=== PATIENT | female | born 1935 | race African-American/Black ===

== ENCOUNTER 2017-02-11 18:31 | Inpatient (IN) | payer MEDICARE ==
[~2017-02-11] VITALS: Ht 162.6 cm; Wt 49.9 kg
[2017-02-11] MEDS ORDERED: UNOBMED (18:55)
[2017-02-11] MEDS ORDERED: Bacitracin Oint UD TOPIC ONE (19:00)
[2017-02-11 19:05] VITALS: BP 143/78
--- NOTE | 2017-02-11 19:32 | Emergency Room Report ---
History of Present Illness General Chief Complaint: General Complaint Source: Patient Present Illness HPI Patient presents with worsening edema of her legs and also possible infection of her toes of. This has been going on for several days. It's worsened over the last 48 hours with some redness of the left leg. She denies any calf tenderness. The pain radiates to her upper leg and down to her foot. Both legs are swollen, however the L is worse. Pain reported 4/10 (daughter states minimizes symptoms). She is having difficulty walking due to the swelling and pain. She denies ever having this problem before. Denies chest pain cough, hemoptysis, fevers. She reports chills and lack of appetite. H/O HTN and cardiac disease, though denies CHF. Apparently, some concern over her ability to live by self. Allergies: Coded Allergies: No Known Allergies (Unverified , 02/11/17) Patient History Past Medical History: see triage record Social History: Denies: smoking Social History Narrative at home by self Reviewed Nursing Documentation: PMH: Agreed, PSxH: Agreed Nursing Documentation-PMH Past Medical History: No History, Except For Hx Hypertension: Yes Review of Systems All Other Systems: negative except mentioned in HPI Physical Exam Vital Signs Date Time Temp Pulse Resp B/P (MAP) Pulse Ox O2 Delivery O2 Flow Rate FiO2 02/11/17 18:35 98.1 105 18 154/87 98 Room Air Sp02 EP Interpretation: reviewed, normal General Appearance: no apparent distress, GCS 15, thin, other - frail Head: normocephalic Eyes: bilateral eye normal inspection, bilateral eye PERRL ENT: moist mucus membranes Neck: supple Respiratory: lungs clear, normal breath sounds Cardiovascular #1: regular rate, rhythm Cardiovascular #2: 2+ radial (R) Gastrointestinal: normal inspection, normal bowel sounds, non tender, no mass, non-distended Musculoskeletal: back normal, gait/station normal, normal range of motion, pelvis stable, calf tenderness, Sona's Sign negative Neurologic: alert, oriented x3, grossly normal Psychiatric: depressed affect Skin: warm/dry Medical Decision Making Diagnostic Impression: Primary Impression: Cellulitis Qualified Codes: L03.116 - Cellulitis of left lower limb Additional Impressions: Edema Qualified Codes: R60.9 - Edema, unspecified Declining functional status ER Course Patient presents with edema and erythema of leg. DDx: DVT, cellulitis, CHF, renal failure, malnutrition amongst others. Evaluation with EKG, CXR, xrays of tib fib and foot. Labs also obtained. Patient initially declines pain medicines. EKG below. CXR senile changes. Extrem films without osteo or fx. Labs with normal WBC, and cardiac function. Slightly high sodium and creat. IV antibiotics and some hydration initiated. Patient treated for pain. Some functional decline and concern over ability to care for self to take care of this problem. Laboratory Tests Test 02/11/17 19:25 White Blood Count 5.1 K/UL (4.8-10.8) Red Blood Count 3.61 M/UL (4.20-5.40) L Hemoglobin 12.0 G/DL (12.0-16.0) Hematocrit 34.4 % (37.0-47.0) L Mean Corpuscular Volume 95 FL (80-99) Mean Corpuscular Hemoglobin 33.2 PG (27.0-31.0) H Mean Corpuscular Hemoglobin Concent 34.9 G/DL (32.0-36.0) Red Cell Distribution Width 12.6 % (11.6-14.8) Platelet Count 190 K/UL (150-450) Mean Platelet Volume 7.8 FL (6.5-10.1) Neutrophils (%) (Auto) 72.9 % (45.0-75.0) Lymphocytes (%) (Auto) 19.6 % (20.0-45.0) L Monocytes (%) (Auto) 5.5 % (1.0-10.0) Eosinophils (%) (Auto) 1.0 % (0.0-3.0) Basophils (%) (Auto) 1.0 % (0.0-2.0) Erythrocyte Sedimentation Rate 32 MM/HR (0-42) Prothrombin Time 10.0 SEC (9.30-11.50) Prothrombin Time INR 1.0 (0.9-1.1) PTT 23 SEC (23-33) Sodium Level 147 mEQ/L (135-145) H Potassium Level 4.0 mEQ/L (3.4-4.9) Chloride Level 109 mEQ/L (98-107) H Carbon Dioxide Level 26 mEQ/L (20-30) Anion Gap 12 (5-15) Blood Urea Nitrogen 19 mg/dL (7-23) Creatinine 1.1 mg/dL (0.5-0.9) H Estimate Glomerular Filtration Rate mL/min (>60) Glucose Level 108 mg/dL (74-106) H Lactic Acid Level 1.70 mmol/L (0.66-2.22) Calcium Level 10.4 mg/dL (8.6-10.2) H Total Bilirubin 0.5 mg/dL (0.0-1.2) Aspartate Amino Transferase (AST) 19 U/L (5-40) Alanine Aminotransferase (ALT) 8 U/L (3-33) Alkaline Phosphatase 55 U/L (35-104) Total Creatine Kinase 58 U/L (26-140) Troponin I < 0.30 ng/mL (<=0.30) Pro-B-Type Natriuretic Peptide 520 pg/mL (0-450) H Total Protein 7.1 g/dL (6.6-8.7) Albumin 3.9 g/dL (3.5-5.2) Globulin 3.2 g/dL Albumin/Globulin Ratio 1.2 (1.0-2.7) EKG Diagnostic Results Rate: tachycardiac ST Segments: no acute changes Rhythm Strip Diag. Results Rhythm: NSR, no PVC's, no ectopy, other - Sinus tachycardia Chest X-Ray Diagnostic Results Chest X-Ray Diagnostic Results : Chest X-Ray Ordered: Yes # of Views/Limited/Complete: 1 View Indication: Other EP Interpretation: Yes Interpretation: no consolidation, no effusion, no pneumothorax, no acute cardiopulmonary disease Impression: No acute disease Interpreting ER Provider: Electronically signed by Vince Blanchard MD Other X-Ray Diagnostic Results Other X-Ray Diagnostic Results #1: X-Ray ordered: L foot # of Views/Limited Vs Complete: 3 View Indication: Other Interpretation: no dislocation, no soft tissue swelling, no fractures Impression: No acute disease Interpreting ER Provider: Electronically signed by Vince Blanchard MD Other X-Ray Diagnostic Results #2: X-Ray ordered: L tib fib # of Views/Limited Vs Complete: 2 View Indication: Other Interpretation: no dislocation, no soft tissue swelling, no fractures Impression: No acute disease Interpreting ER Provider: signed Vince Blanchard MD CT/MRI/US Diagnostic Results CT/MRI/US Diagnostic Results : Imaging Test Ordered: U/S LE Impression No DVT Status: improved Disposition: ADMITTED INPATIENT Condition: Serious Vince Blanchard M.D. Feb 11, 2017 19:32
[2017-02-11 19:48] LABS: LYMPHOCYTES % (AUTO) 19.6 % (20.0-45.0); MEAN CORPUSCULAR HEMOGLOBIN 33.2 PG (27.0-31.0); MEAN CORPUSCULAR HGB CONC 34.9 G/DL (32.0-36.0); MEAN CORPUSCULAR VOLUME 95 FL (80-99); MEAN PLATELET VOLUME 7.8 FL (6.5-10.1); MONOCYTES % (AUTO) 5.5 % (1.0-10.0); NEUTROPHILS % (AUTO) 72.9 % (45.0-75.0); PLATELET COUNT 190 K/UL (150-450); RED BLOOD COUNT 3.61 M/UL (4.20-5.40); RED CELL DISTRIBUTION WIDTH 12.6 % (11.6-14.8); WHITE BLOOD COUNT 5.1 K/UL (4.8-10.8)
[2017-02-11 19:57] LABS: TROPONIN I < 0.30 ng/mL (<=0.30)
[2017-02-11 20:00] LABS: ALANINE AMINOTRANSFERASE 8 U/L (3-33); ALBUMIN/GLOBULIN RATIO 1.2 (1.0-2.7); ANION GAP 12 (5-15); ASPARTATE AMINO TRANSFERASE 19 U/L (5-40); CALCIUM 10.4 mg/dL (8.6-10.2); CARBON DIOXIDE 26 mEQ/L (20-30); CHLORIDE 109 mEQ/L (98-107); CREATININE 1.1 mg/dL (0.5-0.9); HEMOLYSIS 13; SODIUM 147 mEQ/L (135-145); TOTAL PROTEIN 7.1 g/dL (6.6-8.7)
[2017-02-11 20:54] LABS: ERYTHROCYTE SEDIMENTATION RATE 32 MM/HR (0-42)
[2017-02-11] MEDS ORDERED: cefTRIAXone 1 GM in NS 55 ML IVPB ONE (22:00)
[2017-02-11 23:07] VITALS: BP 146/79
[2017-02-12] VITALS (8 sets, daily range): BP systolic 123–177; BP diastolic 72–118
[2017-02-12] MEDS ORDERED: Morphine Sulfate 2mg/ml Inj IVP PRN (00:30)
[2017-02-12] MEDS ORDERED: Nitroglycerin Subl 0.4mg tab (Bottle Of 25) SL PRN (00:30)
[2017-02-12] MEDS ORDERED: DuoNeb 0.5-3(2.5)mg/3ml neb HHN PRN (00:30)
[2017-02-12] MEDS ORDERED: Miralax 17gm pkt ORAL PRN (00:30)
[2017-02-12] MEDS ORDERED: Cefepime HCl 2 GM in D5W 110 ML IV SCH (09:00)
[2017-02-12] MEDS: Heparin 5000 units/ml inj SUBQ SCH ×2 (09:25→22:44)
--- NOTE | 2017-02-12 11:26 | Diagnostic Imaging Report ---
Indication: Pain Comparison: None Findings: 3 views of the left foot were obtained. No acute fractures, malalignment, erosions or periostitis are identified. Hallux valgus noted. Bone mineralization is within normal limits. Tissue swelling is present. Impression: No acute findings
--- NOTE | 2017-02-12 12:05 | Diagnostic Imaging Report ---
Indication: Dyspnea Comparison: None A single view chest radiograph was obtained. Findings: No definite infiltrate or pulmonary vascular congestion identified. The heart is enlarged. The aorta is mildly enlarged consistent with atherosclerotic vascular disease. The bones are osteopenic. Impression: No acute disease
--- NOTE | 2017-02-12 12:18 | Diagnostic Imaging Report ---
Indication: Pain Comparison: None Findings: Two views of the left tibia and fibula were obtained. No acute fracture definitely identified. The bones are osteopenic. There is soft tissue swelling present. There is a transverse lucency in the proximal tibia. Please correlate clinically and obtain left knee series is warranted. This is questionable for fracture. Impression: Questionable fracture involving the proximal tibia. Suggest left knee series as warranted clinically. Findings were conveyed to the emergency room Department
--- NOTE | 2017-02-12 16:10 | History and Physical ---
History of Present Illness General Date patient seen: Feb 12, 2017 Reason for Hospitalization: General Complaint Present Illness HPI 81 year old female with hx of Dementia, brought in by paramedics, with CC of worsening edema of her legs and also possible infection of her toes for several days. It's worsened over the last 48 hours with some redness of the left leg. She denies any calf tenderness. She was diagnosed to have acute cellulitis and admitted for further evaluation. Allergies: Coded Allergies: No Known Allergies (Unverified , 02/11/17) Medication History Miscellaneous Medications Unable to Obtain Medications (Unable To Obtain Meds), (Reported) Patient History Healthcare decision maker Resuscitation status Full Code Advanced Directive on File Past Medical/Surgical History Past Medical/Surgical History: (1) Isolation (social) (2) Alzheimer's dementia Review of Systems All Other Systems: negative except mentioned in HPI Physical Exam General Appearance: cachetic Lines, tubes and drains: peripheral Neck: non-tender, normal alignment Respiratory/Chest: chest wall non-tender, lungs clear Breasts: no masses Cardiovascular/Chest: normal peripheral pulses, normal rate Abdomen: normal bowel sounds, soft Genitourinary/Rectal: normal genital exam, normal rectal exam Extremities: normal range of motion, non-tender Last 24 Hour Vital Signs Date Time Temp Pulse Resp B/P (MAP) Pulse Ox O2 Delivery O2 Flow Rate FiO2 02/12/17 12:23 163/97 02/12/17 12:00 97.2 98 20 176/114 100 Room Air 02/12/17 10:30 98 151/101 02/12/17 09:00 161/99 91 02/12/17 08:04 58 18 Room Air 02/12/17 08:00 97.7 93 20 177/118 96 Room Air 02/12/17 04:03 97.7 81 20 138/88 96 Room Air 02/12/17 00:28 70 18 Room Air 02/12/17 00:05 98.1 76 18 137/72 98 Room Air 02/12/17 00:04 98.1 76 18 137/72 98 Room Air 02/11/17 23:07 98.1 72 18 146/79 98 Room Air 02/11/17 19:05 98.1 72 18 143/78 98 Room Air 02/11/17 18:35 98.1 105 18 154/87 98 Room Air Laboratory Tests Test 02/11/17 19:25 White Blood Count 5.1 K/UL (4.8-10.8) Red Blood Count 3.61 M/UL (4.20-5.40) L Hemoglobin 12.0 G/DL (12.0-16.0) Hematocrit 34.4 % (37.0-47.0) L Mean Corpuscular Volume 95 FL (80-99) Mean Corpuscular Hemoglobin 33.2 PG (27.0-31.0) H Mean Corpuscular Hemoglobin Concent 34.9 G/DL (32.0-36.0) Red Cell Distribution Width 12.6 % (11.6-14.8) Platelet Count 190 K/UL (150-450) Mean Platelet Volume 7.8 FL (6.5-10.1) Neutrophils (%) (Auto) 72.9 % (45.0-75.0) Lymphocytes (%) (Auto) 19.6 % (20.0-45.0) L Monocytes (%) (Auto) 5.5 % (1.0-10.0) Eosinophils (%) (Auto) 1.0 % (0.0-3.0) Basophils (%) (Auto) 1.0 % (0.0-2.0) Erythrocyte Sedimentation Rate 32 MM/HR (0-42) Prothrombin Time 10.0 SEC (9.30-11.50) Prothromb Time International Ratio 1.0 (0.9-1.1) Activated Partial Thromboplast Time 23 SEC (23-33) Sodium Level 147 mEQ/L (135-145) H Potassium Level 4.0 mEQ/L (3.4-4.9) Chloride Level 109 mEQ/L (98-107) H Carbon Dioxide Level 26 mEQ/L (20-30) Anion Gap 12 (5-15) Blood Urea Nitrogen 19 mg/dL (7-23) Creatinine 1.1 mg/dL (0.5-0.9) H Estimat Glomerular Filtration Rate mL/min (>60) Glucose Level 108 mg/dL (74-106) H Lactic Acid Level 1.70 mmol/L (0.66-2.22) Calcium Level 10.4 mg/dL (8.6-10.2) H Total Bilirubin 0.5 mg/dL (0.0-1.2) Aspartate Amino Transf (AST/SGOT) 19 U/L (5-40) Alanine Aminotransferase (ALT/SGPT) 8 U/L (3-33) Alkaline Phosphatase 55 U/L (35-104) Total Creatine Kinase 58 U/L (26-140) Troponin I < 0.30 ng/mL (<=0.30) Pro-B-Type Natriuretic Peptide 520 pg/mL (0-450) H Total Protein 7.1 g/dL (6.6-8.7) Albumin 3.9 g/dL (3.5-5.2) Globulin 3.2 g/dL Albumin/Globulin Ratio 1.2 (1.0-2.7) Height (Feet): 5 Height (Inches): 4.00 Weight (Pounds): 110 Medications Current Medications Medications (Trade) Dose Ordered Sig/Brayden Route PRN Reason Start Time Stop Time Status Last Admin Dose Admin Acetaminophen (Tylenol) 650 mg Q4H PRN ORAL fever 02/12/17 00:30 03/14/17 00:29 Albuterol/ Ipratropium (DuoNeb 0.5-3(2.5)mg/3ml) 3 ml EVERY 4 HOURS PRN HHN Shortness of Breath 02/12/17 00:30 02/17/17 00:29 Cefepime HCl 2 gm/ Dextrose 110 ml @ 220 mls/hr EVERY 12 HOURS IV 02/12/17 09:00 02/19/17 08:59 02/12/17 09:21 Clonidine HCl (Catapres) 0.1 mg Q4H PRN ORAL SBP > 160mmHg 02/12/17 10:15 03/14/17 10:14 02/12/17 12:23 Dextrose (Dextrose 50%) STAT PRN IV Hypoglycemia 02/12/17 00:30 03/14/17 00:29 Heparin Sodium (Porcine) (Heparin 5000 units/ml) 5,000 units EVERY 12 HOURS SUBQ 02/12/17 09:00 03/14/17 08:59 02/12/17 09:25 Morphine Sulfate (Morphine Sulfate) 2 mg EVERY 4 HOURS PRN IVP Moderate Pain (Pain Scale 4-6) 02/12/17 00:30 02/19/17 00:29 Nitroglycerin (Ntg) 0.4 mg PRN PRN SL Prn Chest Pain 02/12/17 00:30 03/14/17 00:29 Ondansetron HCl (Zofran) 4 mg Q6H PRN IVP Nausea & Vomiting 02/12/17 00:30 03/14/17 00:29 Polyethylene Glycol (Miralax) 17 gm DAILYPRN PRN ORAL Constipation 02/12/17 00:30 03/14/17 00:29 Temazepam (Restoril) 15 mg HSPRN PRN ORAL Insomnia 02/12/17 00:30 02/19/17 00:29 Vancomycin HCl 1 gm/Dextrose 275 ml @ 183.3 mls/ hr Q24H IV 02/13/17 00:30 02/18/17 00:29 Assessment/Plan Problem List: (1) Cellulitis ICD Codes: L03.90 - Cellulitis, unspecified SNOMED: 646829658 (2) Edema ICD Codes: R60.9 - Edema, unspecified SNOMED: 065792899, 513359865 (3) Protein-calorie malnutrition, severe ICD Codes: E43 - Unspecified severe protein-calorie malnutrition SNOMED: 899172444 (4) Isolation (social) ICD Codes: Z60.4 - Social exclusion and rejection SNOMED: 165969660 (5) Alzheimer's dementia ICD Codes: G30.9 - Alzheimer's disease, unspecified SNOMED: 60385418 Assessment/Plan iv abx check cultures social service consult pt/ot calorie count LILI GRANADOS Feb 12, 2017 16:10
[2017-02-12] MEDS ORDERED: Vancomycin 1gm/D5W 275ml IVPB ONE ×2 (17:00)
[2017-02-13] VITALS: BP 128/87
--- NOTE | 2017-02-13 00:15 | Consultation ---
DATE OF CONSULTATION: 02/12/2017 INFECTIOUS DISEASE CONSULTATION CONSULTING PHYSICIAN: Arnaldo Corona M.D. covering for Uriah Roman M.D. REQUESTING PHYSICIAN: Bharathi Ugalde M.D. REASON FOR CONSULTATION: Possible lower extremity cellulitis. HISTORY OF PRESENT ILLNESS: This is an 81-year-old -[place] female presented to the emergency room late last night with worsening bilateral lower extremity edema and concern for infection of her toes. The patient notes that lower extremity edema has been present for several days. It worsens over the last 48 hours with some redness of the left leg. She denied any fevers or chills. No nausea, vomiting, diarrhea, abdominal pain, lethargy, dizziness, anorexia or inability to tolerate p.o. She denied any particular calf tenderness. She denies any water exposure. 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 She denies any prior history of lower extremity infection. She reports a past medical history notable for remote history of total abdominal hysterectomy. In the emergency room, initial temperature was afebrile at 98.1 Fahrenheit and she was noted to be hypertensive without tachycardia and appeared comfortable saturating on room air. Initial evaluation notable for an absence of leukocytosis with a white count of 5.1 and her chemistry notable for a mildly elevated serum creatinine of 1.1 without a prior for comparison. A mildly elevated calcium at 10.4, normal albumin at 3.9, and elevated proBNP at 520 picograms/milliliter were given for age, less than 450 would be considered normal. She was empirically given a dose of ceftriaxone and levofloxacin and then subsequently switched to vancomycin and cefepime, which she has been receiving overnight. She had a chest x-ray that was negative for an infiltrate or effusion. She had bilateral lower extremity Dopplers, which was negative for deep venous thrombosis. She had an x-ray of her left foot that showed some tissue swelling diffusely, but no fractures or misalignments. No erosions or periostitis. She does have a hallux valgus deformity. She subsequently had a left tibia fibula x-ray. There was a concern for a possible transverse lucency in the proximal tibia and Radiology recommended considering a left knee x-ray. PAST MEDICAL HISTORY: History of total abdominal hysterectomy, probable history of mild to moderate Alzheimer's dementia, and a probable history of hypertension. MEDICATIONS: Home medications are not known. The patient reports possibly taking Aleve as needed for osteoarthritis pain. ALLERGIES: No known drug allergies. FAMILY HISTORY: Noncontributory. 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 She lives at home by herself locally. No sick contacts. REVIEW OF SYSTEMS: Eleven-point review of systems otherwise negative other than what was described in the history of present illness. PHYSICAL EXAMINATION: VITAL SIGNS: Again, she has been afebrile since admission late last night. Current temperature 97.3 Fahrenheit, pulse 91, blood pressure 149/92, respiratory rate 20, and saturating 98% on room air. GENERAL: She is awake, alert, and oriented x3, but tangential thought, difficulty answering detail questions, unable to described when or if she has ever been on antibiotics or had a prior history of infection. HEENT: Oral mucosa is somewhat dry. No oropharyngeal injection. No exudate. NECK: She has no cervical lymphadenopathy and her neck is supple. CARDIOVASCULAR: She has a loud 4/6 systolic ejection murmur heard best at the left upper sternal border and does not radiate to the carotid. She does not have any carotid bruits. LUNGS: Clear to auscultation bilaterally. ABDOMEN: Soft, flat, and nontender. No hepatosplenomegaly noted. She has no inguinal lymphadenopathy. EXTREMITIES: She has trace right-sided lower extremity edema up to the level of mid calf. Her left lower extremity, she has trace pitting edema all the way up to the knee and you could see indentation mc from where the sheets and blankets have been laying on her leg. She has macerations between her toes with a somewhat foul smell consistent with Tinea pedis and then she also has a very severe onychomycosis, but otherwise she does not have any skin breaks and there was really no significant erythema which apparently has resolved with elevation of her lower extremities. LABORATORY DATA: White count 5.1, hemoglobin 12, and platelets 190,000. She does not have a left shift and ESR corrects for normal based on her age at 32 millimeters/hour. Chemistry panel, sodium 147, potassium 4, chloride 109, and bicarb 26. There is no anion gap. BUN 19, creatinine 1.1. She has a glucose of 108. Normal serum lactic acid. A calcium of 10.4, which is mildly elevated. Bilirubin is 0.5. AST is 19, ALT 8, and alkaline phosphatase is 55. She has normal creatine kinase of 58. A negative troponin I. She has a proBNP that is 520. Total protein 7.1. Albumin of 3.9. She does not have a urinalysis pending. Blood cultures appeared to be ordered in the emergency room and are so far no growth to date. Imaging as described in the history of present illness. ASSESSMENT: This is an 81-year-old Gpslifn-Bymhnjzl-wvufuz with cjyq-de-nqmtflqi dementia admitted without fevers or leukocytosis for what appears to be lower extremity venous stasis that has responded to elevation in the rest of the extremities. She is also on empiric intravenous vancomycin and cefepime. She does also have bilateral feet tinea pedis and then she has severe onychomycosis of all of her toenails. She is not toxic in appearance. No systemic signs and symptoms of infection. Her ESR is very reassuring as is a normal white blood cell count. I think a skin and soft tissue infection here is unlikely but she is responding I think mostly at rest and elevation, but she has been on antibiotics. We would continue them at this time, but will narrow them them as it does not appear that she is a diabetic. I think it would be worthwhile to rule her out for some degree of proteinuria given her apparently fairly uncontrolled hypertension. She may be at risk of proteinuria as an alternate explanation for lower extremity edema other than what appears to be mild venous stasis exacerbated by the recent heat. 1. Lower extremity edema. 2. Venous stasis. 3. Bilateral tinea pedis. 4. Severe onychomycosis of the toenails. 5. Rule out alternative etiology of lower extremity edema to include proteinuria. 6. Rule out diabetes although she does not give a history. 7. Rule out left proximal tibia fracture although her exam does not suggest it. PLAN: 1. Discontinue cefepime. 2. Continue empiric intravenous vancomycin currently on day #1 of therapy. 3. Followup of blood cultures. 4. Obtain hemoglobin A1c. 5. Rule out for MRSA colonization with MRSA culture of the nares. 6. Obtain urinalysis to rule out proteinuria along with a spot protein/creatinine ratio. 7. Left knee three view x-ray to rule out low likelihood of proximal tibia fracture. 8. Continue rest and elevation of the lower extremities as you are doing. 9. We will start her on topical Cotrimoxazole for tinea pedis. Thank you this consultation. Covering for Dr. Uriah Roman. Arnaldo Corona MD DR: LONNIE JOB#: [id number] CC:
[2017-02-13] MEDS ORDERED: Vancomycin 1 GM in D5W 275 ML IV SCH (00:30)
[2017-02-13 01:43] LABS: APPEARANCE,URINE CLEAR; KETONES,URINE NEGATIVE (NEGATIVE); LEUKOCYTE ESTERASE ,URINE NEGATIVE (NEGATIVE); NITRITE,URINE NEGATIVE (NEGATIVE); PH,URINE 8 (4.5-8.0); PROTEIN,URINE NEGATIVE (NEGATIVE); UROBILINOGEN,URINE NORMAL MG/DL (0.0-1.0)
[2017-02-13 04:00] VITALS: BP 138/90
[2017-02-13 07:40] LABS: BASOPHILS % (AUTO) 0.5 % (0.0-2.0); EOSINOPHILS % (AUTO) 5.4 % (0.0-3.0); LYMPHOCYTES % (AUTO) 25.9 % (20.0-45.0); MEAN CORPUSCULAR HEMOGLOBIN 32.3 PG (27.0-31.0); MEAN CORPUSCULAR HGB CONC 33.5 G/DL (32.0-36.0); MEAN CORPUSCULAR VOLUME 96 FL (80-99); MEAN PLATELET VOLUME 8.8 FL (6.5-10.1); MONOCYTES % (AUTO) 6.8 % (1.0-10.0); NEUTROPHILS % (AUTO) 61.4 % (45.0-75.0); PLATELET COUNT 193 K/UL (150-450); RED BLOOD COUNT 3.52 M/UL (4.20-5.40); RED CELL DISTRIBUTION WIDTH 12.3 % (11.6-14.8); WHITE BLOOD COUNT 4.2 K/UL (4.8-10.8)
[2017-02-13 07:56] LABS: ALANINE AMINOTRANSFERASE 7 U/L (3-33); ANION GAP 8 (5-15); ASPARTATE AMINO TRANSFERASE 15 U/L (5-40); CALCIUM 10.1 mg/dL (8.6-10.2); CARBON DIOXIDE 25 mEQ/L (20-30); CHLORIDE 105 mEQ/L (98-107); HEMOLYSIS 4; POTASSIUM 4.2 mEQ/L (3.4-4.9); SODIUM 138 mEQ/L (135-145); TOTAL PROTEIN 6.3 g/dL (6.6-8.7)
[2017-02-13 08:00] VITALS: BP 178/99
[2017-02-13] MEDS ORDERED: Cefepime HCl 2 GM in D5W 110 ML IV SCH (09:00)
[2017-02-13] MEDS: Heparin 5000 units/ml inj SUBQ SCH ×2 (09:43→20:20)
--- NOTE | 2017-02-13 10:16 | Diagnostic Imaging Report ---
Indication: FALL, pain Technique: 3 views of the left knee Comparison: None Findings:There is mottled sclerosis of the distal femur and proximal tibia, particularly involving the epiphyses. Similar sclerosis also involves the patella. There is questionable more diffuse medullary sclerosis of the tibia and fibula. No evidence of acute fracture. No dislocations. The joint spaces are preserved. There are small medial and lateral osteophytes. There is a inferior pole patellar spur Impression:No acute bony trauma Unusual mottled sclerosis of the distal femur, proximal tibia, and patella. Significance/etiology uncertain, could indicate some sort of metabolic bone disorder. Correlate with clinical and laboratory findings Findings discussed by phone with Dr. Han in the emergency room at the time of interpretation
[2017-02-13 12:00] VITALS: BP 182/100
[2017-02-13 16:00] VITALS: BP 185/110
--- NOTE | 2017-02-13 16:24 | Pulmonology Progress Note ---
Assessment/Plan Problems: (1) Cellulitis (2) Edema (3) Protein-calorie malnutrition, severe (4) Isolation (social) (5) Alzheimer's dementia Assessment/Plan improving d/w daughter about placement f/u by Id pt/ ot Subjective ROS Limited/Unobtainable: No Interval Events: feeling better Allergies: Coded Allergies: No Known Allergies (Unverified , 02/11/17) Objective Last 24 Hour Vital Signs Date Time Temp Pulse Resp B/P (MAP) Pulse Ox O2 Delivery O2 Flow Rate FiO2 02/13/17 16:00 98.2 89 20 185/110 100 Room Air 02/13/17 12:00 97.3 83 20 182/100 99 Room Air 02/13/17 11:01 98.4 02/13/17 08:00 98.4 81 20 178/99 99 Room Air 02/13/17 06:48 68 18 Room Air 02/13/17 04:00 98.8 81 18 138/90 97 Room Air 02/13/17 00:00 99.0 86 18 128/87 99 Room Air 02/12/17 20:00 99.0 86 18 123/76 99 Room Air 02/12/17 19:49 64 18 Room Air General Appearance: no acute distress, cachetic HEENT: normocephalic, PERRL Respiratory/Chest: chest wall non-tender, normal breath sounds Breasts: no masses Cardiovascular: normal peripheral pulses Abdomen: normal bowel sounds, soft, non tender Genitourinary: normal external genitalia Extremities: no clubbing Skin: no rash, no lesions Microbiology Date/Time Source Procedure Growth Status 02/11/17 19:25 Blood Blood Culture - Preliminary NO GROWTH AFTER 24 HOURS Resulted 02/11/17 19:10 Blood Blood Culture - Preliminary NO GROWTH AFTER 24 HOURS Resulted Laboratory Tests 02/12/17 19:25: Hemoglobin A1c 5.1 02/13/17 00:45: Urine Color Pale yellow, Urine Appearance Clear, Urine pH 8, Urine Specific [place] 1.010, Urine Protein Negative, Urine Glucose (UA) Negative, Urine Ketones Negative, Urine Occult Blood Negative, Urine Nitrite Negative, Urine Bilirubin Negative, Urine Urobilinogen Normal, Urine Leukocyte Esterase Negative , Urine Random Total Protein 8, Urine Creatinine 54.0 02/13/17 06:45: White Blood Count 4.2L, Red Blood Count 3.52L, Hemoglobin 11.3L, Hematocrit 33.8L, Mean Corpuscular Volume 96, Mean Corpuscular Hemoglobin 32.3H, Mean Corpuscular Hemoglobin Concent 33.5, Red Cell Distribution Width 12.3, Platelet Count 193, Mean Platelet Volume 8.8, Neutrophils (%) (Auto) 61.4, Lymphocytes (% ) (Auto) 25.9, Monocytes (%) (Auto) 6.8, Eosinophils (%) (Auto) 5.4H, Basophils (%) (Auto) 0.5, Sodium Level 138, Potassium Level 4.2, Chloride Level 105, Carbon Dioxide Level 25, Anion Gap 8, Blood Urea Nitrogen 15, Creatinine 1.0H, Estimat Glomerular Filtration Rate , Glucose Level 92, Calcium Level 10.1, Total Bilirubin 0.5, Aspartate Amino Transf (AST/SGOT) 15, Alanine Aminotransferase (ALT/SGPT) 7, Alkaline Phosphatase 49, Total Protein 6.3L, Albumin 3.2L, Globulin 3.1, Albumin/Globulin Ratio 1.0 Current Medications Medications (Trade) Dose Ordered Sig/Brayden Route PRN Reason Start Time Stop Time Status Last Admin Dose Admin Acetaminophen (Tylenol) 650 mg Q4H PRN ORAL fever 02/12/17 00:30 03/14/17 00:29 02/13/17 09:41 Albuterol/ Ipratropium (DuoNeb 0.5-3(2.5)mg/3ml) 3 ml EVERY 4 HOURS PRN HHN Shortness of Breath 02/12/17 00:30 02/17/17 00:29 Clonidine HCl (Catapres) 0.1 mg Q4H PRN ORAL SBP > 160mmHg 02/12/17 10:15 03/14/17 10:14 02/12/17 12:23 Clotrimazole (Lotrimin) 1 applic THREE TIMES A DAY TOPIC 02/12/17 18:30 02/17/17 18:29 02/13/17 09:00 Dextrose (Dextrose 50%) STAT PRN IV Hypoglycemia 02/12/17 00:30 03/14/17 00:29 Heparin Sodium (Porcine) (Heparin 5000 units/ml) 5,000 units EVERY 12 HOURS SUBQ 02/12/17 09:00 03/14/17 08:59 02/13/17 09:43 Morphine Sulfate (Morphine Sulfate) 2 mg EVERY 4 HOURS PRN IVP Moderate Pain (Pain Scale 4-6) 02/12/17 00:30 02/19/17 00:29 Nitroglycerin (Ntg) 0.4 mg PRN PRN SL Prn Chest Pain 02/12/17 00:30 03/14/17 00:29 Ondansetron HCl (Zofran) 4 mg Q6H PRN IVP Nausea & Vomiting 02/12/17 00:30 03/14/17 00:29 Polyethylene Glycol (Miralax) 17 gm DAILYPRN PRN ORAL Constipation 02/12/17 00:30 03/14/17 00:29 Temazepam (Restoril) 15 mg HSPRN PRN ORAL Insomnia 02/12/17 00:30 02/19/17 00:29 Vancomycin HCl (Vanco rx to dose) 1 ea DAILY PRN MISC PER RX PROTOCOL 02/12/17 16:45 03/14/17 16:44 Vancomycin/Sodium Chloride 250 ml @ 166.667 mls/hr Q24H IVPB 02/13/17 17:00 02/18/17 16:59 LILI GRANADOS Feb 13, 2017 16:24
--- NOTE | 2017-02-13 16:28 | Cardiology Report ---
APPROVED REPORT EKG Measurement Heart [id number] Sinus tachycardia Possible Left atrial enlargement Right bundle branch block Abnormal ECG
[2017-02-13] MEDS ORDERED: CLOTRIMAZOLE15 GM TOPIC (16:41)
[2017-02-13] MEDS ORDERED: KEFLEX500 M1 ORAL (16:42)
--- NOTE | 2017-02-13 16:50 | Infectious Diseases Prog Note ---
Assessment/Plan Assessment/Plan 1. Lower extremity edema. 2. Venous stasis. 3. Bilateral tinea pedis. 4. Severe onychomycosis of the toenails. 5. non nephrotic range proteinuria: 148mg/d equivalent on spot prot/Cr ratio 6. not diabetic. hgba1c <6. 7. Ruled out L tibial plateau fracture. 8. blood cx ngtd at 48 hrs 9. afebrile, no leukocytosis. Alzheimer's PLAN: --d/c IV vanc D#2 (02/12 s/p cefepime D#1) --keflex 500mg po QID D#2 --Continue rest and elevation of the lower extremities as you are doing. --Continue topical Cotrimoxazole for tinea pedis D#07/17 --f/u with PCM for radiographic evidence of possible metabolic bone disease okay for discharge from ID perspective. covering for Dr. Roman. Subjective Constitutional: Reports: no symptoms Respiratory: Reports: no symptoms Cardiovascular: Reports: no symptoms Gastrointestinal/Abdominal: Reports: no symptoms Skin: Reports: no symptoms Hematologic: Reports: no symptoms Musculoskeletal: Reports: no symptoms Allergies: Coded Allergies: No Known Allergies (Unverified , 02/11/17) Objective Vital Signs Last 24 Hour Vital Signs Date Time Temp Pulse Resp B/P (MAP) Pulse Ox O2 Delivery O2 Flow Rate FiO2 02/13/17 16:00 98.2 89 20 185/110 100 Room Air 02/13/17 12:00 97.3 83 20 182/100 99 Room Air 02/13/17 11:01 98.4 02/13/17 08:00 98.4 81 20 178/99 99 Room Air 02/13/17 06:48 68 18 Room Air 02/13/17 04:00 98.8 81 18 138/90 97 Room Air 02/13/17 00:00 99.0 86 18 128/87 99 Room Air 02/12/17 20:00 99.0 86 18 123/76 99 Room Air 02/12/17 19:49 64 18 Room Air Height (Feet): 5 Height (Inches): 4.00 Weight (Pounds): 110 Objective GENERAL: She is awake, alert, and oriented x3, but tangential thought, difficulty answering detail questions, unable to described when or if she has ever been on antibiotics or had a prior history of infection. HEENT: Oral mucosa is somewhat dry. No oropharyngeal injection. No exudate. NECK: She has no cervical lymphadenopathy and her neck is supple. CARDIOVASCULAR: She has a loud 4/6 systolic ejection murmur heard best at the left upper sternal border and does not radiate to the carotid. She does not have any carotid bruits. LUNGS: Clear to auscultation bilaterally. ABDOMEN: Soft, flat, and nontender. No hepatosplenomegaly noted. She has no inguinal lymphadenopathy. EXTREMITIES: She has trace right-sided lower extremity edema up to the level of mid calf. Her left lower extremity, she has trace pitting edema all the way up to the knee and you could see indentation mc from where the sheets and blankets have been laying on her leg. She has macerations between her toes with a somewhat foul smell consistent with Tinea pedis and then she also has a very severe onychomycosis, but otherwise she does not have any skin breaks and there was really no significant erythema which apparently has resolved with elevation of her lower extremities. Microbiology Date/Time Source Procedure Growth Status 02/11/17 19:25 Blood Blood Culture - Preliminary NO GROWTH AFTER 24 HOURS Resulted 02/11/17 19:10 Blood Blood Culture - Preliminary NO GROWTH AFTER 24 HOURS Resulted Laboratory Tests Test 02/12/17 19:25 02/13/17 00:45 02/13/17 06:45 Hemoglobin A1c 5.1 % (< 6.0) Urine Color Pale yellow Urine Appearance Clear Urine pH 8 (4.5-8.0) Urine Specific [place] 1.010 (1.005-1.035) Urine Protein Negative (NEGATIVE) Urine Glucose (UA) Negative (NEGATIVE) Urine Ketones Negative (NEGATIVE) Urine Occult Blood Negative (NEGATIVE) Urine Nitrite Negative (NEGATIVE) Urine Bilirubin Negative (NEGATIVE) Urine Urobilinogen Normal MG/DL (0.0-1.0) Urine Leukocyte Esterase Negative (NEGATIVE) Urine Random Total Protein 8 mg/dL Urine Creatinine 54.0 mg/dL White Blood Count 4.2 K/UL (4.8-10.8) L Red Blood Count 3.52 M/UL (4.20-5.40) L Hemoglobin 11.3 G/DL (12.0-16.0) L Hematocrit 33.8 % (37.0-47.0) L Mean Corpuscular Volume 96 FL (80-99) Mean Corpuscular Hemoglobin 32.3 PG (27.0-31.0) H Mean Corpuscular Hemoglobin Concent 33.5 G/DL (32.0-36.0) Red Cell Distribution Width 12.3 % (11.6-14.8) Platelet Count 193 K/UL (150-450) Mean Platelet Volume 8.8 FL (6.5-10.1) Neutrophils (%) (Auto) 61.4 % (45.0-75.0) Lymphocytes (%) (Auto) 25.9 % (20.0-45.0) Monocytes (%) (Auto) 6.8 % (1.0-10.0) Eosinophils (%) (Auto) 5.4 % (0.0-3.0) H Basophils (%) (Auto) 0.5 % (0.0-2.0) Sodium Level 138 mEQ/L (135-145) Potassium Level 4.2 mEQ/L (3.4-4.9) Chloride Level 105 mEQ/L (98-107) Carbon Dioxide Level 25 mEQ/L (20-30) Anion Gap 8 (5-15) Blood Urea Nitrogen 15 mg/dL (7-23) Creatinine 1.0 mg/dL (0.5-0.9) H Estimat Glomerular Filtration Rate mL/min (>60) Glucose Level 92 mg/dL (74-106) Calcium Level 10.1 mg/dL (8.6-10.2) Total Bilirubin 0.5 mg/dL (0.0-1.2) Aspartate Amino Transf (AST/SGOT) 15 U/L (5-40) Alanine Aminotransferase (ALT/SGPT) 7 U/L (3-33) Alkaline Phosphatase 49 U/L (35-104) Total Protein 6.3 g/dL (6.6-8.7) L Albumin 3.2 g/dL (3.5-5.2) L Globulin 3.1 g/dL Albumin/Globulin Ratio 1.0 (1.0-2.7) Patient : SEN TOMLIN Delmi Referring Physician: Arnaldo Corona M.D. ID Number: [id number] Service Date: 02/13/17 : 1935 Report Date: 02/13/17 Gender: F Accession No.: [id number] Location: 4E Procedure: XRAY Knee 3v L Indication: FALL, pain Technique: 3 views of the left knee Comparison: None Findings:There is mottled sclerosis of the distal femur and proximal tibia, particularly involving the epiphyses. Similar sclerosis also involves the patella. There is questionable more diffuse medullary sclerosis of the tibia and fibula. No evidence of acute fracture. No dislocations. The joint spaces are preserved. There are small medial and lateral osteophytes. There is a inferior pole patellar spur Impression:No acute bony trauma Unusual mottled sclerosis of the distal femur, proximal tibia, and patella. Significance/etiology uncertain, could indicate some sort of metabolic bone disorder. Correlate with clinical and laboratory findings Current Medications Medications (Trade) Dose Ordered Sig/Brayden Route PRN Reason Start Time Stop Time Status Last Admin Dose Admin Acetaminophen (Tylenol) 650 mg Q4H PRN ORAL fever 02/12/17 00:30 03/14/17 00:29 02/13/17 09:41 Albuterol/ Ipratropium (DuoNeb 0.5-3(2.5)mg/3ml) 3 ml EVERY 4 HOURS PRN HHN Shortness of Breath 02/12/17 00:30 02/17/17 00:29 Cephalexin (Keflex) 500 mg FOUR TIMES A DAY ORAL 02/13/17 18:00 02/19/17 08:00 UNV Clonidine HCl (Catapres) 0.1 mg Q4H PRN ORAL SBP > 160mmHg 02/12/17 10:15 03/14/17 10:14 02/12/17 12:23 Clotrimazole (Lotrimin) 1 applic THREE TIMES A DAY TOPIC 02/12/17 18:30 02/17/17 18:29 02/13/17 09:00 Dextrose (Dextrose 50%) STAT PRN IV Hypoglycemia 02/12/17 00:30 03/14/17 00:29 Heparin Sodium (Porcine) (Heparin 5000 units/ml) 5,000 units EVERY 12 HOURS SUBQ 02/12/17 09:00 03/14/17 08:59 02/13/17 09:43 Morphine Sulfate (Morphine Sulfate) 2 mg EVERY 4 HOURS PRN IVP Moderate Pain (Pain Scale 4-6) 02/12/17 00:30 02/19/17 00:29 Nitroglycerin (Ntg) 0.4 mg PRN PRN SL Prn Chest Pain 02/12/17 00:30 03/14/17 00:29 Ondansetron HCl (Zofran) 4 mg Q6H PRN IVP Nausea & Vomiting 02/12/17 00:30 03/14/17 00:29 Polyethylene Glycol (Miralax) 17 gm DAILYPRN PRN ORAL Constipation 02/12/17 00:30 03/14/17 00:29 Temazepam (Restoril) 15 mg HSPRN PRN ORAL Insomnia 02/12/17 00:30 02/19/17 00:29 Arnaldo Corona M.D. Feb 13, 2017 16:50
[2017-02-13] MEDS ORDERED: Vancomycin 750mg/NS 250ml IVPB SCH (17:00)
[2017-02-13] MEDS: Cephalexin 500mg cap ORAL SCH ×2 (17:19→20:19)
[2017-02-13 20:00] VITALS: BP 117/70
[2017-02-14] VITALS: BP 141/77
[2017-02-14 04:00] VITALS: BP 138/72
[2017-02-14 08:13] VITALS: BP 141/85
[2017-02-14] MEDS: Cephalexin 500mg cap ORAL SCH ×5 (08:19→21:10)
[2017-02-14] MEDS: Heparin 5000 units/ml inj SUBQ SCH ×2 (08:21→21:11)
[2017-02-14 11:48] VITALS: BP 189/113
--- NOTE | 2017-02-14 14:50 | Diagnostic Imaging Report ---
APPROVED REPORT CPT Code: 99713 Present Symptoms Comments: Pain BILATERAL: Imaging reveals a patent deep venous system bilaterally. There is no evidence of thrombus within the femoral, popliteal or tibial segments. The greater saphenous veins are also within normal limits. Doppler indicates normal spontaneous flow within these segments.
[2017-02-14 15:45] VITALS: BP 139/88
[2017-02-14] MEDS ORDERED: LEXAPRO10 MG ORAL (16:16)
--- NOTE | 2017-02-14 16:18 | Pulmonology Progress Note ---
Assessment/Plan Problems: (1) Cellulitis (2) Edema (3) Protein-calorie malnutrition, severe (4) Isolation (social) (5) Alzheimer's dementia Assessment/Plan improving d/w daughter about placement f/u by Id pt/ ot dc to [email or web address] as requested by pts daughter Subjective ROS Limited/Unobtainable: No Constitutional: Reports: no symptoms HEENT: Repors: no symptoms Respiratory: Reports: no symptoms Allergies: Coded Allergies: No Known Allergies (Unverified , 02/11/17) Objective Last 24 Hour Vital Signs Date Time Temp Pulse Resp B/P (MAP) Pulse Ox O2 Delivery O2 Flow Rate FiO2 02/14/17 15:45 98.2 78 20 139/88 100 Room Air 02/14/17 11:48 98.0 102 20 189/113 100 Room Air 02/14/17 08:20 96 18 Room Air 02/14/17 08:13 98.4 96 20 141/85 96 Room Air 02/14/17 04:00 97.5 70 20 138/72 100 Room Air 02/14/17 00:00 97.5 73 20 141/77 100 Room Air 02/13/17 20:09 83 18 Room Air 02/13/17 20:00 99.0 84 18 117/70 100 Room Air Intake and Output 02/14/17 02/15/17 18:59 06:59 Intake Total 240 ml Balance 240 ml Intake Oral 240 ml # Bowel Movements 1 General Appearance: WD/WN HEENT: normocephalic, atraumatic Respiratory/Chest: chest wall non-tender, lungs clear Breasts: no masses Cardiovascular: normal peripheral pulses, normal rate Abdomen: normal bowel sounds, soft, non tender Genitourinary: normal external genitalia Extremities: no cyanosis Skin: no rash Neurologic/Psychiatric: no motor/sensory deficits Lymphatic: no neck adenopathy Musculoskeletal: normal muscle bulk Microbiology Date/Time Source Procedure Growth Status 02/11/17 19:25 Blood Blood Culture - Preliminary NO GROWTH AFTER 48 HOURS Resulted 02/11/17 19:10 Blood Blood Culture - Preliminary NO GROWTH AFTER 48 HOURS Resulted 02/12/17 19:22 Nasal Nares MRSA Culture - Final NO METHICILLIN RESISTANT STAPH AUREUS... Complete Current Medications Medications (Trade) Dose Ordered Sig/Brayden Route PRN Reason Start Time Stop Time Status Last Admin Dose Admin Acetaminophen (Tylenol) 650 mg Q4H PRN ORAL fever 02/12/17 00:30 03/14/17 00:29 02/13/17 09:41 Albuterol/ Ipratropium (DuoNeb 0.5-3(2.5)mg/3ml) 3 ml EVERY 4 HOURS PRN HHN Shortness of Breath 02/12/17 00:30 02/17/17 00:29 Cephalexin (Keflex) 500 mg FOUR TIMES A DAY ORAL 02/13/17 18:00 02/19/17 08:00 02/14/17 08:19 Clonidine HCl (Catapres) 0.1 mg Q4H PRN ORAL SBP > 160mmHg 02/12/17 10:15 03/14/17 10:14 02/12/17 12:23 Clotrimazole (Lotrimin) 1 applic THREE TIMES A DAY TOPIC 02/12/17 18:30 02/17/17 18:29 02/14/17 11:47 Dextrose (Dextrose 50%) STAT PRN IV Hypoglycemia 02/12/17 00:30 03/14/17 00:29 Escitalopram Oxalate (Lexapro) 10 mg DAILY ORAL 02/14/17 11:00 03/16/17 10:59 02/14/17 11:16 Heparin Sodium (Porcine) (Heparin 5000 units/ml) 5,000 units EVERY 12 HOURS SUBQ 02/12/17 09:00 03/14/17 08:59 02/14/17 08:21 Morphine Sulfate (Morphine Sulfate) 2 mg EVERY 4 HOURS PRN IVP Moderate Pain (Pain Scale 4-6) 02/12/17 00:30 02/19/17 00:29 Nitroglycerin (Ntg) 0.4 mg PRN PRN SL Prn Chest Pain 02/12/17 00:30 03/14/17 00:29 Ondansetron HCl (Zofran) 4 mg Q6H PRN IVP Nausea & Vomiting 02/12/17 00:30 03/14/17 00:29 Polyethylene Glycol (Miralax) 17 gm DAILYPRN PRN ORAL Constipation 02/12/17 00:30 03/14/17 00:29 Temazepam (Restoril) 15 mg HSPRN PRN ORAL Insomnia 02/12/17 00:30 02/19/17 00:29 LILI GRANADOS Feb 14, 2017 16:18
--- NOTE | 2017-02-14 17:40 | Infectious Diseases Prog Note ---
Assessment/Plan Assessment/Plan Assessment/Plan: 1. Lower extremity edema. 2. Venous stasis. 3. Bilateral tinea pedis. 4. Severe onychomycosis of the toenails. 5. non nephrotic range proteinuria: 148mg/d equivalent on spot prot/Cr ratio 6. not diabetic. hgba1c <6. 7. Ruled out L tibial plateau fracture. 8. blood cx ngtd at 48 hrs 9. afebrile, no leukocytosis. Alzheimer's PLAN: --keflex 500mg po QID and topical Cotrimoxazole for tinea pedis D# 3 /7 -- ( 02/12 SP IV vanc D#2 ) (02/12 s/p cefepime D#1) Subjective Constitutional: Denies: no symptoms, fever, chills, fatigue, anorexia, drenching sweats, other Allergies: Coded Allergies: No Known Allergies (Unverified , 02/11/17) Objective Vital Signs Last 24 Hour Vital Signs Date Time Temp Pulse Resp B/P (MAP) Pulse Ox O2 Delivery O2 Flow Rate FiO2 02/14/17 15:45 98.2 78 20 139/88 100 Room Air 02/14/17 11:48 98.0 102 20 189/113 100 Room Air 02/14/17 08:20 96 18 Room Air 02/14/17 08:13 98.4 96 20 141/85 96 Room Air 02/14/17 04:00 97.5 70 20 138/72 100 Room Air 02/14/17 00:00 97.5 73 20 141/77 100 Room Air 02/13/17 20:09 83 18 Room Air 02/13/17 20:00 99.0 84 18 117/70 100 Room Air Height (Feet): 5 Height (Inches): 4.00 Weight (Pounds): 110 HEENT: mucous membranes moist Respiratory/Chest: no respiratory distress Cardiovascular: regular rhythm Abdomen: no mass Microbiology Date/Time Source Procedure Growth Status 02/11/17 19:25 Blood Blood Culture - Preliminary NO GROWTH AFTER 48 HOURS Resulted 02/11/17 19:10 Blood Blood Culture - Preliminary NO GROWTH AFTER 48 HOURS Resulted 02/12/17 19:22 Nasal Nares MRSA Culture - Final NO METHICILLIN RESISTANT STAPH AUREUS... Complete Current Medications Medications (Trade) Dose Ordered Sig/Brayden Route PRN Reason Start Time Stop Time Status Last Admin Dose Admin Acetaminophen (Tylenol) 650 mg Q4H PRN ORAL fever 02/12/17 00:30 03/14/17 00:29 02/13/17 09:41 Albuterol/ Ipratropium (DuoNeb 0.5-3(2.5)mg/3ml) 3 ml EVERY 4 HOURS PRN HHN Shortness of Breath 02/12/17 00:30 02/17/17 00:29 Cephalexin (Keflex) 500 mg FOUR TIMES A DAY ORAL 02/13/17 18:00 02/19/17 08:00 02/14/17 16:58 Clonidine HCl (Catapres) 0.1 mg Q4H PRN ORAL SBP > 160mmHg 02/12/17 10:15 03/14/17 10:14 02/12/17 12:23 Clotrimazole (Lotrimin) 1 applic THREE TIMES A DAY TOPIC 02/12/17 18:30 02/17/17 18:29 02/14/17 16:59 Dextrose (Dextrose 50%) STAT PRN IV Hypoglycemia 02/12/17 00:30 03/14/17 00:29 Escitalopram Oxalate (Lexapro) 10 mg DAILY ORAL 02/14/17 11:00 03/16/17 10:59 02/14/17 11:16 Heparin Sodium (Porcine) (Heparin 5000 units/ml) 5,000 units EVERY 12 HOURS SUBQ 02/12/17 09:00 03/14/17 08:59 02/14/17 08:21 Morphine Sulfate (Morphine Sulfate) 2 mg EVERY 4 HOURS PRN IVP Moderate Pain (Pain Scale 4-6) 02/12/17 00:30 02/19/17 00:29 Nitroglycerin (Ntg) 0.4 mg PRN PRN SL Prn Chest Pain 02/12/17 00:30 03/14/17 00:29 Ondansetron HCl (Zofran) 4 mg Q6H PRN IVP Nausea & Vomiting 02/12/17 00:30 03/14/17 00:29 Polyethylene Glycol (Miralax) 17 gm DAILYPRN PRN ORAL Constipation 02/12/17 00:30 03/14/17 00:29 Temazepam (Restoril) 15 mg HSPRN PRN ORAL Insomnia 02/12/17 00:30 02/19/17 00:29 POLLY CRUZ M.D. Feb 14, 2017 17:40
[2017-02-14 19:20] VITALS: BP 125/68
--- NOTE | 2017-02-14 23:10 | Consultation ---
History of Present Illness General Chief Complaint: General Complaint Present Illness HPI 81 year old female with hx of Dementia, brought in by paramedics, with CC of worsening edema of her legs and also possible infection of her toes. the pt was in chair anxious. the pt was disorganized and confused. the pt has cognitive impairment. Allergies: Coded Allergies: No Known Allergies (Unverified , 02/11/17) Medication History Miscellaneous Medications Unable to Obtain Medications (Unable To Obtain Meds), (Reported) Patient History History Provided By: Patient, Medical Record, Caregiver, PMD Healthcare decision maker Resuscitation status Full Code Advanced Directive on File Past Medical/Surgical History Past Medical/Surgical History: (1) Isolation (social) (2) Alzheimer's dementia (3) Protein-calorie malnutrition, severe (4) Declining functional status (5) Cellulitis (6) Edema Review of Systems Psychiatric: Reports: prior hx, anxiety, depressed feelings, emotional problems , hallucinations Physical Exam General Appearance: no apparent distress, alert, confused, thin Neurologic: alert, responsive, disoriented, depressed affect Last 24 Hour Vital Signs Date Time Temp Pulse Resp B/P (MAP) Pulse Ox O2 Delivery O2 Flow Rate FiO2 02/14/17 20:00 83 18 Room Air 02/14/17 19:20 98.1 84 19 125/68 99 Room Air 02/14/17 15:45 98.2 78 20 139/88 100 Room Air 02/14/17 11:48 98.0 102 20 189/113 100 Room Air 02/14/17 08:20 96 18 Room Air 02/14/17 08:13 98.4 96 20 141/85 96 Room Air 02/14/17 04:00 97.5 70 20 138/72 100 Room Air 02/14/17 00:00 97.5 73 20 141/77 100 Room Air Intake and Output 02/14/17 02/15/17 19:00 07:00 Intake Total 600 ml 120 ml Balance 600 ml 120 ml Intake Oral 600 ml 120 ml # Voids 6 # Bowel Movements 1 Height (Feet): 5 Height (Inches): 4.00 Weight (Pounds): 110 Medications Current Medications Medications (Trade) Dose Ordered Sig/Brayden Route PRN Reason Start Time Stop Time Status Last Admin Dose Admin Acetaminophen (Tylenol) 650 mg Q4H PRN ORAL fever 02/12/17 00:30 03/14/17 00:29 02/13/17 09:41 Albuterol/ Ipratropium (DuoNeb 0.5-3(2.5)mg/3ml) 3 ml EVERY 4 HOURS PRN HHN Shortness of Breath 02/12/17 00:30 02/17/17 00:29 Cephalexin (Keflex) 500 mg FOUR TIMES A DAY ORAL 02/13/17 18:00 02/19/17 08:00 02/14/17 21:10 Clonidine HCl (Catapres) 0.1 mg Q4H PRN ORAL SBP > 160mmHg 02/12/17 10:15 03/14/17 10:14 02/12/17 12:23 Clotrimazole (Lotrimin) 1 applic THREE TIMES A DAY TOPIC 02/12/17 18:30 02/17/17 18:29 02/14/17 16:59 Dextrose (Dextrose 50%) STAT PRN IV Hypoglycemia 02/12/17 00:30 03/14/17 00:29 Escitalopram Oxalate (Lexapro) 10 mg DAILY ORAL 02/14/17 11:00 03/16/17 10:59 02/14/17 11:16 Heparin Sodium (Porcine) (Heparin 5000 units/ml) 5,000 units EVERY 12 HOURS SUBQ 02/12/17 09:00 03/14/17 08:59 02/14/17 21:11 Morphine Sulfate (Morphine Sulfate) 2 mg EVERY 4 HOURS PRN IVP Moderate Pain (Pain Scale 4-6) 02/12/17 00:30 02/19/17 00:29 Nitroglycerin (Ntg) 0.4 mg PRN PRN SL Prn Chest Pain 02/12/17 00:30 03/14/17 00:29 Ondansetron HCl (Zofran) 4 mg Q6H PRN IVP Nausea & Vomiting 02/12/17 00:30 03/14/17 00:29 Polyethylene Glycol (Miralax) 17 gm DAILYPRN PRN ORAL Constipation 02/12/17 00:30 03/14/17 00:29 Temazepam (Restoril) 15 mg HSPRN PRN ORAL Insomnia 02/12/17 00:30 02/19/17 00:29 Assessment/Plan Status: stable, progressing Alonso Garcia M.D. Feb 14, 2017 23:10
[2017-02-15] VITALS: BP 147/89
[2017-02-15 04:00] VITALS: BP 139/89
--- NOTE | 2017-02-15 08:11 | Pulmonology Progress Note ---
Assessment/Plan Assessment/Plan ASSESSMENT possible cellulitis LE venous stasis LE tinea pedis severe onychomycosis of the toenails. severe protein calorie malnutrition Alzheimer dementia PLAN OF CARE abx ID follows elevate LE topical Clotrimazole PT/OT DVT prophylaxis O2 HHN prn Bowel regimen venous Duplex BLE -negative X ray imaging L knee negative for acute bony trauma SS for placement dietary eval check prealbumin case discussed and evaluated by supervising physician Subjective Allergies: Coded Allergies: No Known Allergies (Unverified , 02/11/17) Subjective denies chest pain, SOB pulse oz stable on RA Objective Last 24 Hour Vital Signs Date Time Temp Pulse Resp B/P (MAP) Pulse Ox O2 Delivery O2 Flow Rate FiO2 02/15/17 04:00 98.2 72 20 139/89 98 Room Air 02/15/17 00:00 98.2 20 20 147/89 97 Room Air 02/14/17 20:00 83 18 Room Air 02/14/17 19:20 98.1 84 19 125/68 99 Room Air 02/14/17 15:45 98.2 78 20 139/88 100 Room Air 02/14/17 11:48 98.0 102 20 189/113 100 Room Air 02/14/17 08:20 96 18 Room Air 02/14/17 08:13 98.4 96 20 141/85 96 Room Air General Appearance: no acute distress, cachetic HEENT: normocephalic, atraumatic, anicteric, mucous membranes moist Respiratory/Chest: chest wall non-tender, lungs clear Cardiovascular: normal peripheral pulses, normal rate, regular rhythm, murmur systolic - 3/6 systolic ejection murmur Abdomen: normal bowel sounds, soft, non tender Extremities: other - trace edema BLE up to mid calf, maceration between toes with foul smell, severe onychomycosis of toes Neurologic/Psychiatric: abnormal gait - with walker , alert, responsive Musculoskeletal: atrophy - BLE, other - muscle wasting Microbiology Date/Time Source Procedure Growth Status 02/12/17 19:22 Nasal Nares MRSA Culture - Final NO METHICILLIN RESISTANT STAPH AUREUS... Complete Current Medications Medications (Trade) Dose Ordered Sig/Brayden Route PRN Reason Start Time Stop Time Status Last Admin Dose Admin Acetaminophen (Tylenol) 650 mg Q4H PRN ORAL fever 02/12/17 00:30 03/14/17 00:29 9/6/17 09:41 Albuterol/ Ipratropium (DuoNeb 0.5-3(2.5)mg/3ml) 3 ml EVERY 4 HOURS PRN HHN Shortness of Breath 02/12/17 00:30 02/17/17 00:29 Cephalexin (Keflex) 500 mg FOUR TIMES A DAY ORAL 02/13/17 18:00 02/19/17 08:00 02/14/17 21:10 Clonidine HCl (Catapres) 0.1 mg Q4H PRN ORAL SBP > 160mmHg 02/12/17 10:15 03/14/17 10:14 02/12/17 12:23 Clotrimazole (Lotrimin) 1 applic THREE TIMES A DAY TOPIC 02/12/17 18:30 02/17/17 18:29 02/14/17 16:59 Dextrose (Dextrose 50%) STAT PRN IV Hypoglycemia 02/12/17 00:30 03/14/17 00:29 Escitalopram Oxalate (Lexapro) 10 mg DAILY ORAL 02/14/17 11:00 03/16/17 10:59 02/14/17 11:16 Heparin Sodium (Porcine) (Heparin 5000 units/ml) 5,000 units EVERY 12 HOURS SUBQ 02/12/17 09:00 03/14/17 08:59 02/14/17 21:11 Morphine Sulfate (Morphine Sulfate) 2 mg EVERY 4 HOURS PRN IVP Moderate Pain (Pain Scale 4-6) 02/12/17 00:30 02/19/17 00:29 Nitroglycerin (Ntg) 0.4 mg PRN PRN SL Prn Chest Pain 02/12/17 00:30 03/14/17 00:29 Ondansetron HCl (Zofran) 4 mg Q6H PRN IVP Nausea & Vomiting 02/12/17 00:30 03/14/17 00:29 Polyethylene Glycol (Miralax) 17 gm DAILYPRN PRN ORAL Constipation 02/12/17 00:30 03/14/17 00:29 Temazepam (Restoril) 15 mg HSPRN PRN ORAL Insomnia 02/12/17 00:30 02/19/17 00:29 Shari Khan NP (Vanchtein) Feb 15, 2017 08:11
[2017-02-15 08:15] VITALS: BP 146/92
[2017-02-15] MEDS: Cephalexin 500mg cap ORAL SCH ×3 (08:44→18:07)
[2017-02-15] MEDS: Heparin 5000 units/ml inj SUBQ SCH (08:51)
[2017-02-15 11:46] LABS: TROPONIN I < 0.30 ng/mL (<=0.30)
[2017-02-15 11:52] VITALS: BP 130/75
--- NOTE | 2017-02-15 15:06 | General Progress Note ---
Assessment/Plan Status: stable, progressing Assessment/Plan the pt is demented and anxious. the pt lacks capacity to make any decision. the pt will be continued on lexapro. Subjective Neurologic/Psychiatric: Reports: anxiety, depressed, emotional problems Allergies: Coded Allergies: No Known Allergies (Unverified , 02/11/17) Subjective the pt is unable to understand process nor communicate any information regarding her condition. Objective Last 24 Hour Vital Signs Date Time Temp Pulse Resp B/P (MAP) Pulse Ox O2 Delivery O2 Flow Rate FiO2 02/15/17 11:52 98.2 88 21 130/75 98 Room Air 02/15/17 10:22 132/70 02/15/17 08:15 97.9 103 18 146/92 98 Room Air 02/15/17 07:49 85 18 Room Air 02/15/17 04:00 98.2 72 20 139/89 98 Room Air 02/15/17 00:00 98.2 20 20 147/89 97 Room Air 02/14/17 20:00 83 18 Room Air 02/14/17 19:20 98.1 84 19 125/68 99 Room Air 02/14/17 15:45 98.2 78 20 139/88 100 Room Air Intake and Output 02/15/17 02/16/17 19:00 07:00 Intake Total 480 ml Balance 480 ml Intake Oral 480 ml # Voids 1 Laboratory Tests 02/15/17 11:05: Troponin I < 0.30 Height (Feet): 5 Height (Inches): 4.00 Weight (Pounds): 110 General Appearance: no apparent distress, alert Neurologic: alert, responsive, disoriented, depressed affect Alonso Garcia M.D. Feb 15, 2017 15:06
[2017-02-15 16:16] VITALS: BP 109/60
[2017-02-15] MEDS ORDERED: Tubing IV Secondary IV ONE (17:39)
[2017-02-15] MEDS ORDERED: NS 275ml ONE (17:39)
--- NOTE | 2017-02-18 11:34 | Discharge Summary ---
Discharge Summary Hospital Course Date of Admission Feb 11, 2017 at 19:54 Date of Discharge Feb 15, 2017 at 18:48 Admitting Diagnosis CELLULITIS HPI Romana Jerez is a 81 year old female who was admitted on Feb 11, 2017 at 19: 54 for Cellulitis Hospital Course dc summary #[id number] Discharge Medications New Medications: Cephalexin (Cephalexin) 500 Mg Tablet 500 MG ORAL FOUR TIMES A DAY for 5 Days, #20 TAB Clotrimazole* (Lotrimin*) 15 Gm Cream..g. 1 APPLIC TOPIC THREE TIMES A DAY for 7 Days, GM Escitalopram Oxalate* (Lexapro*) 10 Mg Tablet 10 MG ORAL DAILY for 30 Days, TAB Discharge Condition Upon Discharge: stable Discharge Disposition Patient was discharged to [facility] facility Discharge Diagnoses: Bill (Yeiim)Shari NP Feb 18, 2017 11:34
--- NOTE | 2017-02-18 18:46 | Cardiology Report ---
APPROVED REPORT EKG Measurement Heart [id number] Normal sinus rhythm Right bundle branch block Abnormal ECG
--- NOTE | 2017-02-19 02:30 | Discharge Summary 2 SIG ---
DATE OF ADMISSION: 02/11/2017 DATE OF DISCHARGE: 02/15/2017 REASON FOR ADMISSION: 81-year-old female presented with worsening leg edema and possible infection. Vital signs were stable. No leukocytosis. Laboratory workup unremarkable. The patient was diagnosed with possible cellulitis and admitted for further management. ADMITTING DIAGNOSES: 1. Cellulitis of lower extremities. 2. Venous stasis of lower extremities . 3. Tenia pedis. 4. Alzheimer dementia. 5. Declining functional status. HOSPITAL COURSE: The patient was admitted. ID consult and psychiatric consult were requested. The patient started on empiric antibiotics. Blood culture were negative. The patient also started per ID on topical clotrimazole for severe onychomycosis of the toenails. Venous Duplex of bilateral lower extremities was negative for evidence of acute DVT. Supplemental oxygen provided as needed to keep saturation above 92%. Pulmonary toilet provided as needed. The patient was working with physical and occupational therapists. Patient was encouraged to elevate lower extremities while in the bed. DVT prophylaxis provided. Bowel regimen instituted. X-ray of the left knee was negative for acute bony trauma. Chest x-ray revealed no acute cardiopulmonary pathology. dialysis social worker was involved in the care of this patient for placement. Dietary evaluation requested due to clinical evidence of protein-calorie malnutrition (muscle wasting). Follow up with the dietary in the detention facility for further recommendation. DISCHARGE DIAGNOSES: 1. Probable cellulitis of bilateral lower extremities. 2. Venous stasis of bilateral lower extremities. 3. Tenia pedis. 4. Severe onychomycosis of the toenails. 5. Severe protein-calorie malnutrition. 6. Alzheimer dementia. DISCHARGE MEDICATIONS: See medication reconciliation list. DISCHARGE INSTRUCTIONS: The patient was discharged to detention facility. FOLLOWUP: Follow up with medical doctor at the facility. Bharathi Ugalde M.D. [facility]: Jes JOB#: [id number] CC: JOSE
== END 2017-02-15 18:48 | DRG 602 ==
LOC: EMR 19:52 → 4E 19:54 → ENRESERV 20:09 → EDBEDREQ 21:51 → 4E 22:21
DX: L03.116 Cellulitis of left lower limb (principal); E43 Unspecified severe protein-calorie malnutrition; G30.9 Alzheimer's disease, unspecified; B35.1 Tinea unguium; F02.80 Dementia in other diseases classified elsewhere, unspecified severity, without behavioral disturbance, psychotic disturbance, mood disturbance, and anxiety; I10 Essential (primary) hypertension; Z68.1 Body mass index [BMI] 19.9 or less, adult; L03.115 Cellulitis of right lower limb; I87.8 Other specified disorders of veins; B35.3 Tinea pedis; Z60.4 Social exclusion and rejection
CPT/HCPCS: 36415; 71010; 80053; 81003; 82044; 82550; 82570; 83036; 83605; 83880; 84484; 85025; 85610; 85651; 85730; 87040; 87081; 93005; 93970; 94664; 99285

== ENCOUNTER 2017-07-08 13:30 | Inpatient (IN) | payer MEDICARE, MEDICAID ==
[~2017-07-08] VITALS: Ht 160 cm; Wt 57.8 kg
[~2017-07-08 13:30] MED LIST: CLOTRIMAZOLE15 GM TOPIC; KEFLEX500 M1 ORAL; LEXAPRO10 MG ORAL; UNOBMED
[2017-07-08] MEDS ORDERED: TEMAZEPAM30 MG ORAL (13:40)
[2017-07-08] MEDS ORDERED: CATAPRES0.1 MG ORAL (13:40)
[2017-07-08] MEDS ORDERED: DOCUSATE SODIU100 MG ORAL (13:40)
[2017-07-08] MEDS ORDERED: DUONEB 0.5-3(2.53 ML HHN (13:40)
[2017-07-08] MEDS ORDERED: SENNA LAXATIVE25 MG PO (13:40)
[2017-07-08] MEDS ORDERED: LEXAPRO10 MG ORAL (13:40)
[2017-07-08] MEDS ORDERED: MILK OF MA400 MG/51 ORAL (13:40)
[2017-07-08] MEDS ORDERED: TYLENOL650 MG/20. ORAL (13:41)
[2017-07-08] MEDS ORDERED: ZOFRAN4 M3 ORAL (13:41)
--- NOTE | 2017-07-08 13:48 | Emergency Room Report ---
History of Present Illness General Chief Complaint: General Complaint Source: Patient Present Illness HPI This is 82-year-old female sent in by nursing facility after increased lower extremity swelling. The patient gradual onset of symptoms over the past few days. The patient noted a prior history of coronary artery disease. She is long-term on anticoagulation. Patient was noted to have prior history dementia as well as coronary artery disease as well as difficulty ambulating. Allergies: Coded Allergies: No Known Allergies (Unverified , 02/11/17) Patient History Past Medical History: see triage record Reviewed Nursing Documentation: PMH: Agreed, PSxH: Agreed Nursing Documentation-PMH Hx Cardiac Problems: Yes - chf,cad Hx Hypertension: No Hx Pacemaker: No Hx Asthma: No Hx Diabetes: No Hx Gastrointestinal Problems: Yes - ckd,localized edema Hx Dialysis: No Hx Neurological Problems: Yes - dementia Hx Cerebrovascular Accident: No Hx Seizures: No Review of Systems All Other Systems: negative except mentioned in HPI Physical Exam Vital Signs Date Time Temp Pulse Resp B/P (MAP) Pulse Ox O2 Delivery O2 Flow Rate FiO2 07/08/17 13:26 98.1 98 18 148/75 98 Room Air Sp02 EP Interpretation: reviewed, normal General Appearance: normal inspection, well appearing, no apparent distress, alert, GCS 15, non-toxic Head: atraumatic ENT: normal ENT inspection, hearing grossly normal, normal voice Neck: normal inspection, full range of motion, supple, no bony tend Respiratory: normal inspection, lungs clear, normal breath sounds, no respiratory distress, no retraction, no wheezing Cardiovascular #1: regular rate, rhythm, no edema Gastrointestinal: normal inspection, normal bowel sounds, non tender, soft, no guarding, no hernia Genitourinary: no CVA tenderness Musculoskeletal: normal inspection, back normal, normal range of motion Neurologic: normal inspection, alert, responsive, motor weakness - bilateral extremities, other - slow speech Psychiatric: normal inspection, judgement/insight normal, mood/affect normal Skin: normal inspection, normal color, no rash Medical Decision Making Diagnostic Impression: Primary Impression: Alzheimer's dementia Additional Impression: Edema ER Course The patient presented for a leg swelling. Differential diagnosis included but was not limited to fracture, contusion, vascular insufficiency, DVT, aortic aneurysm, cellulitis.Because of complexity of patient's case laboratory testing and imaging studies were ordered.Patient was noted to have swelling to both lower extremities as well as had difficulty with ambulation due to swelling. The patient was given IV Lasix. Laboratory testing showed mild elevation of BNP. Bilateral lower extremity ultrasound showed a chronic left DVT without evidence of acute DVT. Dr. Ugalde was contacted for inpatient management due to complexity of medical condition. Labs Test 07/08/17 14:15 White Blood Count 4.0 K/UL (4.8-10.8) Red Blood Count 4.33 M/UL (4.20-5.40) Hemoglobin 13.2 G/DL (12.0-16.0) Hematocrit 40.4 % (37.0-47.0) Mean Corpuscular Volume 93 FL (80-99) Mean Corpuscular Hemoglobin 30.5 PG (27.0-31.0) Mean Corpuscular Hemoglobin Concent 32.7 G/DL (32.0-36.0) Red Cell Distribution Width 12.3 % (11.6-14.8) Platelet Count 256 K/UL (150-450) Mean Platelet Volume 7.8 FL (6.5-10.1) Neutrophils (%) (Auto) 51.5 % (45.0-75.0) Lymphocytes (%) (Auto) 34.0 % (20.0-45.0) Monocytes (%) (Auto) 7.4 % (1.0-10.0) Eosinophils (%) (Auto) 5.3 % (0.0-3.0) Basophils (%) (Auto) 1.8 % (0.0-2.0) Prothrombin Time 9.9 SEC (9.30-11.50) Prothromb Time International Ratio 0.9 (0.9-1.1) Activated Partial Thromboplast Time 23 SEC (23-33) Sodium Level 144 MMOL/L (136-145) Potassium Level 4.3 MMOL/L (3.5-5.1) Chloride Level 107 MMOL/L (98-107) Carbon Dioxide Level 27 MMOL/L (21-32) Anion Gap 11 mmol/L (5-15) Blood Urea Nitrogen 21 mg/dL (7-18) Creatinine 0.9 MG/DL (0.55-1.30) Estimat Glomerular Filtration Rate mL/min (>60) Glucose Level 81 MG/DL (74-106) Calcium Level 11.1 MG/DL (8.5-10.1) Total Bilirubin 0.5 MG/DL (0.2-1.0) Aspartate Amino Transf (AST/SGOT) 21 U/L (15-37) Alanine Aminotransferase (ALT/SGPT) 15 U/L (12-78) Alkaline Phosphatase 79 U/L (46-116) Troponin I 0.000 ng/mL (0.000-0.056) Pro-B-Type Natriuretic Peptide 421 pg/mL (0-125) Total Protein 8.4 G/DL (6.4-8.2) Albumin 3.6 G/DL (3.4-5.0) Globulin 4.8 g/dL Albumin/Globulin Ratio 0.8 (1.0-2.7) Thyroid Stimulating Hormone (TSH) 1.482 uiU/mL (0.358-3.740) EKG Diagnostic Results Rate: normal - 7 Rhythm: NSR Last Vital Signs Date Time Temp Pulse Resp B/P (MAP) Pulse Ox O2 Delivery O2 Flow Rate FiO2 07/08/17 13:26 98.1 98 18 148/75 98 Room Air Status: unchanged Disposition: ADMITTED INPATIENT Condition: Serious Richard Han Jul 08, 2017 13:48
[2017-07-08 14:50] VITALS: BP 170/77
[2017-07-08 15:01] LABS: BASOPHILS % (AUTO) 1.8 % (0.0-2.0); EOSINOPHILS % (AUTO) 5.3 % (0.0-3.0); HEMATOCRIT 40.4 % (37.0-47.0); HEMOGLOBIN 13.2 G/DL (12.0-16.0); MEAN CORPUSCULAR VOLUME 93 FL (80-99); MONOCYTES % (AUTO) 7.4 % (1.0-10.0); NEUTROPHILS % (AUTO) 51.5 % (45.0-75.0); PLATELET COUNT 256 K/UL (150-450); RED BLOOD COUNT 4.33 M/UL (4.20-5.40); RED CELL DISTRIBUTION WIDTH 12.3 % (11.6-14.8)
[2017-07-08 15:09] LABS: INR 0.9 (0.9-1.1)
[2017-07-08 15:32] LABS: ANION GAP 11 mmol/L (5-15); BLOOD UREA NITROGEN 21 mg/dL (7-18); CALCIUM 11.1 MG/DL (8.5-10.1); CARBON DIOXIDE 27 MMOL/L (21-32); CHLORIDE 107 MMOL/L (98-107); CREATININE 0.9 MG/DL (0.55-1.30); POTASSIUM 4.3 MMOL/L (3.5-5.1); SODIUM 144 MMOL/L (136-145)
[2017-07-08 15:44] LABS: ALANINE AMINOTRANSFERASE 15 U/L (12-78); ALBUMIN 3.6 G/DL (3.4-5.0); ALBUMIN/GLOBULIN RATIO 0.8 (1.0-2.7); ALKALINE PHOSPHATASE 79 U/L (46-116); ASPARTATE AMINO TRANSFERASE 21 U/L (15-37); BILIRUBIN,TOTAL 0.5 MG/DL (0.2-1.0)
[2017-07-08] MEDS ORDERED: Albuterol/Ipratropium 3ml neb HHN PRN (16:45)
[2017-07-08] MEDS ORDERED: Miralax 17gm pkt ORAL PRN (16:45)
[2017-07-08 17:56] VITALS: BP 185/76
[2017-07-08 18:29] VITALS: BP 181/87
--- NOTE | 2017-07-08 18:50 | History and Physical ---
History of Present Illness General Date patient seen: Jul 08, 2017 Reason for Hospitalization: General Complaint Present Illness HPI 82-year-old female with hx of dementia, CAD, sent in by nursing facility after increased lower extremity swelling with gradual onset of symptoms over the past few days. she was suppose to be on Coumadin but her INR was WNL in ER. Allergies: Coded Allergies: No Known Allergies (Unverified , 02/11/17) Medication History Scheduled Clonidine Hcl* (Catapres*), 0.1 MG ORAL EVERY 6 HOURS, (Reported) Clotrimazole* (Lotrimin*), 1 APPLIC TOPIC THREE TIMES A DAY Docusate Sodium* (Docusate Sodium*), 100 MG ORAL DAILY, (Reported) Escitalopram Oxalate* (Lexapro*), 10 MG ORAL DAILY Escitalopram Oxalate* (Lexapro*), 5 MG ORAL DAILY, (Reported) Ipratropium/Albuterol Sulfate (DuoNeb 0.5-3(2.5)mg/3ml), 3 ML HHN EVERY 4 HOURS, (Reported) Magnesium Hydroxide* (Milk Of Magnesia*), 30 ML ORAL DAILY, (Reported) Scheduled PRN Acetaminophen (Acetaminophen), 650 MG ORAL Q6H PRN for Prn Headache/Temp > 101, (Reported) Ondansetron* (Zofran*), 4 MG ORAL Q6H PRN for Nausea & Vomiting, (Reported) Temazepam* (Temazepam*), 15 MG ORAL BEDTIME PRN for Insomnia, (Reported) Miscellaneous Medications Sennosides (Senna Laxative), 25 MG PO, (Reported) Unable to Obtain Medications (Unable To Obtain Meds), (Reported) Patient History Healthcare decision maker Resuscitation status Advanced Directive on File Past Medical/Surgical History Past Medical/Surgical History: (1) Alzheimer's dementia (2) Protein-calorie malnutrition, severe (3) Isolation (social) Review of Systems All Other Systems: negative except mentioned in HPI Physical Exam General Appearance: WD/WN, cachetic Lines, tubes and drains: peripheral HEENT: normocephalic, atraumatic Neck: non-tender, normal alignment Respiratory/Chest: chest wall non-tender, lungs clear Cardiovascular/Chest: normal peripheral pulses, normal rate Abdomen: normal bowel sounds Genitourinary/Rectal: normal genital exam Extremities: normal range of motion Last 24 Hour Vital Signs Date Time Temp Pulse Resp B/P (MAP) Pulse Ox O2 Delivery O2 Flow Rate FiO2 07/08/17 18:29 98.2 78 17 181/87 97 Room Air 07/08/17 18:01 199/97 07/08/17 17:56 97.7 91 18 185/76 100 Room Air 07/08/17 14:50 98.4 79 18 170/77 100 Room Air 07/08/17 13:26 98.1 98 18 148/75 98 Room Air Laboratory Tests Test 07/08/17 14:15 White Blood Count 4.0 K/UL (4.8-10.8) L Red Blood Count 4.33 M/UL (4.20-5.40) Hemoglobin 13.2 G/DL (12.0-16.0) Hematocrit 40.4 % (37.0-47.0) Mean Corpuscular Volume 93 FL (80-99) Mean Corpuscular Hemoglobin 30.5 PG (27.0-31.0) Mean Corpuscular Hemoglobin Concent 32.7 G/DL (32.0-36.0) Red Cell Distribution Width 12.3 % (11.6-14.8) Platelet Count 256 K/UL (150-450) Mean Platelet Volume 7.8 FL (6.5-10.1) Neutrophils (%) (Auto) 51.5 % (45.0-75.0) Lymphocytes (%) (Auto) 34.0 % (20.0-45.0) Monocytes (%) (Auto) 7.4 % (1.0-10.0) Eosinophils (%) (Auto) 5.3 % (0.0-3.0) H Basophils (%) (Auto) 1.8 % (0.0-2.0) Prothrombin Time 9.9 SEC (9.30-11.50) Prothromb Time International Ratio 0.9 (0.9-1.1) Activated Partial Thromboplast Time 23 SEC (23-33) Sodium Level 144 MMOL/L (136-145) Potassium Level 4.3 MMOL/L (3.5-5.1) Chloride Level 107 MMOL/L (98-107) Carbon Dioxide Level 27 MMOL/L (21-32) Anion Gap 11 mmol/L (5-15) Blood Urea Nitrogen 21 mg/dL (7-18) H Creatinine 0.9 MG/DL (0.55-1.30) Estimat Glomerular Filtration Rate mL/min (>60) Glucose Level 81 MG/DL (74-106) Calcium Level 11.1 MG/DL (8.5-10.1) H Total Bilirubin 0.5 MG/DL (0.2-1.0) Aspartate Amino Transf (AST/SGOT) 21 U/L (15-37) Alanine Aminotransferase (ALT/SGPT) 15 U/L (12-78) Alkaline Phosphatase 79 U/L (46-116) Troponin I 0.000 ng/mL (0.000-0.056) Pro-B-Type Natriuretic Peptide 421 pg/mL (0-125) H Total Protein 8.4 G/DL (6.4-8.2) H Albumin 3.6 G/DL (3.4-5.0) Globulin 4.8 g/dL Albumin/Globulin Ratio 0.8 (1.0-2.7) L Thyroid Stimulating Hormone (TSH) 1.482 uiU/mL (0.358-3.740) Height (Feet): 5 Height (Inches): 3.00 Weight (Pounds): 107 Medications Current Medications Medications (Trade) Dose Ordered Sig/Brayden Route PRN Reason Start Time Stop Time Status Last Admin Dose Admin Acetaminophen (Tylenol) 650 mg Q4H PRN ORAL Fever 07/08/17 16:45 08/07/17 16:44 Albuterol/ Ipratropium (Albuterol/ Ipratropium) 3 ml Q4H PRN HHN Shortness of Breath 07/08/17 16:45 07/13/17 16:44 Clonidine HCl (Catapres Tab) 0.1 mg EVERY 6 HOURS ORAL 07/08/17 18:00 08/07/17 17:59 07/08/17 18:01 Dextrose (Dextrose 50%) STAT PRN IV Hypoglycemia 07/08/17 16:45 08/07/17 16:44 Escitalopram Oxalate (Lexapro) 5 mg DAILY ORAL 07/09/17 09:00 08/08/17 08:59 UNV Furosemide (Lasix) 40 mg EVERY 8 HOURS IV 07/08/17 22:00 2/28/18 21:59 Heparin Sodium (Porcine) (Heparin 5000 units/ml) 5,000 units EVERY 12 HOURS SUBQ 07/08/17 21:00 08/07/17 20:59 Ondansetron HCl (Zofran) 4 mg Q6H PRN IVP Nausea & Vomiting 07/08/17 16:45 08/07/17 16:44 Polyethylene Glycol (Miralax) 17 gm DAILYPRN PRN ORAL Constipation 07/08/17 16:45 08/07/17 16:44 Temazepam (Restoril) 15 mg HSPRN PRN ORAL Insomnia 07/08/17 16:45 07/15/17 16:44 Assessment/Plan Problem List: (1) DVT (deep venous thrombosis) ICD Codes: I82.409 - Acute embolism and thrombosis of unspecified deep veins of unspecified lower extremity SNOMED: 774488734 (2) Peripheral edema ICD Codes: R60.9 - Edema, unspecified SNOMED: 185602833 (3) Protein-calorie malnutrition, severe ICD Codes: E43 - Unspecified severe protein-calorie malnutrition SNOMED: 424315336 (4) Alzheimer's dementia ICD Codes: G30.9 - Alzheimer's disease, unspecified SNOMED: 51363900 Assessment/Plan doppler of legs echo cardio to see pt/ot LILI GRANADOS Jul 08, 2017 18:50
[2017-07-08 20:00] VITALS: BP 126/78
[2017-07-08] MEDS: Heparin 5000 units/ml inj SUBQ SCH (23:28)
[2017-07-09] VITALS: BP 132/89
[2017-07-09 04:00] VITALS: BP 105/69
[2017-07-09 08:19] LABS: BASOPHILS % (AUTO) 0.6 % (0.0-2.0); EOSINOPHILS % (AUTO) 4.4 % (0.0-3.0); HEMATOCRIT 37.3 % (37.0-47.0); HEMOGLOBIN 12.4 G/DL (12.0-16.0); LYMPHOCYTES % (AUTO) 29.4 % (20.0-45.0); MEAN CORPUSCULAR VOLUME 91 FL (80-99); NEUTROPHILS % (AUTO) 56.7 % (45.0-75.0); PLATELET COUNT 230 K/UL (150-450); RED CELL DISTRIBUTION WIDTH 11.6 % (11.6-14.8); WHITE BLOOD COUNT 3.8 K/UL (4.8-10.8)
[2017-07-09 08:37] LABS: ALBUMIN 3.2 G/DL (3.4-5.0); ANION GAP 10 mmol/L (5-15); BLOOD UREA NITROGEN 20 mg/dL (7-18); CALCIUM 10.7 MG/DL (8.5-10.1); CARBON DIOXIDE 28 MMOL/L (21-32); CHLORIDE 104 MMOL/L (98-107); PHOSPHORUS 3.8 MG/DL (2.5-4.9); POTASSIUM 3.5 MMOL/L (3.5-5.1); SODIUM 142 MMOL/L (136-145)
[2017-07-09] MEDS: Escitalopram Oxalate 5mg tab ORAL SCH (08:54)
[2017-07-09] MEDS: Heparin 5000 units/ml inj SUBQ SCH (08:59)
--- NOTE | 2017-07-09 11:01 | Diagnostic Imaging Report ---
Indication: Dyspnea Technique: One view of the chest Comparison: 02/11/2017 Findings: Lungs and pleural spaces are clear. The heart size is normal. The aorta is tortuous and calcified. There is thoracolumbar scoliotic deformity. No significant interim change Impression: No acute process
--- NOTE | 2017-07-09 12:00 | Pulmonology Progress Note ---
Assessment/Plan Problems: (1) DVT (deep venous thrombosis) (2) Peripheral edema (3) Protein-calorie malnutrition, severe (4) Alzheimer's dementia Assessment/Plan anticoagulation hematology to see optimize med check electrolytes pt/ot evaluation. Subjective ROS Limited/Unobtainable: No Constitutional: Reports: no symptoms HEENT: Repors: no symptoms Respiratory: Reports: no symptoms Allergies: Coded Allergies: No Known Allergies (Unverified , 02/11/17) Objective Last 24 Hour Vital Signs Date Time Temp Pulse Resp B/P (MAP) Pulse Ox O2 Delivery O2 Flow Rate FiO2 07/09/17 06:00 105/69 07/09/17 04:00 97.4 72 20 105/69 97 Room Air 07/09/17 04:00 72 07/09/17 00:00 66 07/09/17 00:00 97.7 70 20 132/89 100 Room Air 07/08/17 20:00 72 07/08/17 20:00 97.7 72 20 126/78 99 Room Air 07/08/17 19:18 72 18 151/81 07/08/17 18:29 98.2 78 17 181/87 97 Room Air 07/08/17 18:01 199/97 07/08/17 17:56 97.7 91 18 185/76 100 Room Air 07/08/17 14:50 98.4 79 18 170/77 100 Room Air 07/08/17 13:26 98.1 98 18 148/75 98 Room Air Intake and Output 07/08/17 07/09/17 19:00 07:00 Intake Total 50 ml Output Total 100 ml Balance -50 ml Intake Oral 50 ml Output Urine Total 100 ml # Voids 3 # Bowel Movements 1 Objective General Appearance: WD/WN, cachetic Lines, tubes and drains: peripheral HEENT: normocephalic, atraumatic Neck: non-tender, normal alignment Respiratory/Chest: chest wall non-tender, lungs clear Cardiovascular/Chest: normal peripheral pulses, normal rate Abdomen: normal bowel sounds Genitourinary/Rectal: normal genital exam Extremities: normal range of motion, slight edema General Appearance: cachetic Laboratory Tests 07/08/17 14:15: White Blood Count 4.0L, Red Blood Count 4.33, Hemoglobin 13.2, Hematocrit 40.4, Mean Corpuscular Volume 93, Mean Corpuscular Hemoglobin 30.5, Mean Corpuscular Hemoglobin Concent 32.7, Red Cell Distribution Width 12.3, Platelet Count 256, Mean Platelet Volume 7.8, Neutrophils (%) (Auto) 51.5, Lymphocytes (%) (Auto) 34.0, Monocytes (%) (Auto) 7.4, Eosinophils (%) (Auto) 5.3H, Basophils (%) (Auto ) 1.8, Prothrombin Time 9.9, Prothromb Time International Ratio 0.9, Activated Partial Thromboplast Time 23, Sodium Level 144, Potassium Level 4.3, Chloride Level 107, Carbon Dioxide Level 27, Anion Gap 11, Blood Urea Nitrogen 21H, Creatinine 0.9, Estimat Glomerular Filtration Rate , Glucose Level 81, Calcium Level 11.1H, Total Bilirubin 0.5, Aspartate Amino Transf (AST/SGOT) 21, Alanine Aminotransferase (ALT/SGPT) 15, Alkaline Phosphatase 79, Troponin I 0.000, Pro-B -Type Natriuretic Peptide 421H, Total Protein 8.4H, Albumin 3.6, Globulin 4.8, Albumin/Globulin Ratio 0.8L, Thyroid Stimulating Hormone (TSH) 1.482 07/09/17 06:30: White Blood Count 3.8L, Red Blood Count 4.10L, Hemoglobin 12.4, Hematocrit 37.3 , Mean Corpuscular Volume 91, Mean Corpuscular Hemoglobin 30.3, Mean Corpuscular Hemoglobin Concent 33.2, Red Cell Distribution Width 11.6, Platelet Count 230, Mean Platelet Volume 7.2, Neutrophils (%) (Auto) 56.7, Lymphocytes (% ) (Auto) 29.4, Monocytes (%) (Auto) 9.0, Eosinophils (%) (Auto) 4.4H, Basophils (%) (Auto) 0.6, Sodium Level 142, Potassium Level 3.5, Chloride Level 104, Carbon Dioxide Level 28, Anion Gap 10, Blood Urea Nitrogen 20H, Creatinine 1.0, Estimat Glomerular Filtration Rate , Glucose Level 80, Calcium Level 10.7H, Troponin I 0.004, Albumin 3.2L, Phosphorus Level 3.8 Current Medications Medications (Trade) Dose Ordered Sig/Brayden Route PRN Reason Start Time Stop Time Status Last Admin Dose Admin Acetaminophen (Tylenol) 650 mg Q4H PRN ORAL Fever 07/08/17 16:45 08/07/17 16:44 Albuterol/ Ipratropium (Albuterol/ Ipratropium) 3 ml Q4H PRN HHN Shortness of Breath 07/08/17 16:45 07/13/17 16:44 Clonidine HCl (Catapres Tab) 0.1 mg EVERY 6 HOURS ORAL 07/08/17 18:00 08/07/17 17:59 07/08/17 18:01 Dextrose (Dextrose 50%) STAT PRN IV Hypoglycemia 07/08/17 16:45 08/07/17 16:44 Escitalopram Oxalate (Lexapro) 5 mg DAILY ORAL 07/09/17 09:00 08/08/17 08:59 07/09/17 08:54 Furosemide (Lasix) 40 mg EVERY 8 HOURS IV 07/08/17 22:00 08/07/17 21:59 07/09/17 06:29 Heparin Sodium (Porcine) (Heparin 5000 units/ml) 5,000 units EVERY 12 HOURS SUBQ 07/08/17 21:00 08/07/17 20:59 07/09/17 08:59 Ondansetron HCl (Zofran) 4 mg Q6H PRN IVP Nausea & Vomiting 07/08/17 16:45 08/07/17 16:44 Polyethylene Glycol (Miralax) 17 gm DAILYPRN PRN ORAL Constipation 07/08/17 16:45 08/07/17 16:44 Temazepam (Restoril) 15 mg HSPRN PRN ORAL Insomnia 07/08/17 16:45 07/15/17 16:44 LILI GRANADOS Jul 09, 2017 12:00
--- NOTE | 2017-07-09 12:59 | Cardiology Progress Note ---
Assessment/Plan Assessment/Plan edema hsa improved no acute dvt only chronic await echo to eval vlvular heart dz [id number] Objective Last 24 Hour Vital Signs Date Time Temp Pulse Resp B/P (MAP) Pulse Ox O2 Delivery O2 Flow Rate FiO2 07/09/17 06:00 105/69 07/09/17 04:00 97.4 72 20 105/69 97 Room Air 07/09/17 04:00 72 07/09/17 00:00 66 07/09/17 00:00 97.7 70 20 132/89 100 Room Air 07/08/17 20:00 72 07/08/17 20:00 97.7 72 20 126/78 99 Room Air 07/08/17 19:18 72 18 151/81 07/08/17 18:29 98.2 78 17 181/87 97 Room Air 07/08/17 18:01 199/97 07/08/17 17:56 97.7 91 18 185/76 100 Room Air 07/08/17 14:50 98.4 79 18 170/77 100 Room Air 07/08/17 13:26 98.1 98 18 148/75 98 Room Air Intake and Output 07/08/17 07/09/17 19:00 07:00 Intake Total 50 ml Output Total 100 ml Balance -50 ml Intake Oral 50 ml Output Urine Total 100 ml # Voids 3 # Bowel Movements 1 Laboratory Tests Test 07/08/17 14:15 07/09/17 06:30 White Blood Count 4.0 K/UL (4.8-10.8) L 3.8 K/UL (4.8-10.8) L Red Blood Count 4.33 M/UL (4.20-5.40) 4.10 M/UL (4.20-5.40) L Hemoglobin 13.2 G/DL (12.0-16.0) 12.4 G/DL (12.0-16.0) Hematocrit 40.4 % (37.0-47.0) 37.3 % (37.0-47.0) Mean Corpuscular Volume 93 FL (80-99) 91 FL (80-99) Mean Corpuscular Hemoglobin 30.5 PG (27.0-31.0) 30.3 PG (27.0-31.0) Mean Corpuscular Hemoglobin Concent 32.7 G/DL (32.0-36.0) 33.2 G/DL (32.0-36.0) Red Cell Distribution Width 12.3 % (11.6-14.8) 11.6 % (11.6-14.8) Platelet Count 256 K/UL (150-450) 230 K/UL (150-450) Mean Platelet Volume 7.8 FL (6.5-10.1) 7.2 FL (6.5-10.1) Neutrophils (%) (Auto) 51.5 % (45.0-75.0) 56.7 % (45.0-75.0) Lymphocytes (%) (Auto) 34.0 % (20.0-45.0) 29.4 % (20.0-45.0) Monocytes (%) (Auto) 7.4 % (1.0-10.0) 9.0 % (1.0-10.0) Eosinophils (%) (Auto) 5.3 % (0.0-3.0) H 4.4 % (0.0-3.0) H Basophils (%) (Auto) 1.8 % (0.0-2.0) 0.6 % (0.0-2.0) Prothrombin Time 9.9 SEC (9.30-11.50) Prothromb Time International Ratio 0.9 (0.9-1.1) Activated Partial Thromboplast Time 23 SEC (23-33) Sodium Level 144 MMOL/L (136-145) 142 MMOL/L (136-145) Potassium Level 4.3 MMOL/L (3.5-5.1) 3.5 MMOL/L (3.5-5.1) Chloride Level 107 MMOL/L (98-107) 104 MMOL/L (98-107) Carbon Dioxide Level 27 MMOL/L (21-32) 28 MMOL/L (21-32) Anion Gap 11 mmol/L (5-15) 10 mmol/L (5-15) Blood Urea Nitrogen 21 mg/dL (7-18) H 20 mg/dL (7-18) H Creatinine 0.9 MG/DL (0.55-1.30) 1.0 MG/DL (0.55-1.30) Estimat Glomerular Filtration Rate mL/min (>60) mL/min (>60) Glucose Level 81 MG/DL (74-106) 80 MG/DL (74-106) Calcium Level 11.1 MG/DL (8.5-10.1) H 10.7 MG/DL (8.5-10.1) H Total Bilirubin 0.5 MG/DL (0.2-1.0) Aspartate Amino Transf (AST/SGOT) 21 U/L (15-37) Alanine Aminotransferase (ALT/SGPT) 15 U/L (12-78) Alkaline Phosphatase 79 U/L (46-116) Troponin I 0.000 ng/mL (0.000-0.056) 0.004 ng/mL (0.000-0.056) Pro-B-Type Natriuretic Peptide 421 pg/mL (0-125) H Total Protein 8.4 G/DL (6.4-8.2) H Albumin 3.6 G/DL (3.4-5.0) 3.2 G/DL (3.4-5.0) L Globulin 4.8 g/dL Albumin/Globulin Ratio 0.8 (1.0-2.7) L Thyroid Stimulating Hormone (TSH) 1.482 uiU/mL (0.358-3.740) Phosphorus Level 3.8 MG/DL (2.5-4.9) SIMRAN WHITT Jul 09, 2017 12:59
[2017-07-09] MEDS ORDERED: Enoxaparin 80mg Inj SUBQ SCH (16:00)
[2017-07-09] MEDS ORDERED: Warfarin Sodium 5mg ORAL ONE (17:00)
[2017-07-09] MEDS: Enoxaparin 60mg Inj SUBQ SCH ×2 (17:12→20:51)
--- NOTE | 2017-07-09 17:53 | Cardiology Report ---
APPROVED REPORT EXAM: Two-dimensional and M-mode echocardiogram with Doppler and color Doppler. INDICATION LV function M-Mode DIMENSIONS IVSd1.1 (0.7-1.1cm)Left Atrium (MM)4.1 (1.6-4.0cm) LVDd3.6 (3.5-5.6cm)Aortic Root3.5 (2.0-3.7cm) PWd1.2 (0.7-1.1cm)Aortic Cusp Exc.1.2 (1.5-2.0cm) LVDs2.1 (2.5-4.0cm) PWs1.6 cm Normal left ventricular chamber size,HYPERDYNAMIC systolic function and wall motion. Left ventricular ejection fraction estimated to be 70-75 %. Mild to moderate left ventricular hypertrophy by 2-D. Small posterior pericardial effusion. Moderate left atrial enlargement. Right atrial size at upper limits of normal. Right ventricular chamber size is within normal limits. Aortic valve calcification with decreased cusp excursion c/w aortic stenosis. Thickened mitral valve leaflets with reduced excursion. Heavy mitral annulus and aortic root calcification. valve not well visualized. Normal tricuspid valve structure. IVC at normal size with physiologic collapse. A color flow and spectral Doppler study was performed and revealed: Mild aortic regurgitation.PG OF 10 MMHG AND MG 4 MMHG ACROSS THE MITRAL VALVE SUGGESTIVE OF MILD MS Peak aortic valve gradient of 59 mm Hg and a mean of 33 mmHg. Aortic valve area 1.1 cm2 calculated by continuity equation suggestive of borderline severe aortic stenosis. Mild mitral regurgitation. Mitral diastolic velocities suggest reduced left ventricular relaxation c/w mild LV diastolic dysfunction (Grade I ). Mild tricuspid regurgitation. Tricuspid systolic velocities suggests peak right ventricular systolic pressure of 37 mmHg, consistent with mild pulmonary hypertension.
[2017-07-09] MEDS ORDERED: Enoxaparin 60mg Inj SUBQ SCH (18:00)
[2017-07-09 20:00] VITALS: BP 117/68
[2017-07-10 00:03] VITALS: BP 105/59
[2017-07-10 04:00] VITALS: BP 106/66
[2017-07-10 08:00] VITALS: BP 143/77
[2017-07-10] MEDS: Escitalopram Oxalate 5mg tab ORAL SCH (09:54)
[2017-07-10] MEDS: Enoxaparin 60mg Inj SUBQ SCH (09:56)
[2017-07-10 12:00] VITALS: BP 154/81
--- NOTE | 2017-07-10 14:31 | Pulmonology Progress Note ---
Assessment/Plan Problems: (1) DVT (deep venous thrombosis) (2) Peripheral edema (3) Protein-calorie malnutrition, severe (4) Alzheimer's dementia Assessment/Plan dvt chronic cardio evaluation appreciated. optimize med check electrolytes pt/ot evaluation. Subjective ROS Limited/Unobtainable: No Interval Events: feeling better Allergies: Coded Allergies: No Known Allergies (Unverified , 02/11/17) Objective Last 24 Hour Vital Signs Date Time Temp Pulse Resp B/P (MAP) Pulse Ox O2 Delivery O2 Flow Rate FiO2 07/10/17 12:10 154/70 07/10/17 12:00 97.7 78 20 154/81 100 Room Air 07/10/17 08:00 74 07/10/17 08:00 97.9 80 18 143/77 98 Room Air 07/10/17 05:38 105/64 07/10/17 04:12 71 07/10/17 04:00 97.3 76 20 106/66 99 Room Air 07/10/17 00:03 98.0 72 20 105/59 97 Room Air 07/10/17 00:00 98/63 07/09/17 23:48 80 07/09/17 20:00 97.0 91 12 117/68 100 Room Air 07/09/17 19:37 87 07/09/17 19:07 105/69 07/09/17 16:00 87 Intake and Output 07/09/17 07/10/17 19:00 07:00 Intake Total 360 ml 50 ml Balance 360 ml 50 ml Intake Oral 360 ml 50 ml # Voids 4 Objective General Appearance: WD/WN, cachetic Lines, tubes and drains: peripheral HEENT: normocephalic, atraumatic Neck: non-tender, normal alignment Respiratory/Chest: chest wall non-tender, lungs clear Cardiovascular/Chest: normal peripheral pulses, normal rate Abdomen: normal bowel sounds Genitourinary/Rectal: normal genital exam Extremities: normal range of motion, slight edema Laboratory Tests 07/10/17 08:05: Prothrombin Time 10.4, Prothromb Time International Ratio 1.0, Ionized Calcium ( Measured) 1.31, Magnesium Level 2.0, Troponin I 0.004, Hepatitis A IgM Antibody [Pending], Hepatitis B Surface Antigen [Pending], Hepatitis B Core IgM Antibody [Pending], Hepatitis C Antibody [Pending], HIV (1&2) Antibody Rapid Negative Current Medications Medications (Trade) Dose Ordered Sig/Brayden Route PRN Reason Start Time Stop Time Status Last Admin Dose Admin Acetaminophen (Tylenol) 650 mg Q4H PRN ORAL Fever 07/08/17 16:45 08/07/17 16:44 Albuterol/ Ipratropium (Albuterol/ Ipratropium) 3 ml Q4H PRN HHN Shortness of Breath 07/08/17 16:45 07/13/17 16:44 Clonidine HCl (Catapres Tab) 0.1 mg EVERY 6 HOURS ORAL 07/08/17 18:00 08/07/17 17:59 07/10/17 12:10 Dextrose (Dextrose 50%) STAT PRN IV Hypoglycemia 07/08/17 16:45 08/07/17 16:44 Enoxaparin Sodium (Lovenox) 60 mg EVERY 12 HOURS SUBQ 07/09/17 16:00 08/08/17 15:59 07/10/17 09:56 Escitalopram Oxalate (Lexapro) 5 mg DAILY ORAL 07/09/17 09:00 08/08/17 08:59 07/10/17 09:54 Furosemide (Lasix) 40 mg BID IV 07/10/17 09:00 08/07/17 21:59 07/10/17 09:54 Ondansetron HCl (Zofran) 4 mg Q6H PRN IVP Nausea & Vomiting 07/08/17 16:45 08/07/17 16:44 Polyethylene Glycol (Miralax) 17 gm DAILYPRN PRN ORAL Constipation 07/08/17 16:45 08/07/17 16:44 Temazepam (Restoril) 15 mg HSPRN PRN ORAL Insomnia 07/08/17 16:45 07/15/17 16:44 Warfarin Sodium (Coumadin per pharmacy) 1 ea DAILY PRN MISC Per rx protocol 07/09/17 15:30 08/08/17 15:29 Warfarin Sodium (Coumadin) 5 mg COUMADIN ONCE ORAL 07/10/17 17:00 07/10/17 17:01 LILI GRANADOS Jul 10, 2017 14:31
--- NOTE | 2017-07-10 14:31 | Diagnostic Imaging Report ---
Indication: Abdominal pain, abnormal renal function tests Technique: Schwartz-scale and duplex images of the upper abdomen were obtained Comparison: none Findings: Gallbladder is unremarkable, without stones, wall thickening, nor pericholecystic fluid. Sonographic Fontanez's sign is negative. Common bile duct measures 4 mm in diameter. No intrahepatic biliary ductal dilatation. Liver demonstrates normal echogenicity, no focal abnormality. Portal vein and hepatic veins are patent. Pancreas is unremarkable. Spleen is unremarkable. Left kidney measures 9.2 cm in length. Right kidney measures 9.9 cm length. Both kidneys demonstrate normal echogenicity. There is no hydronephrosis. Questionable echogenic shadowing focus is seen in the left renal sinus. There are small renal cysts bilaterally . Non-aneurysmal abdominal aorta . Prevoid bladder volume 128 mL. Patient and continent, postvoid bladder volume not measured Impression: Negative for gallstones, dilated ducts, or other acute pathology Questionable echogenic shadowing focus in the left renal sinus, nonobstructive stone versus artifact
[2017-07-10 16:00] VITALS: BP 155/98
--- NOTE | 2017-07-10 16:59 | Cardiology Progress Note ---
Assessment/Plan Assessment/Plan chronic dvt ms mild as mod to severe no need for any cardiac intervention ekg sinus rbb tele sinus not see in chf echo showed hyperdynamic ssytlic fucntion ok to dc form cardaic view point Subjective Cardiovascular: Denies: chest pain, lightheadedness, palpitations Respiratory: Denies: shortness of breath Gastrointestinal/Abdominal: Denies: abdomen distended Genitourinary: Denies: burning Objective Last 24 Hour Vital Signs Date Time Temp Pulse Resp B/P (MAP) Pulse Ox O2 Delivery O2 Flow Rate FiO2 07/10/17 12:10 154/70 07/10/17 12:00 97.7 78 20 154/81 100 Room Air 07/10/17 12:00 74 07/10/17 08:00 74 07/10/17 08:00 97.9 80 18 143/77 98 Room Air 07/10/17 05:38 105/64 07/10/17 04:12 71 07/10/17 04:00 97.3 76 20 106/66 99 Room Air 07/10/17 00:03 98.0 72 20 105/59 97 Room Air 07/10/17 00:00 98/63 07/09/17 23:48 80 07/09/17 20:00 97.0 91 12 117/68 100 Room Air 07/09/17 19:37 87 07/09/17 19:07 105/69 General Appearance: no apparent distress, alert Neck: normal alignment Cardiovascular: normal rate, regular rhythm, systolic murmur Respiratory/Chest: lungs clear, normal breath sounds Abdomen: normal bowel sounds, non tender, soft Extremities: no swelling Intake and Output 07/09/17 07/10/17 19:00 07:00 Intake Total 360 ml 50 ml Balance 360 ml 50 ml Intake Oral 360 ml 50 ml # Voids 4 Laboratory Tests Test 07/10/17 08:05 Prothrombin Time 10.4 SEC (9.30-11.50) Prothromb Time International Ratio 1.0 (0.9-1.1) Ionized Calcium (Measured) 1.31 mmol/L (1.10-1.35) Magnesium Level 2.0 MG/DL (1.8-2.4) Troponin I 0.004 ng/mL (0.000-0.056) Hepatitis A IgM Antibody Pending Hepatitis B Surface Antigen Pending Hepatitis B Core IgM Antibody Pending Hepatitis C Antibody Pending HIV (1&2) Antibody Rapid Negative (NEGATIVE) SIMRAN WHITT Jul 10, 2017 16:59
[2017-07-10] MEDS ORDERED: Warfarin Sodium 5mg ORAL ONE (17:00)
[2017-07-10 17:20] VITALS: BP 142/75
--- NOTE | 2017-07-10 18:59 | Cardiology Report ---
APPROVED REPORT EKG Measurement Heart [id number] VT 144P69 [id number] Sinus rhythm with premature supraventricular complexes Right bundle branch block Abnormal ECG
--- NOTE | 2017-07-10 19:15 | Cardiology Report ---
APPROVED REPORT EKG Measurement Heart [id number] MT 154P74 [id number] Normal sinus rhythm with sinus arrhythmia Right bundle branch block Possible Inferior infarct, age undetermined Abnormal ECG
--- NOTE | 2017-07-11 04:00 | Consultation ---
DATE OF CONSULTATION: 07/09/2017 CARDIOLOGY CONSULTATION CONSULTING PHYSICIAN: Albaro Gaspar M.D. REFERRING PHYSICIAN: Bharathi Ugalde M.D. REASON FOR REFERRAL: Edema. HISTORY OF PRESENT ILLNESS: This is an elderly female who is a very poor historian. The patient is not sure why she came to the hospital. Ambulance report has been reviewed. It appears that the patient was picked up and brought to the emergency room here at [facility] for lower extremity edema and therefore this consultation is requested. The patient absolutely denies any chest pain or pressure. No PND. No orthopnea. No palpitations. She feels better when her head is up when she reads, otherwise with sleep she likes to be flat. No heart pounding or palpitation. She apparently does get up and walk to the bathroom with the help of a walker , but she does not have any dizziness or lightheadedness. She may have had a history of deep venous thrombosis. She has had difficult time recalling that. PAST MEDICAL HISTORY: Positive for history of Alzheimer's and social isolation. She has had hospitalization here because of cellulitis of lower extremities, venous stasis of lower extremities, tinea pedis and poor functional status, and onychomycosis of the toenails and tinea. ALLERGIES: She states she is not allergic to any medications. SOCIAL HISTORY: She never smoked or drank alcoholic beverages. No drug use. She states she is a resident of convalescent facility at the present time. REVIEW OF SYSTEMS: GASTROINTESTINAL: She denies. GENITOURINARY: She denies. PULMONARY: She denies. CONSTITUTIONAL: She denies. NEUROLOGIC: She denies. MUSCULOSKELETAL: She denies. CARDIAC: As mentioned in history of present illness. PHYSICAL EXAMINATION: GENERAL: Shows to be confused elderly female, in no respiratory distress. VITAL SIGNS: Blood pressure is anywhere between 105/69 to 151/81 and temperature of 97.4 degrees. NECK: Supple. No jugular venous distention. No abdominojugular reflux noted. LUNGS: Clear to auscultation and percussion. CARDIAC: Regular rate and rhythm. Systolic ejection murmur and a holosystolic regurgitant murmur is noted at the apex. ABDOMEN: Soft and nontender. Positive bowel sounds. EXTREMITIES: There is no clubbing or cyanosis. There is trace edema of lower extremities. NEUROLOGIC: She is awake, alert, responsive, and in no respiratory distress. LABORATORY AND DIAGNOSTIC DATA: Her white count is 3.8, hemoglobin 12.4, and a platelet count of 230. Sodium is 143, potassium 3.5, chloride 104, bicarbonate 28, BUN 20, creatinine 1.0, and glucose of 86. Two sets of cardiac enzymes so far are negative. Her proBNP was only 421 yesterday with a total protein 8.4 and albumin of 3.6. TSH of 1.48. INR 0.9 and PTT of 23. Urinalysis was not performed. A chest x-ray performed in the emergency room shows no acute processes and venous duplex study of lower extremity was performed that shows there is a chronic thrombus in the superficial femoral and popliteal veins on the left side. No evidence of acute deep venous thromboses were noted. ASSESSMENT AND PLAN: 1. Peripheral edema secondary to venous stasis likely. 2. Valvular heart disease. 3. Dementia. 4. Hypercalcemia. Dr. Ugalde, this patient was seen in cardiac consultation. She appears not to be in any kind of respiratory distress. She is actually doing very well at this time. An echocardiogram is in order to evaluate aortic valvular dysfunction and mitral regurgitation as well. She has very little edema at the present time and she has received some diuretics. She apparently has a history of chronic deep venous thrombosis. She had been on anticoagulation previously, but not been receiving it recently as I understand it and that has been resumed. She has received some diuretics, to which she has already responded and I suspect that in light of the fact that she has no significant edema, might be the dose of diuretic should be decreased. An echocardiogram is pending at this time. Albaro Gaspar M.D. DR: PRISCILLA JOB#: [id number] CC:
--- NOTE | 2017-07-11 14:04 | Discharge Summary ---
Discharge Summary Hospital Course Date of Admission Jul 08, 2017 at 16:46 Date of Discharge Jul 10, 2017 at 19:30 Admitting Diagnosis chf, generalized weakness HPI Romana Jerez is a 82 year old female who was admitted on Jul 08, 2017 at 16 :46 for Congestive Heart Failure, Generalized Weakness Hospital Course [id number] Discharge Discharge Disposition Patient was discharged to snf Discharge Diagnoses: Enma Brand NP Jul 11, 2017 14:04
--- NOTE | 2017-07-11 23:53 | General Progress Note ---
Assessment/Plan Assessment/Plan #. Leukopenia. --> HIV and Hep panel negative. --> Abdomen ultrasound unremarkable --> Trend cbc. #. Deep venous thrombosis. --> Recommend begin Coumadin and lovenox #. Peripheral edema secondary to venous stasis. #. Valvular heart disease. #. Dementia. #. Hypercalcemia. Subjective Date patient seen: Jul 10, 2017 Constitutional: Denies: no symptoms, chills, diaphoresis, fever, malaise, weakness, other HEENT: Denies: no symptoms, eye pain, blurred vision, tearing, double vision, ear pain, ear discharge, nose pain, nose congestion, throat pain, throat swelling, mouth pain, mouth swelling, other Cardiovascular: Denies: no symptoms, chest pain, edema, irregular heart rate, lightheadedness, palpitations, syncope, other Respiratory: Denies: no symptoms, cough, orthopnea, shortness of breath, SOB with excertion, SOB at rest, sputum, stridor, wheezing, other Gastrointestinal/Abdominal: Denies: no symptoms, abdomen distended, abdominal pain, black stools, tarry stools, blood in stool, constipated, diarrhea, difficulty swallowing, nausea, poor appetite, poor fluid intake, rectal bleeding , vomiting, other Genitourinary: Denies: no symptoms, burning, discharge, frequency, flank pain, hematuria, incontinence, pain, urgency, other Allergies: Coded Allergies: No Known Allergies (Unverified , 02/11/17) Subjective Resting in bed. On anticoag measures. Objective Intake and Output 07/10/17 07/11/17 19:00 07:00 Intake Total 240 ml Balance 240 ml Intake Oral 240 ml # Voids 3 Height (Feet): 5 Height (Inches): 3.00 Weight (Pounds): 127 Raul Hutton Jul 11, 2017 23:53
--- NOTE | 2017-07-12 12:54 | Consultation ---
DATE OF CONSULTATION: 07/10/2017 HEMATOLOGY/ONCOLOGY CONSULTATION CONSULTING PHYSICIAN: Raul Hutton M.D. REQUESTING PHYSICIAN: Bharathi Ugalde M.D. REASON FOR CONSULTATION: Evaluation of leukopenia. IDENTIFICATION DATA: Dear Dr. Ugalde: Thank you for this consultation. The patient is a pleasant 83-year-old female with past medical history significant for CAD, dementia, at this time presents from nursing facility with increased lower extremity pain, gradual onset of symptoms. has been on Coumadin, however, her INR is within normal limits. Therefore, likely has been noncompliant. Hematology Service was consulted for evaluation of DVT. Duplex reviewed yesterday shows left leg chronic thrombus in the superficial femoral and popliteal vein. PAST MEDICAL HISTORY: As noted above. MEDICATIONS: Clonidine, clotrimazole, , Lexapro, Atrovent, magnesium. ALLERGIES: No known drug allergies. SOCIAL HISTORY: No alcohol, tobacco, or illicit drug use. FAMILY HISTORY: Noncontributory. REVIEW OF SYSTEMS: A 12-point review of systems is completed, otherwise is negative. PHYSICAL EXAMINATION: GENERAL: No acute distress. VITAL SIGNS: Reviewed. PULMONARY: Decreased breath sounds. CARDIOVASCULAR: Regular rate. No S3 or S4. ABDOMEN: Soft, nontender, and nondistended. EXTREMITIES: No cyanosis. ASSESSMENT AND RECOMMENDATIONS: 1. Deep venous thrombosis. The patient has not been therapeutic. I reviewed with Cardiology and Pulmonary team. This is a chronic DVT; however, the patient needs to be on Coumadin as well as heparin as well as Lovenox at this time, which has been started. Again, maintain INR between 2 and 3 and discharge back to facility after INR is between 2 and 3. 2. Leukopenia. ultrasound of the abdomen. 3. Edema of lower extremities. A 2D echo to evaluate for valvular heart disease. process. 4. Azotemia. The patient potentially requires fluids. 5. Hypoalbuminemia with decreased albumin. Continue to closely monitor. Raul Hutton M.D. : COTY/KAL JOB#: [id number] CC:
--- NOTE | 2017-07-12 19:00 | Discharge Summary 2 SIG ---
DATE OF ADMISSION: 07/08/2017 DATE OF DISCHARGE: 07/10/2017 CASING MAN: Albaro Gaspar M.D. BRIEF HOSPITAL COURSE: The patient is an 83-year-old female with history of dementia and coronary artery disease, who was sent in by nursing facility after increased lower extremity swelling with gradual onset of symptoms over the past few days. She has past medical history significant for Alzheimer's dementia. The patient is a poor historian. She was supposed to be on Coumadin at the alf. However, INR was normal. Because of leg swelling, the patient was admitted for possible DVT. She had venous duplex of lower extremity that showed chronic thrombus on the left leg. There was no evidence of an acute DVT. Chest x-ray did not show any acute process. Echocardiogram done showed ejection fraction of 70% to 75%. She had an abdominal ultrasound that was negative for gallstones, dilated ducts or other pathology. She was given PT and OT and was eventually discharged back to alf. FINAL DIAGNOSES: 1. Chronic deep venous thrombosis, left leg. 2. Mild mitral stenosis. 3. [id number]-[id number] aortic stenosis. DISPOSITION: The patient was discharged to [facility]. DISCHARGE MEDICATIONS: Refer to medication list. DISCHARGE INSTRUCTIONS: Follow up with PMD in a week. Bharathi Ugalde M.D. I have been assigned to dictate discharge summary on this account and I was not involved in the patient's management. Enma Brand N.P. DR: ARCHANA JOB#: [id number] CC: JOSE
--- NOTE | 2017-07-16 11:42 | Diagnostic Imaging Report ---
APPROVED REPORT CPT Code: 12503 Present Symptoms Lower Extremity Edema: Bilateral Comments: R/O DVT RIGHT LEG: Venous imaging reveals a patent deep venous system. There is no evidence of thrombus within the femoral, popliteal or tibial segments. The greater saphenous vein is also within normal limits. Doppler indicates normal spontaneous flow within these segments. LEFT LEG: Venous imaging reveals chronic thrombus in the superficial femoral and popliteal veins. Imaging also reveals patency of the common femoral and calf veins. Greater saphenous vein is within normal limits. Doppler indicates normal spontaneous flow within these segments. There is no evidence of acute deep vein thrombosis.
== END 2017-07-10 19:30 | DRG 299 ==
LOC: EDBD 13:30 → EMR 14:23 → 2E 16:46 → EDBEDREQ 18:06
DX: I82.512 Chronic embolism and thrombosis of left femoral vein (principal); E43 Unspecified severe protein-calorie malnutrition; G30.9 Alzheimer's disease, unspecified; F02.80 Dementia in other diseases classified elsewhere, unspecified severity, without behavioral disturbance, psychotic disturbance, mood disturbance, and anxiety; I82.532 Chronic embolism and thrombosis of left popliteal vein; I25.10 Atherosclerotic heart disease of native coronary artery without angina pectoris; I08.0 Rheumatic disorders of both mitral and aortic valves; I87.8 Other specified disorders of veins; E83.52 Hypercalcemia; D72.819 Decreased white blood cell count, unspecified
CPT/HCPCS: 36415; 71045; 76700; 80048; 80053; 80069; 82330; 83735; 83880; 84443; 84484; 85025; 85610; 85730; 86703; 86705; 86709; 86803; 87081; 87340; 93005; 93306; 93970; 99285; J8499

== ENCOUNTER 2017-09-20 21:58 | Inpatient (IN) | payer MEDICARE, BC, MEDICAID ==
[~2017-09-20] VITALS: Ht 162.6 cm; Wt 50.9 kg
[~2017-09-20 21:58] MED LIST changes: +CATAPRES0.1 MG ORAL; +DOCUSATE SODIU100 MG ORAL; +DUONEB 0.5-3(2.53 ML HHN; +MILK OF MA400 MG/51 ORAL; +SENNA LAXATIVE25 MG PO; +TEMAZEPAM30 MG ORAL; +TYLENOL650 MG/20. ORAL; +ZOFRAN4 M3 ORAL
--- NOTE | 2017-09-20 22:05 | Emergency Room Report ---
History of Present Illness General Chief Complaint: Generalized Weakness Source: Medical Record, EMS Present Illness HPI This is an 83-year-old female who has a history of dementia and is bedbound. She presents with a group home with chief complaint of generalized weakness. Onset today. Decreased appetite. Decreased oral intake. No nausea no vomiting. No fever chills. History is from group home note and from EMS. Patient unable to give a history because of her condition. Allergies: Coded Allergies: No Known Allergies (Unverified , 02/11/17) Patient History Past Medical History: see triage record, old chart reviewed Past Surgical History: other Pertinent Family History: none Social History: Denies: smoking Now: No Immunizations: other Reviewed Nursing Documentation: PMH: Agreed; PSxH: Agreed Nursing Documentation-PMH Hx Cardiac Problems: Yes - chf,cad Hx Hypertension: No Hx Pacemaker: No Hx Asthma: No Hx Diabetes: No Hx Gastrointestinal Problems: Yes - ckd,localized edema Hx Dialysis: No Hx Neurological Problems: Yes - dementia Hx Cerebrovascular Accident: No Hx Seizures: No Review of Systems Constitutional: Reports: weakness All Other Systems: limited - secondary to dementia Physical Exam Vital Signs Date Time Temp Pulse Resp B/P (MAP) Pulse Ox O2 Delivery O2 Flow Rate FiO2 09/20/17 22:00 98.1 90 14 162/81 96 Room Air 98.1 vitals normal except for high blood pressure Sp02 EP Interpretation: reviewed, normal General Appearance: Chronically Ill Head: normocephalic, atraumatic Eyes: bilateral eye PERRL, bilateral eye EOMI ENT: dry mucus membranes Neck: full range of motion, supple, no meningismus Respiratory: chest non-tender, lungs clear, normal breath sounds Cardiovascular #1: regular rate, rhythm, no murmur Gastrointestinal: normal bowel sounds, non tender, no mass, no organomegaly, no bruit, non-distended Musculoskeletal: back normal, other - contracted Psychiatric: mood/affect normal Skin: warm/dry Medical Decision Making Diagnostic Impression: Primary Impression: Acute encephalopathy Additional Impressions: Episode of generalized weakness Alzheimer's dementia Qualified Codes: G30.9 - Alzheimer's disease, unspecified; F02.80 - Dementia in other diseases classified elsewhere without behavioral disturbance ER Course Patient presents with altered mental status. No evidence of infection. No new focal deficit to indicate TIA or CVA. May be declining dementia versus other viral illnesses. Will admit for IV hydration and further workup. I discussed the case with Dr. Ugalde. Lab Results Impression labs unremarkable EKG Diagnostic Results Rate: normal Rhythm: NSR ST Segments: other - RBBB Rhythm Strip Diag. Results Rhythm Strip Time: 22:22 EP Interpretation: yes Rate: 90 Rhythm: NSR, no PVC's, no ectopy Chest X-Ray Diagnostic Results Chest X-Ray Diagnostic Results : Chest X-Ray Ordered: Yes # of Views/Limited/Complete: 1 View Indication: Shortness of Breath EP Interpretation: Yes Interpretation: no consolidation, no effusion, no pneumothorax, no acute cardiopulmonary disease Impression: No acute disease Electronically Signed by: Austin Tovar MD Last Vital Signs Date Time Temp Pulse Resp B/P (MAP) Pulse Ox O2 Delivery O2 Flow Rate FiO2 09/20/17 22:00 98.1 90 14 162/81 96 Room Air 98.1 Status: improved Disposition: ADMITTED INPATIENT Condition: Serious AUSTIN TOVAR M.D. Sep 20, 2017 22:05
[2017-09-20 22:15] VITALS: BP 152/78
[2017-09-20 22:54] LABS: APPEARANCE,URINE CLEAR; BILIRUBIN, URINE NEGATIVE (NEGATIVE); COLOR,URINE PALE YELLOW; GLUCOSE, URINE (UA) NEGATIVE (NEGATIVE); KETONES,URINE 1+ (NEGATIVE); LEUKOCYTE ESTERASE ,URINE NEGATIVE (NEGATIVE); NITRITE,URINE NEGATIVE (NEGATIVE); PH,URINE 6.5 (4.5-8.0); PROTEIN,URINE NEGATIVE (NEGATIVE); UROBILINOGEN,URINE NORMAL MG/DL (0.0-1.0)
[2017-09-20 22:58] LABS: BASOPHILS % (AUTO) 0.8 % (0.0-2.0); EOSINOPHILS % (AUTO) 0.4 % (0.0-3.0); HEMATOCRIT 40.4 % (37.0-47.0); HEMOGLOBIN 13.8 G/DL (12.0-16.0); LYMPHOCYTES % (AUTO) 26.2 % (20.0-45.0); MEAN CORPUSCULAR VOLUME 89 FL (80-99); MONOCYTES % (AUTO) 7.3 % (1.0-10.0); NEUTROPHILS % (AUTO) 65.2 % (45.0-75.0); PLATELET COUNT 298 K/UL (150-450); RED BLOOD COUNT 4.53 M/UL (4.20-5.40); RED CELL DISTRIBUTION WIDTH 12.4 % (11.6-14.8); WHITE BLOOD COUNT 5.8 K/UL (4.8-10.8)
[2017-09-20] MEDS ORDERED: NITROGLYCERIN0.4 MG SL (23:01)
[2017-09-20] MEDS ORDERED: FLEET ENEMA133 ML RECTAL (23:01)
[2017-09-20] MEDS ORDERED: DUONEB 0.5-3(2.53 ML HHN (23:01)
[2017-09-20] MEDS ORDERED: BISACODYL5 MG RECTAL (23:01)
[2017-09-20] MEDS ORDERED: ASPIR 8181 MG ORAL (23:01)
[2017-09-20 23:14] LABS: ANION GAP 9 mmol/L (5-15); BLOOD UREA NITROGEN 11 mg/dL (7-18); CALCIUM 10.5 MG/DL (8.5-10.1); CARBON DIOXIDE 26 MMOL/L (21-32); CHLORIDE 101 MMOL/L (98-107); POTASSIUM 3.7 MMOL/L (3.5-5.1); SODIUM 136 MMOL/L (136-145)
[2017-09-20 23:15] VITALS: BP 179/88
[2017-09-20 23:19] LABS: ALANINE AMINOTRANSFERASE 20 U/L (12-78); ALBUMIN 3.4 G/DL (3.4-5.0); ALBUMIN/GLOBULIN RATIO 0.7 (1.0-2.7); ALKALINE PHOSPHATASE 100 U/L (46-116); ASPARTATE AMINO TRANSFERASE 24 U/L (15-37); BILIRUBIN,TOTAL 0.7 MG/DL (0.2-1.0)
[2017-09-21] VITALS (7 sets, daily range): BP systolic 134–168; BP diastolic 62–98
[2017-09-21] MEDS ORDERED: Morphine Sulfate 4mg/ml Inj IVP PRN (04:45)
[2017-09-21] MEDS: D5 1/2NS 1,000 ML IV SCH (04:53)
[2017-09-21] MEDS: LORazepam Inj 2mg/ml 1ml IV PRN ×2 (04:59→20:32)
[2017-09-21] MEDS: Heparin 5000 units/ml inj SUBQ SCH ×2 (09:25→20:37)
--- NOTE | 2017-09-21 10:59 | Diagnostic Imaging Report ---
Indication: Altered mental status Technique: XRAY Chest 1v Comparison: 07/09/2017 Findings: Rotated and leaning to the left. Heart size and mediastinal contours are stable. There is no focal airspace consolidation, pleural effusion or pneumothorax. There is osteopenia, scoliosis and degenerative change of the spine. No acute osseous abnormality is appreciated. Impression: No radiographic evidence of acute cardiopulmonary disease or significant interval change compared to the prior exam.
--- NOTE | 2017-09-21 14:54 | History and Physical ---
History of Present Illness General Date patient seen: Sep 21, 2017 Reason for Hospitalization: Generalized Weakness Present Illness HPI 83-year-old female with a history of dementia, bedbound., group home resident presented to ER with chief complaint of generalized weakness for one .decreased appetite. Decreased oral intake. No nausea no vomiting. No fever chills. History is from group home note and from EMS. Patient unable to give a history because of her condition. Pt is admitted to work up her acute encephalopathy. Allergies: Coded Allergies: No Known Allergies (Unverified , 02/11/17) Medication History Scheduled Aspirin* (Aspir 81*), 81 MG ORAL DAILY, (Reported) Bisacodyl* (Dulcolax*), 10 MG RECTAL DAILY, (Reported) Clonidine Hcl* (Catapres*), 0.1 MG ORAL EVERY 6 HOURS, (Reported) Clotrimazole* (Lotrimin*), 1 APPLIC TOPIC THREE TIMES A DAY Docusate Sodium* (Docusate Sodium*), 100 MG ORAL DAILY, (Reported) Escitalopram Oxalate* (Lexapro*), 10 MG ORAL DAILY Escitalopram Oxalate* (Lexapro*), 5 MG ORAL DAILY, (Reported) Ipratropium/Albuterol Sulfate (DuoNeb 0.5-3(2.5)mg/3ml), 3 ML HHN EVERY 4 HOURS, (Reported) Ipratropium/Albuterol Sulfate (DuoNeb 0.5-3(2.5)mg/3ml), 3 ML HHN Q4HR, ( Reported) Magnesium Hydroxide* (Milk Of Magnesia*), 30 ML ORAL DAILY, (Reported) Na Phos,M-B/Na Phos,Di-Ba* (Fleet Enema*), 133 ML RECTAL DAILY, (Reported) Scheduled PRN Acetaminophen (Acetaminophen), 650 MG ORAL Q6H PRN for Prn Headache/Temp > 101, (Reported) Ondansetron* (Zofran*), 4 MG ORAL Q6H PRN for Nausea & Vomiting, (Reported) Temazepam* (Temazepam*), 15 MG ORAL BEDTIME PRN for Insomnia, (Reported) Miscellaneous Medications Nitroglycerin (Nitroglycerin), 0.4 MG SL, (Reported) Sennosides (Senna Laxative), 25 MG PO, (Reported) Unable to Obtain Medications (Unable To Obtain Meds), (Reported) Patient History Healthcare decision maker Resuscitation status Full Code Advanced Directive on File No Past Medical/Surgical History Past Medical/Surgical History: (1) Alzheimer's dementia (2) Peripheral edema (3) DVT (deep venous thrombosis) (4) Protein-calorie malnutrition, severe Review of Systems All Other Systems: negative except mentioned in HPI Physical Exam General Appearance: WD/WN Lines, tubes and drains: peripheral HEENT: normocephalic, atraumatic Neck: non-tender, normal alignment Respiratory/Chest: chest wall non-tender, lungs clear Breasts: no masses Cardiovascular/Chest: normal peripheral pulses Abdomen: normal bowel sounds, non tender Genitourinary/Rectal: normal genital exam Extremities: normal range of motion Skin Exam: normal pigmentation Neurologic: floor space allocator II-XII grossly normal Last 24 Hour Vital Signs Date Time Temp Pulse Resp B/P (MAP) Pulse Ox O2 Delivery O2 Flow Rate FiO2 09/21/17 12:00 97.5 84 19 134/62 100 97.5 09/21/17 05:30 98 09/21/17 05:07 111 09/21/17 04:00 96.6 125 19 155/98 98 Room Air 96.6 09/21/17 02:36 117 157/91 100 Room Air 09/21/17 01:50 98.7 82 16 158/83 98 Room Air 98.7 09/21/17 01:00 98.7 82 16 158/83 98 Room Air 98.7 09/21/17 00:15 173/83 09/21/17 00:15 98.9 72 14 168/81 98 Room Air 98.9 09/20/17 23:15 98.9 88 16 179/88 97 Room Air 98.9 09/20/17 22:15 98.1 72 15 152/78 97 Room Air 98.1 09/20/17 22:00 98.1 90 14 162/81 96 Room Air 98.1 Intake and Output 09/20/17 09/21/17 19:00 07:00 Intake Total 1100 ml Output Total 600 ml Balance 500 ml Intake IV Total 1100 ml Output Urine Total 600 ml Laboratory Tests Test 09/20/17 22:30 White Blood Count 5.8 K/UL (4.8-10.8) Red Blood Count 4.53 M/UL (4.20-5.40) Hemoglobin 13.8 G/DL (12.0-16.0) Hematocrit 40.4 % (37.0-47.0) Mean Corpuscular Volume 89 FL (80-99) Mean Corpuscular Hemoglobin 30.4 PG (27.0-31.0) Mean Corpuscular Hemoglobin Concent 34.1 G/DL (32.0-36.0) Red Cell Distribution Width 12.4 % (11.6-14.8) Platelet Count 298 K/UL (150-450) Mean Platelet Volume 7.4 FL (6.5-10.1) Neutrophils (%) (Auto) 65.2 % (45.0-75.0) Lymphocytes (%) (Auto) 26.2 % (20.0-45.0) Monocytes (%) (Auto) 7.3 % (1.0-10.0) Eosinophils (%) (Auto) 0.4 % (0.0-3.0) Basophils (%) (Auto) 0.8 % (0.0-2.0) Urine Color Pale yellow Urine Appearance Clear Urine pH 6.5 (4.5-8.0) Urine Specific [place] 1.010 (1.005-1.035) Urine Protein Negative (NEGATIVE) Urine Glucose (UA) Negative (NEGATIVE) Urine Ketones 1+ (NEGATIVE) H Urine Occult Blood Negative (NEGATIVE) Urine Nitrite Negative (NEGATIVE) Urine Bilirubin Negative (NEGATIVE) Urine Urobilinogen Normal MG/DL (0.0-1.0) Urine Leukocyte Esterase Negative (NEGATIVE) Urine RBC 0-2 /HPF (0 - 2) Urine WBC 0-2 /HPF (0 - 2) Urine Squamous Epithelial Cells Many /LPF (NONE/OCC) H Urine Bacteria None /HPF (NONE) Sodium Level 136 MMOL/L (136-145) Potassium Level 3.7 MMOL/L (3.5-5.1) Chloride Level 101 MMOL/L (98-107) Carbon Dioxide Level 26 MMOL/L (21-32) Anion Gap 9 mmol/L (5-15) Blood Urea Nitrogen 11 mg/dL (7-18) Creatinine 1.0 MG/DL (0.55-1.30) Estimat Glomerular Filtration Rate mL/min (>60) Glucose Level 93 MG/DL (74-106) Calcium Level 10.5 MG/DL (8.5-10.1) H Total Bilirubin 0.7 MG/DL (0.2-1.0) Aspartate Amino Transf (AST/SGOT) 24 U/L (15-37) Alanine Aminotransferase (ALT/SGPT) 20 U/L (12-78) Alkaline Phosphatase 100 U/L (46-116) Troponin I 0.017 ng/mL (0.000-0.056) Total Protein 8.0 G/DL (6.4-8.2) Albumin 3.4 G/DL (3.4-5.0) Globulin 4.6 g/dL Albumin/Globulin Ratio 0.7 (1.0-2.7) L Height (Feet): 5 Height (Inches): 4.00 Weight (Pounds): 118 Medications Current Medications Medications (Trade) Dose Ordered Sig/Brayden Route PRN Reason Start Time Stop Time Status Last Admin Dose Admin Acetaminophen (Tylenol) 650 mg Q4H PRN ORAL Mild Pain/Temp > 100.5 09/21/17 04:45 10/21/17 04:44 Clonidine HCl (Catapres Tab) 0.1 mg EVERY 6 HOURS PRN ORAL SBP >160 09/21/17 06:00 10/21/17 05:59 Dextrose/Sodium Chloride 1,000 ml @ 50 mls/hr Q20H IV 09/21/17 04:45 10/21/17 04:44 09/21/17 04:53 Heparin Sodium (Porcine) (Heparin 5000 units/ml) 5,000 units EVERY 12 HOURS SUBQ 09/21/17 09:00 10/21/17 08:59 09/21/17 09:25 Lorazepam (Ativan 2mg/ml 1ml) 1 mg Q4H PRN IV For Anxiety 09/21/17 04:45 09/28/17 04:44 09/21/17 04:59 Morphine Sulfate (Morphine Sulfate) 1 mg Q4HR PRN IVP Moderate Pain (Pain Scale 4-6) 09/21/17 04:45 09/28/17 04:44 Assessment/Plan Problem List: (1) Acute encephalopathy ICD Codes: G93.40 - Encephalopathy, unspecified SNOMED: 75175863, 516859512 (2) Episode of generalized weakness ICD Codes: R53.1 - Weakness SNOMED: 05852777 (3) Alzheimer's dementia ICD Codes: G30.9 - Alzheimer's disease, unspecified SNOMED: 34226736 Qualifiers: Qualified Codes: G30.9 - Alzheimer's disease, unspecified; F02.80 - Dementia in other diseases classified elsewhere without behavioral disturbance (4) Protein-calorie malnutrition, severe ICD Codes: E43 - Unspecified severe protein-calorie malnutrition SNOMED: 109694480 Assessment/Plan neuro evaluation mri of brain check electrolytes rule out occult sepsis dvt prophylaxis. swallow evaluation Bharathi Ugalde MD Sep 21, 2017 14:54
[2017-09-22] VITALS: BP 144/91
[2017-09-22] MEDS: D5 1/2NS 1,000 ML IV SCH ×2 (00:50→20:27)
[2017-09-22 04:00] VITALS: BP 138/88
[2017-09-22 07:43] LABS: BASOPHILS % (AUTO) 0.5 % (0.0-2.0); EOSINOPHILS % (AUTO) 0.6 % (0.0-3.0); HEMATOCRIT 41.1 % (37.0-47.0); HEMOGLOBIN 14.4 G/DL (12.0-16.0); LYMPHOCYTES % (AUTO) 17.8 % (20.0-45.0); MEAN CORPUSCULAR VOLUME 90 FL (80-99); MONOCYTES % (AUTO) 5.9 % (1.0-10.0); NEUTROPHILS % (AUTO) 75.3 % (45.0-75.0); PLATELET COUNT 329 K/UL (150-450); RED BLOOD COUNT 4.59 M/UL (4.20-5.40); RED CELL DISTRIBUTION WIDTH 12.2 % (11.6-14.8); WHITE BLOOD COUNT 7.2 K/UL (4.8-10.8)
[2017-09-22 07:57] VITALS: BP 143/83
[2017-09-22 08:08] LABS: ALANINE AMINOTRANSFERASE 16 U/L (12-78); ALBUMIN 3.1 G/DL (3.4-5.0); ALBUMIN/GLOBULIN RATIO 0.7 (1.0-2.7); ALKALINE PHOSPHATASE 96 U/L (46-116); ANION GAP 9 mmol/L (5-15); ASPARTATE AMINO TRANSFERASE 32 U/L (15-37); BILIRUBIN,TOTAL 0.8 MG/DL (0.2-1.0); BLOOD UREA NITROGEN 8 mg/dL (7-18); CALCIUM 10.8 MG/DL (8.5-10.1); CARBON DIOXIDE 26 MMOL/L (21-32); CHLORIDE 104 MMOL/L (98-107); CREATININE 0.9 MG/DL (0.55-1.30); POTASSIUM 3.8 MMOL/L (3.5-5.1); SODIUM 139 MMOL/L (136-145)
[2017-09-22] MEDS: Heparin 5000 units/ml inj SUBQ SCH ×2 (09:24→20:34)
[2017-09-22 11:47] VITALS: BP 146/81
--- NOTE | 2017-09-22 14:13 | Pulmonology Progress Note ---
Assessment/Plan Problems: (1) Acute encephalopathy (2) Episode of generalized weakness (3) Alzheimer's dementia (4) Protein-calorie malnutrition, severe Assessment/Plan swallow study calorie count psych evaluation dvt prophylaxis symptomatic treatment Subjective ROS Limited/Unobtainable: No Constitutional: Reports: no symptoms HEENT: Repors: no symptoms Respiratory: Reports: no symptoms Allergies: Coded Allergies: No Known Allergies (Unverified , 02/11/17) Objective Last 24 Hour Vital Signs Date Time Temp Pulse Resp B/P (MAP) Pulse Ox O2 Delivery O2 Flow Rate FiO2 09/22/17 11:47 96.9 110 18 146/81 100 96.9 09/22/17 07:57 97.3 110 18 143/83 100 97.3 09/22/17 04:00 98.0 97 20 138/88 97 98.0 09/22/17 00:00 97.7 93 20 144/91 98 97.7 09/21/17 20:22 97.1 92 20 148/84 97 Room Air 97.1 09/21/17 16:00 Room Air 09/21/17 16:00 97.5 83 19 149/90 100 97.5 Intake and Output 09/21/17 09/22/17 19:00 07:00 Intake Total 840 ml 600 ml Balance 840 ml 600 ml Intake Oral 240 ml IV Total 600 ml 600 ml # Voids 5 3 Objective General Appearance: cachectic HEENT: normocephalic, atraumatic Respiratory/Chest: chest wall non-tender, lungs clear Cardiovascular: normal peripheral pulses, normal rate, regular rhythm Abdomen: normal bowel sounds, soft, non tender Genitourinary: normal external genitalia Extremities: no cyanosis Skin: no rash Laboratory Tests 09/22/17 04:55: White Blood Count 7.2, Red Blood Count 4.59, Hemoglobin 14.4, Hematocrit 41.1, Mean Corpuscular Volume 90, Mean Corpuscular Hemoglobin 31.4H, Mean Corpuscular Hemoglobin Concent 35.1, Red Cell Distribution Width 12.2, Platelet Count 329, Mean Platelet Volume 6.6, Neutrophils (%) (Auto) 75.3H, Lymphocytes (%) (Auto) 17.8L, Monocytes (%) (Auto) 5.9, Eosinophils (%) (Auto) 0.6, Basophils (%) (Auto ) 0.5, Sodium Level 139, Potassium Level 3.8, Chloride Level 104, Carbon Dioxide Level 26, Anion Gap 9, Blood Urea Nitrogen 8, Creatinine 0.9, Estimat Glomerular Filtration Rate , Glucose Level 89, Calcium Level 10.8H, Phosphorus Level 3.0, Magnesium Level 1.9, Total Bilirubin 0.8, Aspartate Amino Transf (AST /SGOT) 32, Alanine Aminotransferase (ALT/SGPT) 16, Alkaline Phosphatase 96, Total Protein 7.5, Albumin 3.1L, Globulin 4.4, Albumin/Globulin Ratio 0.7L Current Medications Medications (Trade) Dose Ordered Sig/Brayden Route PRN Reason Start Time Stop Time Status Last Admin Dose Admin Acetaminophen (Tylenol) 650 mg Q4H PRN ORAL Mild Pain/Temp > 100.5 09/21/17 04:45 10/21/17 04:44 Clonidine HCl (Catapres Tab) 0.1 mg EVERY 6 HOURS PRN ORAL SBP >160 09/21/17 06:00 10/21/17 05:59 Dextrose/Sodium Chloride 1,000 ml @ 50 mls/hr Q20H IV 09/21/17 04:45 10/21/17 04:44 09/22/17 00:50 Heparin Sodium (Porcine) (Heparin 5000 units/ml) 5,000 units EVERY 12 HOURS SUBQ 09/21/17 09:00 10/21/17 08:59 09/22/17 09:24 Lorazepam (Ativan 2mg/ml 1ml) 1 mg Q4H PRN IV For Anxiety 09/21/17 04:45 09/28/17 04:44 09/21/17 20:32 Morphine Sulfate (Morphine Sulfate) 1 mg Q4HR PRN IVP Moderate Pain (Pain Scale 4-6) 09/21/17 04:45 09/28/17 04:44 Bharathi Ugalde MD Sep 22, 2017 14:13
[2017-09-22 15:42] VITALS: BP 141/74
[2017-09-22 17:23] LABS: APPEARANCE,URINE CLOUDY; BILIRUBIN, URINE NEGATIVE (NEGATIVE); COLOR,URINE PALE YELLOW; GLUCOSE, URINE (UA) NEGATIVE (NEGATIVE); KETONES,URINE NEGATIVE (NEGATIVE); LEUKOCYTE ESTERASE ,URINE 3+ (NEGATIVE); NITRITE,URINE NEGATIVE (NEGATIVE); PH,URINE 7 (4.5-8.0); PROTEIN,URINE 2+ (NEGATIVE); UROBILINOGEN,URINE NORMAL MG/DL (0.0-1.0)
[2017-09-22 20:00] VITALS: BP 123/85
[2017-09-22] MEDS ORDERED: D5 1/2NS 1000ml IV ONE (22:48)
[2017-09-23] VITALS: BP 139/88
[2017-09-23 04:00] VITALS: BP 127/61
[2017-09-23 07:38] LABS: ALANINE AMINOTRANSFERASE 13 U/L (12-78); ALBUMIN/GLOBULIN RATIO 0.8 (1.0-2.7); ALKALINE PHOSPHATASE 85 U/L (46-116); ANION GAP 9 mmol/L (5-15); ASPARTATE AMINO TRANSFERASE 21 U/L (15-37); BILIRUBIN,TOTAL 0.7 MG/DL (0.2-1.0); BLOOD UREA NITROGEN 7 mg/dL (7-18); CALCIUM 10.2 MG/DL (8.5-10.1); CARBON DIOXIDE 25 MMOL/L (21-32); CHLORIDE 106 MMOL/L (98-107); CREATININE 0.8 MG/DL (0.55-1.30); PHOSPHORUS 3.2 MG/DL (2.5-4.9); POTASSIUM 3.7 MMOL/L (3.5-5.1); SODIUM 140 MMOL/L (136-145)
[2017-09-23 07:39] LABS: BASOPHILS % (AUTO) 0.7 % (0.0-2.0); EOSINOPHILS % (AUTO) 0.6 % (0.0-3.0); HEMATOCRIT 38.2 % (37.0-47.0); HEMOGLOBIN 13.6 G/DL (12.0-16.0); LYMPHOCYTES % (AUTO) 24.4 % (20.0-45.0); MEAN CORPUSCULAR VOLUME 89 FL (80-99); MONOCYTES % (AUTO) 6.6 % (1.0-10.0); NEUTROPHILS % (AUTO) 67.7 % (45.0-75.0); PLATELET COUNT 315 K/UL (150-450); RED BLOOD COUNT 4.31 M/UL (4.20-5.40); RED CELL DISTRIBUTION WIDTH 12.1 % (11.6-14.8); WHITE BLOOD COUNT 6.6 K/UL (4.8-10.8)
[2017-09-23 08:15] VITALS: BP 142/79
[2017-09-23] MEDS: Heparin 5000 units/ml inj SUBQ SCH ×2 (09:00→21:12)
[2017-09-23 11:39] VITALS: BP 133/78
--- NOTE | 2017-09-23 12:15 | Consultation ---
History of Present Illness General Date patient seen: Sep 22, 2017 Chief Complaint: Generalized Weakness Present Illness HPI 83-year-old female who has a history of dementia and is bedbound. the pt pw waxing and waning of consciousness. agitation depressed mod Allergies: Coded Allergies: No Known Allergies (Unverified , 02/11/17) Medication History Scheduled Aspirin* (Aspir 81*), 81 MG ORAL DAILY, (Reported) Bisacodyl* (Dulcolax*), 10 MG RECTAL DAILY, (Reported) Clonidine Hcl* (Catapres*), 0.1 MG ORAL EVERY 6 HOURS, (Reported) Clotrimazole* (Lotrimin*), 1 APPLIC TOPIC THREE TIMES A DAY Docusate Sodium* (Docusate Sodium*), 100 MG ORAL DAILY, (Reported) Escitalopram Oxalate* (Lexapro*), 10 MG ORAL DAILY Escitalopram Oxalate* (Lexapro*), 5 MG ORAL DAILY, (Reported) Ipratropium/Albuterol Sulfate (DuoNeb 0.5-3(2.5)mg/3ml), 3 ML HHN EVERY 4 HOURS, (Reported) Ipratropium/Albuterol Sulfate (DuoNeb 0.5-3(2.5)mg/3ml), 3 ML HHN Q4HR, ( Reported) Magnesium Hydroxide* (Milk Of Magnesia*), 30 ML ORAL DAILY, (Reported) Na Phos,M-B/Na Phos,Di-Ba* (Fleet Enema*), 133 ML RECTAL DAILY, (Reported) Scheduled PRN Acetaminophen (Acetaminophen), 650 MG ORAL Q6H PRN for Prn Headache/Temp > 101, (Reported) Ondansetron* (Zofran*), 4 MG ORAL Q6H PRN for Nausea & Vomiting, (Reported) Temazepam* (Temazepam*), 15 MG ORAL BEDTIME PRN for Insomnia, (Reported) Miscellaneous Medications Nitroglycerin (Nitroglycerin), 0.4 MG SL, (Reported) Sennosides (Senna Laxative), 25 MG PO, (Reported) Unable to Obtain Medications (Unable To Obtain Meds), (Reported) Patient History Limited by: medical condition History Provided By: Patient, Medical Record, PMD Healthcare decision maker Resuscitation status Full Code Advanced Directive on File No Past Medical/Surgical History Past Medical/Surgical History: (1) Isolation (social) (2) Alzheimer's dementia (3) DVT (deep venous thrombosis) (4) Peripheral edema (5) Protein-calorie malnutrition, severe Review of Systems Psychiatric: Reports: prior hx, anxiety, depressed feelings Physical Exam General Appearance: no apparent distress, alert, confused Neurologic: depressed affect Last 24 Hour Vital Signs Date Time Temp Pulse Resp B/P (MAP) Pulse Ox O2 Delivery O2 Flow Rate FiO2 09/23/17 11:39 98.1 88 17 133/78 Room Air 98.1 09/23/17 08:15 98.8 73 18 142/79 Room Air 98.8 09/23/17 04:00 97.3 98 15 127/61 97.3 09/23/17 00:00 97.6 105 15 139/88 98 97.6 09/22/17 20:00 97.7 71 16 123/85 97 97.7 09/22/17 16:00 Room Air 09/22/17 15:42 98.6 102 18 141/74 100 98.6 Intake and Output 09/22/17 09/23/17 19:00 07:00 Intake Total 990 ml 600 ml Balance 990 ml 600 ml Intake Oral 390 ml IV Total 600 ml 600 ml # Voids 4 Laboratory Tests Test 09/22/17 17:00 09/23/17 05:55 Urine Color Pale yellow Urine Appearance Cloudy Urine pH 7 (4.5-8.0) Urine Specific [place] 1.005 (1.005-1.035) Urine Protein 2+ (NEGATIVE) H Urine Glucose (UA) Negative (NEGATIVE) Urine Ketones Negative (NEGATIVE) Urine Occult Blood 5+ (NEGATIVE) H Urine Nitrite Negative (NEGATIVE) Urine Bilirubin Negative (NEGATIVE) Urine Urobilinogen Normal MG/DL (0.0-1.0) Urine Leukocyte Esterase 3+ (NEGATIVE) H Urine RBC 15-20 /HPF (0 - 2) H Urine WBC Tntc /HPF (0 - 2) H Urine Squamous Epithelial Cells Moderate /LPF (NONE/OCC) H Urine Bacteria Many /HPF (NONE) H White Blood Count 6.6 K/UL (4.8-10.8) Red Blood Count 4.31 M/UL (4.20-5.40) Hemoglobin 13.6 G/DL (12.0-16.0) Hematocrit 38.2 % (37.0-47.0) Mean Corpuscular Volume 89 FL (80-99) Mean Corpuscular Hemoglobin 31.6 PG (27.0-31.0) H Mean Corpuscular Hemoglobin Concent 35.6 G/DL (32.0-36.0) Red Cell Distribution Width 12.1 % (11.6-14.8) Platelet Count 315 K/UL (150-450) Mean Platelet Volume 6.4 FL (6.5-10.1) L Neutrophils (%) (Auto) 67.7 % (45.0-75.0) Lymphocytes (%) (Auto) 24.4 % (20.0-45.0) Monocytes (%) (Auto) 6.6 % (1.0-10.0) Eosinophils (%) (Auto) 0.6 % (0.0-3.0) Basophils (%) (Auto) 0.7 % (0.0-2.0) Sodium Level 140 MMOL/L (136-145) Potassium Level 3.7 MMOL/L (3.5-5.1) Chloride Level 106 MMOL/L (98-107) Carbon Dioxide Level 25 MMOL/L (21-32) Anion Gap 9 mmol/L (5-15) Blood Urea Nitrogen 7 mg/dL (7-18) Creatinine 0.8 MG/DL (0.55-1.30) Estimat Glomerular Filtration Rate mL/min (>60) Glucose Level 100 MG/DL (74-106) Calcium Level 10.2 MG/DL (8.5-10.1) H Phosphorus Level 3.2 MG/DL (2.5-4.9) Magnesium Level 1.9 MG/DL (1.8-2.4) Total Bilirubin 0.7 MG/DL (0.2-1.0) Aspartate Amino Transf (AST/SGOT) 21 U/L (15-37) Alanine Aminotransferase (ALT/SGPT) 13 U/L (12-78) Alkaline Phosphatase 85 U/L (46-116) Total Protein 7.0 G/DL (6.4-8.2) Albumin 3.0 G/DL (3.4-5.0) L Globulin 4.0 g/dL Albumin/Globulin Ratio 0.8 (1.0-2.7) L Microbiology Date/Time Source Procedure Growth Status 09/22/17 17:00 Urine,Clean Catch Urine Culture - Preliminary Gram Negative Bacillus 1 Resulted Height (Feet): 5 Height (Inches): 4.00 Weight (Pounds): 112 Medications Current Medications Medications (Trade) Dose Ordered Sig/Brayden Route PRN Reason Start Time Stop Time Status Last Admin Dose Admin Acetaminophen (Tylenol) 650 mg Q4H PRN ORAL Mild Pain/Temp > 100.5 09/21/17 04:45 10/21/17 04:44 Clonidine HCl (Catapres Tab) 0.1 mg EVERY 6 HOURS PRN ORAL SBP >160 09/21/17 06:00 10/21/17 05:59 Dextrose/Sodium Chloride 1,000 ml @ 50 mls/hr Q20H IV 09/21/17 04:45 10/21/17 04:44 09/22/17 20:27 Heparin Sodium (Porcine) (Heparin 5000 units/ml) 5,000 units EVERY 12 HOURS SUBQ 09/21/17 09:00 10/21/17 08:59 09/23/17 09:00 Lorazepam (Ativan 2mg/ml 1ml) 1 mg Q4H PRN IV For Anxiety 09/21/17 04:45 09/28/17 04:44 09/21/17 20:32 Morphine Sulfate (Morphine Sulfate) 1 mg Q4HR PRN IVP Moderate Pain (Pain Scale 4-6) 09/21/17 04:45 09/28/17 04:44 09/22/17 20:29 Assessment/Plan Assessment/Plan encephalopathy mdd Alonso Rodriguez M.D. Sep 23, 2017 12:15
--- NOTE | 2017-09-23 15:05 | Pulmonology Progress Note ---
Assessment/Plan Problems: (1) Acute encephalopathy (2) Episode of generalized weakness (3) Alzheimer's dementia (4) Protein-calorie malnutrition, severe Assessment/Plan swallow study calorie count psych evaluation dvt prophylaxis symptomatic treatment labs checked all notes reviewed Subjective ROS Limited/Unobtainable: No Constitutional: Reports: no symptoms HEENT: Repors: no symptoms Respiratory: Reports: no symptoms Allergies: Coded Allergies: No Known Allergies (Unverified , 02/11/17) Objective Last 24 Hour Vital Signs Date Time Temp Pulse Resp B/P (MAP) Pulse Ox O2 Delivery O2 Flow Rate FiO2 09/23/17 11:39 98.1 88 17 133/78 Room Air 98.1 09/23/17 08:15 98.8 73 18 142/79 Room Air 98.8 09/23/17 04:00 97.3 98 15 127/61 97.3 09/23/17 00:00 97.6 105 15 139/88 98 97.6 09/22/17 20:00 97.7 71 16 123/85 97 97.7 09/22/17 16:00 Room Air 09/22/17 15:42 98.6 102 18 141/74 100 98.6 Intake and Output 09/22/17 09/23/17 19:00 07:00 Intake Total 990 ml 600 ml Balance 990 ml 600 ml Intake Oral 390 ml IV Total 600 ml 600 ml # Voids 4 Objective General Appearance: cachectic HEENT: normocephalic, atraumatic Respiratory/Chest: chest wall non-tender, lungs clear Cardiovascular: normal peripheral pulses, normal rate, regular rhythm Abdomen: normal bowel sounds, soft, non tender Genitourinary: normal external genitalia Extremities: no cyanosis Skin: no rash Microbiology Date/Time Source Procedure Growth Status 09/21/17 00:05 Nasal Nares MRSA Culture - Final NO METHICILLIN RESISTANT STAPH AUREUS... Complete 09/22/17 17:00 Urine,Clean Catch Urine Culture - Preliminary Gram Negative Bacillus 1 Resulted 09/21/17 00:05 Rectum VRE Culture - Final NO VANCOMYCIN RESISTANT ENTEROCOCCUS ... Complete Laboratory Tests 09/22/17 17:00: Urine Color Pale yellow, Urine Appearance Cloudy, Urine pH 7, Urine Specific [place] 1.005, Urine Protein 2+H, Urine Glucose (UA) Negative, Urine Ketones Negative, Urine Occult Blood 5+H, Urine Nitrite Negative, Urine Bilirubin Negative, Urine Urobilinogen Normal, Urine Leukocyte Esterase 3+H, Urine RBC 15- 20H, Urine WBC TntcH, Urine Squamous Epithelial Cells ModerateH, Urine Bacteria ManyH 09/23/17 05:55: White Blood Count 6.6, Red Blood Count 4.31, Hemoglobin 13.6, Hematocrit 38.2, Mean Corpuscular Volume 89, Mean Corpuscular Hemoglobin 31.6H, Mean Corpuscular Hemoglobin Concent 35.6, Red Cell Distribution Width 12.1, Platelet Count 315, Mean Platelet Volume 6.4L, Neutrophils (%) (Auto) 67.7, Lymphocytes (%) (Auto) 24.4, Monocytes (%) (Auto) 6.6, Eosinophils (%) (Auto) 0.6, Basophils (%) (Auto ) 0.7, Sodium Level 140, Potassium Level 3.7, Chloride Level 106, Carbon Dioxide Level 25, Anion Gap 9, Blood Urea Nitrogen 7, Creatinine 0.8, Estimat Glomerular Filtration Rate , Glucose Level 100, Calcium Level 10.2H, Phosphorus Level 3.2, Magnesium Level 1.9, Total Bilirubin 0.7, Aspartate Amino Transf (AST /SGOT) 21, Alanine Aminotransferase (ALT/SGPT) 13, Alkaline Phosphatase 85, Total Protein 7.0, Albumin 3.0L, Globulin 4.0, Albumin/Globulin Ratio 0.8L Current Medications Medications (Trade) Dose Ordered Sig/Brayden Route PRN Reason Start Time Stop Time Status Last Admin Dose Admin Acetaminophen (Tylenol) 650 mg Q4H PRN ORAL Mild Pain/Temp > 100.5 09/21/17 04:45 10/21/17 04:44 Clonidine HCl (Catapres Tab) 0.1 mg EVERY 6 HOURS PRN ORAL SBP >160 09/21/17 06:00 10/21/17 05:59 Dextrose/Sodium Chloride 1,000 ml @ 50 mls/hr Q20H IV 09/21/17 04:45 10/21/17 04:44 09/22/17 20:27 Heparin Sodium (Porcine) (Heparin 5000 units/ml) 5,000 units EVERY 12 HOURS SUBQ 09/21/17 09:00 10/21/17 08:59 09/23/17 09:00 Lorazepam (Ativan 2mg/ml 1ml) 1 mg Q4H PRN IV For Anxiety 09/21/17 04:45 09/28/17 04:44 09/21/17 20:32 Morphine Sulfate (Morphine Sulfate) 1 mg Q4HR PRN IVP Moderate Pain (Pain Scale 4-6) 09/21/17 04:45 09/28/17 04:44 09/22/17 20:29 Bharathi Ugalde MD Sep 23, 2017 15:05
[2017-09-23] MEDS: D5 1/2NS 1,000 ML IV SCH (15:53)
[2017-09-23 15:59] VITALS: BP 127/80
[2017-09-23 20:00] VITALS: BP 142/86
--- NOTE | 2017-09-23 21:27 | Cardiology Report ---
APPROVED REPORT EKG Measurement Heart [id number] Normal sinus rhythm Right bundle branch block Inferior infarct, age undetermined Abnormal ECG
--- NOTE | 2017-09-23 23:52 | General Progress Note ---
Assessment/Plan Assessment/Plan encephalopathy mdd lexapro Subjective Date patient seen: Sep 23, 2017 Neurologic/Psychiatric: Reports: anxiety, depressed, emotional problems Allergies: Coded Allergies: No Known Allergies (Unverified , 02/11/17) Objective Last 24 Hour Vital Signs Date Time Temp Pulse Resp B/P (MAP) Pulse Ox O2 Delivery O2 Flow Rate FiO2 09/23/17 20:00 98.4 95 18 142/86 100 Room Air 98.4 09/23/17 15:59 98.0 79 18 127/80 97 Room Air 98.0 09/23/17 11:39 98.1 88 17 133/78 Room Air 98.1 09/23/17 08:15 98.8 73 18 142/79 Room Air 98.8 09/23/17 04:00 97.3 98 15 127/61 97.3 09/23/17 00:00 97.6 105 15 139/88 98 97.6 Intake and Output 09/22/17 09/23/17 19:00 07:00 Intake Total 990 ml 600 ml Balance 990 ml 600 ml Intake Oral 390 ml IV Total 600 ml 600 ml # Voids 4 Laboratory Tests 09/23/17 05:55: White Blood Count 6.6, Red Blood Count 4.31, Hemoglobin 13.6, Hematocrit 38.2, Mean Corpuscular Volume 89, Mean Corpuscular Hemoglobin 31.6H, Mean Corpuscular Hemoglobin Concent 35.6, Red Cell Distribution Width 12.1, Platelet Count 315, Mean Platelet Volume 6.4L, Neutrophils (%) (Auto) 67.7, Lymphocytes (%) (Auto) 24.4, Monocytes (%) (Auto) 6.6, Eosinophils (%) (Auto) 0.6, Basophils (%) (Auto ) 0.7, Sodium Level 140, Potassium Level 3.7, Chloride Level 106, Carbon Dioxide Level 25, Anion Gap 9, Blood Urea Nitrogen 7, Creatinine 0.8, Estimat Glomerular Filtration Rate , Glucose Level 100, Calcium Level 10.2H, Phosphorus Level 3.2, Magnesium Level 1.9, Total Bilirubin 0.7, Aspartate Amino Transf (AST /SGOT) 21, Alanine Aminotransferase (ALT/SGPT) 13, Alkaline Phosphatase 85, Total Protein 7.0, Albumin 3.0L, Globulin 4.0, Albumin/Globulin Ratio 0.8L Height (Feet): 5 Height (Inches): 4.00 Weight (Pounds): 112 General Appearance: no apparent distress, alert, confused, agitated Alonso Garcia M.D. Sep 23, 2017 23:52
[2017-09-24] VITALS (7 sets, daily range): BP systolic 128–160; BP diastolic 77–94
[2017-09-24] MEDS ORDERED: D5 1/2NS 1000ml IV ONE (08:53)
[2017-09-24] MEDS: Heparin 5000 units/ml inj SUBQ SCH ×2 (09:21→20:06)
[2017-09-24] MEDS: D5 1/2NS 1,000 ML IV SCH (11:29)
--- NOTE | 2017-09-24 16:02 | Pulmonology Progress Note ---
Assessment/Plan Problems: (1) Acute encephalopathy (2) Episode of generalized weakness (3) Alzheimer's dementia (4) Protein-calorie malnutrition, severe Assessment/Plan swallow study reviewed psych evaluation dvt prophylaxis symptomatic treatment labs checked all notes reviewed dc to senior living Subjective ROS Limited/Unobtainable: No Constitutional: Reports: no symptoms HEENT: Repors: no symptoms Respiratory: Reports: no symptoms Allergies: Coded Allergies: No Known Allergies (Unverified , 02/11/17) Objective Last 24 Hour Vital Signs Date Time Temp Pulse Resp B/P (MAP) Pulse Ox O2 Delivery O2 Flow Rate FiO2 09/24/17 15:32 98.2 90 20 134/94 98 Room Air 98.2 09/24/17 12:00 98.2 99 18 160/92 99 Room Air 98.2 09/24/17 11:29 160/92 09/24/17 08:00 98.1 96 18 128/91 98 Room Air 98.1 09/24/17 04:08 97.8 82 18 138/82 98 Room Air 97.8 09/23/17 20:00 98.4 95 18 142/86 100 Room Air 98.4 Intake and Output 09/23/17 09/24/17 19:00 07:00 Intake Total 600 ml 680 ml Balance 600 ml 680 ml Intake Oral 80 ml IV Total 600 ml 600 ml # Voids 4 Objective General Appearance: cachectic HEENT: normocephalic, atraumatic Respiratory/Chest: chest wall non-tender, lungs clear Cardiovascular: normal peripheral pulses, normal rate, regular rhythm Abdomen: normal bowel sounds, soft, non tender Genitourinary: normal external genitalia Extremities: no cyanosis Skin: no rash HEENT: normocephalic, atraumatic Respiratory/Chest: lungs clear, normal breath sounds Cardiovascular: normal peripheral pulses, normal rate Genitourinary: normal external genitalia Skin: no rash, no ulcers Neurologic/Psychiatric: no motor/sensory deficits, alert Microbiology Date/Time Source Procedure Growth Status 09/23/17 14:45 Straight Cath Urine Culture - Preliminary Gram Negative Bacillus 1 Resulted 09/22/17 17:00 Urine,Clean Catch Urine Culture - Final Escherichia Coli Complete Current Medications Medications (Trade) Dose Ordered Sig/Brayden Route PRN Reason Start Time Stop Time Status Last Admin Dose Admin Acetaminophen (Tylenol) 650 mg Q4H PRN ORAL Mild Pain/Temp > 100.5 09/21/17 04:45 10/21/17 04:44 Clonidine HCl (Catapres Tab) 0.1 mg EVERY 6 HOURS PRN ORAL SBP >160 09/21/17 06:00 10/21/17 05:59 09/24/17 11:29 Dextrose/Sodium Chloride 1,000 ml @ 50 mls/hr Q20H IV 09/21/17 04:45 10/21/17 04:44 09/24/17 11:29 Heparin Sodium (Porcine) (Heparin 5000 units/ml) 5,000 units EVERY 12 HOURS SUBQ 09/21/17 09:00 10/21/17 08:59 09/24/17 09:21 Lorazepam (Ativan 2mg/ml 1ml) 1 mg Q4H PRN IV For Anxiety 09/21/17 04:45 09/28/17 04:44 09/21/17 20:32 Morphine Sulfate (Morphine Sulfate) 1 mg Q4HR PRN IVP Moderate Pain (Pain Scale 4-6) 09/21/17 04:45 09/28/17 04:44 09/22/17 20:29 Bharathi Ugalde MD Sep 24, 2017 16:01
[2017-09-25 03:52] VITALS: BP 148/90
[2017-09-25] MEDS: LORazepam Inj 2mg/ml 1ml IV PRN (04:07)
[2017-09-25] MEDS: D5 1/2NS 1,000 ML IV SCH (06:17)
[2017-09-25 08:00] VITALS: BP 118/68
[2017-09-25] MEDS: Heparin 5000 units/ml inj SUBQ SCH (10:16)
[2017-09-25 11:41] VITALS: BP 136/66
[2017-09-25] MEDS ORDERED: D5NS 1000ml IV ONE (12:00)
[2017-09-25] MEDS ORDERED: D5 1/2NS 1000ml IV ONE (12:00)
--- NOTE | 2017-09-25 19:54 | Pulmonology Progress Note ---
Assessment/Plan Problems: (1) Acute encephalopathy (2) Episode of generalized weakness (3) Alzheimer's dementia (4) Protein-calorie malnutrition, severe Assessment/Plan doing better psych evaluation dvt prophylaxis symptomatic treatment labs checked all notes reviewed dc to intermediate seen earlier today Subjective ROS Limited/Unobtainable: No Constitutional: Reports: no symptoms HEENT: Repors: no symptoms Respiratory: Reports: no symptoms Allergies: Coded Allergies: No Known Allergies (Unverified , 02/11/17) Objective Last 24 Hour Vital Signs Date Time Temp Pulse Resp B/P (MAP) Pulse Ox O2 Delivery O2 Flow Rate FiO2 09/25/17 11:41 97.0 18 136/66 99 97.0 09/25/17 08:00 97.7 81 20 118/68 100 97.7 09/25/17 03:52 97.7 20 148/90 95 Room Air 97.7 09/24/17 23:55 97.3 88 20 148/77 99 Room Air 97.3 Intake and Output 09/24/17 09/25/17 19:00 07:00 Intake Total 600 ml 550 ml Balance 600 ml 550 ml Intake Oral 100 ml IV Total 500 ml 550 ml # Voids 4 Objective General Appearance: cachectic HEENT: normocephalic, atraumatic Respiratory/Chest: chest wall non-tender, lungs clear Cardiovascular: normal peripheral pulses, normal rate, regular rhythm Abdomen: normal bowel sounds, soft, non tender Genitourinary: normal external genitalia Extremities: no cyanosis Skin: no rash Microbiology Date/Time Source Procedure Growth Status 09/23/17 14:45 Straight Cath Urine Culture - Final Escherichia Coli Complete Bharathi Ugalde MD Sep 25, 2017 19:54
--- NOTE | 2017-09-25 20:00 | General Progress Note ---
Assessment/Plan Assessment/Plan encephalopathy mdd lexapro Subjective Date patient seen: Sep 25, 2017 Neurologic/Psychiatric: Reports: anxiety, depressed, emotional problems Allergies: Coded Allergies: No Known Allergies (Unverified , 02/11/17) Objective Last 24 Hour Vital Signs Date Time Temp Pulse Resp B/P (MAP) Pulse Ox O2 Delivery O2 Flow Rate FiO2 09/25/17 11:41 97.0 18 136/66 99 97.0 09/25/17 08:00 97.7 81 20 118/68 100 97.7 09/25/17 03:52 97.7 20 148/90 95 Room Air 97.7 09/24/17 23:55 97.3 88 20 148/77 99 Room Air 97.3 Intake and Output 09/24/17 09/25/17 19:00 07:00 Intake Total 600 ml 550 ml Balance 600 ml 550 ml Intake Oral 100 ml IV Total 500 ml 550 ml # Voids 4 Height (Feet): 5 Height (Inches): 4.00 Weight (Pounds): 112 General Appearance: no apparent distress, alert, confused, agitated Alonso Garcia M.D. Sep 25, 2017 20:00
--- NOTE | 2017-09-25 20:00 | Psych Consult Progress Note ---
Psych Consult Progress Note Vital Signs Last 24 Hour Vital Signs Date Time Temp Pulse Resp B/P (MAP) Pulse Ox O2 Delivery O2 Flow Rate FiO2 09/25/17 11:41 97.0 18 136/66 99 97.0 09/25/17 08:00 97.7 81 20 118/68 100 97.7 09/25/17 03:52 97.7 20 148/90 95 Room Air 97.7 09/24/17 23:55 97.3 88 20 148/77 99 Room Air 97.3 Problems: (1) Alzheimer's dementia (2) Protein-calorie malnutrition, severe Assessment & Plan: encephalopathy mdd Alonso Rodriguez M.D. Sep 25, 2017 20:00
--- NOTE | 2017-09-26 13:28 | Discharge Summary ---
Discharge Summary Hospital Course Date of Admission Sep 20, 2017 at 23:54 Date of Discharge Sep 25, 2017 at 12:01 Admitting Diagnosis encephalopathy HPI Romana Jerez is a 83 year old female who was admitted on Sep 20, 2017 at 23 :54 for Encephalopathy Hospital Course [id number] Discharge Discharge Disposition Patient was discharged to SNF/Subacute Facility(03) Enma Brand NP Sep 26, 2017 13:28
--- NOTE | 2017-09-27 03:00 | Discharge Summary 2 SIG ---
DATE OF ADMISSION: 09/20/2017 DATE OF DISCHARGE: 09/25/2017 CONTINUOUS IMPROVEMENT FACILITATOR: Alonso Garcia M.D. BRIEF HOSPITAL COURSE: The patient is an 83-year-old female with history of dementia, bed bound, [facility] resident, presented to ED complaining of generalized weakness and decreased appetite and oral intake. There was no nausea, no vomiting. No fever or chills. History was obtained from medical records as the patient was unable to give her own history. On evaluation at ED, laboratories were unremarkable. She had a chest x-ray done that showed no acute disease. EKG was in normal sinus rhythm with right bundle-branch block. She was admitted for encephalopathy. Urine culture showed growth of e. coli. She underwent psychiatric evaluation as there was waxing and waning of consciousness. She was given Lexapro. Urine culture showed growth of E. coli. She underwent swallow evaluation and was recommended pureed with nectar thick liquids with one-to-one feed and strict aspiration precautions. She was eventually discharged back to [facility]. FINAL DIAGNOSES: 1. Acute encephalopathy. 2. Generalized weakness. 3. Alzheimer's dementia. 4. Severe protein-calorie malnutrition. 5. Major depressive disorder. DISPOSITION: The patient was discharged to [facility]. DISCHARGE MEDICATIONS: Refer to medication list. Bharathi Ugalde M.D. I have been assigned to dictate discharge summary on this account and I was not involved in the patient's management. Enma Brand N.P. DR: MAHAMED JOB#: [id number] CC: JOSE
== END 2017-09-25 12:01 | DRG 70 ==
LOC: EDBD 21:58 → EDUNIT# 21:58 → EMR 22:11 → 4W 23:54 → EDBEDREQ 09-21 00:36 → 4W 09-21 02:27
DX: G93.40 Encephalopathy, unspecified (principal); E43 Unspecified severe protein-calorie malnutrition; Z68.1 Body mass index [BMI] 19.9 or less, adult; R53.1 Weakness; G30.9 Alzheimer's disease, unspecified; F02.80 Dementia in other diseases classified elsewhere, unspecified severity, without behavioral disturbance, psychotic disturbance, mood disturbance, and anxiety; F32.9 Major depressive disorder, single episode, unspecified; Z86.718 Personal history of other venous thrombosis and embolism; I45.10 Unspecified right bundle-branch block
CPT/HCPCS: 36415; 71045; 80053; 81001; 83735; 84100; 84484; 85025; 87081; 87086; 87181; 93005; 99285

== ENCOUNTER 2020-01-03 10:22 | Inpatient (IN) | payer MEDICARE, MEDICAID ==
[2020-01-03] VITALS (7 sets, daily range): BP systolic 146–180; BP diastolic 90–100
[~2020-01-03] VITALS: Ht 162.6 cm; Wt 49.0 kg
[~2020-01-03 10:22] MED LIST changes: +ASPIR 8181 MG ORAL; +BISACODYL5 MG RECTAL; +FLEET ENEMA133 ML RECTAL; +NITROGLYCERIN0.4 MG SL
[2020-01-03] MEDS ORDERED: MULTIVITAMINS1 EAC8 ORAL (10:32)
[2020-01-03] MEDS ORDERED: ACETAMINOPHEN325 M1 ORAL (10:32)
[2020-01-03] MEDS ORDERED: CLARITIN10 MG ORAL (10:32)
[2020-01-03] MEDS ORDERED: CRANBERRY450 M5 PO (10:32)
--- NOTE | 2020-01-03 10:52 | Emergency Room Report ---
History of Present Illness General Chief Complaint: Fever Source: Patient, Medical Record Present Illness HPI Patient is an 85-year-old female who presented after acute onset of fever greater than 101 degrees. Patient is shelter resident. Patient is a resident of [facility]. Had previous history of dementia and encephalopathy. Noted to be full code. Had been given Tylenol at the facility without much improvement. Had recent negative coronavirus testing. History is obtained from old chart and is limited by patient's mental status. Allergies: Coded Allergies: No Known Allergies (Unverified , 02/11/17) COVID-19 Screening Contact w/high risk pt: Yes Experienced COVID-19 symptoms?: Yes COVID-19 Testing performed CLINICAL ENGINEERING DIRECTOR: Yes COVID-19 Screening: Negative COVID-19 COVID-19 Testing Source: 12/14/19 Patient History Past Medical History: see triage record Reviewed Nursing Documentation: PMH: Agreed; PSxH: Agreed Nursing Documentation-PMH Hx Cardiac Problems: Yes - chf,cad, atherosclerosis Hx Hypertension: No Hx Pacemaker: No Hx Asthma: No Hx Diabetes: No Hx Gastrointestinal Problems: Yes - ckd,localized edema Hx Dialysis: No Hx Neurological Problems: Yes - dementia Hx Cerebrovascular Accident: No Hx Seizures: No Review of Systems All Other Systems: negative except mentioned in HPI Physical Exam Vital Signs Date Time Temp Pulse Resp B/P (MAP) Pulse Ox O2 Delivery O2 Flow Rate FiO2 01/03/20 10:23 98.4 90 24 142/78 (99) 96 Room Air Sp02 EP Interpretation: reviewed, normal General Appearance: moderate distress Head: atraumatic ENT: normal ENT inspection, normal voice Neck: normal inspection, full range of motion, supple, no bony tend Respiratory: normal inspection, lungs clear, normal breath sounds, no respiratory distress, no retraction, no wheezing Cardiovascular #1: regular rate, rhythm, no edema Gastrointestinal: normal inspection, normal bowel sounds, non tender, soft, no guarding, no hernia Genitourinary: no CVA tenderness Musculoskeletal: normal inspection, back normal, normal range of motion Neurologic: motor weakness - generalized, other - voluntarily closes eyes, when attempts at pupil check. Psychiatric: mood/affect normal Skin: no rash Medical Decision Making Diagnostic Impression: Primary Impression: Severe sepsis Additional Impressions: Alzheimer's dementia Fever Pneumonitis Urinary tract infection ER Course Patient presented for fever. Differential diagnosis include was not limited to sepsis, coronavirus infection, urinary tract infection, pneumonia among others. Because of complexity of patient's case laboratory tests and imaging studies were ordered.Patient was noted to be verbal at baseline but confused. She is not able to ambulate and is normally in a wheelchair. Fever had onset this morning. Arterial blood gas showed normal pH with low CO2 consistent with a respiratory alkalosis. Laboratory testing showed markedly elevated BNP and chest x-ray showed with mild streaky opacity of the right lung and left lower lung may be mild cardiomegaly, pneumonitis mild interstitial thickening. Patient was given IV antibiotics. Patient appears to be somewhat overloaded with fluid and was therefore not given IV fluids. Dr. Porter Davila was contacted for inpatient management due to presumed sepsis, possibly from UTI. Labs Test 01/03/20 11:00 Arterial Blood pH 7.476 (7.350-7.450) Arterial Blood Partial Pressure CO2 26.1 mmHg (35.0-45.0) Arterial Blood Partial Pressure O2 82.4 mmHg (75.0-100.0) Arterial Blood HCO3 18.8 mmol/L (22.0-26.0) Arterial Blood Oxygen Saturation 96.1 % (95-100) Arterial Blood Base Excess -3.3 (-2-2) Nick Test Positive EKG Diagnostic Results Rate: tachycardiac Rhythm: NSR ST Segments: other - right bundle branch block Last Vital Signs Date Time Temp Pulse Resp B/P (MAP) Pulse Ox O2 Delivery O2 Flow Rate FiO2 01/03/20 10:23 98.4 90 24 142/78 (99) 96 Room Air Status: improved Disposition: ADMITTED INPATIENT Condition: Stable Richard Han MD Jan 03, 2020 10:51
[2020-01-03] MEDS ORDERED: Cefepime HCl 2 GM in NS 110 ML IV ONE (11:00)
[2020-01-03 11:47] LABS: BASOPHILS % (AUTO) 0.4 % (0.0-2.0); EOSINOPHILS % (AUTO) 0.7 % (0.0-3.0); HEMATOCRIT 39.7 % (37.0-47.0); HEMOGLOBIN 12.9 G/DL (12.0-16.0); LYMPHOCYTES % (AUTO) 15.5 % (20.0-45.0); MEAN CORPUSCULAR VOLUME 95 FL (80-99); MONOCYTES % (AUTO) 4.8 % (1.0-10.0); NEUTROPHILS % (AUTO) 78.6 % (45.0-75.0); PLATELET COUNT 208 K/UL (150-450); RED BLOOD COUNT 4.17 M/UL (4.20-5.40); RED CELL DISTRIBUTION WIDTH 13.2 % (11.6-14.8); WHITE BLOOD COUNT 7.3 K/UL (4.8-10.8)
[2020-01-03 11:55] LABS: APPEARANCE,URINE SLIGHTLY CLOUDY; BILIRUBIN, URINE NEGATIVE (NEGATIVE); GLUCOSE, URINE (UA) NEGATIVE (NEGATIVE); KETONES,URINE NEGATIVE (NEGATIVE); LEUKOCYTE ESTERASE ,URINE 2+ (NEGATIVE); NITRITE,URINE NEGATIVE (NEGATIVE); PH,URINE 5 (4.5-8.0); PROTEIN,URINE 2+ (NEGATIVE); UROBILINOGEN,URINE 4 MG/DL (0.0-1.0)
[2020-01-03 11:59] LABS: COLOR,URINE YELLOW
[2020-01-03 12:02] LABS: ANION GAP 11 mmol/L (5-15); BLOOD UREA NITROGEN 16 mg/dL (7-18); CALCIUM 10.4 MG/DL (8.5-10.1); CARBON DIOXIDE 22 MMOL/L (21-32); CHLORIDE 110 MMOL/L (98-107); CREATININE 0.9 MG/DL (0.55-1.30); POTASSIUM 3.7 MMOL/L (3.5-5.1); SODIUM 143 MMOL/L (136-145)
--- NOTE | 2020-01-03 12:03 | Diagnostic Imaging Report ---
EXAM: XR Chest, 1 View CLINICAL HISTORY: SOB TECHNIQUE: Frontal view of the chest. COMPARISON: X-ray report 09/20/17, images not available FINDINGS: Lungs: Mild interstitial thickening. Mild streaky opacities right lung and left lower lung. Tracheobronchial calcinosis. Pleural space: Unremarkable. No pneumothorax. Heart: Mild cardiomegaly. Mediastinum: Unremarkable. Bones/joints: Unremarkable. Vasculature: Aortic knob calcification. IMPRESSION: Mild interstitial thickening. Mild streaky opacities right lung and left lower lung. Maybe pneumonitis.
[2020-01-03 12:14] LABS: ALANINE AMINOTRANSFERASE 18 U/L (12-78); ALBUMIN/GLOBULIN RATIO 0.6 (1.0-2.7); ALKALINE PHOSPHATASE 72 U/L (46-116); ASPARTATE AMINO TRANSFERASE 20 U/L (15-37); BILIRUBIN,TOTAL 0.6 MG/DL (0.2-1.0); CKMB 1.8 NG/ML (0.0-3.6); CREATINE KINASE 65 U/L (26-308)
[2020-01-03] MEDS ORDERED: Albuterol/Ipratropium 3ml neb HHN PRN (12:45)
[2020-01-03] MEDS ORDERED: Miralax 17gm pkt ORAL PRN (12:45)
[2020-01-03] MEDS ORDERED: Promethazine/Codeine 5ml UD ORAL PRN (12:45)
--- NOTE | 2020-01-03 13:09 | Consultation ---
History of Present Illness General Date patient seen: Jan 03, 2020 Chief Complaint: Fever Present Illness HPI 85-year-old female with hx of cachexia, Alzheimer's Dementia, [facility] resident, presented to ER with CC of fever greater than 101 degrees. The patient had been given Tylenol at the facility without much improvement. History is obtained from old chart and is limited by patient's mental status. She is awake, looks chronically ill. Allergies: Coded Allergies: No Known Allergies (Unverified , 02/11/17) Medication History Scheduled Aspirin* (Aspir 81*), 81 MG ORAL DAILY, (Reported) Bisacodyl* (Dulcolax*), 10 MG RECTAL DAILY, (Reported) Clonidine Hcl* (Catapres*), 0.1 MG ORAL EVERY 6 HOURS, (Reported) Clotrimazole* (Lotrimin*), 1 APPLIC TOPIC THREE TIMES A DAY Cranberry Fruit (Cranberry), 450 MG PO TWICE A DAY, (Reported) Docusate Sodium* (Docusate Sodium*), 100 MG ORAL DAILY, (Reported) Escitalopram Oxalate* (Lexapro*), 10 MG ORAL DAILY Escitalopram Oxalate* (Lexapro*), 5 MG ORAL DAILY, (Reported) Ipratropium/Albuterol Sulfate (DuoNeb 0.5-3(2.5)mg/3ml), 3 ML HHN EVERY 4 HOURS, (Reported) Ipratropium/Albuterol Sulfate (DuoNeb 0.5-3(2.5)mg/3ml), 3 ML HHN Q4HR, ( Reported) Loratadine (Claritin), 10 MG ORAL DAILY, (Reported) Magnesium Hydroxide* (Milk Of Magnesia*), 30 ML ORAL DAILY, (Reported) Multivitamin With Minerals (Multivitamins With Minerals*), 1 TAB ORAL DAILY, ( Reported) Na Phos,M-B/Na Phos,Di-Ba* (Fleet Enema*), 133 ML RECTAL DAILY, (Reported) Scheduled PRN Acetaminophen (Acetaminophen), 650 MG ORAL Q6H PRN for Prn Headache/Temp > 101, (Reported) Acetaminophen* (Acetaminophen 325MG Tablet*), 650 MG ORAL Q4H PRN for pain/fever , (Reported) Ondansetron* (Zofran*), 4 MG ORAL Q6H PRN for Nausea & Vomiting, (Reported) Temazepam* (Temazepam*), 15 MG ORAL BEDTIME PRN for Insomnia, (Reported) Miscellaneous Medications Nitroglycerin (Nitroglycerin), 0.4 MG SL, (Reported) Sennosides (Senna Laxative), 25 MG PO, (Reported) Unable to Obtain Medications (Unable To Obtain Meds), (Reported) Patient History Healthcare decision maker Resuscitation status Advanced Directive on File Past Medical/Surgical History Past Medical/Surgical History: (1) Alzheimer's dementia (2) At high risk for aspiration (3) Protein-calorie malnutrition, severe Review of Systems All Other Systems: negative except mentioned in HPI Physical Exam General Appearance: cachetic, thin Lines, tubes and drains: peripheral HEENT: normocephalic, atraumatic, anicteric, mucous membranes moist, PERRL Neck: non-tender, normal alignment, supple, normal inspection Respiratory/Chest: chest wall non-tender, lungs clear, normal breath sounds, no respiratory distress, no accessory muscle use Cardiovascular/Chest: normal peripheral pulses, regular rhythm, regularly irregular, no gallop/murmur Abdomen: normal bowel sounds, non tender, no organomegaly, no mass Extremities: normal range of motion Skin Exam: normal pigmentation Neurologic: motor weakness, depressed affect Last 24 Hour Vital Signs Date Time Temp Pulse Resp B/P (MAP) Pulse Ox O2 Delivery O2 Flow Rate FiO2 01/03/20 13:06 106 32 169/94 100 Room Air 01/03/20 12:00 107 32 180/94 100 Room Air 01/03/20 11:00 105 32 163/100 100 Room Air 01/03/20 10:40 103 30 Room Air 01/03/20 10:40 99.8 103 30 152/91 100 Room Air 01/03/20 10:23 98.4 90 24 142/78 (99) 96 Room Air Laboratory Tests Test 01/03/20 10:40 01/03/20 11:00 01/03/20 12:46 White Blood Count 7.3 K/UL (4.8-10.8) Red Blood Count 4.17 M/UL (4.20-5.40) L Hemoglobin 12.9 G/DL (12.0-16.0) Hematocrit 39.7 % (37.0-47.0) Mean Corpuscular Volume 95 FL (80-99) Mean Corpuscular Hemoglobin 31.0 PG (27.0-31.0) Mean Corpuscular Hemoglobin Concent 32.5 G/DL (32.0-36.0) Red Cell Distribution Width 13.2 % (11.6-14.8) Platelet Count 208 K/UL (150-450) Mean Platelet Volume 7.5 FL (6.5-10.1) Neutrophils (%) (Auto) 78.6 % (45.0-75.0) H Lymphocytes (%) (Auto) 15.5 % (20.0-45.0) L Monocytes (%) (Auto) 4.8 % (1.0-10.0) Eosinophils (%) (Auto) 0.7 % (0.0-3.0) Basophils (%) (Auto) 0.4 % (0.0-2.0) Prothrombin Time 11.5 SEC (9.30-11.50) Prothromb Time International Ratio 1.0 (0.9-1.1) Activated Partial Thromboplast Time 27 SEC (23-33) Urine Color Yellow Urine Appearance Slightly cloudy Urine pH 5 (4.5-8.0) Urine Specific [place] 1.020 (1.005-1.035) Urine Protein 2+ (NEGATIVE) H Urine Glucose (UA) Negative (NEGATIVE) Urine Ketones Negative (NEGATIVE) Urine Blood 3+ (NEGATIVE) H Urine Nitrite Negative (NEGATIVE) Urine Bilirubin Negative (NEGATIVE) Urine Urobilinogen 4 MG/DL (0.0-1.0) H Urine Leukocyte Esterase 2+ (NEGATIVE) H Urine RBC 2-4 /HPF (0 - 2) H Urine WBC 15-20 /HPF (0 - 2) H Urine Squamous Epithelial Cells Moderate /LPF (NONE/OCC) H Urine Bacteria Moderate /HPF (NONE) H Sodium Level 143 MMOL/L (136-145) Potassium Level 3.7 MMOL/L (3.5-5.1) Chloride Level 110 MMOL/L (98-107) H Carbon Dioxide Level 22 MMOL/L (21-32) Anion Gap 11 mmol/L (5-15) Blood Urea Nitrogen 16 mg/dL (7-18) Creatinine 0.9 MG/DL (0.55-1.30) Estimat Glomerular Filtration Rate > 60 mL/min (>60) Glucose Level 123 MG/DL (74-106) H Lactic Acid Level 2.50 mmol/L (0.4-2.0) H Pending Calcium Level 10.4 MG/DL (8.5-10.1) H Total Bilirubin 0.6 MG/DL (0.2-1.0) Aspartate Amino Transf (AST/SGOT) 20 U/L (15-37) Alanine Aminotransferase (ALT/SGPT) 18 U/L (12-78) Alkaline Phosphatase 72 U/L (46-116) Total Creatine Kinase 65 U/L (26-308) Creatine Kinase MB 1.8 NG/ML (0.0-3.6) Creatine Kinase MB Relative Index 2.7 Troponin I 0.384 ng/mL (0.000-0.056) Pro-B-Type Natriuretic Peptide 01555 pg/mL (0-125) H Total Protein 7.9 G/DL (6.4-8.2) Albumin 3.0 G/DL (3.4-5.0) L Globulin 4.9 g/dL Albumin/Globulin Ratio 0.6 (1.0-2.7) L Arterial Blood pH 7.476 (7.350-7.450) Arterial Blood Partial Pressure CO2 26.1 mmHg (35.0-45.0) L Arterial Blood Partial Pressure O2 82.4 mmHg (75.0-100.0) Arterial Blood HCO3 18.8 mmol/L (22.0-26.0) L Arterial Blood Oxygen Saturation 96.1 % (95-100) Arterial Blood Base Excess -3.3 (-2-2) L Nick Test Positive Microbiology Date/Time Source Procedure Growth Status 01/03/20 11:00 Nasopharynx SARS-CoV-2 RdRp Gene Assay - Final Complete 01/03/20 11:00 Rectal Mucosa Received Height (Feet): 5 Height (Inches): 5.00 Weight (Pounds): 125 Medications Current Medications Medications (Trade) Dose Ordered Sig/Brayden Route PRN Reason Start Time Stop Time Status Last Admin Dose Admin Acetaminophen (Tylenol) 650 mg Q4H PRN ORAL FEVER 01/03/20 12:45 02/02/20 12:44 UNV Albuterol/ Ipratropium (Albuterol/ Ipratropium) 3 ml EVERY 4 HOURS PRN HHN Shortness of Breath 01/03/20 12:45 01/08/20 12:44 UNV Aspirin (Ecotrin) 81 mg DAILY ORAL 01/04/20 09:00 02/18/20 08:59 UNV Azithromycin 250 mg/Dextrose 275 ml @ 275 mls/hr Q24HRS IVPB 01/03/20 12:45 01/08/20 12:44 UNV Ceftriaxone Sodium 1 gm/ Dextrose 55 ml @ 110 mls/hr Q24H IVPB 01/03/20 12:45 01/10/20 12:44 UNV Dexamethasone (Decadron) 4 mg DAILY ORAL 01/04/20 09:00 02/03/20 08:59 UNV Dextrose (Dextrose 50%) 25 ml Q30M PRN IV Hypoglycemia 01/03/20 12:45 04/02/20 12:44 UNV Dextrose (Dextrose 50%) 50 ml Q30M PRN IV Hypoglycemia 01/03/20 12:45 04/02/20 12:44 UNV Heparin Sodium (Porcine) (Heparin 5000 units/ml) 5,000 units EVERY 12 HOURS SUBQ 01/03/20 21:00 02/17/20 20:59 UNV Ondansetron HCl (Zofran) 4 mg Q6H PRN IVP Nausea & Vomiting 01/03/20 12:45 02/02/20 12:44 UNV Polyethylene Glycol (Miralax) 17 gm DAILYPRN PRN ORAL Constipation 01/03/20 12:45 02/02/20 12:44 UNV Promethazine HCl/ Codeine (Phenergan with Codeine) 5 ml EVERY 6 HOURS PRN ORAL cough 01/03/20 12:45 02/02/20 12:44 UNV Assessment/Plan Problem List: (1) Fever ICD Codes: R50.9 - Fever, unspecified SNOMED: 094043817 (2) Urinary tract infection ICD Codes: N39.0 - Urinary tract infection, site not specified SNOMED: 25468232 (3) At high risk for aspiration ICD Codes: Z91.89 - Other specified personal risk factors, not elsewhere classified SNOMED: 602413330 (4) Alzheimer's dementia ICD Codes: G30.9 - Alzheimer's disease, unspecified SNOMED: 01873236 Assessment/Plan: alcazar culture iv fluids iv abx ID evaluation aspiration precaution swallow study calorie count dvt prophylaxis. Bharathi Ugalde MD Jan 03, 2020 13:09
[2020-01-03] MEDS: Azithromycin 250 MG in D5W 275 ML IV SCH (15:23)
[2020-01-03] MEDS: cefTRIAXone 1 GM in D5W 55 ML IVPB SCH (15:42)
[2020-01-03] MEDS: Heparin 5000 units/ml inj SUBQ SCH (21:34)
[2020-01-04] VITALS: BP 128/79
[2020-01-04 04:00] VITALS: BP 154/90
[2020-01-04 07:33] LABS: BASOPHILS % (AUTO) 0.4 % (0.0-2.0); EOSINOPHILS % (AUTO) 1.6 % (0.0-3.0); HEMATOCRIT 36.9 % (37.0-47.0); LYMPHOCYTES % (AUTO) 25.9 % (20.0-45.0); MEAN CORPUSCULAR VOLUME 96 FL (80-99); MONOCYTES % (AUTO) 7.4 % (1.0-10.0); NEUTROPHILS % (AUTO) 64.7 % (45.0-75.0); PLATELET COUNT 204 K/UL (150-450); RED BLOOD COUNT 3.84 M/UL (4.20-5.40); RED CELL DISTRIBUTION WIDTH 13.5 % (11.6-14.8); WHITE BLOOD COUNT 4.9 K/UL (4.8-10.8)
[2020-01-04 08:00] VITALS: BP 122/70
[2020-01-04 08:01] LABS: ALBUMIN 2.6 G/DL (3.4-5.0); ANION GAP 11 mmol/L (5-15); BLOOD UREA NITROGEN 13 mg/dL (7-18); CALCIUM 9.9 MG/DL (8.5-10.1); CARBON DIOXIDE 21 MMOL/L (21-32); CHLORIDE 111 MMOL/L (98-107); CREATININE 0.8 MG/DL (0.55-1.30); PHOSPHORUS 2.9 MG/DL (2.5-4.9); POTASSIUM 3.6 MMOL/L (3.5-5.1); SODIUM 143 MMOL/L (136-145)
[2020-01-04] MEDS: Aspirin EC 81mg tab ORAL SCH (08:54)
[2020-01-04] MEDS: Heparin 5000 units/ml inj SUBQ SCH ×2 (08:55→21:40)
--- NOTE | 2020-01-04 11:24 | Consultation ---
History of Present Illness General Chief Complaint: Fever Present Illness Allergies: Coded Allergies: No Known Allergies (Unverified , 02/11/17) Medication History Scheduled Aspirin* (Aspir 81*), 81 MG ORAL DAILY, (Reported) Bisacodyl* (Dulcolax*), 10 MG RECTAL DAILY, (Reported) Clonidine Hcl* (Catapres*), 0.1 MG ORAL EVERY 6 HOURS, (Reported) Clotrimazole* (Lotrimin*), 1 APPLIC TOPIC THREE TIMES A DAY Cranberry Fruit (Cranberry), 450 MG PO TWICE A DAY, (Reported) Docusate Sodium* (Docusate Sodium*), 100 MG ORAL DAILY, (Reported) Escitalopram Oxalate* (Lexapro*), 10 MG ORAL DAILY Escitalopram Oxalate* (Lexapro*), 5 MG ORAL DAILY, (Reported) Ipratropium/Albuterol Sulfate (DuoNeb 0.5-3(2.5)mg/3ml), 3 ML HHN EVERY 4 HOURS, (Reported) Ipratropium/Albuterol Sulfate (DuoNeb 0.5-3(2.5)mg/3ml), 3 ML HHN Q4HR, ( Reported) Loratadine (Claritin), 10 MG ORAL DAILY, (Reported) Magnesium Hydroxide* (Milk Of Magnesia*), 30 ML ORAL DAILY, (Reported) Multivitamin With Minerals (Multivitamins With Minerals*), 1 TAB ORAL DAILY, ( Reported) Na Phos,M-B/Na Phos,Di-Ba* (Fleet Enema*), 133 ML RECTAL DAILY, (Reported) Scheduled PRN Acetaminophen (Acetaminophen), 650 MG ORAL Q6H PRN for Prn Headache/Temp > 101, (Reported) Acetaminophen* (Acetaminophen 325MG Tablet*), 650 MG ORAL Q4H PRN for pain/fever , (Reported) Ondansetron* (Zofran*), 4 MG ORAL Q6H PRN for Nausea & Vomiting, (Reported) Temazepam* (Temazepam*), 15 MG ORAL BEDTIME PRN for Insomnia, (Reported) Miscellaneous Medications Nitroglycerin (Nitroglycerin), 0.4 MG SL, (Reported) Sennosides (Senna Laxative), 25 MG PO, (Reported) Unable to Obtain Medications (Unable To Obtain Meds), (Reported) Patient History Healthcare decision maker Resuscitation status Advanced Directive on File Physical Exam Last 24 Hour Vital Signs Date Time Temp Pulse Resp B/P (MAP) Pulse Ox O2 Delivery O2 Flow Rate FiO2 01/04/20 09:00 Room Air 01/04/20 08:00 98.7 87 18 122/70 (87) 98 01/04/20 07:45 87 01/04/20 04:00 98.8 98 20 154/90 (111) 98 01/04/20 04:00 97 01/04/20 00:00 94 01/04/20 00:00 99.0 95 20 128/79 (95) 98 01/03/20 22:20 Room Air 01/03/20 20:00 97.9 100 20 146/90 (108) 99 01/03/20 20:00 104 01/03/20 16:00 99 01/03/20 15:08 Room Air 01/03/20 15:05 98.4 98 32 158/95 (116) 98 01/03/20 14:12 101 32 153/91 100 Room Air 01/03/20 14:06 101 32 153/91 100 Room Air 01/03/20 13:06 106 32 169/94 100 Room Air 01/03/20 12:00 107 32 180/94 100 Room Air Intake and Output 01/03/20 01/04/20 19:00 07:00 Intake Total 1210 ml Output Total 120 ml 250 ml Balance 1090 ml -250 ml Intake Oral 0 ml IV Total 1210 ml Output Urine Total 120 ml 250 ml # Bowel Movements 2 1 Laboratory Tests Test 01/03/20 12:46 01/04/20 06:04 Lactic Acid Level 2.40 mmol/L (0.66-2.22) H White Blood Count 4.9 K/UL (4.8-10.8) Red Blood Count 3.84 M/UL (4.20-5.40) L Hemoglobin 12.0 G/DL (12.0-16.0) Hematocrit 36.9 % (37.0-47.0) L Mean Corpuscular Volume 96 FL (80-99) Mean Corpuscular Hemoglobin 31.1 PG (27.0-31.0) H Mean Corpuscular Hemoglobin Concent 32.4 G/DL (32.0-36.0) Red Cell Distribution Width 13.5 % (11.6-14.8) Platelet Count 204 K/UL (150-450) Mean Platelet Volume 7.7 FL (6.5-10.1) Neutrophils (%) (Auto) 64.7 % (45.0-75.0) Lymphocytes (%) (Auto) 25.9 % (20.0-45.0) Monocytes (%) (Auto) 7.4 % (1.0-10.0) Eosinophils (%) (Auto) 1.6 % (0.0-3.0) Basophils (%) (Auto) 0.4 % (0.0-2.0) Sodium Level 143 MMOL/L (136-145) Potassium Level 3.6 MMOL/L (3.5-5.1) Chloride Level 111 MMOL/L (98-107) H Carbon Dioxide Level 21 MMOL/L (21-32) Anion Gap 11 mmol/L (5-15) Blood Urea Nitrogen 13 mg/dL (7-18) Creatinine 0.8 MG/DL (0.55-1.30) Estimat Glomerular Filtration Rate > 60 mL/min (>60) Glucose Level 80 MG/DL (74-106) Calcium Level 9.9 MG/DL (8.5-10.1) Phosphorus Level 2.9 MG/DL (2.5-4.9) Albumin 2.6 G/DL (3.4-5.0) L Height (Feet): 5 Height (Inches): 5.00 Weight (Pounds): 120 Medications Current Medications Medications (Trade) Dose Ordered Sig/Brayden Route PRN Reason Start Time Stop Time Status Last Admin Dose Admin Acetaminophen (Tylenol) 650 mg Q4H PRN ORAL FEVER 01/03/20 12:45 02/02/20 12:44 Albuterol/ Ipratropium (Albuterol/ Ipratropium) 3 ml EVERY 4 HOURS PRN HHN Shortness of Breath 01/03/20 12:45 01/08/20 12:44 Aspirin (Ecotrin) 81 mg DAILY ORAL 01/04/20 09:00 02/18/20 08:59 01/04/20 08:54 Azithromycin 250 mg/Dextrose 275 ml @ 275 mls/hr Q24HRS IV 01/03/20 14:30 01/08/20 14:29 01/03/20 15:23 Ceftriaxone Sodium 1 gm/ Dextrose 55 ml @ 110 mls/hr Q24H IVPB 01/03/20 15:00 01/10/20 14:59 01/03/20 15:42 Dexamethasone (Decadron) 4 mg DAILY ORAL 01/04/20 09:00 02/03/20 08:59 01/04/20 08:54 Dextrose (Dextrose 50%) 25 ml Q30M PRN IV Hypoglycemia 01/03/20 12:45 04/02/20 12:44 Dextrose (Dextrose 50%) 50 ml Q30M PRN IV Hypoglycemia 01/03/20 12:45 04/02/20 12:44 Heparin Sodium (Porcine) (Heparin 5000 units/ml) 5,000 units EVERY 12 HOURS SUBQ 01/03/20 21:00 02/17/20 20:59 01/04/20 08:55 Ondansetron HCl (Zofran) 4 mg Q6H PRN IVP Nausea & Vomiting 01/03/20 12:45 02/02/20 12:44 Polyethylene Glycol (Miralax) 17 gm DAILYPRN PRN ORAL Constipation 01/03/20 12:45 02/02/20 12:44 Promethazine HCl/ Codeine (Phenergan with Codeine) 5 ml EVERY 6 HOURS PRN ORAL cough 01/03/20 12:45 02/02/20 12:44 Assessment/Plan Assessment/Plan: Hematology Consultation REQ MD: Porter Davila [facility] Dvt hx and ftt DOS 01/04/2020 Chief Complaint: Fever ID Patient is an 85-year-old female who presented after acute onset of fever greater than 101 degrees. [facility]. Patient is a resident of [facility]. Had previous history of dementia and encephalopathy. Noted to be full code. Had been given Tylenol at the facility without much improvement. Had recent negative coronavirus testing. History is obtained from old chart and is limited by patient's mental status. Labs are noted at this time, she is aphasic, covid neg x 1 I have seen her before and she has a hx of chronic dvt. 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 COVID-19 Screening: Negative COVID-19 COVID-19 Testing Source: 12/14/19 Past Medical History: see triage record Reviewed Nursing Documentation: PMH: Agreed; PSxH: Agreed Hx Cardiac Problems: Yes - chf,cad, atherosclerosis Hx Gastrointestinal Problems: Yes - ckd,localized edema Hx Neurological Problems: Yes - dementia Review of Systems All Other Systems: negative except mentioned in HPI, aphasic Physical Exam: Vitals: reviewed General: NAD HEENT: nc, at Neck: supple Chest: clear breath sounds bilaterally Cardiovascular: RRR, no s3, s4 Abdomen: soft, nontender, nd Extremities: no cce, normal range of motion Neuro: aphasic++ Labs noted Imaging reviewed Assessment and Recs # Dvt that is chronic, in the past was on coumadin with a inr btw 2-3 --> currently aphasic, therefore order duplex to see if any acute process --> hep sq in meanwhile # Severe sepsis --> on imaging, cxr mild streaking opacivty left lower and right lung --> r/o chf --> on abx ceftriaxone # Alzheimer's dementia --> appears chronic # Fever --> abx started # Pneumonitis # Urinary tract infection # Tachycardia due to sepsis # Dvt ppx heparin sq The timing of this note does not necessarily reflect the time of the patient was seen. Greatly appreciate consultation. Raul Hutton MD Jan 04, 2020 11:24
[2020-01-04 12:00] VITALS: BP 153/89
--- NOTE | 2020-01-04 12:02 | Pulmonology Progress Note ---
Subjective ROS Limited/Unobtainable: No Constitutional: Reports: no symptoms Respiratory: Reports: no symptoms Cardiovascular: Reports: no symptoms Allergies: Coded Allergies: No Known Allergies (Unverified , 02/11/17) Objective Last 24 Hour Vital Signs Date Time Temp Pulse Resp B/P (MAP) Pulse Ox O2 Delivery O2 Flow Rate FiO2 01/04/20 09:00 Room Air 01/04/20 08:00 98.7 87 18 122/70 (87) 98 01/04/20 07:45 87 01/04/20 04:00 98.8 98 20 154/90 (111) 98 01/04/20 04:00 97 01/04/20 00:00 94 01/04/20 00:00 99.0 95 20 128/79 (95) 98 01/03/20 22:20 Room Air 01/03/20 20:00 97.9 100 20 146/90 (108) 99 01/03/20 20:00 104 01/03/20 16:00 99 01/03/20 15:08 Room Air 01/03/20 15:05 98.4 98 32 158/95 (116) 98 01/03/20 14:12 101 32 153/91 100 Room Air 01/03/20 14:06 101 32 153/91 100 Room Air 01/03/20 13:06 106 32 169/94 100 Room Air Intake and Output 01/03/20 01/04/20 19:00 07:00 Intake Total 1210 ml Output Total 120 ml 250 ml Balance 1090 ml -250 ml Intake Oral 0 ml IV Total 1210 ml Output Urine Total 120 ml 250 ml # Bowel Movements 2 1 General Appearance: cachetic HEENT: normocephalic, atraumatic, anicteric Respiratory: chest wall non-tender, lungs clear, normal breath sounds, no accessory muscle use Cardiovascular: regular rhythm, regularly irregular, no gallop/murmur, no JVD Abdomen: normal bowel sounds, soft, non tender, no organomegaly, non distended Extremities: no clubbing Skin: no lesions, no ulcers Microbiology Date/Time Source Procedure Growth Status 01/03/20 11:00 Nasopharynx SARS-CoV-2 RdRp Gene Assay - Final Complete 01/03/20 10:40 Urine,Clean Catch Urine Culture - Preliminary Resulted 01/03/20 11:00 Rectal Mucosa Received Laboratory Tests 01/03/20 12:46: Lactic Acid Level 2.40H 01/04/20 06:04: White Blood Count 4.9, Red Blood Count 3.84L, Hemoglobin 12.0, Hematocrit 36.9L , Mean Corpuscular Volume 96, Mean Corpuscular Hemoglobin 31.1H, Mean Corpuscular Hemoglobin Concent 32.4, Red Cell Distribution Width 13.5, Platelet Count 204, Mean Platelet Volume 7.7, Neutrophils (%) (Auto) 64.7, Lymphocytes (% ) (Auto) 25.9, Monocytes (%) (Auto) 7.4, Eosinophils (%) (Auto) 1.6, Basophils ( %) (Auto) 0.4, Sodium Level 143, Potassium Level 3.6, Chloride Level 111H, Carbon Dioxide Level 21, Anion Gap 11, Blood Urea Nitrogen 13, Creatinine 0.8, Estimat Glomerular Filtration Rate > 60, Glucose Level 80, Calcium Level 9.9, Phosphorus Level 2.9, Albumin 2.6L Current Medications Medications (Trade) Dose Ordered Sig/Brayden Route PRN Reason Start Time Stop Time Status Last Admin Dose Admin Acetaminophen (Tylenol) 650 mg Q4H PRN ORAL FEVER 01/03/20 12:45 02/02/20 12:44 Albuterol/ Ipratropium (Albuterol/ Ipratropium) 3 ml EVERY 4 HOURS PRN HHN Shortness of Breath 01/03/20 12:45 01/08/20 12:44 Aspirin (Ecotrin) 81 mg DAILY ORAL 01/04/20 09:00 02/18/20 08:59 01/04/20 08:54 Azithromycin 250 mg/Dextrose 275 ml @ 275 mls/hr Q24HRS IV 01/03/20 14:30 01/08/20 14:29 01/03/20 15:23 Ceftriaxone Sodium 1 gm/ Dextrose 55 ml @ 110 mls/hr Q24H IVPB 01/03/20 15:00 01/10/20 14:59 01/03/20 15:42 Dexamethasone (Decadron) 4 mg DAILY ORAL 01/04/20 09:00 02/03/20 08:59 01/04/20 08:54 Dextrose (Dextrose 50%) 25 ml Q30M PRN IV Hypoglycemia 01/03/20 12:45 04/02/20 12:44 Dextrose (Dextrose 50%) 50 ml Q30M PRN IV Hypoglycemia 01/03/20 12:45 04/02/20 12:44 Heparin Sodium (Porcine) (Heparin 5000 units/ml) 5,000 units EVERY 12 HOURS SUBQ 01/03/20 21:00 02/17/20 20:59 01/04/20 08:55 Ondansetron HCl (Zofran) 4 mg Q6H PRN IVP Nausea & Vomiting 01/03/20 12:45 02/02/20 12:44 Polyethylene Glycol (Miralax) 17 gm DAILYPRN PRN ORAL Constipation 01/03/20 12:45 02/02/20 12:44 Promethazine HCl/ Codeine (Phenergan with Codeine) 5 ml EVERY 6 HOURS PRN ORAL cough 01/03/20 12:45 02/02/20 12:44 Assessment/Plan Problems: (1) Fever (2) Urinary tract infection (3) At high risk for aspiration (4) Alzheimer's dementia Assessment/Plan looks comfortable check cultures iv fluids, check electrolytes iv abx ID evaluation aspiration precaution swallow study calorie count dvt prophylaxis. Bharathi Ugalde MD Jan 04, 2020 12:02
--- NOTE | 2020-01-04 12:45 | History and Physical Report ---
DATE OF ADMISSION: 01/03/2020 DATE AND TIME SEEN: 01/04/2020, approximate time is 10 a.m. CONSULTANTS: 1. Bharathi Ugalde MD. 2. Dr. Hutton. 3. Uriah Roman MD. CHIEF COMPLAINT: Fever, possible sepsis. BRIEF HISTORY: This is an 85-year-old female from [facility], presented with above-mentioned diagnosis, currently sleeping in bed, not talking much. REVIEW OF SYSTEMS: Unavailable. PAST MEDICAL HISTORY: Includes DVT, peripheral edema, malnutrition, and Alzheimer's. PAST SURGICAL HISTORY: Unknown. ALLERGIES: Denies. MEDICATIONS: Include aspirin, ceftriaxone, azithromycin, promethazine, albuterol, Zofran, and cefepime. SOCIAL HISTORY: No smoking. No alcohol. No intravenous drug abuse. FAMILY HISTORY: Noncontributory. PHYSICAL EXAMINATION: GENERAL: Lethargic, sleepy in bed, not talking much. VITAL SIGNS: Temperature is 98 degrees, pulse 87, respirations 18, and blood pressure 122/70. CARDIOVASCULAR: No murmur. LUNGS: Distant and clear ABDOMEN: Bowel sounds positive. Nontender. Nondistended. EXTREMITIES: No cyanosis, clubbing, or edema. NEUROLOGIC: The patient is flaccid in bed, not following directions. LABORATORY AND DIAGNOSTIC DATA: Labs at this time show CBC is normal. BMP showed chloride 111. Lactic acid 2.5 and 2.4. Albumin 2.6. INR is 1.0, PTT 27. Urinalysis shows 2+ leukocyte esterase. ASSESSMENT: 1. UTI. 2. Fever. 3. Sepsis. 4. History of DVT. 5. Peripheral edema. 6. Malnutrition. 7. Alzheimer's. PLAN: 1. PT and dietary evaluation. 2. CBC and BMP in the morning. 3. Resume home medications. 4. Antibiotics per Infectious Disease. 5. We will continue to follow this patient. Porter Davila D.O. DR: IRAIDA JOB#: [id number] CC:
--- NOTE | 2020-01-04 13:35 | Consultation ---
History of Present Illness General Date patient seen: Jan 04, 2020 Chief Complaint: Fever Present Illness HPI 85 y/o F with hx of cachexia/malnutrition, CHF, DVT, LE edema, CAD, CKD, Alzheimer's Dementia, group home resident ([facility]) presented to ED on 01/02 with fever up to 101. Had recent coronavirus testing negative at facility on 12/14/19. Allergies: Coded Allergies: No Known Allergies (Unverified , 02/11/17) Medication History Scheduled Aspirin* (Aspir 81*), 81 MG ORAL DAILY, (Reported) Cranberry Fruit (Cranberry), 450 MG PO TWICE A DAY, (Reported) Docusate Sodium* (Docusate Sodium*), 100 MG ORAL DAILY, (Reported) Multivitamin With Minerals (Multivitamins With Minerals*), 1 TAB ORAL DAILY, ( Reported) Scheduled PRN Acetaminophen* (Acetaminophen 325MG Tablet*), 650 MG ORAL Q4H PRN for pain/fever , (Reported) Bisacodyl (Bisacodyl), 10 MG RC DAILY PRN for Constipation, (Reported) Clonidine Hcl* (Catapres*), 0.1 MG ORAL Q8HR PRN for For High Blood Pressure, ( Reported) Loratadine (Claritin), 10 MG ORAL QHS PRN for ALLERGY, (Reported) Magnesium Hydroxide* (Milk Of Magnesia*), 30 ML ORAL DAILY PRN for Constipation, (Reported) Nitroglycerin (Nitroglycerin), 0.4 MG SL Q5MIN X 3SL PRN for CHEST PAIN, ( Reported) Discontinued Medications Acetaminophen (Acetaminophen), 650 MG ORAL Q6H PRN for Prn Headache/Temp > 101, (Reported) Discontinued Reason: Therapy completed Bisacodyl* (Dulcolax*), 10 MG RECTAL DAILY, (Reported) Discontinued Reason: Prescription changed Clotrimazole* (Lotrimin*), 1 APPLIC TOPIC THREE TIMES A DAY Discontinued Reason: Therapy completed Escitalopram Oxalate* (Lexapro*), 10 MG ORAL DAILY Discontinued Reason: Therapy completed Escitalopram Oxalate* (Lexapro*), 5 MG ORAL DAILY, (Reported) Discontinued Reason: Therapy completed Ipratropium/Albuterol Sulfate (DuoNeb 0.5-3(2.5)mg/3ml), 3 ML HHN EVERY 4 HOURS, (Reported) Discontinued Reason: Therapy completed Ipratropium/Albuterol Sulfate (DuoNeb 0.5-3(2.5)mg/3ml), 3 ML HHN Q4HR, ( Reported) Discontinued Reason: Therapy completed Na Phos,M-B/Na Phos,Di-Ba* (Fleet Enema*), 133 ML RECTAL DAILY, (Reported) Discontinued Reason: Therapy completed Ondansetron* (Zofran*), 4 MG ORAL Q6H PRN for Nausea & Vomiting, (Reported) Discontinued Reason: Therapy completed Sennosides (Senna Laxative), 25 MG PO, (Reported) Discontinued Reason: Therapy completed Temazepam* (Temazepam*), 15 MG ORAL BEDTIME PRN for Insomnia, (Reported) Discontinued Reason: Therapy completed Unable to Obtain Medications (Unable To Obtain Meds), (Reported) Discontinued Reason: Therapy completed Patient History Healthcare decision maker Resuscitation status Advanced Directive on File Patient History Narrative Pmhx: as above Shx: No smoking. No alcohol. No intravenous drug abuse. Fhx: non contributory Review of Systems All Other Systems: negative except mentioned in HPI Physical Exam Physical Exam Narrative GENERAL: Lethargic, sleepy in bed, not talking much. CARDIOVASCULAR: No murmur. LUNGS: Distant and clear ABDOMEN: Bowel sounds positive. Nontender. Nondistended. EXTREMITIES: No cyanosis, clubbing, or edema. NEUROLOGIC: The patient is flaccid in bed, not following directions. Last 24 Hour Vital Signs Date Time Temp Pulse Resp B/P (MAP) Pulse Ox O2 Delivery O2 Flow Rate FiO2 01/04/20 12:00 98.2 97 18 153/89 (110) 97 01/04/20 11:43 89 01/04/20 09:00 Room Air 01/04/20 08:00 98.7 87 18 122/70 (87) 98 01/04/20 07:45 87 01/04/20 04:00 98.8 98 20 154/90 (111) 98 01/04/20 04:00 97 01/04/20 00:00 94 01/04/20 00:00 99.0 95 20 128/79 (95) 98 01/03/20 22:20 Room Air 01/03/20 20:00 97.9 100 20 146/90 (108) 99 01/03/20 20:00 104 01/03/20 16:00 99 01/03/20 15:08 Room Air 01/03/20 15:05 98.4 98 32 158/95 (116) 98 01/03/20 14:12 101 32 153/91 100 Room Air 01/03/20 14:06 101 32 153/91 100 Room Air Intake and Output 01/03/20 01/04/20 19:00 07:00 Intake Total 1210 ml Output Total 120 ml 250 ml Balance 1090 ml -250 ml Intake Oral 0 ml IV Total 1210 ml Output Urine Total 120 ml 250 ml # Bowel Movements 2 1 Laboratory Tests Test 01/04/20 06:04 White Blood Count 4.9 K/UL (4.8-10.8) Red Blood Count 3.84 M/UL (4.20-5.40) L Hemoglobin 12.0 G/DL (12.0-16.0) Hematocrit 36.9 % (37.0-47.0) L Mean Corpuscular Volume 96 FL (80-99) Mean Corpuscular Hemoglobin 31.1 PG (27.0-31.0) H Mean Corpuscular Hemoglobin Concent 32.4 G/DL (32.0-36.0) Red Cell Distribution Width 13.5 % (11.6-14.8) Platelet Count 204 K/UL (150-450) Mean Platelet Volume 7.7 FL (6.5-10.1) Neutrophils (%) (Auto) 64.7 % (45.0-75.0) Lymphocytes (%) (Auto) 25.9 % (20.0-45.0) Monocytes (%) (Auto) 7.4 % (1.0-10.0) Eosinophils (%) (Auto) 1.6 % (0.0-3.0) Basophils (%) (Auto) 0.4 % (0.0-2.0) Sodium Level 143 MMOL/L (136-145) Potassium Level 3.6 MMOL/L (3.5-5.1) Chloride Level 111 MMOL/L (98-107) H Carbon Dioxide Level 21 MMOL/L (21-32) Anion Gap 11 mmol/L (5-15) Blood Urea Nitrogen 13 mg/dL (7-18) Creatinine 0.8 MG/DL (0.55-1.30) Estimat Glomerular Filtration Rate > 60 mL/min (>60) Glucose Level 80 MG/DL (74-106) Calcium Level 9.9 MG/DL (8.5-10.1) Phosphorus Level 2.9 MG/DL (2.5-4.9) Albumin 2.6 G/DL (3.4-5.0) L Height (Feet): 5 Height (Inches): 5.00 Weight (Pounds): 120 Medications Current Medications Medications (Trade) Dose Ordered Sig/Brayden Route PRN Reason Start Time Stop Time Status Last Admin Dose Admin Acetaminophen (Tylenol) 650 mg Q4H PRN ORAL FEVER 01/03/20 12:45 02/02/20 12:44 Albuterol/ Ipratropium (Albuterol/ Ipratropium) 3 ml EVERY 4 HOURS PRN HHN Shortness of Breath 01/03/20 12:45 01/08/20 12:44 Aspirin (Ecotrin) 81 mg DAILY ORAL 01/04/20 09:00 02/18/20 08:59 01/04/20 08:54 Azithromycin 250 mg/Dextrose 275 ml @ 275 mls/hr Q24HRS IV 01/03/20 14:30 01/08/20 14:29 01/03/20 15:23 Ceftriaxone Sodium 1 gm/ Dextrose 55 ml @ 110 mls/hr Q24H IVPB 01/03/20 15:00 01/10/20 14:59 01/03/20 15:42 Dexamethasone (Decadron) 4 mg DAILY ORAL 01/04/20 09:00 02/03/20 08:59 01/04/20 08:54 Dextrose (Dextrose 50%) 25 ml Q30M PRN IV Hypoglycemia 01/03/20 12:45 04/02/20 12:44 Dextrose (Dextrose 50%) 50 ml Q30M PRN IV Hypoglycemia 01/03/20 12:45 04/02/20 12:44 Heparin Sodium (Porcine) (Heparin 5000 units/ml) 5,000 units EVERY 12 HOURS SUBQ 01/03/20 21:00 02/17/20 20:59 01/04/20 08:55 Ondansetron HCl (Zofran) 4 mg Q6H PRN IVP Nausea & Vomiting 01/03/20 12:45 02/02/20 12:44 Polyethylene Glycol (Miralax) 17 gm DAILYPRN PRN ORAL Constipation 01/03/20 12:45 02/02/20 12:44 Promethazine HCl/ Codeine (Phenergan with Codeine) 5 ml EVERY 6 HOURS PRN ORAL cough 01/03/20 12:45 02/02/20 12:44 Assessment/Plan Assessment/Plan: Abx: Ceftriaxone 01/02- Azithromycin 01/02- Cefepime x1 01/02 Flagyl x1 01/02 Assessment: Probable PNA- r/o COVID19 -01/02 CXR: Mild interstitial thickening. Mild streaky opacities right lung and left lower lung. Maybe pneumonitis. rapid COVID PCR neg -12/13 COVID testing at ID neg Probable UTI -u./a wbc 15-20, nit neg, leuk +2; ucx p Fever ([facility]ENDER, here Tm 99.8) No leuokocytosis cachexia/malnutrition CHF DVT LE edema CAD CKD Alzheimer's Dementia [facility] Plan: -Continue empiric Ceftriaxone and Azithromycin #2 -f/u cx -Monitor CBC/CMP, temperatures -COVID19 isolation and testing; send 2nd rapid PCR -aspiration precautions Thank you for this consultation. Will continue to follow along with you. Discussed with Rubia Carrera M.D. Jan 04, 2020 13:35
[2020-01-04] MEDS: Azithromycin 250 MG in D5W 275 ML IV SCH (13:51)
[2020-01-04] MEDS: cefTRIAXone 1 GM in D5W 55 ML IVPB SCH (15:00)
[2020-01-04 16:00] VITALS: BP 147/86
--- NOTE | 2020-01-04 16:09 | Cardiac Electrophysiology PN ---
Subjective Subjective [id number] Objective Last 24 Hour Vital Signs Date Time Temp Pulse Resp B/P (MAP) Pulse Ox O2 Delivery O2 Flow Rate FiO2 01/04/20 12:00 98.2 97 18 153/89 (110) 97 01/04/20 11:43 89 01/04/20 09:00 Room Air 01/04/20 08:00 98.7 87 18 122/70 (87) 98 01/04/20 07:45 87 01/04/20 04:00 98.8 98 20 154/90 (111) 98 01/04/20 04:00 97 01/04/20 00:00 94 01/04/20 00:00 99.0 95 20 128/79 (95) 98 01/03/20 22:20 Room Air 01/03/20 20:00 97.9 100 20 146/90 (108) 99 01/03/20 20:00 104 Intake and Output 01/03/20 01/04/20 19:00 07:00 Intake Total 1210 ml Output Total 120 ml 250 ml Balance 1090 ml -250 ml Intake Oral 0 ml IV Total 1210 ml Output Urine Total 120 ml 250 ml # Bowel Movements 2 1 Laboratory Tests Test 01/04/20 06:04 White Blood Count 4.9 K/UL (4.8-10.8) Red Blood Count 3.84 M/UL (4.20-5.40) L Hemoglobin 12.0 G/DL (12.0-16.0) Hematocrit 36.9 % (37.0-47.0) L Mean Corpuscular Volume 96 FL (80-99) Mean Corpuscular Hemoglobin 31.1 PG (27.0-31.0) H Mean Corpuscular Hemoglobin Concent 32.4 G/DL (32.0-36.0) Red Cell Distribution Width 13.5 % (11.6-14.8) Platelet Count 204 K/UL (150-450) Mean Platelet Volume 7.7 FL (6.5-10.1) Neutrophils (%) (Auto) 64.7 % (45.0-75.0) Lymphocytes (%) (Auto) 25.9 % (20.0-45.0) Monocytes (%) (Auto) 7.4 % (1.0-10.0) Eosinophils (%) (Auto) 1.6 % (0.0-3.0) Basophils (%) (Auto) 0.4 % (0.0-2.0) Sodium Level 143 MMOL/L (136-145) Potassium Level 3.6 MMOL/L (3.5-5.1) Chloride Level 111 MMOL/L (98-107) H Carbon Dioxide Level 21 MMOL/L (21-32) Anion Gap 11 mmol/L (5-15) Blood Urea Nitrogen 13 mg/dL (7-18) Creatinine 0.8 MG/DL (0.55-1.30) Estimat Glomerular Filtration Rate > 60 mL/min (>60) Glucose Level 80 MG/DL (74-106) Calcium Level 9.9 MG/DL (8.5-10.1) Phosphorus Level 2.9 MG/DL (2.5-4.9) Albumin 2.6 G/DL (3.4-5.0) L Microbiology Date/Time Source Procedure Growth Status 01/04/20 14:53 Nasopharynx SARS-CoV-2 RdRp Gene Assay - Final Complete 01/03/20 11:00 Nasopharynx SARS-CoV-2 RdRp Gene Assay - Final Complete 01/03/20 10:40 Urine,Clean Catch Urine Culture - Preliminary Resulted 01/03/20 11:00 Rectal Mucosa Received Jaquan Weller MD Jan 04, 2020 16:09
--- NOTE | 2020-01-04 18:30 | Consultation ---
DATE OF CONSULTATION: 01/04/2020 CARDIOLOGY CONSULTATION REFERRING PHYSICIAN: Porter Davila D.O. REASON FOR CONSULTATION: Elevated troponin. HISTORY OF PRESENT ILLNESS: The patient is an 85-year-old lady with history of hypertension and dementia and history of pneumonia, presented after acute onset of fever of greater 101 degrees from the [facility], [facility]. The patient also has history of encephalopathy. The patient's recent negative. The patient is noted to have elevated troponin and a cardiology consultation was obtained for further evaluation and management. REVIEW OF SYSTEMS: Cannot be obtained as the patient is confused. PAST MEDICAL HISTORY: As mentioned above. FAMILY HISTORY: Noncontributory. SOCIAL HISTORY: She lives in a [facility]. Does not smoke or drink alcohol. PHYSICAL EXAMINATION: VITAL SIGNS: Blood pressure 153/89, pulse 97, respirations 18, and temperature 98.2. NECK: No JVD. LUNGS: Clear. CARDIOVASCULAR: regular S1 and S2 with no gallop. ABDOMEN: Soft. EXTREMITIES: No pitting edema. LABORATORY AND DIAGNOSTIC DATA: White count of 4.9, hematocrit 12, hematocrit 37, and platelet count is 204. Sodium 143, potassium 3.6, BUN of 30, creatinine 0.8, and troponin 0.04. Lactic acid is 2.5 x 2.4. BNP is 12,500. ASSESSMENT AND PLAN: 1. Troponin elevation. The patient does not have renal failure, and BUN and creatinine are within normal range. acute coronary syndrome. We will completely rule out VT protocol. Get an EKG and echocardiogram and keep the patient on aspirin and beta-gary and statin. 2. Fever. The patient is started on antibiotic for possible pneumonia. The patient also was on Decadron. However, her preliminary COVID test is negative. 3. Dementia. 4. History of lower extremity edema. 5. History of coronary artery disease. Thank you very much for allowing me to participate in the care of this patient. Please do not hesitate to contact me for any questions regarding my evaluation. Jaquan Weller M.D. DR: IRMA JOB#: [id number] CC:
[2020-01-04] MEDS ORDERED: BISACODYL10 M1 RC (19:55)
[2020-01-04 20:00] VITALS: BP 132/80
[2020-01-05] VITALS: BP 137/86
[2020-01-05 04:00] VITALS: BP 137/91
--- NOTE | 2020-01-05 07:41 | Pulmonology Progress Note ---
Subjective ROS Limited/Unobtainable: No Constitutional: Reports: no symptoms Respiratory: Reports: no symptoms Cardiovascular: Reports: no symptoms Allergies: Coded Allergies: No Known Allergies (Unverified , 02/11/17) Subjective pulse ox stable on RA Venous Duplex + acute DVT R leg no fever, no leukocytosis Objective Last 24 Hour Vital Signs Date Time Temp Pulse Resp B/P (MAP) Pulse Ox O2 Delivery O2 Flow Rate FiO2 01/05/20 04:00 75 01/05/20 04:00 96.8 75 19 137/91 (106) 100 01/05/20 00:00 97.5 73 19 137/86 (103) 96 01/05/20 00:00 73 01/04/20 21:38 109 132/80 01/04/20 21:00 Room Air 01/04/20 20:00 98.1 109 18 132/80 (97) 96 01/04/20 20:00 109 01/04/20 16:00 97.9 91 18 147/86 (106) 100 01/04/20 15:18 94 01/04/20 12:00 98.2 97 18 153/89 (110) 97 01/04/20 11:43 89 01/04/20 09:00 Room Air 01/04/20 08:00 98.7 87 18 122/70 (87) 98 01/04/20 07:45 87 Intake and Output 01/04/20 01/05/20 19:00 07:00 Intake Total 810 ml Output Total 50 ml 450 ml Balance 760 ml -450 ml Intake Oral 480 ml IV Total 330 ml Output Urine Total 50 ml 450 ml # Bowel Movements 1 General Appearance: cachetic - bedridden female in NAD HEENT: normocephalic, atraumatic, anicteric Respiratory: chest wall non-tender, lungs clear, normal breath sounds, no accessory muscle use Cardiovascular: regular rhythm Abdomen: normal bowel sounds, soft, non tender Extremities: no edema Neurologic: abnormal gait - bedridden , alert - nonverbal Musculoskeletal: atrophy - BLE Microbiology Date/Time Source Procedure Growth Status 01/03/20 10:40 Blood Blood Culture - Preliminary NO GROWTH AFTER 24 HOURS Resulted 01/03/20 10:40 Blood Blood Culture - Preliminary NO GROWTH AFTER 24 HOURS Resulted 01/04/20 14:53 Nasopharynx SARS-CoV-2 RdRp Gene Assay - Final Complete 01/03/20 11:00 Nasal Nares MRSA Culture - Final NO METHICILLIN RESISTANT STAPH AUREUS... Complete 01/03/20 11:00 Nasopharynx SARS-CoV-2 RdRp Gene Assay - Final Complete 01/03/20 10:40 Urine,Clean Catch Urine Culture - Preliminary Gram Positive Cocci Resulted 01/03/20 11:00 Rectal Mucosa Received Current Medications Medications (Trade) Dose Ordered Sig/Brayden Route PRN Reason Start Time Stop Time Status Last Admin Dose Admin Acetaminophen (Tylenol) 650 mg Q4H PRN ORAL FEVER 01/03/20 12:45 02/02/20 12:44 Albuterol/ Ipratropium (Albuterol/ Ipratropium) 3 ml EVERY 4 HOURS PRN HHN Shortness of Breath 01/03/20 12:45 01/08/20 12:44 Aspirin (Ecotrin) 81 mg DAILY ORAL 01/04/20 09:00 02/18/20 08:59 01/04/20 08:54 Azithromycin 250 mg/Dextrose 275 ml @ 275 mls/hr Q24HRS IV 01/03/20 14:30 01/08/20 14:29 01/04/20 13:51 Ceftriaxone Sodium 1 gm/ Dextrose 55 ml @ 110 mls/hr Q24H IVPB 01/03/20 15:00 01/10/20 14:59 01/04/20 15:00 Dexamethasone (Decadron) 4 mg DAILY ORAL 01/04/20 09:00 02/03/20 08:59 01/04/20 08:54 Dextrose (Dextrose 50%) 25 ml Q30M PRN IV Hypoglycemia 01/03/20 12:45 04/02/20 12:44 Dextrose (Dextrose 50%) 50 ml Q30M PRN IV Hypoglycemia 01/03/20 12:45 04/02/20 12:44 Heparin Sodium (Porcine) (Heparin 5000 units/ml) 5,000 units EVERY 12 HOURS SUBQ 01/03/20 21:00 02/17/20 20:59 01/04/20 21:40 Metoprolol Tartrate (Lopressor) 25 mg Q12HR ORAL 01/04/20 21:00 04/03/20 20:59 01/04/20 21:38 Ondansetron HCl (Zofran) 4 mg Q6H PRN IVP Nausea & Vomiting 01/03/20 12:45 02/02/20 12:44 Polyethylene Glycol (Miralax) 17 gm DAILYPRN PRN ORAL Constipation 01/03/20 12:45 02/02/20 12:44 Promethazine HCl/ Codeine (Phenergan with Codeine) 5 ml EVERY 6 HOURS PRN ORAL cough 01/03/20 12:45 02/02/20 12:44 Assessment/Plan Assessment/Plan ASSESSMENT sepsis probable pneumonia suspected COVID-19 ruled out acute R leg DVT and chronic Left leg DVT probable UTI elevated troponin hx of CAD aspiration risk hx of DVT protein calorie malnutrition CKD Alzheimer's dementia PLAN OF CARE tele supplemental O2 titrate to keep sat above 92% pulmonary toilet fup with CXR rapid COVID-19 x2 NGT; dc Decadron abx BCX NGT a/tussive prn Venous duplex BLE + Acute R leg DVT and chronic Left leg DVT, started on Lovenox per heme cardio follows ASA and BB , statin added serial troponin-trending down, minimally elevated Echo swallow eval aspiration precaution dietary eval case discussed and evaluated by supervising physician Shari Khan NP Jan 05, 2020 07:41
[2020-01-05 08:00] VITALS: BP 125/69
[2020-01-05] MEDS: Aspirin EC 81mg tab ORAL SCH (08:33)
[2020-01-05] MEDS: Heparin 5000 units/ml inj SUBQ SCH (08:34)
[2020-01-05 08:47] LABS: BASOPHILS % (AUTO) 0.7 % (0.0-2.0); EOSINOPHILS % (AUTO) 1.1 % (0.0-3.0); HEMATOCRIT 34.8 % (37.0-47.0); HEMOGLOBIN 11.2 G/DL (12.0-16.0); LYMPHOCYTES % (AUTO) 31.5 % (20.0-45.0); MEAN CORPUSCULAR VOLUME 94 FL (80-99); MONOCYTES % (AUTO) 5.9 % (1.0-10.0); NEUTROPHILS % (AUTO) 60.9 % (45.0-75.0); PLATELET COUNT 230 K/UL (150-450); WHITE BLOOD COUNT 5.1 K/UL (4.8-10.8)
[2020-01-05 09:24] LABS: ANION GAP 9 mmol/L (5-15); BLOOD UREA NITROGEN 13 mg/dL (7-18); CARBON DIOXIDE 22 MMOL/L (21-32); CHLORIDE 110 MMOL/L (98-107); CHOLESTEROL 147 MG/DL (< 200); CREATININE 0.7 MG/DL (0.55-1.30); HDL CHOLESTEROL 38 MG/DL (40-60); POTASSIUM 4.1 MMOL/L (3.5-5.1); SODIUM 141 MMOL/L (136-145); TRIGLYCERIDES 55 MG/DL (30-150)
--- NOTE | 2020-01-05 10:14 | Cardiac Electrophysiology PN ---
Assessment/Plan Assessment/Plan 1. Troponin elevation. 0.3 to 0.07. The patient does not have renal failure, and BUN and creatinine are within normal range. No CP. Echocardiogram Nl EF. Continue aspirin, Lopressor 25 bid and add Lipitor 10 2. Moderate MS and . Final echo pending 3. Fever and possible pneumonia. On Abx and Decadron. COVID test is negative. 4. History of lower extremity edema. 5. History of coronary artery disease. 6. Acute R leg DVT and chronic Left leg DVT. Started on Lovenox per Dr Buckner 7. Dementia. REJI RN Subjective Subjective Echo today showed EF 55% and moderate and MS. Has acute DVT of Right leg Objective Last 24 Hour Vital Signs Date Time Temp Pulse Resp B/P (MAP) Pulse Ox O2 Delivery O2 Flow Rate FiO2 01/05/20 09:00 Room Air 01/05/20 08:34 75 125/69 01/05/20 08:00 75 01/05/20 08:00 97.7 75 20 125/69 (87) 100 01/05/20 04:00 75 01/05/20 04:00 96.8 75 19 137/91 (106) 100 01/05/20 00:00 97.5 73 19 137/86 (103) 96 01/05/20 00:00 73 01/04/20 21:38 109 132/80 01/04/20 21:00 Room Air 01/04/20 20:00 98.1 109 18 132/80 (97) 96 01/04/20 20:00 109 01/04/20 16:00 97.9 91 18 147/86 (106) 100 01/04/20 15:18 94 01/04/20 12:00 98.2 97 18 153/89 (110) 97 01/04/20 11:43 89 Intake and Output 01/04/20 01/05/20 19:00 07:00 Intake Total 810 ml Output Total 50 ml 450 ml Balance 760 ml -450 ml Intake Oral 480 ml IV Total 330 ml Output Urine Total 50 ml 450 ml # Bowel Movements 1 Laboratory Tests Test 01/05/20 08:05 White Blood Count 5.1 K/UL (4.8-10.8) Red Blood Count 3.70 M/UL (4.20-5.40) L Hemoglobin 11.2 G/DL (12.0-16.0) L Hematocrit 34.8 % (37.0-47.0) L Mean Corpuscular Volume 94 FL (80-99) Mean Corpuscular Hemoglobin 30.2 PG (27.0-31.0) Mean Corpuscular Hemoglobin Concent 32.1 G/DL (32.0-36.0) Red Cell Distribution Width 13.0 % (11.6-14.8) Platelet Count 230 K/UL (150-450) Mean Platelet Volume 7.6 FL (6.5-10.1) Neutrophils (%) (Auto) 60.9 % (45.0-75.0) Lymphocytes (%) (Auto) 31.5 % (20.0-45.0) Monocytes (%) (Auto) 5.9 % (1.0-10.0) Eosinophils (%) (Auto) 1.1 % (0.0-3.0) Basophils (%) (Auto) 0.7 % (0.0-2.0) Sodium Level 141 MMOL/L (136-145) Potassium Level 4.1 MMOL/L (3.5-5.1) Chloride Level 110 MMOL/L (98-107) H Carbon Dioxide Level 22 MMOL/L (21-32) Anion Gap 9 mmol/L (5-15) Blood Urea Nitrogen 13 mg/dL (7-18) Creatinine 0.7 MG/DL (0.55-1.30) Estimat Glomerular Filtration Rate > 60 mL/min (>60) Glucose Level 86 MG/DL (74-106) Calcium Level 10.0 MG/DL (8.5-10.1) Troponin I 0.074 ng/mL (0.000-0.056) Pro-B-Type Natriuretic Peptide 8776 pg/mL (0-125) H Triglycerides Level 55 MG/DL (30-150) Cholesterol Level 147 MG/DL (< 200) LDL Cholesterol 96 mg/dL (<100) HDL Cholesterol 38 MG/DL (40-60) L Cholesterol/HDL Ratio 3.9 (3.3-4.4) Thyroid Stimulating Hormone (TSH) 0.498 uiU/mL (0.358-3.740) Free Thyroxine 1.46 NG/DL (0.76-1.46) Microbiology Date/Time Source Procedure Growth Status 01/03/20 10:40 Blood Blood Culture - Preliminary NO GROWTH AFTER 24 HOURS Resulted 01/03/20 10:40 Blood Blood Culture - Preliminary NO GROWTH AFTER 24 HOURS Resulted 01/04/20 14:53 Nasopharynx SARS-CoV-2 RdRp Gene Assay - Final Complete 01/03/20 11:00 Nasal Nares MRSA Culture - Final NO METHICILLIN RESISTANT STAPH AUREUS... Complete 01/03/20 11:00 Nasopharynx SARS-CoV-2 RdRp Gene Assay - Final Complete 01/03/20 10:40 Urine,Clean Catch Urine Culture - Preliminary Gram Positive Cocci Resulted 01/03/20 11:00 Rectum VRE Culture - Final Enterococcus Faecalis - Vre Complete 01/03/20 11:00 Rectal Mucosa - Final NO CARBAPENEM-RESISTANT ENTEROBACTERI... Complete Objective NECK: No JVD. LUNGS: Clear. CARDIOVASCULAR: regular S1 and S2 with no gallop. ABDOMEN: Soft. EXTREMITIES: No pitting edema. Jaquan Weller MD Jan 05, 2020 10:14
--- NOTE | 2020-01-05 11:14 | Infectious Diseases Prog Note ---
Assessment/Plan Assessment: Probable PNA- COVID19 neg x2 -01/03 rapid COVID pCR neg -01/02 CXR: Mild interstitial thickening. Mild streaky opacities right lung and left lower lung. Maybe pneumonitis. rapid COVID PCR neg -12/13 COVID testing at [place] neg UTI -u./a wbc 15-20, nit neg, leuk +2; ucx >100k GPC Fever ([employer], here Tm 99.8) No leuokocytosis cachexia/malnutrition CHF DVT LE edema CAD CKD Alzheimer's Dementia retirement resident (Francine carrion) VRE colonized Plan: -Continue empiric Ceftriaxone and Azithromycin #3 -add ZYvox pending ucx to cover for VRE -montior plts -01/02 SP Cefepime x1, FLagyl x1 -f/u cx -Monitor CBC/CMP, temperatures -COVID19 neg x2; ok to dc iso -aspiration precautions -CXR am Thank you for this consultation. Will continue to follow along with you. Discussed with RN. Subjective Allergies: Coded Allergies: No Known Allergies (Unverified , 02/11/17) afebrile at RA no leukocytosis Bcx NTD Objective Last 24 Hour Vital Signs Date Time Temp Pulse Resp B/P (MAP) Pulse Ox O2 Delivery O2 Flow Rate FiO2 01/05/20 09:00 Room Air 01/05/20 08:34 75 125/69 01/05/20 08:00 75 01/05/20 08:00 97.7 75 20 125/69 (87) 100 01/05/20 04:00 75 01/05/20 04:00 96.8 75 19 137/91 (106) 100 01/05/20 00:00 97.5 73 19 137/86 (103) 96 01/05/20 00:00 73 01/04/20 21:38 109 132/80 01/04/20 21:00 Room Air 01/04/20 20:00 98.1 109 18 132/80 (97) 96 01/04/20 20:00 109 01/04/20 16:00 97.9 91 18 147/86 (106) 100 01/04/20 15:18 94 01/04/20 12:00 98.2 97 18 153/89 (110) 97 01/04/20 11:43 89 Height (Feet): 5 Height (Inches): 5.00 Weight (Pounds): 120 CARDIOVASCULAR: No murmur. LUNGS: Distant and clear ABDOMEN: Bowel sounds positive. Nontender. Nondistended. EXTREMITIES: No cyanosis, clubbing, or edema. NEUROLOGIC: The patient is flaccid in bed, not following directions. Microbiology Date/Time Source Procedure Growth Status 01/03/20 10:40 Blood Blood Culture - Preliminary NO GROWTH AFTER 24 HOURS Resulted 01/03/20 10:40 Blood Blood Culture - Preliminary NO GROWTH AFTER 24 HOURS Resulted 01/04/20 14:53 Nasopharynx SARS-CoV-2 RdRp Gene Assay - Final Complete 01/03/20 11:00 Nasal Nares MRSA Culture - Final NO METHICILLIN RESISTANT STAPH AUREUS... Complete 01/03/20 11:00 Nasopharynx SARS-CoV-2 RdRp Gene Assay - Final Complete 01/03/20 10:40 Urine,Clean Catch Urine Culture - Preliminary Gram Positive Cocci Resulted 01/03/20 11:00 Rectum VRE Culture - Final Enterococcus Faecalis - Vre Complete 01/03/20 11:00 Rectal Mucosa - Final NO CARBAPENEM-RESISTANT ENTEROBACTERI... Complete Laboratory Tests Test 01/05/20 08:05 White Blood Count 5.1 K/UL (4.8-10.8) Red Blood Count 3.70 M/UL (4.20-5.40) L Hemoglobin 11.2 G/DL (12.0-16.0) L Hematocrit 34.8 % (37.0-47.0) L Mean Corpuscular Volume 94 FL (80-99) Mean Corpuscular Hemoglobin 30.2 PG (27.0-31.0) Mean Corpuscular Hemoglobin Concent 32.1 G/DL (32.0-36.0) Red Cell Distribution Width 13.0 % (11.6-14.8) Platelet Count 230 K/UL (150-450) Mean Platelet Volume 7.6 FL (6.5-10.1) Neutrophils (%) (Auto) 60.9 % (45.0-75.0) Lymphocytes (%) (Auto) 31.5 % (20.0-45.0) Monocytes (%) (Auto) 5.9 % (1.0-10.0) Eosinophils (%) (Auto) 1.1 % (0.0-3.0) Basophils (%) (Auto) 0.7 % (0.0-2.0) Sodium Level 141 MMOL/L (136-145) Potassium Level 4.1 MMOL/L (3.5-5.1) Chloride Level 110 MMOL/L (98-107) H Carbon Dioxide Level 22 MMOL/L (21-32) Anion Gap 9 mmol/L (5-15) Blood Urea Nitrogen 13 mg/dL (7-18) Creatinine 0.7 MG/DL (0.55-1.30) Estimat Glomerular Filtration Rate > 60 mL/min (>60) Glucose Level 86 MG/DL (74-106) Calcium Level 10.0 MG/DL (8.5-10.1) Troponin I 0.074 ng/mL (0.000-0.056) Pro-B-Type Natriuretic Peptide 8776 pg/mL (0-125) H Triglycerides Level 55 MG/DL (30-150) Cholesterol Level 147 MG/DL (< 200) LDL Cholesterol 96 mg/dL (<100) HDL Cholesterol 38 MG/DL (40-60) L Cholesterol/HDL Ratio 3.9 (3.3-4.4) Thyroid Stimulating Hormone (TSH) 0.498 uiU/mL (0.358-3.740) Free Thyroxine 1.46 NG/DL (0.76-1.46) Current Medications Medications (Trade) Dose Ordered Sig/Brayden Route PRN Reason Start Time Stop Time Status Last Admin Dose Admin Acetaminophen (Tylenol) 650 mg Q4H PRN ORAL FEVER 01/03/20 12:45 02/02/20 12:44 Albuterol/ Ipratropium (Albuterol/ Ipratropium) 3 ml EVERY 4 HOURS PRN HHN Shortness of Breath 01/03/20 12:45 01/08/20 12:44 Aspirin (Ecotrin) 81 mg DAILY ORAL 01/04/20 09:00 02/18/20 08:59 01/05/20 08:33 Atorvastatin Calcium (Lipitor) 10 mg BEDTIME ORAL 01/05/20 21:00 04/04/20 20:59 Azithromycin 250 mg/Dextrose 275 ml @ 275 mls/hr Q24HRS IV 01/03/20 14:30 01/08/20 14:29 01/04/20 13:51 Ceftriaxone Sodium 1 gm/ Dextrose 55 ml @ 110 mls/hr Q24H IVPB 01/03/20 15:00 01/10/20 14:59 01/04/20 15:00 Dextrose (Dextrose 50%) 25 ml Q30M PRN IV Hypoglycemia 01/03/20 12:45 04/02/20 12:44 Dextrose (Dextrose 50%) 50 ml Q30M PRN IV Hypoglycemia 01/03/20 12:45 04/02/20 12:44 Enoxaparin Sodium (Lovenox) 50 mg EVERY 12 HOURS SUBQ 01/05/20 21:00 04/04/20 20:59 Metoprolol Tartrate (Lopressor) 25 mg Q12HR ORAL 01/04/20 21:00 04/03/20 20:59 01/05/20 08:34 Ondansetron HCl (Zofran) 4 mg Q6H PRN IVP Nausea & Vomiting 01/03/20 12:45 02/02/20 12:44 Polyethylene Glycol (Miralax) 17 gm DAILYPRN PRN ORAL Constipation 01/03/20 12:45 02/02/20 12:44 Promethazine HCl/ Codeine (Phenergan with Codeine) 5 ml EVERY 6 HOURS PRN ORAL cough 01/03/20 12:45 02/02/20 12:44 Rubia March M.D. Jan 05, 2020 11:14
[2020-01-05 12:00] VITALS: BP 118/74
--- NOTE | 2020-01-05 12:18 | Hematology/Onc Progress Note ---
Assessment/Plan Assessment/Plan Assessment and Recs # Dvt that is chronic, in the past was on coumadin with a inr btw 2-3 --> currently aphasic, therefore order duplex to see if any acute process --> recomnfirmed and does have acute divt right leg --> lovenox started --> coumadin started, inr goal 2-3 # Severe sepsis --> on imaging, cxr mild streaking opacivty left lower and right lung --> r/o chf --> on abx ceftriaxone # Alzheimer's dementia --> appears chronic # Fever --> abx started # Pneumonitis # Urinary tract infection # Tachycardia due to sepsis # Dvt ppx heparin sq The timing of this note does not necessarily reflect the time of the patient was seen. Greatly appreciate consultation. Subjective Constitutional: Denies: no symptoms, chills, fever, malaise, weakness, other Cardiovascular: Denies: no symptoms, chest pain, edema, irregular heart rate, lightheadedness, palpitations, syncope, other Genitourinary: Denies: no symptoms, burning, discharge, frequency, flank pain, hematuria, incontinence, pain, urgency, other Neurologic/Psychiatric: Denies: no symptoms, anxiety, depressed, emotional problems, headache, numbness, paresthesia, pre-existing deficit, seizure, tingling, tremors, weakness, other Endocrine: Denies: no symptoms, excessive sweating, flushing, intolerance to cold, intolerance to heat, increased hunger, increased thirst, increased urine, unexplained weight gain, unexplained weight loss, other Hematologic/Lymphatic: Denies: no symptoms, anemia, easy bleeding, easy bruising, adenopathy, other Allergies: Coded Allergies: No Known Allergies (Unverified , 02/11/17) Subjective 01/04 right leg dvt that is noted today, have started on lovenox bid therapy Objective Objective Current Medications Medications (Trade) Dose Ordered Sig/Brayden Route PRN Reason Start Time Stop Time Status Last Admin Dose Admin Acetaminophen (Tylenol) 650 mg Q4H PRN ORAL FEVER 01/03/20 12:45 02/02/20 12:44 Albuterol/ Ipratropium (Albuterol/ Ipratropium) 3 ml EVERY 4 HOURS PRN HHN Shortness of Breath 01/03/20 12:45 01/08/20 12:44 Aspirin (Ecotrin) 81 mg DAILY ORAL 01/04/20 09:00 02/18/20 08:59 01/05/20 08:33 Atorvastatin Calcium (Lipitor) 10 mg BEDTIME ORAL 01/05/20 21:00 04/04/20 20:59 Azithromycin 250 mg/Dextrose 275 ml @ 275 mls/hr Q24HRS IV 01/03/20 14:30 01/08/20 14:29 01/04/20 13:51 Ceftriaxone Sodium 1 gm/ Dextrose 55 ml @ 110 mls/hr Q24H IVPB 01/03/20 15:00 01/10/20 14:59 01/04/20 15:00 Dextrose (Dextrose 50%) 25 ml Q30M PRN IV Hypoglycemia 01/03/20 12:45 04/02/20 12:44 Dextrose (Dextrose 50%) 50 ml Q30M PRN IV Hypoglycemia 01/03/20 12:45 04/02/20 12:44 Enoxaparin Sodium (Lovenox) 50 mg EVERY 12 HOURS SUBQ 01/05/20 21:00 04/04/20 20:59 Linezolid (Zyvox) 600 mg EVERY 12 HOURS ORAL 01/05/20 11:15 01/10/20 11:14 01/05/20 11:24 Metoprolol Tartrate (Lopressor) 25 mg Q12HR ORAL 01/04/20 21:00 04/03/20 20:59 01/05/20 08:34 Polyethylene Glycol (Miralax) 17 gm DAILYPRN PRN ORAL Constipation 01/03/20 12:45 02/02/20 12:44 Promethazine HCl/ Codeine (Phenergan with Codeine) 5 ml EVERY 6 HOURS PRN ORAL cough 01/03/20 12:45 02/02/20 12:44 Last 24 Hour Vital Signs Date Time Temp Pulse Resp B/P (MAP) Pulse Ox O2 Delivery O2 Flow Rate FiO2 01/05/20 09:00 Room Air 01/05/20 08:34 75 125/69 01/05/20 08:00 75 01/05/20 08:00 97.7 75 20 125/69 (87) 100 01/05/20 04:00 75 01/05/20 04:00 96.8 75 19 137/91 (106) 100 01/05/20 00:00 97.5 73 19 137/86 (103) 96 01/05/20 00:00 73 01/04/20 21:38 109 132/80 01/04/20 21:00 Room Air 01/04/20 20:00 98.1 109 18 132/80 (97) 96 01/04/20 20:00 109 01/04/20 16:00 97.9 91 18 147/86 (106) 100 01/04/20 15:18 94 01/04/20 12:00 98.2 97 18 153/89 (110) 97 01/04/20 11:43 89 01/04/20 09:00 Room Air 01/04/20 08:00 98.7 87 18 122/70 (87) 98 01/04/20 07:45 87 01/04/20 04:00 98.8 98 20 154/90 (111) 98 01/04/20 04:00 97 01/04/20 00:00 94 01/04/20 00:00 99.0 95 20 128/79 (95) 98 01/03/20 22:20 Room Air 01/03/20 20:00 97.9 100 20 146/90 (108) 99 01/03/20 20:00 104 01/03/20 16:00 99 01/03/20 15:08 Room Air 01/03/20 15:05 98.4 98 32 158/95 (116) 98 01/03/20 14:12 101 32 153/91 100 Room Air 01/03/20 14:06 101 32 153/91 100 Room Air 01/03/20 13:06 106 32 169/94 100 Room Air Intake and Output 01/04/20 01/05/20 18:59 06:59 Intake Total 810 ml Output Total 50 ml 450 ml Balance 760 ml -450 ml Intake Oral 480 ml IV Total 330 ml Output Urine Total 50 ml 450 ml # Bowel Movements 1 Labs Test 01/03/20 10:40 01/03/20 11:00 01/03/20 12:46 01/04/20 06:04 White Blood Count 7.3 K/UL (4.8-10.8) 4.9 K/UL (4.8-10.8) Red Blood Count 4.17 M/UL (4.20-5.40) 3.84 M/UL (4.20-5.40) Hemoglobin 12.9 G/DL (12.0-16.0) 12.0 G/DL (12.0-16.0) Hematocrit 39.7 % (37.0-47.0) 36.9 % (37.0-47.0) Mean Corpuscular Volume 95 FL (80-99) 96 FL (80-99) Mean Corpuscular Hemoglobin 31.0 PG (27.0-31.0) 31.1 PG (27.0-31.0) Mean Corpuscular Hemoglobin Concent 32.5 G/DL (32.0-36.0) 32.4 G/DL (32.0-36.0) Red Cell Distribution Width 13.2 % (11.6-14.8) 13.5 % (11.6-14.8) Platelet Count 208 K/UL (150-450) 204 K/UL (150-450) Mean Platelet Volume 7.5 FL (6.5-10.1) 7.7 FL (6.5-10.1) Neutrophils (%) (Auto) 78.6 % (45.0-75.0) 64.7 % (45.0-75.0) Lymphocytes (%) (Auto) 15.5 % (20.0-45.0) 25.9 % (20.0-45.0) Monocytes (%) (Auto) 4.8 % (1.0-10.0) 7.4 % (1.0-10.0) Eosinophils (%) (Auto) 0.7 % (0.0-3.0) 1.6 % (0.0-3.0) Basophils (%) (Auto) 0.4 % (0.0-2.0) 0.4 % (0.0-2.0) Prothrombin Time 11.5 SEC (9.30-11.50) Prothromb Time International Ratio 1.0 (0.9-1.1) Activated Partial Thromboplast Time 27 SEC (23-33) Urine Color Yellow Urine Appearance Slightly cloudy Urine pH 5 (4.5-8.0) Urine Specific [place] 1.020 (1.005-1.035) Urine Protein 2+ (NEGATIVE) Urine Glucose (UA) Negative (NEGATIVE) Urine Ketones Negative (NEGATIVE) Urine Blood 3+ (NEGATIVE) Urine Nitrite Negative (NEGATIVE) Urine Bilirubin Negative (NEGATIVE) Urine Urobilinogen 4 MG/DL (0.0-1.0) Urine Leukocyte Esterase 2+ (NEGATIVE) Urine RBC 2-4 /HPF (0 - 2) Urine WBC 15-20 /HPF (0 - 2) Urine Squamous Epithelial Cells Moderate /LPF (NONE/OCC) Urine Bacteria Moderate /HPF (NONE) Sodium Level 143 MMOL/L (136-145) 143 MMOL/L (136-145) Potassium Level 3.7 MMOL/L (3.5-5.1) 3.6 MMOL/L (3.5-5.1) Chloride Level 110 MMOL/L (98-107) 111 MMOL/L (98-107) Carbon Dioxide Level 22 MMOL/L (21-32) 21 MMOL/L (21-32) Anion Gap 11 mmol/L (5-15) 11 mmol/L (5-15) Blood Urea Nitrogen 16 mg/dL (7-18) 13 mg/dL (7-18) Creatinine 0.9 MG/DL (0.55-1.30) 0.8 MG/DL (0.55-1.30) Estimat Glomerular Filtration Rate > 60 mL/min (>60) > 60 mL/min (>60) Glucose Level 123 MG/DL (74-106) 80 MG/DL (74-106) Lactic Acid Level 2.50 mmol/L (0.4-2.0) 2.40 mmol/L (0.66-2.22) Calcium Level 10.4 MG/DL (8.5-10.1) 9.9 MG/DL (8.5-10.1) Total Bilirubin 0.6 MG/DL (0.2-1.0) Aspartate Amino Transf (AST/SGOT) 20 U/L (15-37) Alanine Aminotransferase (ALT/SGPT) 18 U/L (12-78) Alkaline Phosphatase 72 U/L (46-116) Total Creatine Kinase 65 U/L (26-308) Creatine Kinase MB 1.8 NG/ML (0.0-3.6) Creatine Kinase MB Relative Index 2.7 Troponin I 0.384 ng/mL (0.000-0.056) Pro-B-Type Natriuretic Peptide 81250 pg/mL (0-125) Total Protein 7.9 G/DL (6.4-8.2) Albumin 3.0 G/DL (3.4-5.0) 2.6 G/DL (3.4-5.0) Globulin 4.9 g/dL Albumin/Globulin Ratio 0.6 (1.0-2.7) Arterial Blood pH 7.476 (7.350-7.450) Arterial Blood Partial Pressure CO2 26.1 mmHg (35.0-45.0) Arterial Blood Partial Pressure O2 82.4 mmHg (75.0-100.0) Arterial Blood HCO3 18.8 mmol/L (22.0-26.0) Arterial Blood Oxygen Saturation 96.1 % (95-100) Arterial Blood Base Excess -3.3 (-2-2) Nick Test Positive Phosphorus Level 2.9 MG/DL (2.5-4.9) Test 01/05/20 08:05 White Blood Count 5.1 K/UL (4.8-10.8) Red Blood Count 3.70 M/UL (4.20-5.40) Hemoglobin 11.2 G/DL (12.0-16.0) Hematocrit 34.8 % (37.0-47.0) Mean Corpuscular Volume 94 FL (80-99) Mean Corpuscular Hemoglobin 30.2 PG (27.0-31.0) Mean Corpuscular Hemoglobin Concent 32.1 G/DL (32.0-36.0) Red Cell Distribution Width 13.0 % (11.6-14.8) Platelet Count 230 K/UL (150-450) Mean Platelet Volume 7.6 FL (6.5-10.1) Neutrophils (%) (Auto) 60.9 % (45.0-75.0) Lymphocytes (%) (Auto) 31.5 % (20.0-45.0) Monocytes (%) (Auto) 5.9 % (1.0-10.0) Eosinophils (%) (Auto) 1.1 % (0.0-3.0) Basophils (%) (Auto) 0.7 % (0.0-2.0) Sodium Level 141 MMOL/L (136-145) Potassium Level 4.1 MMOL/L (3.5-5.1) Chloride Level 110 MMOL/L (98-107) Carbon Dioxide Level 22 MMOL/L (21-32) Anion Gap 9 mmol/L (5-15) Blood Urea Nitrogen 13 mg/dL (7-18) Creatinine 0.7 MG/DL (0.55-1.30) Estimat Glomerular Filtration Rate > 60 mL/min (>60) Glucose Level 86 MG/DL (74-106) Calcium Level 10.0 MG/DL (8.5-10.1) Troponin I 0.074 ng/mL (0.000-0.056) Pro-B-Type Natriuretic Peptide 8776 pg/mL (0-125) Triglycerides Level 55 MG/DL (30-150) Cholesterol Level 147 MG/DL (< 200) LDL Cholesterol 96 mg/dL (<100) HDL Cholesterol 38 MG/DL (40-60) Cholesterol/HDL Ratio 3.9 (3.3-4.4) Thyroid Stimulating Hormone (TSH) 0.498 uiU/mL (0.358-3.740) Free Thyroxine 1.46 NG/DL (0.76-1.46) Micro Microbiology Date/Time Source Procedure Growth Status 01/04/20 14:53 Nasopharynx SARS-CoV-2 RdRp Gene Assay - Final Complete Height (Feet): 5 Height (Inches): 5.00 Weight (Pounds): 120 Objective Physical Exam: Vitals: reviewed General: NAD HEENT: nc, at Neck: supple Chest: clear breath sounds bilaterally Cardiovascular: RRR, no s3, s4 Abdomen: soft, nontender, nd Extremities: no cce, normal range of motion Neuro: aphasic++ Raul Hutton MD Jan 05, 2020 12:18
--- NOTE | 2020-01-05 13:52 | General Progress Note ---
Assessment/Plan Problem List: (1) Peripheral edema ICD Codes: R60.9 - Edema, unspecified SNOMED: 776727603 (2) Severe protein-calorie malnutrition ICD Codes: E43 - Unspecified severe protein-calorie malnutrition SNOMED: 382900924, 543777789, 153637616 (3) Urinary tract infection ICD Codes: N39.0 - Urinary tract infection, site not specified SNOMED: 68771131 (4) Fever ICD Codes: R50.9 - Fever, unspecified SNOMED: 064516427 (5) Severe sepsis ICD Codes: A41.9 - Sepsis, unspecified organism; R65.20 - Severe sepsis without septic shock SNOMED: 48003534 (6) Alzheimer's dementia ICD Codes: G30.9 - Alzheimer's disease, unspecified SNOMED: 96366063 Status: unchanged Assessment/Plan: pt diet abx psyc tx cbc bmp am aru eval Subjective Constitutional: Reports: weakness Allergies: Coded Allergies: No Known Allergies (Unverified , 02/11/17) All Systems: reviewed and negative except above Subjective sleepy calm Objective Last 24 Hour Vital Signs Date Time Temp Pulse Resp B/P (MAP) Pulse Ox O2 Delivery O2 Flow Rate FiO2 01/05/20 12:00 70 01/05/20 12:00 97.5 71 20 118/74 (89) 100 01/05/20 09:00 Room Air 01/05/20 08:34 75 125/69 01/05/20 08:00 75 01/05/20 08:00 97.7 75 20 125/69 (87) 100 01/05/20 04:00 75 01/05/20 04:00 96.8 75 19 137/91 (106) 100 01/05/20 00:00 97.5 73 19 137/86 (103) 96 01/05/20 00:00 73 01/04/20 21:38 109 132/80 01/04/20 21:00 Room Air 01/04/20 20:00 98.1 109 18 132/80 (97) 96 01/04/20 20:00 109 01/04/20 16:00 97.9 91 18 147/86 (106) 100 01/04/20 15:18 94 Intake and Output 01/04/20 01/05/20 19:00 07:00 Intake Total 810 ml Output Total 50 ml 450 ml Balance 760 ml -450 ml Intake Oral 480 ml IV Total 330 ml Output Urine Total 50 ml 450 ml # Bowel Movements 1 Laboratory Tests 01/05/20 08:05: White Blood Count 5.1, Red Blood Count 3.70L, Hemoglobin 11.2L, Hematocrit 34.8L , Mean Corpuscular Volume 94, Mean Corpuscular Hemoglobin 30.2, Mean Corpuscular Hemoglobin Concent 32.1, Red Cell Distribution Width 13.0, Platelet Count 230, Mean Platelet Volume 7.6, Neutrophils (%) (Auto) 60.9, Lymphocytes (% ) (Auto) 31.5, Monocytes (%) (Auto) 5.9, Eosinophils (%) (Auto) 1.1, Basophils ( %) (Auto) 0.7, Sodium Level 141, Potassium Level 4.1, Chloride Level 110H, Carbon Dioxide Level 22, Anion Gap 9, Blood Urea Nitrogen 13, Creatinine 0.7, Estimat Glomerular Filtration Rate > 60, Glucose Level 86, Calcium Level 10.0, Troponin I 0.074H, Pro-B-Type Natriuretic Peptide 8776H, Triglycerides Level 55 , Cholesterol Level 147, LDL Cholesterol 96, HDL Cholesterol 38L, Cholesterol/ HDL Ratio 3.9, Thyroid Stimulating Hormone (TSH) 0.498, Free Thyroxine 1.46 Height (Feet): 5 Height (Inches): 5.00 Weight (Pounds): 120 General Appearance: lethargic EENT: PERRL/EOMI Neck: normal alignment Cardiovascular: normal peripheral pulses, normal rate, regular rhythm Respiratory/Chest: chest wall non-tender, lungs clear, normal breath sounds Abdomen: normal bowel sounds, non tender, soft Extremities: normal inspection Edema: no edema noted Arm (L), no edema noted Arm (R), no edema noted Leg (L), no edema noted Leg (R), no edema noted Pedal (L), no edema noted Pedal (R), no edema noted Generalized Neurologic: motor weakness Skin: normal pigmentation, warm/dry Porter Davila DO Jan 05, 2020 13:52
--- NOTE | 2020-01-05 14:01 | Diagnostic Imaging Report ---
EXAM: ULTRASOUND Venous Duplex Scan Isaiah Leg CLINICAL HISTORY: Leg pain and edema. COMPARISON: None TECHNIQUE: Doppler examination include grayscale images obtained with and without compression, and color and spectral doppler analysis. FINDINGS: In the right lower extremity, there is evidence of acute DVT with hypoechoic thrombus identified in the proximal superficial femoral vein and also extending into the profunda femoris vein. The common femoral vein is normally compressible. Mid to distal segment of the right SFV is also normally compressible. Popliteal vein is unremarkable. On the left side, there is echogenic peripheral filling defects in the common femoral and superficial femoral vein. These segments are only partially compressible. The appearance is suggestive of old fibrin clot. Color flow is noted around these apparent old clot. IMPRESSION: ACUTE DVT IN THE RIGHT PROXIMAL SUPERFICIAL FEMORAL VEIN AND PROFUNDA FEMORIS. APPARENT OLD DVT IN THE LEFT COMMON AND SUPERFICIAL FEMORAL VEINS WITH PARTIAL COMPRESSIBILITY. FINDINGS CALLED TO THE NURSE IN 2 E. 01/05/2020 AT 1:55 PM
--- NOTE | 2020-01-05 14:07 | Diagnostic Imaging Report ---
Procedure: XRAY Chest 1v Reason for study: Reason For Exam: COUGH Comparison films: 01/03/2020. FINDINGS: A single one view chest is obtained. Vascularity is normal. Mild groundglass infiltrates noted in the lateral aspect of the right upper lobe, new compared to previous exam. Cardiomegaly and tortuous aorta unchanged. CP angles are sharp. The bony thorax appear unremarkable. IMPRESSION: New mild patchy infiltrate lateral aspect right upper lobe.
[2020-01-05] MEDS: Azithromycin 250 MG in D5W 275 ML IV SCH (14:13)
[2020-01-05] MEDS ORDERED: LORazepam 0.5mg tab ORAL PRN (14:15)
[2020-01-05 14:27] LABS: INR 1.1 (0.9-1.1)
[2020-01-05 16:00] VITALS: BP 105/63
[2020-01-05] MEDS: cefTRIAXone 1 GM in D5W 55 ML IVPB SCH (16:00)
[2020-01-05] MEDS ORDERED: Warfarin Sodium 5mg ORAL SCH (17:00)
[2020-01-05] MEDS: Memantine 5 MG TAB ORAL SCH (17:15)
--- NOTE | 2020-01-05 17:30 | Consultation ---
DATE OF CONSULTATION: 01/05/2020 INITIAL PSYCHIATRIC CONSULTATION CONSULTING PHYSICIAN: Shaun Corona MD. HISTORY OF PRESENT ILLNESS: This is an 85-year-old female patient. She was admitted secondary to fever and possible sepsis, came in from [facility]. Basically, she is confused, disorganized. She has altered mental status. It appears as though her cognition and her thought process have declined below her baseline worsened by the stressors of her medical illness. That is why, her attending has requested daily psychiatric consultation at this time. She is very confused, disorganized. That is why, her history had to be obtained through chart review primarily. PAST MEDICAL HISTORY: She has a history of DVT, malnutrition. She also has a history of peripheral edema, aspiration pneumonia, urinary tract infection, sepsis, and fever. ALLERGIES: She has got no known drug allergies. PSYCHOTROPIC MEDICATIONS ON ADMISSION: Actually it is unclear what psychotropic medications she was taking prior to coming in. She is a poor historian. PAIN ASSESSMENT: 0/10 pain. DEVELOPMENTAL PROBLEMS: Denies. FAMILY PSYCHIATRIC HISTORY: Unknown. SOCIAL HISTORY: Lives in [facility]. Financially supported by [employer] and Medicare. No known legal problems. PSYCHIATRIC HISTORY: Major depressive disorder, severe, recurrent with psychotic features. STRENGTHS: She is motivated to get better and she has a place to live. WEAKNESSES AND LIABILITIES: She is impulsive. Minimal support system. MENTAL STATUS EXAMINATION: This is an 85-year-old female. Her appearance is disheveled. Her attitude is irritable and agitated. Her affect is flat. Intellect poor because she does not know current events, does not know last four presidents. Mood, depressed and anxious. Motor activity, psychomotor agitation. Attention span is poor because she cannot do serial sevens. Oriented to person and place, but not to time and situation. Speech is low volume, slurred. Thought process, disorganized and illogical. Thought content, auditory hallucinations, paranoid delusions. Perception is poor because of perceptual disturbance such as auditory hallucinations and paranoid delusions. Abstract reasoning is poor because she does not understand proverbs and only has concrete thinking. Insight is poor because she does not recognize having a psych disorder. Judgment is poor because she does not accept consequences for her actions. Short-term memory, 0 out of 3 after 3-word recall, so poor short-term memory. Long-term memory is poor because she does not recall long-term events in her life such as high school that she went to. DIAGNOSES: 1. Major depressive disorder, severe, recurrent with psychotic features, rule out dementia with psychosis. 2. There is no secondary diagnosis. 3. Medical includes hypertension, hyperlipidemia, seizure disorder, DVT, sepsis, fever, protein-calorie malnutrition, peripheral edema. 4. Psychosocial stressors, financial. 5. Functional impairment is moderate. PLAN: My plan is I am going to start this patient on a medication regimen consisting of Ativan at a dose of 0.5 mg every 6 hours p.r.n. anxiety and agitation and also I am going to treat her with Namenda 5 mg twice a day to try to prevent any further decline in her cognition and she will continue to be followed by Psychiatry throughout hospital course. Twenty minutes of insight-oriented psychotherapy provided to this patient to help her recognize her physical and psychiatric conditions so she has better impulse control and behavior, less depression and anxiety on the unit. Chart reviewed. Discussed with staff. Seen and assessed at bedside. I like to thank Dr. Porter Davila for this interesting consultation. I will be happy to follow this patient with you throughout her hospital course. Chart reviewed. Discussed with staff. Seen and assessed in her room. Shaun Corona M.D. DR: VELVET JOB#: [id number] CC:
[2020-01-05 20:00] VITALS: BP 125/77
[2020-01-05] MEDS: Enoxaparin 60mg Inj SUBQ SCH (22:01)
[2020-01-06] VITALS: BP 145/89
[2020-01-06 04:00] VITALS: BP 142/87
[2020-01-06 07:02] LABS: INR 1.1 (0.9-1.1)
--- NOTE | 2020-01-06 07:10 | Hematology/Onc Progress Note ---
Assessment/Plan Assessment/Plan Assessment and Recs # Dvt that is chronic, in the past was on coumadin with a inr btw 2-3 --> currently aphasic, therefore order duplex to see if any acute process --> recomnfirmed and does have acute divt right leg --> lovenox started --> coumadin started, inr goal 2-3 # Severe sepsis --> on imaging, cxr mild streaking opacivty left lower and right lung --> r/o chf --> on abx ceftriaxone # Alzheimer's dementia --> appears chronic # Fever --> abx started # Pneumonitis # Urinary tract infection # Tachycardia due to sepsis # Dvt ppx lovenox/coumadin The timing of this note does not necessarily reflect the time of the patient was seen. Greatly appreciate consultation. Subjective HEENT: Denies: no symptoms, eye pain, blurred vision, tearing, double vision, ear pain, ear discharge, nose pain, nose congestion, throat pain, throat swelling, mouth pain, mouth swelling, other Cardiovascular: Denies: no symptoms, chest pain, edema, irregular heart rate, lightheadedness, palpitations, syncope, other Respiratory: Denies: no symptoms, cough, shortness of breath, SOB with excertion, SOB at rest, sputum, wheezing, other Gastrointestinal/Abdominal: Denies: no symptoms, abdomen distended, abdominal pain, black stools, tarry stools, blood in stool, constipated, diarrhea, difficulty swallowing, nausea, poor appetite, poor fluid intake, rectal bleeding , vomiting, other Genitourinary: Denies: no symptoms, burning, discharge, frequency, flank pain, hematuria, incontinence, pain, urgency, other Neurologic/Psychiatric: Denies: no symptoms, anxiety, depressed, emotional problems, headache, numbness, paresthesia, pre-existing deficit, seizure, tingling, tremors, weakness, other Endocrine: Denies: no symptoms, excessive sweating, flushing, intolerance to cold, intolerance to heat, increased hunger, increased thirst, increased urine, unexplained weight gain, unexplained weight loss, other Allergies: Coded Allergies: No Known Allergies (Unverified , 02/11/17) Subjective 01/04 right leg dvt that is noted today, have started on lovenox bid therapy 01/05 no major events, no bleeding on anticoag, no night sweats Objective Objective Current Medications Medications (Trade) Dose Ordered Sig/Brayden Route PRN Reason Start Time Stop Time Status Last Admin Dose Admin Acetaminophen (Tylenol) 650 mg Q4H PRN ORAL FEVER 01/03/20 12:45 02/02/20 12:44 Albuterol/ Ipratropium (Albuterol/ Ipratropium) 3 ml EVERY 4 HOURS PRN HHN Shortness of Breath 01/03/20 12:45 01/08/20 12:44 Aspirin (Ecotrin) 81 mg DAILY ORAL 01/04/20 09:00 02/18/20 08:59 01/05/20 08:33 Atorvastatin Calcium (Lipitor) 10 mg BEDTIME ORAL 01/05/20 21:00 04/04/20 20:59 01/05/20 22:01 Azithromycin 250 mg/Dextrose 275 ml @ 275 mls/hr Q24HRS IV 01/03/20 14:30 01/08/20 14:29 01/05/20 14:13 Ceftriaxone Sodium 1 gm/ Dextrose 55 ml @ 110 mls/hr Q24H IVPB 01/03/20 15:00 01/10/20 14:59 01/05/20 16:00 Dextrose (Dextrose 50%) 25 ml Q30M PRN IV Hypoglycemia 01/03/20 12:45 04/02/20 12:44 Dextrose (Dextrose 50%) 50 ml Q30M PRN IV Hypoglycemia 01/03/20 12:45 04/02/20 12:44 Enoxaparin Sodium (Lovenox) 50 mg EVERY 12 HOURS SUBQ 01/05/20 21:00 04/04/20 20:59 01/05/20 22:01 Linezolid (Zyvox) 600 mg EVERY 12 HOURS ORAL 01/05/20 11:15 01/10/20 11:14 01/05/20 22:01 Lorazepam (Ativan) 0.5 mg Q6H PRN ORAL For Anxiety 01/05/20 14:15 01/12/20 14:14 Memantine (Namenda) 5 mg BID ORAL 01/05/20 18:00 02/04/20 17:59 01/05/20 17:15 Metoprolol Tartrate (Lopressor) 25 mg Q12HR ORAL 01/04/20 21:00 04/03/20 20:59 01/05/20 22:00 Polyethylene Glycol (Miralax) 17 gm DAILYPRN PRN ORAL Constipation 01/03/20 12:45 02/02/20 12:44 Promethazine HCl/ Codeine (Phenergan with Codeine) 5 ml EVERY 6 HOURS PRN ORAL cough 01/03/20 12:45 02/02/20 12:44 Warfarin Sodium (Coumadin per pharmacy) 1 ea DAILY PRN MISC Per rx protocol 01/05/20 12:30 02/04/20 12:29 Last 24 Hour Vital Signs Date Time Temp Pulse Resp B/P (MAP) Pulse Ox O2 Delivery O2 Flow Rate FiO2 01/06/20 04:00 73 01/06/20 04:00 97.2 71 19 142/87 (105) 94 01/06/20 00:00 79 01/06/20 00:00 96.6 75 18 145/89 (107) 99 01/05/20 22:00 83 125/77 01/05/20 21:00 Room Air 01/05/20 20:00 98.1 83 18 125/77 (93) 97 01/05/20 20:00 87 01/05/20 16:00 86 01/05/20 16:00 97.9 91 20 105/63 (77) 98 01/05/20 12:00 70 01/05/20 12:00 97.5 71 20 118/74 (89) 100 01/05/20 09:00 Room Air 01/05/20 08:34 75 125/69 01/05/20 08:00 75 01/05/20 08:00 97.7 75 20 125/69 (87) 100 01/05/20 04:00 75 01/05/20 04:00 96.8 75 19 137/91 (106) 100 01/05/20 00:00 97.5 73 19 137/86 (103) 96 01/05/20 00:00 73 01/04/20 21:38 109 132/80 01/04/20 21:00 Room Air 01/04/20 20:00 98.1 109 18 132/80 (97) 96 01/04/20 20:00 109 01/04/20 16:00 97.9 91 18 147/86 (106) 100 01/04/20 15:18 94 01/04/20 12:00 98.2 97 18 153/89 (110) 97 01/04/20 11:43 89 01/04/20 09:00 Room Air 01/04/20 08:00 98.7 87 18 122/70 (87) 98 01/04/20 07:45 87 Intake and Output 01/05/20 01/06/20 19:00 07:00 Intake Total 430 ml Output Total 300 ml Balance 430 ml -300 ml Intake Oral 100 ml IV Total 330 ml Output Urine Total 300 ml # Voids 2 # Bowel Movements 1 Labs Test 01/03/20 10:40 01/03/20 11:00 01/03/20 12:46 01/04/20 06:04 White Blood Count 7.3 K/UL (4.8-10.8) 4.9 K/UL (4.8-10.8) Red Blood Count 4.17 M/UL (4.20-5.40) 3.84 M/UL (4.20-5.40) Hemoglobin 12.9 G/DL (12.0-16.0) 12.0 G/DL (12.0-16.0) Hematocrit 39.7 % (37.0-47.0) 36.9 % (37.0-47.0) Mean Corpuscular Volume 95 FL (80-99) 96 FL (80-99) Mean Corpuscular Hemoglobin 31.0 PG (27.0-31.0) 31.1 PG (27.0-31.0) Mean Corpuscular Hemoglobin Concent 32.5 G/DL (32.0-36.0) 32.4 G/DL (32.0-36.0) Red Cell Distribution Width 13.2 % (11.6-14.8) 13.5 % (11.6-14.8) Platelet Count 208 K/UL (150-450) 204 K/UL (150-450) Mean Platelet Volume 7.5 FL (6.5-10.1) 7.7 FL (6.5-10.1) Neutrophils (%) (Auto) 78.6 % (45.0-75.0) 64.7 % (45.0-75.0) Lymphocytes (%) (Auto) 15.5 % (20.0-45.0) 25.9 % (20.0-45.0) Monocytes (%) (Auto) 4.8 % (1.0-10.0) 7.4 % (1.0-10.0) Eosinophils (%) (Auto) 0.7 % (0.0-3.0) 1.6 % (0.0-3.0) Basophils (%) (Auto) 0.4 % (0.0-2.0) 0.4 % (0.0-2.0) Prothrombin Time 11.5 SEC (9.30-11.50) Prothromb Time International Ratio 1.0 (0.9-1.1) Activated Partial Thromboplast Time 27 SEC (23-33) Urine Color Yellow Urine Appearance Slightly cloudy Urine pH 5 (4.5-8.0) Urine Specific [place] 1.020 (1.005-1.035) Urine Protein 2+ (NEGATIVE) Urine Glucose (UA) Negative (NEGATIVE) Urine Ketones Negative (NEGATIVE) Urine Blood 3+ (NEGATIVE) Urine Nitrite Negative (NEGATIVE) Urine Bilirubin Negative (NEGATIVE) Urine Urobilinogen 4 MG/DL (0.0-1.0) Urine Leukocyte Esterase 2+ (NEGATIVE) Urine RBC 2-4 /HPF (0 - 2) Urine WBC 15-20 /HPF (0 - 2) Urine Squamous Epithelial Cells Moderate /LPF (NONE/OCC) Urine Bacteria Moderate /HPF (NONE) Sodium Level 143 MMOL/L (136-145) 143 MMOL/L (136-145) Potassium Level 3.7 MMOL/L (3.5-5.1) 3.6 MMOL/L (3.5-5.1) Chloride Level 110 MMOL/L (98-107) 111 MMOL/L (98-107) Carbon Dioxide Level 22 MMOL/L (21-32) 21 MMOL/L (21-32) Anion Gap 11 mmol/L (5-15) 11 mmol/L (5-15) Blood Urea Nitrogen 16 mg/dL (7-18) 13 mg/dL (7-18) Creatinine 0.9 MG/DL (0.55-1.30) 0.8 MG/DL (0.55-1.30) Estimat Glomerular Filtration Rate > 60 mL/min (>60) > 60 mL/min (>60) Glucose Level 123 MG/DL (74-106) 80 MG/DL (74-106) Lactic Acid Level 2.50 mmol/L (0.4-2.0) 2.40 mmol/L (0.66-2.22) Calcium Level 10.4 MG/DL (8.5-10.1) 9.9 MG/DL (8.5-10.1) Total Bilirubin 0.6 MG/DL (0.2-1.0) Aspartate Amino Transf (AST/SGOT) 20 U/L (15-37) Alanine Aminotransferase (ALT/SGPT) 18 U/L (12-78) Alkaline Phosphatase 72 U/L (46-116) Total Creatine Kinase 65 U/L (26-308) Creatine Kinase MB 1.8 NG/ML (0.0-3.6) Creatine Kinase MB Relative Index 2.7 Troponin I 0.384 ng/mL (0.000-0.056) Pro-B-Type Natriuretic Peptide 62167 pg/mL (0-125) Total Protein 7.9 G/DL (6.4-8.2) Albumin 3.0 G/DL (3.4-5.0) 2.6 G/DL (3.4-5.0) Globulin 4.9 g/dL Albumin/Globulin Ratio 0.6 (1.0-2.7) Arterial Blood pH 7.476 (7.350-7.450) Arterial Blood Partial Pressure CO2 26.1 mmHg (35.0-45.0) Arterial Blood Partial Pressure O2 82.4 mmHg (75.0-100.0) Arterial Blood HCO3 18.8 mmol/L (22.0-26.0) Arterial Blood Oxygen Saturation 96.1 % (95-100) Arterial Blood Base Excess -3.3 (-2-2) Nick Test Positive Phosphorus Level 2.9 MG/DL (2.5-4.9) Test 01/05/20 08:05 01/05/20 13:55 01/06/20 05:50 White Blood Count 5.1 K/UL (4.8-10.8) Red Blood Count 3.70 M/UL (4.20-5.40) Hemoglobin 11.2 G/DL (12.0-16.0) Hematocrit 34.8 % (37.0-47.0) Mean Corpuscular Volume 94 FL (80-99) Mean Corpuscular Hemoglobin 30.2 PG (27.0-31.0) Mean Corpuscular Hemoglobin Concent 32.1 G/DL (32.0-36.0) Red Cell Distribution Width 13.0 % (11.6-14.8) Platelet Count 230 K/UL (150-450) Mean Platelet Volume 7.6 FL (6.5-10.1) Neutrophils (%) (Auto) 60.9 % (45.0-75.0) Lymphocytes (%) (Auto) 31.5 % (20.0-45.0) Monocytes (%) (Auto) 5.9 % (1.0-10.0) Eosinophils (%) (Auto) 1.1 % (0.0-3.0) Basophils (%) (Auto) 0.7 % (0.0-2.0) Sodium Level 141 MMOL/L (136-145) Potassium Level 4.1 MMOL/L (3.5-5.1) Chloride Level 110 MMOL/L (98-107) Carbon Dioxide Level 22 MMOL/L (21-32) Anion Gap 9 mmol/L (5-15) Blood Urea Nitrogen 13 mg/dL (7-18) Creatinine 0.7 MG/DL (0.55-1.30) Estimat Glomerular Filtration Rate > 60 mL/min (>60) Glucose Level 86 MG/DL (74-106) Calcium Level 10.0 MG/DL (8.5-10.1) Troponin I 0.074 ng/mL (0.000-0.056) Pro-B-Type Natriuretic Peptide 8776 pg/mL (0-125) Triglycerides Level 55 MG/DL (30-150) Cholesterol Level 147 MG/DL (< 200) LDL Cholesterol 96 mg/dL (<100) HDL Cholesterol 38 MG/DL (40-60) Cholesterol/HDL Ratio 3.9 (3.3-4.4) Thyroid Stimulating Hormone (TSH) 0.498 uiU/mL (0.358-3.740) Free Thyroxine 1.46 NG/DL (0.76-1.46) Prothrombin Time 11.6 SEC (9.30-11.50) 12.0 SEC (9.30-11.50) Prothromb Time International Ratio 1.1 (0.9-1.1) 1.1 (0.9-1.1) Height (Feet): 5 Height (Inches): 5.00 Weight (Pounds): 120 Objective Physical Exam: Vitals: reviewed General: NAD HEENT: nc, at Neck: supple Chest: clear breath sounds bilaterally Cardiovascular: RRR, no s3, s4 Abdomen: soft, nontender, nd Extremities: no cce, normal range of motion Neuro: aphasic++ Raul Hutton MD Jan 06, 2020 07:10
[2020-01-06 07:16] LABS: ANION GAP 8 mmol/L (5-15); BLOOD UREA NITROGEN 17 mg/dL (7-18); CALCIUM 10.2 MG/DL (8.5-10.1); CARBON DIOXIDE 23 MMOL/L (21-32); CHLORIDE 109 MMOL/L (98-107); CREATININE 0.9 MG/DL (0.55-1.30); POTASSIUM 4.2 MMOL/L (3.5-5.1); SODIUM 140 MMOL/L (136-145)
[2020-01-06 07:23] LABS: BASOPHILS % (AUTO) 0.7 % (0.0-2.0); EOSINOPHILS % (AUTO) 0.4 % (0.0-3.0); HEMATOCRIT 34.9 % (37.0-47.0); HEMOGLOBIN 11.2 G/DL (12.0-16.0); LYMPHOCYTES % (AUTO) 34.2 % (20.0-45.0); MEAN CORPUSCULAR VOLUME 96 FL (80-99); MONOCYTES % (AUTO) 5.1 % (1.0-10.0); NEUTROPHILS % (AUTO) 59.6 % (45.0-75.0); PLATELET COUNT 277 K/UL (150-450); RED BLOOD COUNT 3.65 M/UL (4.20-5.40); RED CELL DISTRIBUTION WIDTH 13.3 % (11.6-14.8); WHITE BLOOD COUNT 5.7 K/UL (4.8-10.8)
[2020-01-06 08:00] VITALS: BP 136/73
[2020-01-06] MEDS: Memantine 5 MG TAB ORAL SCH ×2 (08:33→17:53)
[2020-01-06] MEDS: Aspirin EC 81mg tab ORAL SCH (08:33)
[2020-01-06] MEDS: Enoxaparin 60mg Inj SUBQ SCH (08:37)
--- NOTE | 2020-01-06 08:55 | General Progress Note ---
Assessment/Plan Problem List: (1) Peripheral edema ICD Codes: R60.9 - Edema, unspecified SNOMED: 379942612 (2) Severe protein-calorie malnutrition ICD Codes: E43 - Unspecified severe protein-calorie malnutrition SNOMED: 391609609, 563334676, 930564327 (3) Urinary tract infection ICD Codes: N39.0 - Urinary tract infection, site not specified SNOMED: 92421594 (4) Fever ICD Codes: R50.9 - Fever, unspecified SNOMED: 533097145 (5) Severe sepsis ICD Codes: A41.9 - Sepsis, unspecified organism; R65.20 - Severe sepsis without septic shock SNOMED: 07487762 (6) Alzheimer's dementia ICD Codes: G30.9 - Alzheimer's disease, unspecified SNOMED: 26421727 Status: stable, progressing Assessment/Plan: pt diet abx psyc tx cbc bmp am psyc transfer Subjective Constitutional: Reports: weakness Allergies: Coded Allergies: No Known Allergies (Unverified , 02/11/17) All Systems: reviewed and negative except above Subjective sleepy calm Objective Last 24 Hour Vital Signs Date Time Temp Pulse Resp B/P (MAP) Pulse Ox O2 Delivery O2 Flow Rate FiO2 01/06/20 08:33 75 136/73 01/06/20 08:00 97.9 75 18 136/73 (94) 100 01/06/20 04:00 73 01/06/20 04:00 97.2 71 19 142/87 (105) 94 01/06/20 00:00 79 01/06/20 00:00 96.6 75 18 145/89 (107) 99 01/05/20 22:00 83 125/77 01/05/20 21:00 Room Air 01/05/20 20:00 98.1 83 18 125/77 (93) 97 01/05/20 20:00 87 01/05/20 16:00 86 01/05/20 16:00 97.9 91 20 105/63 (77) 98 01/05/20 12:00 70 01/05/20 12:00 97.5 71 20 118/74 (89) 100 01/05/20 09:00 Room Air Intake and Output 01/05/20 01/06/20 19:00 07:00 Intake Total 430 ml Output Total 300 ml Balance 430 ml -300 ml Intake Oral 100 ml IV Total 330 ml Output Urine Total 300 ml # Voids 2 # Bowel Movements 1 Laboratory Tests 01/05/20 13:55: Prothrombin Time 11.6H, Prothromb Time International Ratio 1.1 01/06/20 05:50: Prothrombin Time 12.0H, Prothromb Time International Ratio 1.1, White Blood Count 5.7, Red Blood Count 3.65L, Hemoglobin 11.2L, Hematocrit 34.9L, Mean Corpuscular Volume 96, Mean Corpuscular Hemoglobin 30.6, Mean Corpuscular Hemoglobin Concent 32.0, Red Cell Distribution Width 13.3, Platelet Count 277, Mean Platelet Volume 7.0, Neutrophils (%) (Auto) 59.6, Lymphocytes (%) (Auto) 34.2, Monocytes (%) (Auto) 5.1, Eosinophils (%) (Auto) 0.4, Basophils (%) (Auto ) 0.7, Sodium Level 140, Potassium Level 4.2, Chloride Level 109H, Carbon Dioxide Level 23, Anion Gap 8, Blood Urea Nitrogen 17, Creatinine 0.9, Estimat Glomerular Filtration Rate > 60, Glucose Level 81, Calcium Level 10.2H Height (Feet): 5 Height (Inches): 5.00 Weight (Pounds): 108 General Appearance: lethargic EENT: normal ENT inspection Neck: normal inspection Cardiovascular: normal peripheral pulses, normal rate, regular rhythm Respiratory/Chest: chest wall non-tender, lungs clear, normal breath sounds Abdomen: normal bowel sounds, non tender, soft Extremities: normal inspection Edema: no edema noted Arm (L), no edema noted Arm (R), no edema noted Leg (L), no edema noted Leg (R), no edema noted Pedal (L), no edema noted Pedal (R), no edema noted Generalized Neurologic: motor weakness Skin: normal pigmentation, warm/dry Porter Davila DO Jan 06, 2020 08:55
--- NOTE | 2020-01-06 10:24 | Pulmonology Progress Note ---
Subjective ROS Limited/Unobtainable: No Constitutional: Reports: no symptoms Respiratory: Reports: no symptoms Cardiovascular: Reports: no symptoms Allergies: Coded Allergies: No Known Allergies (Unverified , 02/11/17) All Systems: reviewed and negative except above Subjective pulse ox stable on RA Venous Duplex + acute DVT R leg no fevrs, no leukocytosis, CXR 01/04 New mild patchy infiltrate lateral aspect right upper lobe. Objective Last 24 Hour Vital Signs Date Time Temp Pulse Resp B/P (MAP) Pulse Ox O2 Delivery O2 Flow Rate FiO2 01/06/20 09:00 Room Air 01/06/20 08:33 75 136/73 01/06/20 08:00 70 01/06/20 08:00 97.9 75 18 136/73 (94) 100 01/06/20 04:00 73 01/06/20 04:00 97.2 71 19 142/87 (105) 94 01/06/20 00:00 79 01/06/20 00:00 96.6 75 18 145/89 (107) 99 01/05/20 22:00 83 125/77 01/05/20 21:00 Room Air 01/05/20 20:00 98.1 83 18 125/77 (93) 97 01/05/20 20:00 87 01/05/20 16:00 86 01/05/20 16:00 97.9 91 20 105/63 (77) 98 01/05/20 12:00 70 01/05/20 12:00 97.5 71 20 118/74 (89) 100 Intake and Output 01/05/20 01/06/20 19:00 07:00 Intake Total 430 ml Output Total 300 ml Balance 430 ml -300 ml Intake Oral 100 ml IV Total 330 ml Output Urine Total 300 ml # Voids 2 # Bowel Movements 1 General Appearance: cachetic - bedridden female in NAD HEENT: normocephalic, atraumatic, anicteric Respiratory: chest wall non-tender, lungs clear, normal breath sounds, no accessory muscle use Cardiovascular: regular rhythm Abdomen: normal bowel sounds, soft, non tender Extremities: no edema Neurologic: abnormal gait - bedridden , alert - nonverbal Musculoskeletal: atrophy - BLE Microbiology Date/Time Source Procedure Growth Status 01/03/20 10:40 Blood Blood Culture - Preliminary NO GROWTH AFTER 48 HOURS Resulted 01/03/20 10:40 Blood Blood Culture - Preliminary NO GROWTH AFTER 48 HOURS Resulted 01/04/20 14:53 Nasopharynx SARS-CoV-2 RdRp Gene Assay - Final Complete 01/03/20 11:00 Nasal Nares MRSA Culture - Final NO METHICILLIN RESISTANT STAPH AUREUS... Complete 01/03/20 11:00 Nasopharynx SARS-CoV-2 RdRp Gene Assay - Final Complete 01/03/20 10:40 Urine,Clean Catch Urine Culture - Final Aerococcus Urinae Complete 01/03/20 11:00 Rectum VRE Culture - Final Enterococcus Faecalis - Vre Complete 01/03/20 11:00 Rectal Mucosa - Final NO CARBAPENEM-RESISTANT ENTEROBACTERI... Complete Laboratory Tests 01/05/20 13:55: Prothrombin Time 11.6H, Prothromb Time International Ratio 1.1 01/06/20 05:50: Prothrombin Time 12.0H, Prothromb Time International Ratio 1.1, White Blood Count 5.7, Red Blood Count 3.65L, Hemoglobin 11.2L, Hematocrit 34.9L, Mean Corpuscular Volume 96, Mean Corpuscular Hemoglobin 30.6, Mean Corpuscular Hemoglobin Concent 32.0, Red Cell Distribution Width 13.3, Platelet Count 277, Mean Platelet Volume 7.0, Neutrophils (%) (Auto) 59.6, Lymphocytes (%) (Auto) 34.2, Monocytes (%) (Auto) 5.1, Eosinophils (%) (Auto) 0.4, Basophils (%) (Auto ) 0.7, Sodium Level 140, Potassium Level 4.2, Chloride Level 109H, Carbon Dioxide Level 23, Anion Gap 8, Blood Urea Nitrogen 17, Creatinine 0.9, Estimat Glomerular Filtration Rate > 60, Glucose Level 81, Calcium Level 10.2H Current Medications Medications (Trade) Dose Ordered Sig/Brayden Route PRN Reason Start Time Stop Time Status Last Admin Dose Admin Acetaminophen (Tylenol) 650 mg Q4H PRN ORAL FEVER 01/03/20 12:45 02/02/20 12:44 Albuterol/ Ipratropium (Albuterol/ Ipratropium) 3 ml EVERY 4 HOURS PRN HHN Shortness of Breath 01/03/20 12:45 01/08/20 12:44 Aspirin (Ecotrin) 81 mg DAILY ORAL 01/04/20 09:00 02/18/20 08:59 01/06/20 08:33 Atorvastatin Calcium (Lipitor) 10 mg BEDTIME ORAL 01/05/20 21:00 04/04/20 20:59 01/05/20 22:01 Azithromycin 250 mg/Dextrose 275 ml @ 275 mls/hr Q24HRS IV 01/03/20 14:30 01/08/20 14:29 01/05/20 14:13 Ceftriaxone Sodium 1 gm/ Dextrose 55 ml @ 110 mls/hr Q24H IVPB 01/03/20 15:00 01/10/20 14:59 01/05/20 16:00 Dextrose (Dextrose 50%) 25 ml Q30M PRN IV Hypoglycemia 01/03/20 12:45 04/02/20 12:44 Dextrose (Dextrose 50%) 50 ml Q30M PRN IV Hypoglycemia 01/03/20 12:45 04/02/20 12:44 Enoxaparin Sodium (Lovenox) 50 mg EVERY 12 HOURS SUBQ 01/05/20 21:00 04/04/20 20:59 01/06/20 08:37 Linezolid (Zyvox) 600 mg EVERY 12 HOURS ORAL 01/05/20 11:15 01/10/20 11:14 01/06/20 08:33 Lorazepam (Ativan) 0.5 mg Q6H PRN ORAL For Anxiety 01/05/20 14:15 01/12/20 14:14 Memantine (Namenda) 5 mg BID ORAL 01/05/20 18:00 02/04/20 17:59 01/06/20 08:33 Metoprolol Tartrate (Lopressor) 25 mg Q12HR ORAL 01/04/20 21:00 04/03/20 20:59 01/06/20 08:33 Polyethylene Glycol (Miralax) 17 gm DAILYPRN PRN ORAL Constipation 01/03/20 12:45 02/02/20 12:44 Promethazine HCl/ Codeine (Phenergan with Codeine) 5 ml EVERY 6 HOURS PRN ORAL cough 01/03/20 12:45 02/02/20 12:44 Warfarin Sodium (Coumadin per pharmacy) 1 ea DAILY PRN MISC Per rx protocol 01/05/20 12:30 02/04/20 12:29 Warfarin Sodium (Coumadin) 5 mg ONCE ORAL 01/06/20 17:00 01/06/20 19:00 Assessment/Plan Assessment/Plan ASSESSMENT sepsis probable pneumonia suspected COVID-19 ruled out acute R leg DVT and chronic Left leg DVT probable UTI elevated troponin Moderate pulm HTN hx of CAD aspiration risk hx of DVT protein calorie malnutrition CKD Alzheimer's dementia PLAN OF CARE tele supplemental O2 titrate to keep sat above 92% pulmonary toilet fup with CXR 01/04 -> New mild patchy infiltrate lateral aspect right upper lobe. rapid COVID-19 x2 NGT; dc Decadron abx per ID recs BCX NGT a/tussive prn 01/04 Venous duplex BLE + Acute R leg DVT and chronic Left leg DVT, on Lovenox per heme with Coumadin to bridge, INR 1.0 cardio follows ASA and BB , statin added serial troponin-trending down, minimally elevated Echo with pEF 55%, moderate MR, , moderate pulm HTN swallow eval aspiration precaution dietary eval case discussed and evaluated by supervising physician Shari Khan NP Jan 06, 2020 10:24
--- NOTE | 2020-01-06 10:41 | Diagnostic Imaging Report ---
Indication: Cough Technique: One view of the chest Comparison: 01/05/2020 Findings: There is questionably some patchy disease at the right lung base. No effusions.. Tortuous calcified aorta. Normal heart size. Upper mediastinum unremarkable. Previously questioned right peripheral upper lung groundglass opacity is no longer evident. Impression: Question a patchy left basilar infiltrate, could indicate pneumonia if real Previously demonstrated peripheral right upper lung opacity is no longer evident Other stable findings as described.
[2020-01-06 12:00] VITALS: BP 119/67
--- NOTE | 2020-01-06 12:54 | Infectious Diseases Prog Note ---
Assessment/Plan Assessment: Probable PNA- COVID19 neg x2 -01/05 CXR: Question a patchy left basilar infiltrate, could indicate pneumonia if real. Previously demonstrated peripheral right upper lung opacity is no longer evident -01/03 rapid COVID pCR neg -01/02 CXR: Mild interstitial thickening. Mild streaky opacities right lung and left lower lung. Maybe pneumonitis. rapid COVID PCR neg -12/13 COVID testing at [place] neg UTI -u./a wbc 15-20, nit neg, leuk +2; ucx >100k Aerococcus urinae (S Ceftriaxone , Vanco, PNC) Recent Fever ([employer], here Tm 99.8) No leukocytosis cachexia/malnutrition CHF DVT LE edema CAD CKD Alzheimer's Dementia care home resident (Francine carrion) VRE colonized Plan: -Continue empiric Ceftriaxone and Azithromycin #4/5 for PNA and UTI -Dc empiric ZYvox #2 -01/02 SP Cefepime x1, FLagyl x1 -f/u cx -Monitor CBC/CMP, temperatures -COVID19 neg x2; ok to dc iso -aspiration precautions Thank you for this consultation. Will continue to follow along with you. Discussed with RN. Subjective Allergies: Coded Allergies: No Known Allergies (Unverified , 02/11/17) afebrile at RA no leukocytosis Bcx NTD Objective Last 24 Hour Vital Signs Date Time Temp Pulse Resp B/P (MAP) Pulse Ox O2 Delivery O2 Flow Rate FiO2 01/06/20 12:00 97.7 70 20 119/67 (84) 99 01/06/20 12:00 71 01/06/20 09:00 Room Air 01/06/20 08:33 75 136/73 01/06/20 08:00 70 01/06/20 08:00 97.9 75 18 136/73 (94) 100 01/06/20 04:00 73 01/06/20 04:00 97.2 71 19 142/87 (105) 94 01/06/20 00:00 79 01/06/20 00:00 96.6 75 18 145/89 (107) 99 01/05/20 22:00 83 125/77 01/05/20 21:00 Room Air 01/05/20 20:00 98.1 83 18 125/77 (93) 97 01/05/20 20:00 87 01/05/20 16:00 86 01/05/20 16:00 97.9 91 20 105/63 (77) 98 Height (Feet): 5 Height (Inches): 5.00 Weight (Pounds): 108 CARDIOVASCULAR: No murmur. LUNGS: Distant and clear ABDOMEN: Bowel sounds positive. Nontender. Nondistended. EXTREMITIES: No cyanosis, clubbing, or edema. NEUROLOGIC: The patient is flaccid in bed, not following directions. Microbiology Date/Time Source Procedure Growth Status 01/04/20 14:53 Nasopharynx SARS-CoV-2 RdRp Gene Assay - Final Complete Laboratory Tests Test 01/05/20 13:55 01/06/20 05:50 Prothrombin Time 11.6 SEC (9.30-11.50) H 12.0 SEC (9.30-11.50) H Prothromb Time International Ratio 1.1 (0.9-1.1) 1.1 (0.9-1.1) White Blood Count 5.7 K/UL (4.8-10.8) Red Blood Count 3.65 M/UL (4.20-5.40) L Hemoglobin 11.2 G/DL (12.0-16.0) L Hematocrit 34.9 % (37.0-47.0) L Mean Corpuscular Volume 96 FL (80-99) Mean Corpuscular Hemoglobin 30.6 PG (27.0-31.0) Mean Corpuscular Hemoglobin Concent 32.0 G/DL (32.0-36.0) Red Cell Distribution Width 13.3 % (11.6-14.8) Platelet Count 277 K/UL (150-450) Mean Platelet Volume 7.0 FL (6.5-10.1) Neutrophils (%) (Auto) 59.6 % (45.0-75.0) Lymphocytes (%) (Auto) 34.2 % (20.0-45.0) Monocytes (%) (Auto) 5.1 % (1.0-10.0) Eosinophils (%) (Auto) 0.4 % (0.0-3.0) Basophils (%) (Auto) 0.7 % (0.0-2.0) Sodium Level 140 MMOL/L (136-145) Potassium Level 4.2 MMOL/L (3.5-5.1) Chloride Level 109 MMOL/L (98-107) H Carbon Dioxide Level 23 MMOL/L (21-32) Anion Gap 8 mmol/L (5-15) Blood Urea Nitrogen 17 mg/dL (7-18) Creatinine 0.9 MG/DL (0.55-1.30) Estimat Glomerular Filtration Rate > 60 mL/min (>60) Glucose Level 81 MG/DL (74-106) Calcium Level 10.2 MG/DL (8.5-10.1) H Current Medications Medications (Trade) Dose Ordered Sig/Brayden Route PRN Reason Start Time Stop Time Status Last Admin Dose Admin Acetaminophen (Tylenol) 650 mg Q4H PRN ORAL FEVER 01/03/20 12:45 02/02/20 12:44 Albuterol/ Ipratropium (Albuterol/ Ipratropium) 3 ml EVERY 4 HOURS PRN HHN Shortness of Breath 01/03/20 12:45 01/08/20 12:44 Aspirin (Ecotrin) 81 mg DAILY ORAL 01/04/20 09:00 02/18/20 08:59 01/06/20 08:33 Atorvastatin Calcium (Lipitor) 10 mg BEDTIME ORAL 01/05/20 21:00 04/04/20 20:59 01/05/20 22:01 Azithromycin 250 mg/Dextrose 275 ml @ 275 mls/hr Q24HRS IV 01/03/20 14:30 01/08/20 14:29 01/05/20 14:13 Ceftriaxone Sodium 1 gm/ Dextrose 55 ml @ 110 mls/hr Q24H IVPB 01/03/20 15:00 01/10/20 14:59 01/05/20 16:00 Dextrose (Dextrose 50%) 25 ml Q30M PRN IV Hypoglycemia 01/03/20 12:45 04/02/20 12:44 Dextrose (Dextrose 50%) 50 ml Q30M PRN IV Hypoglycemia 01/03/20 12:45 04/02/20 12:44 Enoxaparin Sodium (Lovenox) 50 mg EVERY 12 HOURS SUBQ 01/05/20 21:00 04/04/20 20:59 01/06/20 08:37 Linezolid (Zyvox) 600 mg EVERY 12 HOURS ORAL 01/05/20 11:15 01/10/20 11:14 01/06/20 08:33 Lorazepam (Ativan) 0.5 mg Q6H PRN ORAL For Anxiety 01/05/20 14:15 01/12/20 14:14 Memantine (Namenda) 5 mg BID ORAL 01/05/20 18:00 02/04/20 17:59 01/06/20 08:33 Metoprolol Tartrate (Lopressor) 25 mg Q12HR ORAL 01/04/20 21:00 04/03/20 20:59 01/06/20 08:33 Polyethylene Glycol (Miralax) 17 gm DAILYPRN PRN ORAL Constipation 01/03/20 12:45 02/02/20 12:44 Promethazine HCl/ Codeine (Phenergan with Codeine) 5 ml EVERY 6 HOURS PRN ORAL cough 01/03/20 12:45 02/02/20 12:44 Warfarin Sodium (Coumadin per pharmacy) 1 ea DAILY PRN MISC Per rx protocol 01/05/20 12:30 02/04/20 12:29 Warfarin Sodium (Coumadin) 5 mg ONCE ORAL 01/06/20 17:00 01/06/20 19:00 Rubia March M.D. Jan 06, 2020 12:54
--- NOTE | 2020-01-06 15:06 | General Progress Note ---
Assessment/Plan Problem List: (1) Alzheimer's dementia ICD Codes: G30.9 - Alzheimer's disease, unspecified SNOMED: 74352660 (2) Urinary tract infection ICD Codes: N39.0 - Urinary tract infection, site not specified SNOMED: 77770281 (3) Protein-calorie malnutrition, severe ICD Codes: E43 - Unspecified severe protein-calorie malnutrition SNOMED: 622810360 (4) DVT (deep venous thrombosis) ICD Codes: I82.409 - Acute embolism and thrombosis of unspecified deep veins of unspecified lower extremity SNOMED: 914389312 Status: stable, progressing Assessment/Plan: d/w family agreed to peg will plan for tomorrow hold coumadin and lovenox Subjective ROS Limited/Unobtainable: No Allergies: Coded Allergies: No Known Allergies (Unverified , 02/11/17) Objective Last 24 Hour Vital Signs Date Time Temp Pulse Resp B/P (MAP) Pulse Ox O2 Delivery O2 Flow Rate FiO2 01/06/20 12:00 97.7 70 20 119/67 (84) 99 01/06/20 12:00 71 01/06/20 09:00 Room Air 01/06/20 08:33 75 136/73 01/06/20 08:00 70 01/06/20 08:00 97.9 75 18 136/73 (94) 100 01/06/20 04:00 73 01/06/20 04:00 97.2 71 19 142/87 (105) 94 01/06/20 00:00 79 01/06/20 00:00 96.6 75 18 145/89 (107) 99 01/05/20 22:00 83 125/77 01/05/20 21:00 Room Air 01/05/20 20:00 98.1 83 18 125/77 (93) 97 01/05/20 20:00 87 01/05/20 16:00 86 01/05/20 16:00 97.9 91 20 105/63 (77) 98 Intake and Output 01/05/20 01/06/20 19:00 07:00 Intake Total 430 ml Output Total 300 ml Balance 430 ml -300 ml Intake Oral 100 ml IV Total 330 ml Output Urine Total 300 ml # Voids 2 # Bowel Movements 1 Laboratory Tests 01/06/20 05:50: White Blood Count 5.7, Red Blood Count 3.65L, Hemoglobin 11.2L, Hematocrit 34.9L , Mean Corpuscular Volume 96, Mean Corpuscular Hemoglobin 30.6, Mean Corpuscular Hemoglobin Concent 32.0, Red Cell Distribution Width 13.3, Platelet Count 277, Mean Platelet Volume 7.0, Neutrophils (%) (Auto) 59.6, Lymphocytes (% ) (Auto) 34.2, Monocytes (%) (Auto) 5.1, Eosinophils (%) (Auto) 0.4, Basophils ( %) (Auto) 0.7, Prothrombin Time 12.0H, Prothromb Time International Ratio 1.1, Sodium Level 140, Potassium Level 4.2, Chloride Level 109H, Carbon Dioxide Level 23, Anion Gap 8, Blood Urea Nitrogen 17, Creatinine 0.9, Estimat Glomerular Filtration Rate > 60, Glucose Level 81, Calcium Level 10.2H Height (Feet): 5 Height (Inches): 5.00 Weight (Pounds): 108 General Appearance: lethargic EENT: normal ENT inspection Neck: supple Cardiovascular: normal rate Respiratory/Chest: decreased breath sounds Abdomen: normal bowel sounds, non tender, soft Extremities: non-tender David Ewing MD Jan 06, 2020 15:06
[2020-01-06] MEDS: Azithromycin 250 MG in D5W 275 ML IV SCH (15:21)
[2020-01-06 15:27] VITALS: BP 114/72
--- NOTE | 2020-01-06 16:30 | Progress Note ---
DATE: 01/06/2020 SUBJECTIVE: This is an 85-year-old female patient. The reason why she is admitted is because of acute febrile illness. She has sepsis in addition to that. The patient also has status post DVT, peripheral edema, protein-calorie malnutrition, urinary tract infection, sepsis, and fever. So, she requires daily psychiatric consultation because the cognition has declined below her baseline, worsened by stress of her medical illness. MENTAL STATUS EXAMINATION: This is an 85-year-old female. Appearance is disheveled. Attitude, irritable and agitated. Affect, guarded and restricted. Intellect, poor. Mood, depressed and anxious. Motor activity, psychomotor agitation. Attention span is poor. Orientation x2. Speech is low volume, slurred. Thought process, disorganized and illogical. Insight and judgment is poor. DIAGNOSIS: Major depressive disorder, severe, recurrent with psychotic features. PLAN: Treat this patient with psychotropic medication regimen consisting of Namenda 5 mg twice a day, Ativan 0.5 mg every 6 hours p.r.n. anxiety or agitation. Twenty minutes of insight-oriented psychotherapy will help increase her understanding of her both psychiatric and physical condition so that she has less anxiety and depression and also better impulse control. Twenty minutes of insight-oriented psychotherapy provided. Chart reviewed and discussed with staff. Seen and assessed at bedside. Shaun Cornoa M.D. DR: DARNELL JOB#: [id number] CC:
[2020-01-06] MEDS: cefTRIAXone 1 GM in D5W 55 ML IVPB SCH (16:36)
[2020-01-06] MEDS ORDERED: Warfarin Sodium 5mg ORAL SCH (17:00)
--- NOTE | 2020-01-06 18:30 | Cardiac Electrophysiology PN ---
Assessment/Plan Assessment/Plan 1. Troponin elevation. 0.3 to 0.07. The patient does not have renal failure, and BUN and creatinine are within normal range. No CP. Echocardiogram Nl EF. Continue aspirin, Lopressor 25 bid and add Lipitor 10 2. Moderate MS and . 3. Fever and possible pneumonia. On Abx and Decadron. COVID test is negative. 4. History of lower extremity edema. 5. History of coronary artery disease. 6. Acute R leg DVT and chronic Left leg DVT. Started on Lovenox per Dr Buckner 7. Dementia. DW RN Subjective Subjective Echo showed EF 55% and moderate and MS. Has acute DVT of Right leg. No CP Objective Last 24 Hour Vital Signs Date Time Temp Pulse Resp B/P (MAP) Pulse Ox O2 Delivery O2 Flow Rate FiO2 01/06/20 15:27 97.5 75 18 114/72 (86) 98 01/06/20 15:16 75 01/06/20 12:00 97.7 70 20 119/67 (84) 99 01/06/20 12:00 71 01/06/20 09:00 Room Air 01/06/20 08:33 75 136/73 01/06/20 08:00 70 01/06/20 08:00 97.9 75 18 136/73 (94) 100 01/06/20 04:00 73 01/06/20 04:00 97.2 71 19 142/87 (105) 94 01/06/20 00:00 79 01/06/20 00:00 96.6 75 18 145/89 (107) 99 01/05/20 22:00 83 125/77 01/05/20 21:00 Room Air 01/05/20 20:00 98.1 83 18 125/77 (93) 97 01/05/20 20:00 87 Intake and Output 01/05/20 01/06/20 19:00 07:00 Intake Total 430 ml Output Total 300 ml Balance 430 ml -300 ml Intake Oral 100 ml IV Total 330 ml Output Urine Total 300 ml # Voids 2 # Bowel Movements 1 Laboratory Tests Test 01/06/20 05:50 White Blood Count 5.7 K/UL (4.8-10.8) Red Blood Count 3.65 M/UL (4.20-5.40) L Hemoglobin 11.2 G/DL (12.0-16.0) L Hematocrit 34.9 % (37.0-47.0) L Mean Corpuscular Volume 96 FL (80-99) Mean Corpuscular Hemoglobin 30.6 PG (27.0-31.0) Mean Corpuscular Hemoglobin Concent 32.0 G/DL (32.0-36.0) Red Cell Distribution Width 13.3 % (11.6-14.8) Platelet Count 277 K/UL (150-450) Mean Platelet Volume 7.0 FL (6.5-10.1) Neutrophils (%) (Auto) 59.6 % (45.0-75.0) Lymphocytes (%) (Auto) 34.2 % (20.0-45.0) Monocytes (%) (Auto) 5.1 % (1.0-10.0) Eosinophils (%) (Auto) 0.4 % (0.0-3.0) Basophils (%) (Auto) 0.7 % (0.0-2.0) Prothrombin Time 12.0 SEC (9.30-11.50) H Prothromb Time International Ratio 1.1 (0.9-1.1) Sodium Level 140 MMOL/L (136-145) Potassium Level 4.2 MMOL/L (3.5-5.1) Chloride Level 109 MMOL/L (98-107) H Carbon Dioxide Level 23 MMOL/L (21-32) Anion Gap 8 mmol/L (5-15) Blood Urea Nitrogen 17 mg/dL (7-18) Creatinine 0.9 MG/DL (0.55-1.30) Estimat Glomerular Filtration Rate > 60 mL/min (>60) Glucose Level 81 MG/DL (74-106) Calcium Level 10.2 MG/DL (8.5-10.1) H Microbiology Date/Time Source Procedure Growth Status 01/04/20 14:53 Nasopharynx SARS-CoV-2 RdRp Gene Assay - Final Complete Objective NECK: No JVD. LUNGS: Clear. CARDIOVASCULAR: regular S1 and S2 with no gallop. ABDOMEN: Soft. EXTREMITIES: No pitting edema. Jaquan Weller MD Jan 06, 2020 18:30
[2020-01-06 20:00] VITALS: BP 112/71
[2020-01-06] MEDS ORDERED: Enoxaparin 60mg Inj SUBQ SCH (21:00)
[2020-01-07] VITALS (10 sets, daily range): BP systolic 103–166; BP diastolic 66–93
[2020-01-07 06:38] LABS: INR 1.1 (0.9-1.1)
[2020-01-07 06:42] LABS: BASOPHILS % (AUTO) 0.7 % (0.0-2.0); EOSINOPHILS % (AUTO) 2.2 % (0.0-3.0); HEMATOCRIT 35.8 % (37.0-47.0); HEMOGLOBIN 11.5 G/DL (12.0-16.0); LYMPHOCYTES % (AUTO) 31.1 % (20.0-45.0); MEAN CORPUSCULAR VOLUME 96 FL (80-99); PLATELET COUNT 294 K/UL (150-450); RED BLOOD COUNT 3.74 M/UL (4.20-5.40); RED CELL DISTRIBUTION WIDTH 13.3 % (11.6-14.8); WHITE BLOOD COUNT 5.4 K/UL (4.8-10.8)
--- NOTE | 2020-01-07 06:58 | Anethesia Preoperative Eval ---
Anesthesia Pre-op PMH/ROS General Date of Evaluation: Jan 07, 2020 Time of Evaluation: 06:58 Mallampati Score Class I : Soft palate, uvula, fauces, pillars visible Class II: Soft palate, uvula, fauces visible Class III: Soft palate, base of uvula visible Class IV: Only hard plate visible Allergies: Coded Allergies: No Known Allergies (Unverified , 02/11/17) Anesthesia Pre-op Phys. Exam Physician Exam Last Vital Signs Date Time Temp Pulse Resp B/P (MAP) Pulse Ox O2 Delivery O2 Flow Rate FiO2 01/07/20 04:00 98.1 81 17 103/66 (78) 93 01/06/20 20:19 Room Air Anesthesia Pre-op A/P Labs Hematology Test 01/07/20 05:45 White Blood Count Pending Red Blood Count Pending Hemoglobin Pending Hematocrit Pending Mean Corpuscular Volume Pending Mean Corpuscular Hemoglobin Pending Mean Corpuscular Hemoglobin Concent Pending Red Cell Distribution Width Pending Platelet Count Pending Mean Platelet Volume Pending Neutrophils (%) (Auto) Pending Lymphocytes (%) (Auto) Pending Monocytes (%) (Auto) Pending Eosinophils (%) (Auto) Pending Basophils (%) (Auto) Pending Coagulation Test 01/07/20 05:45 Prothrombin Time 11.6 SEC (9.30-11.50) H Prothromb Time International Ratio 1.1 (0.9-1.1) Chemistry Test 01/07/20 05:45 Sodium Level Pending Potassium Level Pending Chloride Level Pending Carbon Dioxide Level Pending Blood Urea Nitrogen Pending Creatinine Pending Estimat Glomerular Filtration Rate Pending Glucose Level Pending Calcium Level Pending Sameera Orourke MD Jan 07, 2020 06:58
[2020-01-07 07:09] LABS: ANION GAP 5 mmol/L (5-15); BLOOD UREA NITROGEN 15 mg/dL (7-18); CARBON DIOXIDE 28 MMOL/L (21-32); CHLORIDE 107 MMOL/L (98-107); CREATININE 0.9 MG/DL (0.55-1.30); POTASSIUM 4.1 MMOL/L (3.5-5.1); SODIUM 140 MMOL/L (136-145)
[2020-01-07] MEDS: Aspirin EC 81mg tab ORAL SCH (09:00)
[2020-01-07] MEDS: Memantine 5 MG TAB ORAL SCH ×2 (09:00→17:03)
--- NOTE | 2020-01-07 09:47 | Anethesia Preoperative Eval ---
Anesthesia Pre-op PMH/ROS General Date of Evaluation: Jan 07, 2020 Time of Evaluation: 09:43 Anesthesiologist: Enrrique ASA Score: ASA 4 Mallampati Score Class I : Soft palate, uvula, fauces, pillars visible Class II: Soft palate, uvula, fauces visible Class III: Soft palate, base of uvula visible Class IV: Only hard plate visible Mallampati Classification: Class III Surgeon: Kaylin Diagnosis: Dysphagia Surgical Procedure: EGD PEG tube placement Anesthesia History: none Family History: no anesthesia problems Allergies: Coded Allergies: No Known Allergies (Unverified , 02/11/17) Medications: see eMAR Patient NPO?: Yes Past Medical History Cardiovascular: Reports: HTN; Denies: CAD, GA, valve dz, arrhythmia, other Pulmonary: Denies: asthma, COPD, TREVOR, other Gastrointestinal/Genitourinary: Reports: GERD, other - dysphagia; Denies: CRI, ESRD Neurologic/Psychiatric: Reports: dementia; Denies: CVA, depression/anxiety, TIA, other Endocrine: Reports: hypothyroidism; Denies: DM, steroids, other HEENT: Reports: cataract (L), cataract (R) - s/p Sx; Denies: glaucoma, ORUTSARARMIUT (L), ORUTSARARMIUT (R), other Hematology/Immune: Reports: anemia - mild, DVT - recently diagnosed lower extremity; Denies: bleeding disorder, other Musculoskeletal/Integumentary: Reports: OA, other - contructed; Denies: RA, DJD, DDD, edema Other: other - malnourished PMH Narrative: as above PSxH Narrative: see chart Anesthesia Pre-op Phys. Exam Physician Exam Last Vital Signs Date Time Temp Pulse Resp B/P (MAP) Pulse Ox O2 Delivery O2 Flow Rate FiO2 01/07/20 09:00 70 124/88 01/07/20 07:55 97.7 18 100 01/06/20 20:19 Room Air Constitutional: NAD Neurologic: other - unable to obtaine Cardiovascular: RRR, no M/R/G Respiratory: CTA Gastrointestinal: S/NT/ND Airway Exam Mallampati Score: Class III MO: limited Neck: stiff ROM: limited Teeth: missing Dentures: no upper, no lower Anesthesia Pre-op A/P Labs Hematology Test 01/07/20 05:45 White Blood Count 5.4 K/UL (4.8-10.8) Red Blood Count 3.74 M/UL (4.20-5.40) L Hemoglobin 11.5 G/DL (12.0-16.0) L Hematocrit 35.8 % (37.0-47.0) L Mean Corpuscular Volume 96 FL (80-99) Mean Corpuscular Hemoglobin 30.8 PG (27.0-31.0) Mean Corpuscular Hemoglobin Concent 32.2 G/DL (32.0-36.0) Red Cell Distribution Width 13.3 % (11.6-14.8) Platelet Count 294 K/UL (150-450) Mean Platelet Volume 7.4 FL (6.5-10.1) Neutrophils (%) (Auto) 60.0 % (45.0-75.0) Lymphocytes (%) (Auto) 31.1 % (20.0-45.0) Monocytes (%) (Auto) 6.0 % (1.0-10.0) Eosinophils (%) (Auto) 2.2 % (0.0-3.0) Basophils (%) (Auto) 0.7 % (0.0-2.0) Coagulation Test 01/07/20 05:45 Prothrombin Time 11.6 SEC (9.30-11.50) H Prothromb Time International Ratio 1.1 (0.9-1.1) Chemistry Test 01/07/20 05:45 Sodium Level 140 MMOL/L (136-145) Potassium Level 4.1 MMOL/L (3.5-5.1) Chloride Level 107 MMOL/L (98-107) Carbon Dioxide Level 28 MMOL/L (21-32) Anion Gap 5 mmol/L (5-15) Blood Urea Nitrogen 15 mg/dL (7-18) Creatinine 0.9 MG/DL (0.55-1.30) Estimat Glomerular Filtration Rate > 60 mL/min (>60) Glucose Level 78 MG/DL (74-106) Calcium Level 10.0 MG/DL (8.5-10.1) Studies Pre-op Studies: EKG - sr Risk Assessment & Plan Assessment: ASA 4 Plan: MAC Status Change Before Surgery: No Pre-Antibiotics Drug: as scheduled Jaron Osuna MD Jan 07, 2020 09:47
--- NOTE | 2020-01-07 10:02 | Pulmonology Progress Note ---
Subjective ROS Limited/Unobtainable: No Constitutional: Reports: no symptoms Respiratory: Reports: no symptoms Cardiovascular: Reports: no symptoms Allergies: Coded Allergies: No Known Allergies (Unverified , 02/11/17) All Systems: reviewed and negative except above Subjective pulse ox stable on RA Venous Duplex + acute DVT R leg no fevers, no leukocytosis, CXR 01/05 with a patchy left basilar infiltrate, could indicate pneumonia if real. Previously demonstrated peripheral right upper lung opacity is no longer evident Objective Last 24 Hour Vital Signs Date Time Temp Pulse Resp B/P (MAP) Pulse Ox O2 Delivery O2 Flow Rate FiO2 01/07/20 09:00 Room Air 01/07/20 09:00 70 124/88 01/07/20 07:55 97.7 70 18 124/88 (100) 100 01/07/20 07:41 65 01/07/20 04:00 98.1 81 17 103/66 (78) 93 01/07/20 04:00 73 01/07/20 00:00 74 01/07/20 00:00 97.6 74 18 118/76 (90) 100 01/06/20 20:44 72 112/71 01/06/20 20:19 Room Air 01/06/20 20:00 77 01/06/20 20:00 97.9 72 18 112/71 (85) 100 01/06/20 15:27 97.5 75 18 114/72 (86) 98 01/06/20 15:16 75 01/06/20 12:00 97.7 70 20 119/67 (84) 99 01/06/20 12:00 71 Intake and Output 01/06/20 01/07/20 19:00 07:00 Intake Total 240 ml Output Total 750 ml 500 ml Balance -510 ml -500 ml Intake Oral 240 ml Output Urine Total 750 ml 500 ml General Appearance: cachetic - bedridden female in NAD HEENT: normocephalic, atraumatic, anicteric Respiratory: chest wall non-tender, lungs clear - with moderate air exchange , normal breath sounds, no accessory muscle use Cardiovascular: regular rhythm Abdomen: normal bowel sounds, soft, non tender Extremities: no edema Neurologic: abnormal gait - bedridden , alert - nonverbal Musculoskeletal: atrophy - BLE Microbiology Date/Time Source Procedure Growth Status 01/04/20 14:53 Nasopharynx SARS-CoV-2 RdRp Gene Assay - Final Complete Laboratory Tests 01/07/20 05:45: White Blood Count 5.4, Red Blood Count 3.74L, Hemoglobin 11.5L, Hematocrit 35.8L , Mean Corpuscular Volume 96, Mean Corpuscular Hemoglobin 30.8, Mean Corpuscular Hemoglobin Concent 32.2, Red Cell Distribution Width 13.3, Platelet Count 294, Mean Platelet Volume 7.4, Neutrophils (%) (Auto) 60.0, Lymphocytes (% ) (Auto) 31.1, Monocytes (%) (Auto) 6.0, Eosinophils (%) (Auto) 2.2, Basophils ( %) (Auto) 0.7, Prothrombin Time 11.6H, Prothromb Time International Ratio 1.1, Sodium Level 140, Potassium Level 4.1, Chloride Level 107, Carbon Dioxide Level 28, Anion Gap 5, Blood Urea Nitrogen 15, Creatinine 0.9, Estimat Glomerular Filtration Rate > 60, Glucose Level 78, Calcium Level 10.0 Current Medications Medications (Trade) Dose Ordered Sig/Brayden Route PRN Reason Start Time Stop Time Status Last Admin Dose Admin Acetaminophen (Tylenol) 650 mg Q4H PRN ORAL FEVER 01/03/20 12:45 02/02/20 12:44 Albuterol/ Ipratropium (Albuterol/ Ipratropium) 3 ml EVERY 4 HOURS PRN HHN Shortness of Breath 01/03/20 12:45 01/08/20 12:44 Aspirin (Ecotrin) 81 mg DAILY ORAL 01/04/20 09:00 02/18/20 08:59 01/06/20 08:33 Atorvastatin Calcium (Lipitor) 10 mg BEDTIME ORAL 01/05/20 21:00 04/04/20 20:59 01/05/20 22:01 Azithromycin 250 mg/Dextrose 275 ml @ 275 mls/hr Q24HRS IV 01/03/20 14:30 01/08/20 14:29 01/06/20 15:21 Ceftriaxone Sodium 1 gm/ Dextrose 55 ml @ 110 mls/hr Q24H IVPB 01/03/20 15:00 01/10/20 14:59 01/06/20 16:36 Dextrose (Dextrose 50%) 25 ml Q30M PRN IV Hypoglycemia 01/03/20 12:45 04/02/20 12:44 Dextrose (Dextrose 50%) 50 ml Q30M PRN IV Hypoglycemia 01/03/20 12:45 04/02/20 12:44 Lorazepam (Ativan) 0.5 mg Q6H PRN ORAL For Anxiety 01/05/20 14:15 01/12/20 14:14 Memantine (Namenda) 5 mg BID ORAL 01/05/20 18:00 02/04/20 17:59 01/06/20 17:53 Metoprolol Tartrate (Lopressor) 25 mg Q12HR ORAL 01/04/20 21:00 04/03/20 20:59 01/06/20 08:33 Polyethylene Glycol (Miralax) 17 gm DAILYPRN PRN ORAL Constipation 01/03/20 12:45 02/02/20 12:44 Promethazine HCl/ Codeine (Phenergan with Codeine) 5 ml EVERY 6 HOURS PRN ORAL cough 01/03/20 12:45 02/02/20 12:44 Assessment/Plan Assessment/Plan ASSESSMENT sepsis probable pneumonia suspected COVID-19 ruled out acute R leg DVT and chronic Left leg DVT probable UTI elevated troponin Moderate pulm HTN hx of CAD dysphagia high aspiration risk hx of DVT severe protein calorie malnutrition CKD Alzheimer's dementia PLAN OF CARE tele supplemental O2 titrate to keep sat above 92% pulmonary toilet fup with CXR 01/04 -> New mild patchy infiltrate lateral aspect right upper lobe. CXR 01/05 ->patchy left basilar infiltrate, could indicate pneumonia if real. Previously demonstrated peripheral right upper lung opacity is no longer evident rapid COVID-19 x2 NGT; off Decadron abx per ID recs BCX NGT a/tussive prn 01/04 Venous duplex BLE + Acute R leg DVT and chronic Left leg DVT, on Lovenox per heme with Coumadin to bridge, INR 1.1 today on hold due to PEG planned ( see below) swallow eval- recommends NPO, aspiration precaution family agreed; GT planned for today 01/06 dietary eval-high nutr risk, protien supplements cardio follows ASA and BB , statin added serial troponin-trending down, minimally elevated Echo with pEF 55%, moderate MR, , moderate pulm HTN lipid panel noted case discussed and evaluated by supervising physician Shari Khan WINDOWS ARCHITECT Jan 07, 2020 10:02
--- NOTE | 2020-01-07 10:08 | Pre-Procedure Note/Attestation ---
Pre-Procedure Note/Attestation Complete Prior to Procedure Planned Procedure: not applicable Procedure Narrative: egd/peg Indications for Procedure Pre-Operative Diagnosis: FTT Attestation I attest that I discussed the nature of the procedure; its benefits; risks and complications; and alternatives (and the risks and benefits of such alternatives ), prior to the procedure, with the patient (or the patient's legal administrative representative). I attest that, if there was a reasonable possibility of needing a blood transfusion, the patient (or the patient's legal administrative representative) was given the [facility] standardized written summary, pursuant to the Naif [place] Blood Safety Act ([place] Health and Safety Code # 1645, as amended). I attest that I re-evaluated the patient just prior to the surgery and that there has been no change in the patient's H&P, except as documented below: David Ewing MD Jan 07, 2020 10:08
--- NOTE | 2020-01-07 10:22 | Cardiac Electrophysiology PN ---
Assessment/Plan Assessment/Plan 1. Troponin elevation. 0.3 to 0.07. The patient does not have renal failure, and BUN and creatinine are within normal range. No CP. Echocardiogram Nl EF. Continue aspirin, Lopressor 25 bid and Lipitor 10 2. Moderate MS and . 3. Fever and possible pneumonia. On Abx and Decadron. COVID test is negative. 4. History of lower extremity edema. 5. History of coronary artery disease. 6. Acute R leg DVT and chronic Left leg DVT. On Lovenox and Coumadin per Dr. Buckner 7. Dementia. DW RN Subjective Subjective Echo showed EF 55% and moderate and MS. Has acute DVT of Right leg. No CP or SOB Objective Last 24 Hour Vital Signs Date Time Temp Pulse Resp B/P (MAP) Pulse Ox O2 Delivery O2 Flow Rate FiO2 01/07/20 09:00 Room Air 01/07/20 09:00 70 124/88 01/07/20 07:55 97.7 70 18 124/88 (100) 100 01/07/20 07:41 65 01/07/20 04:00 98.1 81 17 103/66 (78) 93 01/07/20 04:00 73 01/07/20 00:00 74 01/07/20 00:00 97.6 74 18 118/76 (90) 100 01/06/20 20:44 72 112/71 01/06/20 20:19 Room Air 01/06/20 20:00 77 01/06/20 20:00 97.9 72 18 112/71 (85) 100 01/06/20 15:27 97.5 75 18 114/72 (86) 98 01/06/20 15:16 75 01/06/20 12:00 97.7 70 20 119/67 (84) 99 01/06/20 12:00 71 Intake and Output 01/06/20 01/07/20 19:00 07:00 Intake Total 240 ml Output Total 750 ml 500 ml Balance -510 ml -500 ml Intake Oral 240 ml Output Urine Total 750 ml 500 ml Laboratory Tests Test 01/07/20 05:45 White Blood Count 5.4 K/UL (4.8-10.8) Red Blood Count 3.74 M/UL (4.20-5.40) L Hemoglobin 11.5 G/DL (12.0-16.0) L Hematocrit 35.8 % (37.0-47.0) L Mean Corpuscular Volume 96 FL (80-99) Mean Corpuscular Hemoglobin 30.8 PG (27.0-31.0) Mean Corpuscular Hemoglobin Concent 32.2 G/DL (32.0-36.0) Red Cell Distribution Width 13.3 % (11.6-14.8) Platelet Count 294 K/UL (150-450) Mean Platelet Volume 7.4 FL (6.5-10.1) Neutrophils (%) (Auto) 60.0 % (45.0-75.0) Lymphocytes (%) (Auto) 31.1 % (20.0-45.0) Monocytes (%) (Auto) 6.0 % (1.0-10.0) Eosinophils (%) (Auto) 2.2 % (0.0-3.0) Basophils (%) (Auto) 0.7 % (0.0-2.0) Prothrombin Time 11.6 SEC (9.30-11.50) H Prothromb Time International Ratio 1.1 (0.9-1.1) Sodium Level 140 MMOL/L (136-145) Potassium Level 4.1 MMOL/L (3.5-5.1) Chloride Level 107 MMOL/L (98-107) Carbon Dioxide Level 28 MMOL/L (21-32) Anion Gap 5 mmol/L (5-15) Blood Urea Nitrogen 15 mg/dL (7-18) Creatinine 0.9 MG/DL (0.55-1.30) Estimat Glomerular Filtration Rate > 60 mL/min (>60) Glucose Level 78 MG/DL (74-106) Calcium Level 10.0 MG/DL (8.5-10.1) Microbiology Date/Time Source Procedure Growth Status 01/04/20 14:53 Nasopharynx SARS-CoV-2 RdRp Gene Assay - Final Complete Objective NECK: No JVD. LUNGS: Clear. CARDIOVASCULAR: regular S1 and S2 with no gallop. ABDOMEN: Soft. EXTREMITIES: No pitting edema. Jaquan Weller MD Jan 07, 2020 10:22
[2020-01-07] MEDS ORDERED: NS 500ML IVPB ONE (11:00)
[2020-01-07] MEDS ORDERED: fentaNYL 100 mcg/2 mL IV ONE (11:00)
--- NOTE | 2020-01-07 11:13 | Endoscopy Procedure Note ---
Endoscopy Procedure Note General Indication for Procedure: FTT Procedures Performed: EGD, PEG Operative Findings/Diagnosis: same Specimen: none Pt Tolerated Procedure Well: Yes Estimated Blood Loss: none Anesthesia Anesthesiologist: baudilio Anesthesia: MAC Inserted Devices Implant(s) used?: No GI Core Measures 50 yrs or older w/o bx or poly: Not Applicable 10yrs. F/U recommended: Not Applicable David Ewing MD Jan 07, 2020 11:13
--- NOTE | 2020-01-07 11:25 | Immediate Post-Op Evaluation ---
Immediate Post-Op Evalulation Immediate Post-Op Evalulation Procedure: EGD PEG tube placement Date of Evaluation: Jan 07, 2020 Time of Evaluation: 11:24 IV Fluids: 200 Blood Products: none Estimated Blood Loss: min Urinary Output: none Blood Pressure Systolic: 146 Blood Pressure Diastolic: 72 Pulse Rate: 64 Respiratory Rate: 18 O2 Sat by Pulse Oximetry: 99 Temperature (Fahrenheit): 97.8 Pain Score (1-10): 1 Nausea: No Vomiting: No Complications none Patient Status: patent, none Hydration Status: adequate Jaron Osuna MD Jan 07, 2020 11:25
--- NOTE | 2020-01-07 11:33 | Consultation ---
History of Present Illness General Date patient seen: Jan 07, 2020 Reason for Hospitalization: Fever Present Illness HPI 85-year-old female [facility] halfway resident presented with fevers, abnormal labs, malnutrition, low body weight, failure to thrive. Admitted for further care and management. On admission identified to have a sacral deep tissue injury as well as malnutrition failure to thrive. Surgery called to eval and assist with care. Patient seen, patient evaluated, chart reviewed. Given overall condition PEG is been recommended. Allergies: Coded Allergies: No Known Allergies (Unverified , 02/11/17) COVID-19 Screening Contact w/high risk pt: No Experienced COVID-19 symptoms?: No Medication History Scheduled Aspirin* (Aspir 81*), 81 MG ORAL DAILY, (Reported) Cranberry Fruit (Cranberry), 450 MG PO TWICE A DAY, (Reported) Docusate Sodium* (Docusate Sodium*), 100 MG ORAL DAILY, (Reported) Multivitamin With Minerals (Multivitamins With Minerals*), 1 TAB ORAL DAILY, ( Reported) Scheduled PRN Acetaminophen* (Acetaminophen 325MG Tablet*), 650 MG ORAL Q4H PRN for pain/fever , (Reported) Bisacodyl (Bisacodyl), 10 MG RC DAILY PRN for Constipation, (Reported) Clonidine Hcl* (Catapres*), 0.1 MG ORAL Q8HR PRN for For High Blood Pressure, ( Reported) Loratadine (Claritin), 10 MG ORAL QHS PRN for ALLERGY, (Reported) Magnesium Hydroxide* (Milk Of Magnesia*), 30 ML ORAL DAILY PRN for Constipation, (Reported) Nitroglycerin (Nitroglycerin), 0.4 MG SL Q5MIN X 3SL PRN for CHEST PAIN, ( Reported) Discontinued Medications Acetaminophen (Acetaminophen), 650 MG ORAL Q6H PRN for Prn Headache/Temp > 101, (Reported) Discontinued Reason: Therapy completed Bisacodyl* (Dulcolax*), 10 MG RECTAL DAILY, (Reported) Discontinued Reason: Prescription changed Clotrimazole* (Lotrimin*), 1 APPLIC TOPIC THREE TIMES A DAY Discontinued Reason: Therapy completed Escitalopram Oxalate* (Lexapro*), 10 MG ORAL DAILY Discontinued Reason: Therapy completed Escitalopram Oxalate* (Lexapro*), 5 MG ORAL DAILY, (Reported) Discontinued Reason: Therapy completed Ipratropium/Albuterol Sulfate (DuoNeb 0.5-3(2.5)mg/3ml), 3 ML HHN EVERY 4 HOURS, (Reported) Discontinued Reason: Therapy completed Ipratropium/Albuterol Sulfate (DuoNeb 0.5-3(2.5)mg/3ml), 3 ML HHN Q4HR, ( Reported) Discontinued Reason: Therapy completed Na Phos,M-B/Na Phos,Di-Ba* (Fleet Enema*), 133 ML RECTAL DAILY, (Reported) Discontinued Reason: Therapy completed Ondansetron* (Zofran*), 4 MG ORAL Q6H PRN for Nausea & Vomiting, (Reported) Discontinued Reason: Therapy completed Sennosides (Senna Laxative), 25 MG PO, (Reported) Discontinued Reason: Therapy completed Temazepam* (Temazepam*), 15 MG ORAL BEDTIME PRN for Insomnia, (Reported) Discontinued Reason: Therapy completed Unable to Obtain Medications (Unable To Obtain Meds), (Reported) Discontinued Reason: Therapy completed Patient History Limited by: medical condition History Provided By: Medical Record, PMD Healthcare decision maker Resuscitation status Advanced Directive on File Past Medical/Surgical History Past Medical/Surgical History: (1) DVT (deep venous thrombosis) (2) Peripheral edema (3) Severe protein-calorie malnutrition (4) Protein-calorie malnutrition, severe (5) At high risk for aspiration (6) Urinary tract infection (7) Severe sepsis (8) Alzheimer's dementia (9) Fever Review of Systems Review of Symptoms General ROS: no weight loss or fever Psychological ROS: no depression or mood changes, no memory loss Ophthalmic ROS: no visual changes or eye irritation ENT ROS: no nasal congestion, hearing loss, dizziness Allergy and Immunology ROS: no allergic symptoms or urticaria Hematological and Lymphatic ROS: no swollen glands, unusual bleeding or bruising Endocrine ROS: no polyuria, polydipsia, weight changes, temperature intolerance Respiratory ROS: no cough, shortness of breath, or wheezing Cardiovascular ROS: no chest pain or dyspnea on exertion Gastrointestinal ROS: denies abdominal pain, bright red blood in stool. Musculoskeletal ROS: no myalgias or arthralgias Neurological ROS: no TIA or stroke symptoms Dermatological ROS: no new or changing skin lesions, rashes or pruritis Physical Exam Physical Exam General appearance: alert, cooperative, no distress, appears stated age Head: Normocephalic, without obvious abnormality, atraumatic Eyes: conjunctivae/corneas clear. PERRL, EOM's intact. Fundi benign Throat: Lips, mucosa, and tongue normal. Teeth and gums normal Neck: supple, symmetrical, trachea midline, no adenopathy, thyroid: not enlarged, symmetric, no tenderness/mass/nodules, no carotid bruit and no JVD Lungs: clear to auscultation bilaterally Heart: regular rate and rhythm, S1, S2 normal, no murmur, click, rub or gallop Abdomen: soft, non-tender. Bowel sounds normal. No masses, no organomegaly Extremities: extremities normal, atraumatic, no cyanosis or edema Pulses: 2+ and symmetric Skin: Skin see below Neurologic: Grossly normal Last 24 Hour Vital Signs Date Time Temp Pulse Resp B/P (MAP) Pulse Ox O2 Delivery O2 Flow Rate FiO2 01/07/20 11:25 64 18 99 01/07/20 09:00 Room Air 01/07/20 09:00 70 124/88 01/07/20 07:55 97.7 70 18 124/88 (100) 100 01/07/20 07:41 65 01/07/20 04:00 98.1 81 17 103/66 (78) 93 01/07/20 04:00 73 01/07/20 00:00 74 01/07/20 00:00 97.6 74 18 118/76 (90) 100 01/06/20 20:44 72 112/71 01/06/20 20:19 Room Air 01/06/20 20:00 77 01/06/20 20:00 97.9 72 18 112/71 (85) 100 01/06/20 15:27 97.5 75 18 114/72 (86) 98 01/06/20 15:16 75 01/06/20 12:00 97.7 70 20 119/67 (84) 99 01/06/20 12:00 71 Intake and Output 01/06/20 01/07/20 19:00 07:00 Intake Total 240 ml Output Total 750 ml 500 ml Balance -510 ml -500 ml Intake Oral 240 ml Output Urine Total 750 ml 500 ml Laboratory Tests Test 01/07/20 05:45 White Blood Count 5.4 K/UL (4.8-10.8) Red Blood Count 3.74 M/UL (4.20-5.40) L Hemoglobin 11.5 G/DL (12.0-16.0) L Hematocrit 35.8 % (37.0-47.0) L Mean Corpuscular Volume 96 FL (80-99) Mean Corpuscular Hemoglobin 30.8 PG (27.0-31.0) Mean Corpuscular Hemoglobin Concent 32.2 G/DL (32.0-36.0) Red Cell Distribution Width 13.3 % (11.6-14.8) Platelet Count 294 K/UL (150-450) Mean Platelet Volume 7.4 FL (6.5-10.1) Neutrophils (%) (Auto) 60.0 % (45.0-75.0) Lymphocytes (%) (Auto) 31.1 % (20.0-45.0) Monocytes (%) (Auto) 6.0 % (1.0-10.0) Eosinophils (%) (Auto) 2.2 % (0.0-3.0) Basophils (%) (Auto) 0.7 % (0.0-2.0) Prothrombin Time 11.6 SEC (9.30-11.50) H Prothromb Time International Ratio 1.1 (0.9-1.1) Sodium Level 140 MMOL/L (136-145) Potassium Level 4.1 MMOL/L (3.5-5.1) Chloride Level 107 MMOL/L (98-107) Carbon Dioxide Level 28 MMOL/L (21-32) Anion Gap 5 mmol/L (5-15) Blood Urea Nitrogen 15 mg/dL (7-18) Creatinine 0.9 MG/DL (0.55-1.30) Estimat Glomerular Filtration Rate > 60 mL/min (>60) Glucose Level 78 MG/DL (74-106) Calcium Level 10.0 MG/DL (8.5-10.1) Height (Feet): 5 Height (Inches): 4.00 Weight (Pounds): 108 Medications Current Medications Medications (Trade) Dose Ordered Sig/Brayden Route PRN Reason Start Time Stop Time Status Last Admin Dose Admin Acetaminophen (Tylenol) 650 mg Q4H PRN ORAL FEVER 01/03/20 12:45 02/02/20 12:44 Albuterol/ Ipratropium (Albuterol/ Ipratropium) 3 ml EVERY 4 HOURS PRN HHN Shortness of Breath 01/03/20 12:45 01/08/20 12:44 Aspirin (Ecotrin) 81 mg DAILY ORAL 01/04/20 09:00 02/18/20 08:59 01/06/20 08:33 Atorvastatin Calcium (Lipitor) 10 mg BEDTIME ORAL 01/05/20 21:00 04/04/20 20:59 01/05/20 22:01 Azithromycin 250 mg/Dextrose 275 ml @ 275 mls/hr Q24HRS IV 01/03/20 14:30 01/08/20 14:29 01/06/20 15:21 Ceftriaxone Sodium 1 gm/ Dextrose 55 ml @ 110 mls/hr Q24H IVPB 01/03/20 15:00 01/10/20 14:59 01/06/20 16:36 Dextrose (Dextrose 50%) 25 ml Q30M PRN IV Hypoglycemia 01/03/20 12:45 04/02/20 12:44 Dextrose (Dextrose 50%) 50 ml Q30M PRN IV Hypoglycemia 01/03/20 12:45 04/02/20 12:44 Lorazepam (Ativan) 0.5 mg Q6H PRN ORAL For Anxiety 01/05/20 14:15 01/12/20 14:14 Memantine (Namenda) 5 mg BID ORAL 01/05/20 18:00 02/04/20 17:59 01/06/20 17:53 Metoprolol Tartrate (Lopressor) 25 mg Q12HR ORAL 01/04/20 21:00 04/03/20 20:59 01/06/20 08:33 Polyethylene Glycol (Miralax) 17 gm DAILYPRN PRN ORAL Constipation 01/03/20 12:45 02/02/20 12:44 Promethazine HCl/ Codeine (Phenergan with Codeine) 5 ml EVERY 6 HOURS PRN ORAL cough 01/03/20 12:45 02/02/20 12:44 Assessment/Plan Problem List: (1) DVT (deep venous thrombosis) ICD Codes: I82.409 - Acute embolism and thrombosis of unspecified deep veins of unspecified lower extremity SNOMED: 963058831 (2) Peripheral edema ICD Codes: R60.9 - Edema, unspecified SNOMED: 910124071 (3) Severe protein-calorie malnutrition Assessment & Plan: plan peg placement tf as tolerated DAILY ESTIMATED NEEDS: Needs based on underweight, wound, CHF/ 48kg 30-35 kcals/kg 4998-7057 total kcals 1.25-1.5 g protein/kg 60-72 g total protein 20-25 mL/kg 960-1200 total fluid mLs NUTRITION DIAGNOSIS: * Increased kcal/prot needs R/T underweight status, wound healing as evidenced by pt @ 88% IBW w/ BMI=18.2, admitted w/ sacral DTPI wound, w/ <35% po intake from oral diet as per 48hr kcal count data, now pending PEG placement. * Altered nutrition related lab values R/T h/o CHF as evidenced by elev BNP ([id number] ->[id number]) CURRENT DIET:NPO ENTERAL NUTRITION RECOMMENDATIONS: Osmolite 1.5 @ 45ml/hr x 24 hrs to provide 1080ml, 1620kcal, 68g prot, 823ml free water * Initiate Osmolite 1.5 @ 15ml/hr x 6hrs * Advance 10ml q 4-6 hrs as tolerated to goal rate * HOB over 30 degrees/ water flush 100ml q 8hrs --PT AT HIGH RISK FOR REFEEDING SYNDROME, SLOWLY INCREASE TF, CHECK LYTES DAILY , REPLETE NEEDED-- ADDITIONAL RECOMMENDATIONS: * Calibrated bedscale wt, weekly wt monitoring, monitor trend * F/up w/ Shaji Count result-> see RD note on 01/05, not meeting needs. * W/ TF, monitor lytes daily, replete as needed- high risk for refeeding * Wound healing: add Vit C 250mg QD + Artemio BID (mix w/ 2oz water) via PEG ICD Codes: E43 - Unspecified severe protein-calorie malnutrition SNOMED: 294113861, 006088800, 766238357 (4) Protein-calorie malnutrition, severe ICD Codes: E43 - Unspecified severe protein-calorie malnutrition SNOMED: 072023874 (5) At high risk for aspiration ICD Codes: Z91.89 - Other specified personal risk factors, not elsewhere classified SNOMED: 042448949 (6) Urinary tract infection ICD Codes: N39.0 - Urinary tract infection, site not specified SNOMED: 26653088 (7) Severe sepsis ICD Codes: A41.9 - Sepsis, unspecified organism; R65.20 - Severe sepsis without septic shock SNOMED: 03738853 (8) Alzheimer's dementia ICD Codes: G30.9 - Alzheimer's disease, unspecified SNOMED: 62158707 (9) Fever Assessment & Plan: Pt presented on admission with Sacral DTPI . Pt is emaciated . Scattered nevi across back. Pt is emaciated with multiple bony prominences that protrudes and increases risks for Pressure Injuries.Optifoam drsgs applied to thoracic spine, Both elbows, both hips and malleoli both feet. Sacral DTPI noted (L)11.5cm x (W)10cm. Base wound is purpuric with area of hyperpigmentation at protruded and bony sacrococcygeal area.Surrounding non- blanching erythema. Both heels are boggy but easily blanchable. Deep tissue injury unlikely etiology of fevers. Chest x-ray reviewed and identified. On antibiotics as per infectious disease. Nutritional supplementation necessary Tx.Plan: Apply Moisture Barrier Paste to Sacrum. Cover with Optifoam drsg. Change every 3 days and prn. Apply Cavilon Skin Barrier to bony prominences and cover each site with Optifoam drsgs as needed. Apply Cavilon Skin Barrier to both heels and Malleoli. Cover each site with Optifoam drsgs. Change every 7 days and PRN. Reposition at least every 2hours or as tolerated. Off-load heels with pillow. APM/AMOR Mattress overlay. ICD Codes: R50.9 - Fever, unspecified SNOMED: 555720866 Ashok Velazquez Jan 07, 2020 11:33
--- NOTE | 2020-01-07 11:59 | 48 Hour Post Anesthesia Eval ---
Post Anesthesia Evaluation Procedure: EGD PEG tube placement Date of Evaluation: Jan 07, 2020 Time of Evaluation: 11:57 Blood Pressure Systolic: 142 0: 76 Pulse Rate: 68 Respiratory Rate: 18 Temperature (Fahrenheit): 97.8 O2 Sat by Pulse Oximetry: 98 Airway: patent Nausea: No Vomiting: No Hydration Status: adequate Cardiopulmonary Status: stable Mental Status/LOC: patient returned to baseline Follow-up Care/Observations: n/a Post-Anesthesia Complications: none Follow-up care needed: N/A Jaron Osuna MD Jan 07, 2020 11:59
--- NOTE | 2020-01-07 12:15 | Hematology/Onc Progress Note ---
Assessment/Plan Assessment/Plan Assessment and Recs # Dvt that is chronic, in the past was on coumadin with a inr btw 2-3 --> currently aphasic, therefore order duplex to see if any acute process --> recomnfirmed and does have acute divt right leg --> lovenox started --> coumadin started, inr goal 2-3 # Anemia of chronic disease --> hold off current workup --> hgb 11.5 # Severe sepsis --> on imaging, cxr mild streaking opacivty left lower and right lung --> r/o chf --> on abx ceftriaxone # Alzheimer's dementia --> appears chronic # Fever --> abx started # Pneumonitis # Urinary tract infection # Tachycardia due to sepsis # Dvt ppx lovenox/coumadin The timing of this note does not necessarily reflect the time of the patient was seen. Greatly appreciate consultation. Subjective Constitutional: Denies: no symptoms, chills, fever, malaise, weakness, other HEENT: Denies: no symptoms, eye pain, blurred vision, tearing, double vision, ear pain, ear discharge, nose pain, nose congestion, throat pain, throat swelling, mouth pain, mouth swelling, other Cardiovascular: Denies: no symptoms, chest pain, edema, irregular heart rate, lightheadedness, palpitations, syncope, other Respiratory: Denies: no symptoms, cough, shortness of breath, SOB with excertion, SOB at rest, sputum, wheezing, other Genitourinary: Denies: no symptoms, burning, discharge, frequency, flank pain, hematuria, incontinence, pain, urgency, other Neurologic/Psychiatric: Denies: no symptoms, anxiety, depressed, emotional problems, headache, numbness, paresthesia, pre-existing deficit, seizure, tingling, tremors, weakness, other Endocrine: Denies: no symptoms, excessive sweating, flushing, intolerance to cold, intolerance to heat, increased hunger, increased thirst, increased urine, unexplained weight gain, unexplained weight loss, other Allergies: Coded Allergies: No Known Allergies (Unverified , 02/11/17) Subjective 01/04 right leg dvt that is noted today, have started on lovenox bid therapy 01/05 no major events, no bleeding on anticoag, no night sweats 01/06 no bleeding or chills, fatigued, in semi-fowlers position Objective Objective Current Medications Medications (Trade) Dose Ordered Sig/Brayden Route PRN Reason Start Time Stop Time Status Last Admin Dose Admin Acetaminophen (Tylenol) 650 mg Q4H PRN ORAL FEVER 01/03/20 12:45 02/02/20 12:44 Albuterol/ Ipratropium (Albuterol/ Ipratropium) 3 ml EVERY 4 HOURS PRN HHN Shortness of Breath 01/03/20 12:45 01/08/20 12:44 Aspirin (Ecotrin) 81 mg DAILY ORAL 01/04/20 09:00 02/18/20 08:59 01/06/20 08:33 Atorvastatin Calcium (Lipitor) 10 mg BEDTIME ORAL 01/05/20 21:00 04/04/20 20:59 01/05/20 22:01 Azithromycin 250 mg/Dextrose 275 ml @ 275 mls/hr Q24HRS IV 01/03/20 14:30 01/08/20 14:29 01/06/20 15:21 Ceftriaxone Sodium 1 gm/ Dextrose 55 ml @ 110 mls/hr Q24H IVPB 01/03/20 15:00 01/10/20 14:59 01/06/20 16:36 Dextrose (Dextrose 50%) 25 ml Q30M PRN IV Hypoglycemia 01/03/20 12:45 04/02/20 12:44 Dextrose (Dextrose 50%) 50 ml Q30M PRN IV Hypoglycemia 01/03/20 12:45 04/02/20 12:44 Lorazepam (Ativan) 0.5 mg Q6H PRN ORAL For Anxiety 01/05/20 14:15 01/12/20 14:14 Memantine (Namenda) 5 mg BID ORAL 01/05/20 18:00 02/04/20 17:59 01/06/20 17:53 Metoprolol Tartrate (Lopressor) 25 mg Q12HR ORAL 01/04/20 21:00 04/03/20 20:59 01/06/20 08:33 Polyethylene Glycol (Miralax) 17 gm DAILYPRN PRN ORAL Constipation 01/03/20 12:45 02/02/20 12:44 Promethazine HCl/ Codeine (Phenergan with Codeine) 5 ml EVERY 6 HOURS PRN ORAL cough 01/03/20 12:45 02/02/20 12:44 Last 24 Hour Vital Signs Date Time Temp Pulse Resp B/P (MAP) Pulse Ox O2 Delivery O2 Flow Rate FiO2 01/07/20 11:59 68 18 98 01/07/20 11:40 98.4 75 13 127/75 100 Room Air 01/07/20 11:30 64 18 145/72 100 Nasal Cannula 3 01/07/20 11:25 64 16 144/68 100 Nasal Cannula 3 01/07/20 11:25 64 18 99 01/07/20 11:22 98.5 57 16 136/73 100 Nasal Cannula 3 01/07/20 09:00 Room Air 01/07/20 09:00 70 124/88 01/07/20 07:55 97.7 70 18 124/88 (100) 100 01/07/20 07:41 65 01/07/20 04:00 98.1 81 17 103/66 (78) 93 01/07/20 04:00 73 01/07/20 00:00 74 01/07/20 00:00 97.6 74 18 118/76 (90) 100 01/06/20 20:44 72 112/71 01/06/20 20:19 Room Air 01/06/20 20:00 77 01/06/20 20:00 97.9 72 18 112/71 (85) 100 01/06/20 15:27 97.5 75 18 114/72 (86) 98 01/06/20 15:16 75 01/06/20 12:00 97.7 70 20 119/67 (84) 99 01/06/20 12:00 71 01/06/20 09:00 Room Air 01/06/20 08:33 75 136/73 01/06/20 08:00 70 01/06/20 08:00 97.9 75 18 136/73 (94) 100 01/06/20 04:00 73 01/06/20 04:00 97.2 71 19 142/87 (105) 94 01/06/20 00:00 79 01/06/20 00:00 96.6 75 18 145/89 (107) 99 01/05/20 22:00 83 125/77 01/05/20 21:00 Room Air 01/05/20 20:00 98.1 83 18 125/77 (93) 97 01/05/20 20:00 87 01/05/20 16:00 86 01/05/20 16:00 97.9 91 20 105/63 (77) 98 Intake and Output 01/06/20 01/07/20 19:00 07:00 Intake Total 240 ml Output Total 750 ml 500 ml Balance -510 ml -500 ml Intake Oral 240 ml Output Urine Total 750 ml 500 ml Labs Test 01/05/20 08:05 01/05/20 13:55 01/06/20 05:50 01/07/20 05:45 White Blood Count 5.1 K/UL (4.8-10.8) 5.7 K/UL (4.8-10.8) 5.4 K/UL (4.8-10.8) Red Blood Count 3.70 M/UL (4.20-5.40) 3.65 M/UL (4.20-5.40) 3.74 M/UL (4.20-5.40) Hemoglobin 11.2 G/DL (12.0-16.0) 11.2 G/DL (12.0-16.0) 11.5 G/DL (12.0-16.0) Hematocrit 34.8 % (37.0-47.0) 34.9 % (37.0-47.0) 35.8 % (37.0-47.0) Mean Corpuscular Volume 94 FL (80-99) 96 FL (80-99) 96 FL (80-99) Mean Corpuscular Hemoglobin 30.2 PG (27.0-31.0) 30.6 PG (27.0-31.0) 30.8 PG (27.0-31.0) Mean Corpuscular Hemoglobin Concent 32.1 G/DL (32.0-36.0) 32.0 G/DL (32.0-36.0) 32.2 G/DL (32.0-36.0) Red Cell Distribution Width 13.0 % (11.6-14.8) 13.3 % (11.6-14.8) 13.3 % (11.6-14.8) Platelet Count 230 K/UL (150-450) 277 K/UL (150-450) 294 K/UL (150-450) Mean Platelet Volume 7.6 FL (6.5-10.1) 7.0 FL (6.5-10.1) 7.4 FL (6.5-10.1) Neutrophils (%) (Auto) 60.9 % (45.0-75.0) 59.6 % (45.0-75.0) 60.0 % (45.0-75.0) Lymphocytes (%) (Auto) 31.5 % (20.0-45.0) 34.2 % (20.0-45.0) 31.1 % (20.0-45.0) Monocytes (%) (Auto) 5.9 % (1.0-10.0) 5.1 % (1.0-10.0) 6.0 % (1.0-10.0) Eosinophils (%) (Auto) 1.1 % (0.0-3.0) 0.4 % (0.0-3.0) 2.2 % (0.0-3.0) Basophils (%) (Auto) 0.7 % (0.0-2.0) 0.7 % (0.0-2.0) 0.7 % (0.0-2.0) Sodium Level 141 MMOL/L (136-145) 140 MMOL/L (136-145) 140 MMOL/L (136-145) Potassium Level 4.1 MMOL/L (3.5-5.1) 4.2 MMOL/L (3.5-5.1) 4.1 MMOL/L (3.5-5.1) Chloride Level 110 MMOL/L (98-107) 109 MMOL/L (98-107) 107 MMOL/L (98-107) Carbon Dioxide Level 22 MMOL/L (21-32) 23 MMOL/L (21-32) 28 MMOL/L (21-32) Anion Gap 9 mmol/L (5-15) 8 mmol/L (5-15) 5 mmol/L (5-15) Blood Urea Nitrogen 13 mg/dL (7-18) 17 mg/dL (7-18) 15 mg/dL (7-18) Creatinine 0.7 MG/DL (0.55-1.30) 0.9 MG/DL (0.55-1.30) 0.9 MG/DL (0.55-1.30) Estimat Glomerular Filtration Rate > 60 mL/min (>60) > 60 mL/min (>60) > 60 mL/min (>60) Glucose Level 86 MG/DL (74-106) 81 MG/DL (74-106) 78 MG/DL (74-106) Calcium Level 10.0 MG/DL (8.5-10.1) 10.2 MG/DL (8.5-10.1) 10.0 MG/DL (8.5-10.1) Troponin I 0.074 ng/mL (0.000-0.056) Pro-B-Type Natriuretic Peptide 8776 pg/mL (0-125) Triglycerides Level 55 MG/DL (30-150) Cholesterol Level 147 MG/DL (< 200) LDL Cholesterol 96 mg/dL (<100) HDL Cholesterol 38 MG/DL (40-60) Cholesterol/HDL Ratio 3.9 (3.3-4.4) Thyroid Stimulating Hormone (TSH) 0.498 uiU/mL (0.358-3.740) Free Thyroxine 1.46 NG/DL (0.76-1.46) Prothrombin Time 11.6 SEC (9.30-11.50) 12.0 SEC (9.30-11.50) 11.6 SEC (9.30-11.50) Prothromb Time International Ratio 1.1 (0.9-1.1) 1.1 (0.9-1.1) 1.1 (0.9-1.1) Height (Feet): 5 Height (Inches): 4.00 Weight (Pounds): 108 Objective Physical Exam: Vitals: reviewed General: NAD HEENT: nc, at Neck: supple Chest: clear breath sounds bilaterally Cardiovascular: RRR, no s3, s4 Abdomen: soft, nontender, nd Extremities: no cce, normal range of motion Neuro: aphasic++ Raul Hutton MD Jan 07, 2020 12:14
--- NOTE | 2020-01-07 12:19 | General Progress Note ---
Assessment/Plan Problem List: (1) Peripheral edema ICD Codes: R60.9 - Edema, unspecified SNOMED: 048450023 (2) Severe protein-calorie malnutrition ICD Codes: E43 - Unspecified severe protein-calorie malnutrition SNOMED: 603540952, 007110280, 519065202 (3) Urinary tract infection ICD Codes: N39.0 - Urinary tract infection, site not specified SNOMED: 06980037 (4) Fever ICD Codes: R50.9 - Fever, unspecified SNOMED: 274775541 (5) Severe sepsis ICD Codes: A41.9 - Sepsis, unspecified organism; R65.20 - Severe sepsis without septic shock SNOMED: 35871368 (6) Alzheimer's dementia ICD Codes: G30.9 - Alzheimer's disease, unspecified SNOMED: 49731121 Status: stable, progressing Assessment/Plan: pt diet abx psyc tx cbc bmp am gi sx f/u Subjective Constitutional: Reports: weakness Allergies: Coded Allergies: No Known Allergies (Unverified , 02/11/17) All Systems: reviewed and negative except above Subjective sleepy calm Objective Last 24 Hour Vital Signs Date Time Temp Pulse Resp B/P (MAP) Pulse Ox O2 Delivery O2 Flow Rate FiO2 01/07/20 11:59 68 18 98 01/07/20 11:40 98.4 75 13 127/75 100 Room Air 01/07/20 11:30 64 18 145/72 100 Nasal Cannula 3 01/07/20 11:25 64 16 144/68 100 Nasal Cannula 3 01/07/20 11:25 64 18 99 01/07/20 11:22 98.5 57 16 136/73 100 Nasal Cannula 3 01/07/20 09:00 Room Air 01/07/20 09:00 70 124/88 01/07/20 07:55 97.7 70 18 124/88 (100) 100 01/07/20 07:41 65 01/07/20 04:00 98.1 81 17 103/66 (78) 93 01/07/20 04:00 73 01/07/20 00:00 74 01/07/20 00:00 97.6 74 18 118/76 (90) 100 01/06/20 20:44 72 112/71 01/06/20 20:19 Room Air 7/29/20 20:00 77 01/06/20 20:00 97.9 72 18 112/71 (85) 100 01/06/20 15:27 97.5 75 18 114/72 (86) 98 01/06/20 15:16 75 Intake and Output 01/06/20 01/07/20 19:00 07:00 Intake Total 240 ml Output Total 750 ml 500 ml Balance -510 ml -500 ml Intake Oral 240 ml Output Urine Total 750 ml 500 ml Laboratory Tests 01/07/20 05:45: White Blood Count 5.4, Red Blood Count 3.74L, Hemoglobin 11.5L, Hematocrit 35.8L , Mean Corpuscular Volume 96, Mean Corpuscular Hemoglobin 30.8, Mean Corpuscular Hemoglobin Concent 32.2, Red Cell Distribution Width 13.3, Platelet Count 294, Mean Platelet Volume 7.4, Neutrophils (%) (Auto) 60.0, Lymphocytes (% ) (Auto) 31.1, Monocytes (%) (Auto) 6.0, Eosinophils (%) (Auto) 2.2, Basophils ( %) (Auto) 0.7, Prothrombin Time 11.6H, Prothromb Time International Ratio 1.1, Sodium Level 140, Potassium Level 4.1, Chloride Level 107, Carbon Dioxide Level 28, Anion Gap 5, Blood Urea Nitrogen 15, Creatinine 0.9, Estimat Glomerular Filtration Rate > 60, Glucose Level 78, Calcium Level 10.0 Height (Feet): 5 Height (Inches): 4.00 Weight (Pounds): 108 General Appearance: lethargic EENT: normal ENT inspection Neck: normal alignment Cardiovascular: normal peripheral pulses, normal rate, regular rhythm Respiratory/Chest: chest wall non-tender, lungs clear, normal breath sounds Abdomen: normal bowel sounds, non tender, soft Extremities: normal inspection Edema: no edema noted Arm (L), no edema noted Arm (R), no edema noted Leg (L), no edema noted Leg (R), no edema noted Pedal (L), no edema noted Pedal (R), no edema noted Generalized Neurologic: motor weakness Skin: normal pigmentation, warm/dry Porter Davila DO Jan 07, 2020 12:18
--- NOTE | 2020-01-07 13:15 | Progress Note ---
DATE: 01/07/2020 SUBJECTIVE: This is an 85-year-old female with acute febrile illness. She also has a history of sepsis causing her to have decline in cognition below her baseline and altered mental status. That is why her attending has requested daily psychiatric consultation. The patient also has DVT, protein-calorie malnutrition, peripheral edema, urinary tract infection, and fever. MENTAL STATUS EXAMINATION: This is an 85-year-old female. Appearance is disheveled. Attitude, irritable and agitated. Affect, guarded and restricted. Intellect, poor. Mood, depressed and anxious. Motor activity, psychomotor agitation. Attention span is poor. Orientation x2. Speech is low volume, slurred. Thought process, disorganized and illogical. Insight and judgment is poor. DIAGNOSIS: Major depressive disorder, severe, recurrent with psychotic features, rule out dementia with psychosis. PLAN: Treat her with Namenda 5 mg twice a day and Ativan 0.5 mg every 6 hours p.r.n. anxiety or agitation. Twenty minutes of reality-based supportive psychotherapy provided. Chart reviewed. Discussed with staff. The patient seen and assessed at bedside. Shaun Corona M.D. DR: MAGGIE JOB#: [id number] CC:
[2020-01-07] MEDS: Azithromycin 250 MG in D5W 275 ML IV SCH (14:05)
--- NOTE | 2020-01-07 14:15 | Procedure Note ---
DATE OF PROCEDURE: 01/07/2020 SURGEON: David Ewing MD. PROCEDURE: Upper endoscopy with PEG placement. ANESTHESIA: Per Dr. Osuna. INSTRUMENT: Olympus adult flexible upper endoscope. INDICATION: Dysphagia and failure to thrive. REASON FOR PROCEDURE: The procedure, risks, benefits, and possible consequences, including hemorrhage, aspiration, perforation and infection, and alternative treatments, were explained to the patient/legal guardian by Dr. David Ewing and the patient/legal guardian understood and accepted these risks. PROCEDURE IN DETAIL: After informed consent was obtained and the patient was adequately sedated, Olympus upper endoscope was advanced from mouth into the second portion of the duodenum and retroflexion was performed in the stomach. Then, under endoscopic guidance and under sterile condition, a 20-Turkish pull type of G-tube was successfully placed in the epigastric area. The distance from the tip of the tube to skin was about 2.5 cm in size. The patient tolerated the procedure well without any complication. SUMMARY OF FINDINGS: Status post successful PEG placement. RECOMMENDATIONS: 1. Abdominal binder. 2. Elevate head of the bed at all times. 3. G-tube flush. 4. G-tube care. 5. Start tube feeding later today. David Ewing M.D. DR: ISAC JOB#: [id number] CC:
--- NOTE | 2020-01-07 14:23 | Infectious Diseases Prog Note ---
Assessment/Plan Assessment: Probable PNA- COVID19 neg x2 -01/05 CXR: Question a patchy left basilar infiltrate, could indicate pneumonia if real. Previously demonstrated peripheral right upper lung opacity is no longer evident -01/03 rapid COVID pCR neg -01/02 CXR: Mild interstitial thickening. Mild streaky opacities right lung and left lower lung. Maybe pneumonitis. rapid COVID PCR neg -12/13 COVID testing at [place] neg UTI -u./a wbc 15-20, nit neg, leuk +2; ucx >100k Aerococcus urinae (S Ceftriaxone , Vanco, PNC) Recent Fever ([employer], here Tm 99.8) No leukocytosis cachexia/malnutrition CHF DVT LE edema CAD CKD Alzheimer's Dementia detention resident (Francine carrion) VRE colonized Plan: -Continue empiric Ceftriaxone and Azithromycin #5/5 for PNA and UTI -01/05 SP ZYvox #2 -01/02 SP Cefepime x1, FLagyl x1 -f/u cx -Monitor CBC/CMP, temperatures -COVID19 neg x2; ok to dc iso -aspiration precautions Thank you for this consultation. Will continue to follow along with you. Discussed with RN. Subjective Allergies: Coded Allergies: No Known Allergies (Unverified , 02/11/17) afebrile at RA no leukocytosis Bcx NTD Objective Last 24 Hour Vital Signs Date Time Temp Pulse Resp B/P (MAP) Pulse Ox O2 Delivery O2 Flow Rate FiO2 01/07/20 12:13 73 01/07/20 12:00 97.7 65 18 140/88 (105) 98 01/07/20 11:59 68 18 98 01/07/20 11:40 98.4 75 13 127/75 100 Room Air 01/07/20 11:30 64 18 145/72 100 Nasal Cannula 3 01/07/20 11:25 64 16 144/68 100 Nasal Cannula 3 01/07/20 11:25 64 18 99 01/07/20 11:22 98.5 57 16 136/73 100 Nasal Cannula 3 01/07/20 09:00 Room Air 01/07/20 09:00 70 124/88 01/07/20 07:55 97.7 70 18 124/88 (100) 100 01/07/20 07:41 65 01/07/20 04:00 98.1 81 17 103/66 (78) 93 01/07/20 04:00 73 01/07/20 00:00 74 01/07/20 00:00 97.6 74 18 118/76 (90) 100 01/06/20 20:44 72 112/71 01/06/20 20:19 Room Air 01/06/20 20:00 77 01/06/20 20:00 97.9 72 18 112/71 (85) 100 01/06/20 15:27 97.5 75 18 114/72 (86) 98 01/06/20 15:16 75 Height (Feet): 5 Height (Inches): 4.00 Weight (Pounds): 108 CARDIOVASCULAR: No murmur. LUNGS: Distant and clear ABDOMEN: Bowel sounds positive. Nontender. Nondistended. EXTREMITIES: No cyanosis, clubbing, or edema. Microbiology Date/Time Source Procedure Growth Status 01/04/20 14:53 Nasopharynx SARS-CoV-2 RdRp Gene Assay - Final Complete Laboratory Tests Test 01/07/20 05:45 White Blood Count 5.4 K/UL (4.8-10.8) Red Blood Count 3.74 M/UL (4.20-5.40) L Hemoglobin 11.5 G/DL (12.0-16.0) L Hematocrit 35.8 % (37.0-47.0) L Mean Corpuscular Volume 96 FL (80-99) Mean Corpuscular Hemoglobin 30.8 PG (27.0-31.0) Mean Corpuscular Hemoglobin Concent 32.2 G/DL (32.0-36.0) Red Cell Distribution Width 13.3 % (11.6-14.8) Platelet Count 294 K/UL (150-450) Mean Platelet Volume 7.4 FL (6.5-10.1) Neutrophils (%) (Auto) 60.0 % (45.0-75.0) Lymphocytes (%) (Auto) 31.1 % (20.0-45.0) Monocytes (%) (Auto) 6.0 % (1.0-10.0) Eosinophils (%) (Auto) 2.2 % (0.0-3.0) Basophils (%) (Auto) 0.7 % (0.0-2.0) Prothrombin Time 11.6 SEC (9.30-11.50) H Prothromb Time International Ratio 1.1 (0.9-1.1) Sodium Level 140 MMOL/L (136-145) Potassium Level 4.1 MMOL/L (3.5-5.1) Chloride Level 107 MMOL/L (98-107) Carbon Dioxide Level 28 MMOL/L (21-32) Anion Gap 5 mmol/L (5-15) Blood Urea Nitrogen 15 mg/dL (7-18) Creatinine 0.9 MG/DL (0.55-1.30) Estimat Glomerular Filtration Rate > 60 mL/min (>60) Glucose Level 78 MG/DL (74-106) Calcium Level 10.0 MG/DL (8.5-10.1) Current Medications Medications (Trade) Dose Ordered Sig/Brayden Route PRN Reason Start Time Stop Time Status Last Admin Dose Admin Acetaminophen (Tylenol) 650 mg Q4H PRN ORAL FEVER 01/03/20 12:45 02/02/20 12:44 Albuterol/ Ipratropium (Albuterol/ Ipratropium) 3 ml EVERY 4 HOURS PRN HHN Shortness of Breath 01/03/20 12:45 01/08/20 12:44 Aspirin (Ecotrin) 81 mg DAILY ORAL 01/04/20 09:00 02/18/20 08:59 01/06/20 08:33 Atorvastatin Calcium (Lipitor) 10 mg BEDTIME ORAL 01/05/20 21:00 04/04/20 20:59 01/05/20 22:01 Azithromycin 250 mg/Dextrose 275 ml @ 275 mls/hr Q24HRS IV 01/03/20 14:30 01/08/20 14:29 01/07/20 14:05 Ceftriaxone Sodium 1 gm/ Dextrose 55 ml @ 110 mls/hr Q24H IVPB 01/03/20 15:00 01/10/20 14:59 01/06/20 16:36 Dextrose (Dextrose 50%) 25 ml Q30M PRN IV Hypoglycemia 01/03/20 12:45 04/02/20 12:44 Dextrose (Dextrose 50%) 50 ml Q30M PRN IV Hypoglycemia 01/03/20 12:45 04/02/20 12:44 Lorazepam (Ativan) 0.5 mg Q6H PRN ORAL For Anxiety 01/05/20 14:15 01/12/20 14:14 Memantine (Namenda) 5 mg BID ORAL 01/05/20 18:00 02/04/20 17:59 01/06/20 17:53 Metoprolol Tartrate (Lopressor) 25 mg Q12HR ORAL 01/04/20 21:00 04/03/20 20:59 01/06/20 08:33 Polyethylene Glycol (Miralax) 17 gm DAILYPRN PRN ORAL Constipation 01/03/20 12:45 02/02/20 12:44 Promethazine HCl/ Codeine (Phenergan with Codeine) 5 ml EVERY 6 HOURS PRN ORAL cough 01/03/20 12:45 02/02/20 12:44 Rubia March M.D. Jan 07, 2020 14:23
[2020-01-07] MEDS: cefTRIAXone 1 GM in D5W 55 ML IVPB SCH (15:08)
--- NOTE | 2020-01-07 15:45 | Consultation ---
DATE OF CONSULTATION: 01/06/2020 PSYCHOTHERAPY CONSULTATION PROGRESS NOTE CONSULTING PHYSICIAN: Sasha Walsh PsyD. ATTENDING PHYSICIAN: Porter Davila DO. HISTORY OF PRESENT ILLNESS: This is an 85-year-old female patient who was brought in to the hospital for acute febrile illness. Staff states the patient has been disorganized, confused, and , and for these reasons psychotherapy services. Today, I assessed this patient. The patient has been disorganized as well as hopeless. She does not know why she was brought in to the hospital. She does not know where she was living prior to this hospitalization. She does not recall . She is cooperative. She is able to follow when spoken to, however, she is unable to provide any significant she is irritable ____ hospital. She remains confused and hopeless. There is no indication of suicidal or homicidal thoughts or ideation. There is no indication of auditory or visual hallucinations. PAST MEDICAL HISTORY: Includes a history of malnutrition, edema, UTI, ____. ALLERGIES: The patient has no known drug allergies. SUBSTANCE ABUSE HISTORY: There is no indication of alcohol use, substance use or smoking cigarettes. PSYCHIATRIC HISTORY: The patient has a possible history of mental illness. At this time, however, there is no significant information regarding her significant past psychiatric history and the patient at this time is a poor historian and unable to provide any information. SOCIAL HISTORY: The patient is an 85-year-old female patient from [facility]. Financially supported by [facility]. MENTAL STATUS EXAMINATION: Alert and oriented to person. Mood is dysphoric. Affect is blunted. Thought process is disorganized. She has poor attention and concentration. confused supportive psychotherapy the patient is a very poor historian and is confused. the patient's altered mental status medication compliance . DIAGNOSIS: Rule out major depressive disorder, moderate, single episode without psychotic features. Psychosocial stressors are moderate. This clinician has reviewed the patient's chart. extensive review of records . Sasha Walsh PsyD. DR: SANTHOSH JOB#: [id number] CC:
[2020-01-07] MEDS ORDERED: Warfarin Sodium 5mg ORAL SCH (17:00)
[2020-01-07] MEDS ORDERED: Enoxaparin Sodium 300mg/3ml vial SUBQ SCH (21:00)
[2020-01-07] MEDS: Enoxaparin 60mg Inj SUBQ SCH (21:54)
[2020-01-08] VITALS (7 sets, daily range): BP systolic 124–149; BP diastolic 59–99
[2020-01-08 06:39] LABS: BASOPHILS % (AUTO) 0.4 % (0.0-2.0); HEMATOCRIT 37.7 % (37.0-47.0); LYMPHOCYTES % (AUTO) 16.8 % (20.0-45.0); MEAN CORPUSCULAR VOLUME 95 FL (80-99); MONOCYTES % (AUTO) 3.3 % (1.0-10.0); NEUTROPHILS % (AUTO) 77.6 % (45.0-75.0); PLATELET COUNT 340 K/UL (150-450); RED BLOOD COUNT 3.96 M/UL (4.20-5.40); RED CELL DISTRIBUTION WIDTH 13.3 % (11.6-14.8); WHITE BLOOD COUNT 7.2 K/UL (4.8-10.8)
[2020-01-08 06:45] LABS: INR 1.2 (0.9-1.1)
[2020-01-08 07:27] LABS: ANION GAP 9 mmol/L (5-15); BLOOD UREA NITROGEN 11 mg/dL (7-18); CALCIUM 10.1 MG/DL (8.5-10.1); CARBON DIOXIDE 24 MMOL/L (21-32); CHLORIDE 106 MMOL/L (98-107); CREATININE 0.8 MG/DL (0.55-1.30); SODIUM 139 MMOL/L (136-145)
[2020-01-08] MEDS: Aspirin EC 81mg tab ORAL SCH (08:30)
[2020-01-08] MEDS: Memantine 5 MG TAB ORAL SCH ×2 (08:30→17:09)
[2020-01-08] MEDS: Enoxaparin 60mg Inj SUBQ SCH ×2 (08:31→20:51)
--- NOTE | 2020-01-08 09:03 | Cardiac Electrophysiology PN ---
Assessment/Plan Assessment/Plan 1. Troponin elevation. 0.3 to 0.07. Does not have renal failure and BUN and creatinine are within normal range. No CP. Echo Nl EF. Continue aspirin, Lopressor 25 bid and Lipitor 10 2. Moderate MS and . 3. SVT, on Lopressor 25 bid 4. History of coronary artery disease. 4. Fever and pneumonia. On Abx and Decadron. COVID test is negative. 5. Dysphagia, S/P PEG 01/07/20 6. Acute R leg DVT and chronic Left leg DVT. On Lovenox and Coumadin per Dr. Buckner 7. Dementia. REJI RN Subjective Subjective Echo showed EF 55% and moderate and MS. Has acute DVT of Right leg. Had PEG placement yesterday around noon and then at 7 PM developed nonsustained SVT at rate 150s. Objective Last 24 Hour Vital Signs Date Time Temp Pulse Resp B/P (MAP) Pulse Ox O2 Delivery O2 Flow Rate FiO2 01/08/20 08:30 88 140/91 01/08/20 07:52 96.7 88 19 140/91 (107) 99 01/08/20 04:00 97.9 60 17 147/87 (107) 96 01/08/20 03:35 81 01/08/20 00:00 70 01/08/20 00:00 98.8 91 19 149/99 (116) 100 01/07/20 21:52 91 163/92 01/07/20 21:00 Room Air 01/07/20 20:00 99.8 91 19 166/93 (117) 100 01/07/20 16:00 96.8 78 20 141/82 (101) 100 01/07/20 15:34 69 01/07/20 12:13 73 01/07/20 12:00 Room Air 01/07/20 12:00 97.7 65 18 140/88 (105) 98 01/07/20 11:59 68 18 98 01/07/20 11:40 98.4 75 13 127/75 100 Room Air 01/07/20 11:30 64 18 145/72 100 Nasal Cannula 3 01/07/20 11:25 64 16 144/68 100 Nasal Cannula 3 01/07/20 11:25 64 18 99 01/07/20 11:22 98.5 57 16 136/73 100 Nasal Cannula 3 01/07/20 09:00 Room Air 01/07/20 09:00 70 124/88 Intake and Output 01/07/20 01/08/20 19:00 07:00 Intake Total 300 ml 110 ml Output Total 500 ml Balance -200 ml 110 ml Free Water 40 ml IV Total 285 ml Tube Feeding 15 ml 70 ml Output Urine Total 500 ml Laboratory Tests Test 01/08/20 05:10 White Blood Count 7.2 K/UL (4.8-10.8) Red Blood Count 3.96 M/UL (4.20-5.40) L Hemoglobin 12.0 G/DL (12.0-16.0) Hematocrit 37.7 % (37.0-47.0) Mean Corpuscular Volume 95 FL (80-99) Mean Corpuscular Hemoglobin 30.2 PG (27.0-31.0) Mean Corpuscular Hemoglobin Concent 31.7 G/DL (32.0-36.0) L Red Cell Distribution Width 13.3 % (11.6-14.8) Platelet Count 340 K/UL (150-450) Mean Platelet Volume 7.1 FL (6.5-10.1) Neutrophils (%) (Auto) 77.6 % (45.0-75.0) H Lymphocytes (%) (Auto) 16.8 % (20.0-45.0) L Monocytes (%) (Auto) 3.3 % (1.0-10.0) Eosinophils (%) (Auto) 2.0 % (0.0-3.0) Basophils (%) (Auto) 0.4 % (0.0-2.0) Prothrombin Time 13.4 SEC (9.30-11.50) H Prothromb Time International Ratio 1.2 (0.9-1.1) H Sodium Level 139 MMOL/L (136-145) Potassium Level 4.0 MMOL/L (3.5-5.1) Chloride Level 106 MMOL/L (98-107) Carbon Dioxide Level 24 MMOL/L (21-32) Anion Gap 9 mmol/L (5-15) Blood Urea Nitrogen 11 mg/dL (7-18) Creatinine 0.8 MG/DL (0.55-1.30) Estimat Glomerular Filtration Rate > 60 mL/min (>60) Glucose Level 100 MG/DL (74-106) Calcium Level 10.1 MG/DL (8.5-10.1) Objective NECK: No JVD. LUNGS: Clear. CARDIOVASCULAR: Regular S1 and S2 with no gallop. ABDOMEN: Soft.PEG in place EXTREMITIES: No pitting edema. Jaquan Weller MD Jan 08, 2020 09:03
--- NOTE | 2020-01-08 09:14 | Hematology/Onc Progress Note ---
Assessment/Plan Assessment/Plan Assessment and Recs # Dvt that is chronic, in the past was on coumadin with a inr btw 2-3 --> currently aphasic, therefore order duplex to see if any acute process --> recomnfirmed and does have acute divt right leg --> lovenox started --> coumadin started, inr goal 2-3 # Anemia of chronic disease --> hold off current workup --> hgb 11.5 # Severe sepsis --> on imaging, cxr mild streaking opacivty left lower and right lung --> r/o chf --> on abx ceftriaxone # Alzheimer's dementia --> appears chronic # Fever --> abx started # Pneumonitis # Urinary tract infection # Tachycardia due to sepsis # Dysphagia s/p peg # Dvt ppx lovenox/coumadin The timing of this note does not necessarily reflect the time of the patient was seen. Greatly appreciate consultation. Subjective Constitutional: Denies: no symptoms, chills, fever, malaise, weakness, other HEENT: Denies: no symptoms, eye pain, blurred vision, tearing, double vision, ear pain, ear discharge, nose pain, nose congestion, throat pain, throat swelling, mouth pain, mouth swelling, other Cardiovascular: Denies: no symptoms, chest pain, edema, irregular heart rate, lightheadedness, palpitations, syncope, other Gastrointestinal/Abdominal: Denies: no symptoms, abdomen distended, abdominal pain, black stools, tarry stools, blood in stool, constipated, diarrhea, difficulty swallowing, nausea, poor appetite, poor fluid intake, rectal bleeding , vomiting, other Neurologic/Psychiatric: Denies: no symptoms, anxiety, depressed, emotional problems, headache, numbness, paresthesia, pre-existing deficit, seizure, tingling, tremors, weakness, other Endocrine: Denies: no symptoms, excessive sweating, flushing, intolerance to cold, intolerance to heat, increased hunger, increased thirst, increased urine, unexplained weight gain, unexplained weight loss, other Hematologic/Lymphatic: Denies: no symptoms, anemia, easy bleeding, easy bruising, adenopathy, other Allergies: Coded Allergies: No Known Allergies (Unverified , 02/11/17) Subjective 01/04 right leg dvt that is noted today, have started on lovenox bid therapy 01/05 no major events, no bleeding on anticoag, no night sweats 01/06 no bleeding or chills, fatigued, in semi-fowlers position 01/07 labs have been noted, no bleeding, dw rn, s/p peg tube Objective Objective Current Medications Medications (Trade) Dose Ordered Sig/Brayden Route PRN Reason Start Time Stop Time Status Last Admin Dose Admin Acetaminophen (Tylenol) 650 mg Q4H PRN ORAL FEVER 01/03/20 12:45 02/02/20 12:44 Albuterol/ Ipratropium (Albuterol/ Ipratropium) 3 ml EVERY 4 HOURS PRN HHN Shortness of Breath 01/03/20 12:45 01/08/20 12:44 Aspirin (Ecotrin) 81 mg DAILY ORAL 01/04/20 09:00 02/18/20 08:59 01/08/20 08:30 Atorvastatin Calcium (Lipitor) 10 mg BEDTIME ORAL 01/05/20 21:00 04/04/20 20:59 01/07/20 21:52 Ceftriaxone Sodium 1 gm/ Dextrose 55 ml @ 110 mls/hr Q24H IVPB 01/03/20 15:00 01/10/20 14:59 01/07/20 15:08 Dextrose (Dextrose 50%) 25 ml Q30M PRN IV Hypoglycemia 01/03/20 12:45 04/02/20 12:44 Dextrose (Dextrose 50%) 50 ml Q30M PRN IV Hypoglycemia 01/03/20 12:45 04/02/20 12:44 Enoxaparin Sodium (Lovenox) 50 mg EVERY 12 HOURS SUBQ 01/07/20 21:00 04/06/20 20:59 01/08/20 08:31 Lorazepam (Ativan) 0.5 mg Q6H PRN ORAL For Anxiety 01/05/20 14:15 01/12/20 14:14 Memantine (Namenda) 5 mg BID ORAL 01/05/20 18:00 02/04/20 17:59 01/08/20 08:30 Metoprolol Tartrate (Lopressor) 25 mg Q12HR ORAL 01/04/20 21:00 04/03/20 20:59 01/08/20 08:30 Polyethylene Glycol (Miralax) 17 gm DAILYPRN PRN ORAL Constipation 01/03/20 12:45 02/02/20 12:44 Promethazine HCl/ Codeine (Phenergan with Codeine) 5 ml EVERY 6 HOURS PRN ORAL cough 01/03/20 12:45 02/02/20 12:44 Last 24 Hour Vital Signs Date Time Temp Pulse Resp B/P (MAP) Pulse Ox O2 Delivery O2 Flow Rate FiO2 01/08/20 08:30 88 140/91 01/08/20 07:52 96.7 88 19 140/91 (107) 99 01/08/20 04:00 97.9 60 17 147/87 (107) 96 01/08/20 03:35 81 01/08/20 00:00 70 01/08/20 00:00 98.8 91 19 149/99 (116) 100 01/07/20 21:52 91 163/92 01/07/20 21:00 Room Air 01/07/20 20:00 99.8 91 19 166/93 (117) 100 01/07/20 16:00 96.8 78 20 141/82 (101) 100 01/07/20 15:34 69 01/07/20 12:13 73 01/07/20 12:00 Room Air 01/07/20 12:00 97.7 65 18 140/88 (105) 98 01/07/20 11:59 68 18 98 01/07/20 11:40 98.4 75 13 127/75 100 Room Air 01/07/20 11:30 64 18 145/72 100 Nasal Cannula 3 01/07/20 11:25 64 16 144/68 100 Nasal Cannula 3 01/07/20 11:25 64 18 99 01/07/20 11:22 98.5 57 16 136/73 100 Nasal Cannula 3 01/07/20 09:00 Room Air 01/07/20 09:00 70 124/88 01/07/20 07:55 97.7 70 18 124/88 (100) 100 01/07/20 07:41 65 01/07/20 04:00 98.1 81 17 103/66 (78) 93 01/07/20 04:00 73 01/07/20 00:00 74 01/07/20 00:00 97.6 74 18 118/76 (90) 100 01/06/20 20:44 72 112/71 01/06/20 20:19 Room Air 01/06/20 20:00 77 01/06/20 20:00 97.9 72 18 112/71 (85) 100 01/06/20 15:27 97.5 75 18 114/72 (86) 98 01/06/20 15:16 75 01/06/20 12:00 97.7 70 20 119/67 (84) 99 01/06/20 12:00 71 Intake and Output 01/07/20 01/08/20 19:00 07:00 Intake Total 300 ml 110 ml Output Total 500 ml Balance -200 ml 110 ml Free Water 40 ml IV Total 285 ml Tube Feeding 15 ml 70 ml Output Urine Total 500 ml Labs Test 01/05/20 13:55 01/06/20 05:50 01/07/20 05:45 01/08/20 05:10 Prothrombin Time 11.6 SEC (9.30-11.50) 12.0 SEC (9.30-11.50) 11.6 SEC (9.30-11.50) 13.4 SEC (9.30-11.50) Prothromb Time International Ratio 1.1 (0.9-1.1) 1.1 (0.9-1.1) 1.1 (0.9-1.1) 1.2 (0.9-1.1) White Blood Count 5.7 K/UL (4.8-10.8) 5.4 K/UL (4.8-10.8) 7.2 K/UL (4.8-10.8) Red Blood Count 3.65 M/UL (4.20-5.40) 3.74 M/UL (4.20-5.40) 3.96 M/UL (4.20-5.40) Hemoglobin 11.2 G/DL (12.0-16.0) 11.5 G/DL (12.0-16.0) 12.0 G/DL (12.0-16.0) Hematocrit 34.9 % (37.0-47.0) 35.8 % (37.0-47.0) 37.7 % (37.0-47.0) Mean Corpuscular Volume 96 FL (80-99) 96 FL (80-99) 95 FL (80-99) Mean Corpuscular Hemoglobin 30.6 PG (27.0-31.0) 30.8 PG (27.0-31.0) 30.2 PG (27.0-31.0) Mean Corpuscular Hemoglobin Concent 32.0 G/DL (32.0-36.0) 32.2 G/DL (32.0-36.0) 31.7 G/DL (32.0-36.0) Red Cell Distribution Width 13.3 % (11.6-14.8) 13.3 % (11.6-14.8) 13.3 % (11.6-14.8) Platelet Count 277 K/UL (150-450) 294 K/UL (150-450) 340 K/UL (150-450) Mean Platelet Volume 7.0 FL (6.5-10.1) 7.4 FL (6.5-10.1) 7.1 FL (6.5-10.1) Neutrophils (%) (Auto) 59.6 % (45.0-75.0) 60.0 % (45.0-75.0) 77.6 % (45.0-75.0) Lymphocytes (%) (Auto) 34.2 % (20.0-45.0) 31.1 % (20.0-45.0) 16.8 % (20.0-45.0) Monocytes (%) (Auto) 5.1 % (1.0-10.0) 6.0 % (1.0-10.0) 3.3 % (1.0-10.0) Eosinophils (%) (Auto) 0.4 % (0.0-3.0) 2.2 % (0.0-3.0) 2.0 % (0.0-3.0) Basophils (%) (Auto) 0.7 % (0.0-2.0) 0.7 % (0.0-2.0) 0.4 % (0.0-2.0) Sodium Level 140 MMOL/L (136-145) 140 MMOL/L (136-145) 139 MMOL/L (136-145) Potassium Level 4.2 MMOL/L (3.5-5.1) 4.1 MMOL/L (3.5-5.1) 4.0 MMOL/L (3.5-5.1) Chloride Level 109 MMOL/L (98-107) 107 MMOL/L (98-107) 106 MMOL/L (98-107) Carbon Dioxide Level 23 MMOL/L (21-32) 28 MMOL/L (21-32) 24 MMOL/L (21-32) Anion Gap 8 mmol/L (5-15) 5 mmol/L (5-15) 9 mmol/L (5-15) Blood Urea Nitrogen 17 mg/dL (7-18) 15 mg/dL (7-18) 11 mg/dL (7-18) Creatinine 0.9 MG/DL (0.55-1.30) 0.9 MG/DL (0.55-1.30) 0.8 MG/DL (0.55-1.30) Estimat Glomerular Filtration Rate > 60 mL/min (>60) > 60 mL/min (>60) > 60 mL/min (>60) Glucose Level 81 MG/DL (74-106) 78 MG/DL (74-106) 100 MG/DL (74-106) Calcium Level 10.2 MG/DL (8.5-10.1) 10.0 MG/DL (8.5-10.1) 10.1 MG/DL (8.5-10.1) Height (Feet): 5 Height (Inches): 4.00 Weight (Pounds): 108 Objective Physical Exam: Vitals: reviewed General: NAD HEENT: nc, at Neck: supple Chest: clear breath sounds bilaterally Cardiovascular: RRR, no s3, s4 Abdomen: soft, nontender, nd +peg Extremities: no cce, normal range of motion Neuro: aphasic++ Raul Hutton MD Jan 08, 2020 09:13
--- NOTE | 2020-01-08 09:15 | General Progress Note ---
Assessment/Plan Problem List: (1) Peripheral edema ICD Codes: R60.9 - Edema, unspecified SNOMED: 636126112 (2) Severe protein-calorie malnutrition ICD Codes: E43 - Unspecified severe protein-calorie malnutrition SNOMED: 355380608, 615684905, 934719860 (3) Urinary tract infection ICD Codes: N39.0 - Urinary tract infection, site not specified SNOMED: 48594925 (4) Fever ICD Codes: R50.9 - Fever, unspecified SNOMED: 750480142 (5) Severe sepsis ICD Codes: A41.9 - Sepsis, unspecified organism; R65.20 - Severe sepsis without septic shock SNOMED: 79159296 (6) Alzheimer's dementia ICD Codes: G30.9 - Alzheimer's disease, unspecified SNOMED: 72373282 Status: stable, progressing Assessment/Plan: pt diet abx psyc tx dc if clear Subjective Constitutional: Reports: weakness Allergies: Coded Allergies: No Known Allergies (Unverified , 02/11/17) All Systems: reviewed and negative except above Subjective sleepy calm Objective Last 24 Hour Vital Signs Date Time Temp Pulse Resp B/P (MAP) Pulse Ox O2 Delivery O2 Flow Rate FiO2 01/08/20 08:30 88 140/91 01/08/20 07:52 96.7 88 19 140/91 (107) 99 01/08/20 04:00 97.9 60 17 147/87 (107) 96 01/08/20 03:35 81 01/08/20 00:00 70 01/08/20 00:00 98.8 91 19 149/99 (116) 100 01/07/20 21:52 91 163/92 01/07/20 21:00 Room Air 01/07/20 20:00 99.8 91 19 166/93 (117) 100 01/07/20 16:00 96.8 78 20 141/82 (101) 100 01/07/20 15:34 69 01/07/20 12:13 73 01/07/20 12:00 Room Air 01/07/20 12:00 97.7 65 18 140/88 (105) 98 01/07/20 11:59 68 18 98 01/07/20 11:40 98.4 75 13 127/75 100 Room Air 01/07/20 11:30 64 18 145/72 100 Nasal Cannula 3 01/07/20 11:25 64 16 144/68 100 Nasal Cannula 3 01/07/20 11:25 64 18 99 01/07/20 11:22 98.5 57 16 136/73 100 Nasal Cannula 3 Intake and Output 01/07/20 01/08/20 19:00 07:00 Intake Total 300 ml 110 ml Output Total 500 ml Balance -200 ml 110 ml Free Water 40 ml IV Total 285 ml Tube Feeding 15 ml 70 ml Output Urine Total 500 ml Laboratory Tests 01/08/20 05:10: White Blood Count 7.2, Red Blood Count 3.96L, Hemoglobin 12.0, Hematocrit 37.7, Mean Corpuscular Volume 95, Mean Corpuscular Hemoglobin 30.2, Mean Corpuscular Hemoglobin Concent 31.7L, Red Cell Distribution Width 13.3, Platelet Count 340, Mean Platelet Volume 7.1, Neutrophils (%) (Auto) 77.6H, Lymphocytes (%) (Auto) 16.8L, Monocytes (%) (Auto) 3.3, Eosinophils (%) (Auto) 2.0, Basophils (%) (Auto ) 0.4, Prothrombin Time 13.4H, Prothromb Time International Ratio 1.2H, Sodium Level 139, Potassium Level 4.0, Chloride Level 106, Carbon Dioxide Level 24, Anion Gap 9, Blood Urea Nitrogen 11, Creatinine 0.8, Estimat Glomerular Filtration Rate > 60, Glucose Level 100, Calcium Level 10.1 Height (Feet): 5 Height (Inches): 4.00 Weight (Pounds): 108 General Appearance: lethargic EENT: normal ENT inspection Neck: normal alignment Cardiovascular: normal peripheral pulses, normal rate, regular rhythm Respiratory/Chest: chest wall non-tender, lungs clear, normal breath sounds Abdomen: normal bowel sounds, non tender, soft Extremities: normal inspection Edema: no edema noted Arm (L), no edema noted Arm (R), no edema noted Leg (L), no edema noted Leg (R), no edema noted Pedal (L), no edema noted Pedal (R), no edema noted Generalized Neurologic: motor weakness Skin: normal pigmentation, warm/dry Porter Davila DO Jan 08, 2020 09:15
--- NOTE | 2020-01-08 10:04 | Surgery Progress Note ---
Surgery Progress Note Subjective Additional Comments afebrile, HD stable labs okay micro noted exam stable comfortable no complaints Objective Last 24 Hour Vital Signs Date Time Temp Pulse Resp B/P (MAP) Pulse Ox O2 Delivery O2 Flow Rate FiO2 01/08/20 08:30 88 140/91 01/08/20 07:52 96.7 88 19 140/91 (107) 99 01/08/20 07:39 103 01/08/20 04:00 97.9 60 17 147/87 (107) 96 01/08/20 03:35 81 01/08/20 00:00 70 01/08/20 00:00 98.8 91 19 149/99 (116) 100 01/07/20 21:52 91 163/92 01/07/20 21:00 Room Air 01/07/20 20:00 99.8 91 19 166/93 (117) 100 01/07/20 16:00 96.8 78 20 141/82 (101) 100 01/07/20 15:34 69 01/07/20 12:13 73 01/07/20 12:00 Room Air 01/07/20 12:00 97.7 65 18 140/88 (105) 98 01/07/20 11:59 68 18 98 01/07/20 11:40 98.4 75 13 127/75 100 Room Air 01/07/20 11:30 64 18 145/72 100 Nasal Cannula 3 01/07/20 11:25 64 16 144/68 100 Nasal Cannula 3 01/07/20 11:25 64 18 99 01/07/20 11:22 98.5 57 16 136/73 100 Nasal Cannula 3 I&O Intake and Output 01/07/20 01/08/20 19:00 07:00 Intake Total 300 ml 110 ml Output Total 500 ml Balance -200 ml 110 ml Free Water 40 ml IV Total 285 ml Tube Feeding 15 ml 70 ml Output Urine Total 500 ml Dressing: dry Wound: clean Cardiovascular: RSR Respiratory: clear Abdomen: soft, non-tender, present bowel sounds Extremities: no edema, no tenderness, no cyanosis Laboratory Tests Test 01/08/20 05:10 White Blood Count 7.2 K/UL (4.8-10.8) Red Blood Count 3.96 M/UL (4.20-5.40) L Hemoglobin 12.0 G/DL (12.0-16.0) Hematocrit 37.7 % (37.0-47.0) Mean Corpuscular Volume 95 FL (80-99) Mean Corpuscular Hemoglobin 30.2 PG (27.0-31.0) Mean Corpuscular Hemoglobin Concent 31.7 G/DL (32.0-36.0) L Red Cell Distribution Width 13.3 % (11.6-14.8) Platelet Count 340 K/UL (150-450) Mean Platelet Volume 7.1 FL (6.5-10.1) Neutrophils (%) (Auto) 77.6 % (45.0-75.0) H Lymphocytes (%) (Auto) 16.8 % (20.0-45.0) L Monocytes (%) (Auto) 3.3 % (1.0-10.0) Eosinophils (%) (Auto) 2.0 % (0.0-3.0) Basophils (%) (Auto) 0.4 % (0.0-2.0) Prothrombin Time 13.4 SEC (9.30-11.50) H Prothromb Time International Ratio 1.2 (0.9-1.1) H Sodium Level 139 MMOL/L (136-145) Potassium Level 4.0 MMOL/L (3.5-5.1) Chloride Level 106 MMOL/L (98-107) Carbon Dioxide Level 24 MMOL/L (21-32) Anion Gap 9 mmol/L (5-15) Blood Urea Nitrogen 11 mg/dL (7-18) Creatinine 0.8 MG/DL (0.55-1.30) Estimat Glomerular Filtration Rate > 60 mL/min (>60) Glucose Level 100 MG/DL (74-106) Calcium Level 10.1 MG/DL (8.5-10.1) Plan Problems: (1) DVT (deep venous thrombosis) (2) Peripheral edema (3) Severe protein-calorie malnutrition Assessment & Plan: plan peg placement tf as tolerated DAILY ESTIMATED NEEDS: Needs based on underweight, wound, CHF/ 48kg 30-35 kcals/kg 2053-1274 total kcals 1.25-1.5 g protein/kg 60-72 g total protein 20-25 mL/kg 960-1200 total fluid mLs NUTRITION DIAGNOSIS: * Increased kcal/prot needs R/T underweight status, wound healing as evidenced by pt @ 88% IBW w/ BMI=18.2, admitted w/ sacral DTPI wound, w/ <35% po intake from oral diet as per 48hr kcal count data, now pending PEG placement. * Altered nutrition related lab values R/T h/o CHF as evidenced by elev BNP ([id number] ->[id number]) CURRENT DIET:NPO ENTERAL NUTRITION RECOMMENDATIONS: Osmolite 1.5 @ 45ml/hr x 24 hrs to provide 1080ml, 1620kcal, 68g prot, 823ml free water * Initiate Osmolite 1.5 @ 15ml/hr x 6hrs * Advance 10ml q 4-6 hrs as tolerated to goal rate * HOB over 30 degrees/ water flush 100ml q 8hrs --PT AT HIGH RISK FOR REFEEDING SYNDROME, SLOWLY INCREASE TF, CHECK LYTES DAILY , REPLETE NEEDED-- ADDITIONAL RECOMMENDATIONS: * Calibrated bedscale wt, weekly wt monitoring, monitor trend * F/up w/ Shaji Count result-> see RD note on 01/05, not meeting needs. * W/ TF, monitor lytes daily, replete as needed- high risk for refeeding * Wound healing: add Vit C 250mg QD + Artemio BID (mix w/ 2oz water) via PEG (4) Protein-calorie malnutrition, severe (5) At high risk for aspiration (6) Urinary tract infection (7) Severe sepsis (8) Alzheimer's dementia (9) Fever Assessment & Plan: Pt presented on admission with Sacral DTPI . Pt is emaciated . Scattered nevi across back. Pt is emaciated with multiple bony prominences that protrudes and increases risks for Pressure Injuries.Optifoam drsgs applied to thoracic spine, Both elbows, both hips and malleoli both feet. Sacral DTPI noted (L)11.5cm x (W)10cm. Base wound is purpuric with area of hyperpigmentation at protruded and bony sacrococcygeal area.Surrounding non- blanching erythema. Both heels are boggy but easily blanchable. Deep tissue injury unlikely etiology of fevers. Chest x-ray reviewed and identified. On antibiotics as per infectious disease. Nutritional supplementation necessary Tx.Plan: Apply Moisture Barrier Paste to Sacrum. Cover with Optifoam drsg. Change every 3 days and prn. Apply Cavilon Skin Barrier to bony prominences and cover each site with Optifoam drsgs as needed. Apply Cavilon Skin Barrier to both heels and Malleoli. Cover each site with Optifoam drsgs. Change every 7 days and PRN. Reposition at least every 2hours or as tolerated. Off-load heels with pillow. APM/AMOR Mattress overlay. Ashok Velazquez Jan 08, 2020 10:04
--- NOTE | 2020-01-08 11:00 | Progress Note ---
DATE: 01/08/2020 SUBJECTIVE: This is an 85-year-old female patient with acute febrile illness. She has confusion, some disorganized thought process, and mood lability. She has got no logical thoughts for her own self care. Irritable, agitated, and extremely mood labile. She has got no plan for own self care, so she does require acute psychiatric inpatient treatment at this time. feelings of helplessness, hopelessness, low energy, poor appetite, and loss of interest in activity. DIAGNOSIS: Major depressive disorder, mild, recurrent with psychotic features. PLAN: Plan for this patient is to treat her with a medication regimen to stabilize her mood and provided with 20 minutes of cognitive behavioral therapy will help her identify automatic negative thoughts and help her convert negative thoughts to more positive thoughts to reduce depression, anxiety, and mood lability. Chart reviewed. Discussed with staff. Seen and assessed at bedside. Shaun Corona M.D. DR: MAGGIE JOB#: [id number] CC:
--- NOTE | 2020-01-08 11:17 | General Progress Note ---
Assessment/Plan Problem List: (1) Alzheimer's dementia ICD Codes: G30.9 - Alzheimer's disease, unspecified SNOMED: 58094823 (2) Urinary tract infection ICD Codes: N39.0 - Urinary tract infection, site not specified SNOMED: 38583610 (3) Protein-calorie malnutrition, severe ICD Codes: E43 - Unspecified severe protein-calorie malnutrition SNOMED: 940831695 (4) DVT (deep venous thrombosis) ICD Codes: I82.409 - Acute embolism and thrombosis of unspecified deep veins of unspecified lower extremity SNOMED: 310947291 Status: stable, progressing Assessment/Plan: d/w family s/p PEG GTF GT care monitor for residuals resume coumadin Subjective ROS Limited/Unobtainable: No Allergies: Coded Allergies: No Known Allergies (Unverified , 02/11/17) Objective Last 24 Hour Vital Signs Date Time Temp Pulse Resp B/P (MAP) Pulse Ox O2 Delivery O2 Flow Rate FiO2 01/08/20 09:00 Room Air 01/08/20 08:30 88 140/91 01/08/20 07:52 96.7 88 19 140/91 (107) 99 01/08/20 07:39 103 01/08/20 04:00 97.9 60 17 147/87 (107) 96 01/08/20 03:35 81 01/08/20 00:00 70 01/08/20 00:00 98.8 91 19 149/99 (116) 100 01/07/20 21:52 91 163/92 01/07/20 21:00 Room Air 01/07/20 20:00 99.8 91 19 166/93 (117) 100 01/07/20 16:00 96.8 78 20 141/82 (101) 100 01/07/20 15:34 69 01/07/20 12:13 73 01/07/20 12:00 Room Air 01/07/20 12:00 97.7 65 18 140/88 (105) 98 01/07/20 11:59 68 18 98 01/07/20 11:40 98.4 75 13 127/75 100 Room Air 01/07/20 11:30 64 18 145/72 100 Nasal Cannula 3 01/07/20 11:25 64 16 144/68 100 Nasal Cannula 3 01/07/20 11:25 64 18 99 01/07/20 11:22 98.5 57 16 136/73 100 Nasal Cannula 3 Intake and Output 01/07/20 01/08/20 18:59 06:59 Intake Total 300 ml 110 ml Output Total 500 ml Balance -200 ml 110 ml Free Water 40 ml IV Total 285 ml Tube Feeding 15 ml 70 ml Output Urine Total 500 ml Laboratory Tests 01/08/20 05:10: White Blood Count 7.2, Red Blood Count 3.96L, Hemoglobin 12.0, Hematocrit 37.7, Mean Corpuscular Volume 95, Mean Corpuscular Hemoglobin 30.2, Mean Corpuscular Hemoglobin Concent 31.7L, Red Cell Distribution Width 13.3, Platelet Count 340, Mean Platelet Volume 7.1, Neutrophils (%) (Auto) 77.6H, Lymphocytes (%) (Auto) 16.8L, Monocytes (%) (Auto) 3.3, Eosinophils (%) (Auto) 2.0, Basophils (%) (Auto ) 0.4, Prothrombin Time 13.4H, Prothromb Time International Ratio 1.2H, Sodium Level 139, Potassium Level 4.0, Chloride Level 106, Carbon Dioxide Level 24, Anion Gap 9, Blood Urea Nitrogen 11, Creatinine 0.8, Estimat Glomerular Filtration Rate > 60, Glucose Level 100, Calcium Level 10.1 Height (Feet): 5 Height (Inches): 4.00 Weight (Pounds): 108 General Appearance: no apparent distress EENT: normal ENT inspection Neck: supple Cardiovascular: normal rate Respiratory/Chest: decreased breath sounds Abdomen: normal bowel sounds, non tender, soft Extremities: non-tender David Ewing MD Jan 08, 2020 11:17
--- NOTE | 2020-01-08 12:22 | Infectious Diseases Prog Note ---
Assessment/Plan Assessment: Probable PNA, sp rx- COVID19 neg x2 -01/05 CXR: Question a patchy left basilar infiltrate, could indicate pneumonia if real. Previously demonstrated peripheral right upper lung opacity is no longer evident -01/03 rapid COVID pCR neg -01/02 CXR: Mild interstitial thickening. Mild streaky opacities right lung and left lower lung. Maybe pneumonitis. 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 Will continue to follow along with you. Discussed with RN. Subjective Allergies: Coded Allergies: No Known Allergies (Unverified , 02/11/17) afebrile at RA no leukocytosis Bcx NTD discharge planning Objective Last 24 Hour Vital Signs Date Time Temp Pulse Resp B/P (MAP) Pulse Ox O2 Delivery O2 Flow Rate FiO2 01/08/20 11:54 97.7 78 18 143/80 (101) 97 01/08/20 09:00 Room Air 01/08/20 08:30 88 140/91 01/08/20 07:52 96.7 88 19 140/91 (107) 99 01/08/20 07:39 103 01/08/20 04:00 97.9 60 17 147/87 (107) 96 01/08/20 03:35 81 01/08/20 00:00 70 01/08/20 00:00 98.8 91 19 149/99 (116) 100 01/07/20 21:52 91 163/92 01/07/20 21:00 Room Air 01/07/20 20:00 99.8 91 19 166/93 (117) 100 01/07/20 16:00 96.8 78 20 141/82 (101) 100 01/07/20 15:34 69 Height (Feet): 5 Height (Inches): 4.00 Weight (Pounds): 108 CARDIOVASCULAR: No murmur. LUNGS: Distant and clear ABDOMEN: Bowel sounds positive. Nontender. Nondistended. EXTREMITIES: No cyanosis, clubbing, or edema. Laboratory Tests Test 01/08/20 05:10 White Blood Count 7.2 K/UL (4.8-10.8) Red Blood Count 3.96 M/UL (4.20-5.40) L Hemoglobin 12.0 G/DL (12.0-16.0) Hematocrit 37.7 % (37.0-47.0) Mean Corpuscular Volume 95 FL (80-99) Mean Corpuscular Hemoglobin 30.2 PG (27.0-31.0) Mean Corpuscular Hemoglobin Concent 31.7 G/DL (32.0-36.0) L Red Cell Distribution Width 13.3 % (11.6-14.8) Platelet Count 340 K/UL (150-450) Mean Platelet Volume 7.1 FL (6.5-10.1) Neutrophils (%) (Auto) 77.6 % (45.0-75.0) H Lymphocytes (%) (Auto) 16.8 % (20.0-45.0) L Monocytes (%) (Auto) 3.3 % (1.0-10.0) Eosinophils (%) (Auto) 2.0 % (0.0-3.0) Basophils (%) (Auto) 0.4 % (0.0-2.0) Prothrombin Time 13.4 SEC (9.30-11.50) H Prothromb Time International Ratio 1.2 (0.9-1.1) H Sodium Level 139 MMOL/L (136-145) Potassium Level 4.0 MMOL/L (3.5-5.1) Chloride Level 106 MMOL/L (98-107) Carbon Dioxide Level 24 MMOL/L (21-32) Anion Gap 9 mmol/L (5-15) Blood Urea Nitrogen 11 mg/dL (7-18) Creatinine 0.8 MG/DL (0.55-1.30) Estimat Glomerular Filtration Rate > 60 mL/min (>60) Glucose Level 100 MG/DL (74-106) Calcium Level 10.1 MG/DL (8.5-10.1) Current Medications Medications (Trade) Dose Ordered Sig/Brayden Route PRN Reason Start Time Stop Time Status Last Admin Dose Admin Acetaminophen (Tylenol) 650 mg Q4H PRN ORAL FEVER 01/03/20 12:45 02/02/20 12:44 Albuterol/ Ipratropium (Albuterol/ Ipratropium) 3 ml EVERY 4 HOURS PRN HHN Shortness of Breath 01/03/20 12:45 01/08/20 12:44 Aspirin (Ecotrin) 81 mg DAILY ORAL 01/04/20 09:00 02/18/20 08:59 01/08/20 08:30 Atorvastatin Calcium (Lipitor) 10 mg BEDTIME ORAL 01/05/20 21:00 04/04/20 20:59 01/07/20 21:52 Ceftriaxone Sodium 1 gm/ Dextrose 55 ml @ 110 mls/hr Q24H IVPB 01/03/20 15:00 01/10/20 14:59 01/07/20 15:08 Dextrose (Dextrose 50%) 25 ml Q30M PRN IV Hypoglycemia 01/03/20 12:45 04/02/20 12:44 Dextrose (Dextrose 50%) 50 ml Q30M PRN IV Hypoglycemia 01/03/20 12:45 04/02/20 12:44 Enoxaparin Sodium (Lovenox) 50 mg EVERY 12 HOURS SUBQ 01/07/20 21:00 04/06/20 20:59 01/08/20 08:31 Loperamide HCl (Imodium) 2 mg Q6H PRN NG Diarrhea 01/08/20 11:30 02/07/20 11:29 01/08/20 11:40 Lorazepam (Ativan) 0.5 mg Q6H PRN ORAL For Anxiety 01/05/20 14:15 01/12/20 14:14 Memantine (Namenda) 5 mg BID ORAL 01/05/20 18:00 02/04/20 17:59 01/08/20 08:30 Metoprolol Tartrate (Lopressor) 25 mg Q12HR ORAL 01/04/20 21:00 04/03/20 20:59 01/08/20 08:30 Polyethylene Glycol (Miralax) 17 gm DAILYPRN PRN ORAL Constipation 01/03/20 12:45 02/02/20 12:44 Promethazine HCl/ Codeine (Phenergan with Codeine) 5 ml EVERY 6 HOURS PRN ORAL cough 01/03/20 12:45 02/02/20 12:44 Warfarin Sodium (Coumadin per pharmacy) 1 ea DAILY PRN MISC Per rx protocol 01/08/20 10:00 02/07/20 09:59 Warfarin Sodium (Coumadin) 5 mg COUMADIN ORAL 01/08/20 17:00 01/08/20 18:00 Rubia March M.D. Jan 08, 2020 12:22
--- NOTE | 2020-01-08 13:46 | Pulmonology Progress Note ---
Subjective ROS Limited/Unobtainable: No Interval Events: has PEG yesterday Constitutional: Reports: no symptoms Respiratory: Reports: no symptoms Cardiovascular: Reports: no symptoms Allergies: Coded Allergies: No Known Allergies (Unverified , 02/11/17) All Systems: reviewed and negative except above Objective Last 24 Hour Vital Signs Date Time Temp Pulse Resp B/P (MAP) Pulse Ox O2 Delivery O2 Flow Rate FiO2 01/08/20 11:54 97.7 78 18 143/80 (101) 97 01/08/20 11:30 71 01/08/20 09:00 Room Air 01/08/20 08:30 88 140/91 01/08/20 07:52 96.7 88 19 140/91 (107) 99 01/08/20 07:39 103 01/08/20 04:00 97.9 60 17 147/87 (107) 96 01/08/20 03:35 81 01/08/20 00:00 70 01/08/20 00:00 98.8 91 19 149/99 (116) 100 01/07/20 21:52 91 163/92 01/07/20 21:00 Room Air 01/07/20 20:00 99.8 91 19 166/93 (117) 100 01/07/20 16:00 96.8 78 20 141/82 (101) 100 01/07/20 15:34 69 Intake and Output 01/07/20 01/08/20 19:00 07:00 Intake Total 300 ml 110 ml Output Total 500 ml Balance -200 ml 110 ml Free Water 40 ml IV Total 285 ml Tube Feeding 15 ml 70 ml Output Urine Total 500 ml General Appearance: cachetic - bedridden female in NAD HEENT: normocephalic, atraumatic, anicteric Respiratory: chest wall non-tender, lungs clear - with moderate air exchange , normal breath sounds, no accessory muscle use Cardiovascular: regular rhythm Abdomen: normal bowel sounds, soft, non tender Extremities: no edema Neurologic: abnormal gait - bedridden , alert - nonverbal Musculoskeletal: atrophy - BLE Laboratory Tests 01/08/20 05:10: White Blood Count 7.2, Red Blood Count 3.96L, Hemoglobin 12.0, Hematocrit 37.7, Mean Corpuscular Volume 95, Mean Corpuscular Hemoglobin 30.2, Mean Corpuscular Hemoglobin Concent 31.7L, Red Cell Distribution Width 13.3, Platelet Count 340, Mean Platelet Volume 7.1, Neutrophils (%) (Auto) 77.6H, Lymphocytes (%) (Auto) 16.8L, Monocytes (%) (Auto) 3.3, Eosinophils (%) (Auto) 2.0, Basophils (%) (Auto ) 0.4, Prothrombin Time 13.4H, Prothromb Time International Ratio 1.2H, Sodium Level 139, Potassium Level 4.0, Chloride Level 106, Carbon Dioxide Level 24, Anion Gap 9, Blood Urea Nitrogen 11, Creatinine 0.8, Estimat Glomerular Filtration Rate > 60, Glucose Level 100, Calcium Level 10.1 Current Medications Medications (Trade) Dose Ordered Sig/Brayden Route PRN Reason Start Time Stop Time Status Last Admin Dose Admin Acetaminophen (Tylenol) 650 mg Q4H PRN ORAL FEVER 01/03/20 12:45 02/02/20 12:44 Aspirin (Ecotrin) 81 mg DAILY ORAL 01/04/20 09:00 02/18/20 08:59 01/08/20 08:30 Atorvastatin Calcium (Lipitor) 10 mg BEDTIME ORAL 01/05/20 21:00 04/04/20 20:59 01/07/20 21:52 Dextrose (Dextrose 50%) 25 ml Q30M PRN IV Hypoglycemia 01/03/20 12:45 04/02/20 12:44 Dextrose (Dextrose 50%) 50 ml Q30M PRN IV Hypoglycemia 01/03/20 12:45 04/02/20 12:44 Enoxaparin Sodium (Lovenox) 50 mg EVERY 12 HOURS SUBQ 01/07/20 21:00 04/06/20 20:59 01/08/20 08:31 Loperamide HCl (Imodium) 2 mg Q6H PRN NG Diarrhea 01/08/20 11:30 02/07/20 11:29 01/08/20 11:40 Lorazepam (Ativan) 0.5 mg Q6H PRN ORAL For Anxiety 01/05/20 14:15 01/12/20 14:14 Memantine (Namenda) 5 mg BID ORAL 01/05/20 18:00 02/04/20 17:59 01/08/20 08:30 Metoprolol Tartrate (Lopressor) 25 mg Q12HR ORAL 01/04/20 21:00 04/03/20 20:59 01/08/20 08:30 Polyethylene Glycol (Miralax) 17 gm DAILYPRN PRN ORAL Constipation 01/03/20 12:45 02/02/20 12:44 Promethazine HCl/ Codeine (Phenergan with Codeine) 5 ml EVERY 6 HOURS PRN ORAL cough 01/03/20 12:45 02/02/20 12:44 Warfarin Sodium (Coumadin per pharmacy) 1 ea DAILY PRN MISC Per rx protocol 01/08/20 10:00 02/07/20 09:59 Warfarin Sodium (Coumadin) 5 mg COUMADIN ORAL 01/08/20 17:00 01/08/20 18:00 Assessment/Plan Problems: (1) SVT (supraventricular tachycardia) (2) Fever (3) Urinary tract infection (4) Alzheimer's dementia (5) Feeding by G-tube (6) Severe protein-calorie malnutrition (7) At high risk for aspiration Assessment/Plan looks comfortable Got PEG yesterday cultures checked again check electrolytes off abx covid negative times 2 aspiration precaution dvt prophylaxis. Bharathi Ugalde MD Jan 08, 2020 13:46
[2020-01-08] MEDS ORDERED: Warfarin Sodium 5mg ORAL SCH (17:00)
[2020-01-08] MEDS ORDERED: Warfarin Sodium 1mg ORAL SCH (17:00)
[2020-01-09] VITALS: BP 119/68
[2020-01-09 04:00] VITALS: BP 131/72
--- NOTE | 2020-01-09 06:58 | General Progress Note ---
Assessment/Plan Problem List: (1) Peripheral edema ICD Codes: R60.9 - Edema, unspecified SNOMED: 550979942 (2) Severe protein-calorie malnutrition ICD Codes: E43 - Unspecified severe protein-calorie malnutrition SNOMED: 713171428, 813271088, 049425990 (3) Urinary tract infection ICD Codes: N39.0 - Urinary tract infection, site not specified SNOMED: 95525325 (4) Fever ICD Codes: R50.9 - Fever, unspecified SNOMED: 860374016 (5) Severe sepsis ICD Codes: A41.9 - Sepsis, unspecified organism; R65.20 - Severe sepsis without septic shock SNOMED: 08119622 (6) Alzheimer's dementia ICD Codes: G30.9 - Alzheimer's disease, unspecified SNOMED: 24544472 Status: stable, progressing Assessment/Plan: pt diet abx psyc tx dc if clear Subjective Constitutional: Reports: weakness Allergies: Coded Allergies: No Known Allergies (Unverified , 02/11/17) All Systems: reviewed and negative except above Subjective sleepy calm Objective Last 24 Hour Vital Signs Date Time Temp Pulse Resp B/P (MAP) Pulse Ox O2 Delivery O2 Flow Rate FiO2 01/09/20 04:00 98.2 83 22 131/72 (91) 97 01/09/20 04:00 90 01/09/20 00:00 75 01/09/20 00:00 98.4 79 22 119/68 (85) 97 01/08/20 21:20 99.0 01/08/20 21:00 Room Air 01/08/20 20:47 97 124/59 01/08/20 20:00 100.4 97 21 124/59 (80) 97 01/08/20 20:00 92 01/08/20 16:01 91 01/08/20 16:00 98.2 86 18 146/78 (100) 98 01/08/20 11:54 97.7 78 18 143/80 (101) 97 01/08/20 11:30 71 01/08/20 09:00 Room Air 01/08/20 08:30 88 140/91 01/08/20 07:52 96.7 88 19 140/91 (107) 99 01/08/20 07:39 103 Intake and Output 01/08/20 01/09/20 19:00 07:00 Intake Total 690 ml 160 ml Output Total 350 ml Balance 690 ml -190 ml Free Water 150 ml 100 ml Tube Feeding 540 ml 60 ml Output Urine Total 350 ml # Voids 1 # Bowel Movements 2 Laboratory Tests 01/09/20 06:25: Prothrombin Time [Pending], Prothromb Time International Ratio [Pending] Height (Feet): 5 Height (Inches): 4.00 Weight (Pounds): 108 General Appearance: lethargic EENT: normal ENT inspection Neck: normal alignment Cardiovascular: normal peripheral pulses, normal rate, regular rhythm Respiratory/Chest: chest wall non-tender, lungs clear, normal breath sounds Abdomen: normal bowel sounds, non tender, soft Extremities: normal inspection Edema: no edema noted Arm (L), no edema noted Arm (R), no edema noted Leg (L), no edema noted Leg (R), no edema noted Pedal (L), no edema noted Pedal (R), no edema noted Generalized Neurologic: motor weakness Skin: normal pigmentation, warm/dry Porter Davila DO Jan 09, 2020 06:58
[2020-01-09 07:24] LABS: INR 1.3 (0.9-1.1)
[2020-01-09 08:00] VITALS: BP 120/59
[2020-01-09] MEDS: Memantine 5 MG TAB ORAL SCH ×2 (08:19→17:11)
[2020-01-09] MEDS: Aspirin Baby 81mg ORAL SCH (08:19)
[2020-01-09] MEDS: Enoxaparin 60mg Inj SUBQ SCH ×2 (08:21→20:23)
--- NOTE | 2020-01-09 09:06 | Surgery Progress Note ---
Surgery Progress Note Subjective Symptoms: improved, tolerating diet, passing flatus Objective Last 24 Hour Vital Signs Date Time Temp Pulse Resp B/P (MAP) Pulse Ox O2 Delivery O2 Flow Rate FiO2 01/09/20 08:19 100 120/59 01/09/20 08:00 97.9 100 18 120/59 (79) 96 01/09/20 08:00 98 01/09/20 04:00 98.2 83 22 131/72 (91) 97 01/09/20 04:00 90 01/09/20 00:00 75 01/09/20 00:00 98.4 79 22 119/68 (85) 97 01/08/20 21:20 99.0 01/08/20 21:00 Room Air 01/08/20 20:47 97 124/59 01/08/20 20:00 100.4 97 21 124/59 (80) 97 01/08/20 20:00 92 01/08/20 16:01 91 01/08/20 16:00 98.2 86 18 146/78 (100) 98 01/08/20 11:54 97.7 78 18 143/80 (101) 97 01/08/20 11:30 71 I&O Intake and Output 01/08/20 01/09/20 19:00 07:00 Intake Total 690 ml 160 ml Output Total 350 ml Balance 690 ml -190 ml Free Water 150 ml 100 ml Tube Feeding 540 ml 60 ml Output Urine Total 350 ml # Voids 1 # Bowel Movements 2 Dressing: saturated Wound: clean Cardiovascular: RSR Respiratory: decreased breath sounds Abdomen: soft, non-tender, present bowel sounds Extremities: edema, no tenderness, no cyanosis Laboratory Tests Test 01/09/20 06:25 Prothrombin Time 14.1 SEC (9.30-11.50) H Prothromb Time International Ratio 1.3 (0.9-1.1) H Plan Problems: (1) DVT (deep venous thrombosis) (2) Peripheral edema (3) Severe protein-calorie malnutrition Assessment & Plan: plan peg placement tf as tolerated DAILY ESTIMATED NEEDS: Needs based on underweight, wound, CHF/ 48kg 30-35 kcals/kg 4028-2162 total kcals 1.25-1.5 g protein/kg 60-72 g total protein 20-25 mL/kg 960-1200 total fluid mLs NUTRITION DIAGNOSIS: * Increased kcal/prot needs R/T underweight status, wound healing as evidenced by pt @ 88% IBW w/ BMI=18.2, admitted w/ sacral DTPI wound, w/ <35% po intake from oral diet as per 48hr kcal count data, now pending PEG placement. * Altered nutrition related lab values R/T h/o CHF as evidenced by elev BNP (38828 ->8776) CURRENT DIET:NPO ENTERAL NUTRITION RECOMMENDATIONS: Osmolite 1.5 @ 45ml/hr x 24 hrs to provide 1080ml, 1620kcal, 68g prot, 823ml free water * Initiate Osmolite 1.5 @ 15ml/hr x 6hrs * Advance 10ml q 4-6 hrs as tolerated to goal rate * HOB over 30 degrees/ water flush 100ml q 8hrs --PT AT HIGH RISK FOR REFEEDING SYNDROME, SLOWLY INCREASE TF, CHECK LYTES DAILY , REPLETE NEEDED-- ADDITIONAL RECOMMENDATIONS: * Calibrated bedscale wt, weekly wt monitoring, monitor trend * F/up w/ Shaji Count result-> see RD note on 01/05, not meeting needs. * W/ TF, monitor lytes daily, replete as needed- high risk for refeeding * Wound healing: add Vit C 250mg QD + Artemio BID (mix w/ 2oz water) via PEG (4) Protein-calorie malnutrition, severe (5) At high risk for aspiration (6) Urinary tract infection (7) Severe sepsis (8) Alzheimer's dementia (9) Fever Assessment & Plan: Pt presented on admission with Sacral DTPI . Pt is emaciated . Scattered nevi across back. Pt is emaciated with multiple bony prominences that protrudes and increases risks for Pressure Injuries.Optifoam drsgs applied to thoracic spine, Both elbows, both hips and malleoli both feet. Sacral DTPI noted (L)11.5cm x (W)10cm. Base wound is purpuric with area of hyperpigmentation at protruded and bony sacrococcygeal area.Surrounding non- blanching erythema. Both heels are boggy but easily blanchable. Deep tissue injury unlikely etiology of fevers. Chest x-ray reviewed and identified. On antibiotics as per infectious disease. Nutritional supplementation necessary Tx.Plan: Apply Moisture Barrier Paste to Sacrum. Cover with Optifoam drsg. Change every 3 days and prn. Apply Cavilon Skin Barrier to bony prominences and cover each site with Optifoam drsgs as needed. Apply Cavilon Skin Barrier to both heels and Malleoli. Cover each site with Optifoam drsgs. Change every 7 days and PRN. Reposition at least every 2hours or as tolerated. Off-load heels with pillow. APM/AMOR Mattress overlay. Ashok Velazquez Jan 09, 2020 09:06
[2020-01-09 11:39] VITALS: BP 148/67
--- NOTE | 2020-01-09 14:10 | Cardiac Electrophysiology PN ---
Assessment/Plan Assessment/Plan 1. Troponin elevation. 0.3 to 0.07. Does not have renal failure and BUN and creatinine are within normal range. No CP. Echo Nl EF. Continue aspirin, Lopressor 25 bid and Lipitor 10 2. Moderate MS and . 3. Recurrent SVT, increase Lopressor to 50 GT bid.Not a candidate for EP study 4. History of coronary artery disease. 4. Fever and pneumonia. On Abx and Decadron. COVID test is negative. 5. Dysphagia, S/P PEG 01/07/20 6. Acute R leg DVT and chronic Left leg DVT. On Lovenox and Coumadin per Dr. Buckner 7. Dementia. DW RN Subjective Subjective Echo showed EF 55% and moderate and MS. Has acute DVT of Right leg. S/P PEG placement . Continues with runs of SVT up to 185 despite metoprolol 25 bid. Non verbal in NAD Objective Last 24 Hour Vital Signs Date Time Temp Pulse Resp B/P (MAP) Pulse Ox O2 Delivery O2 Flow Rate FiO2 01/09/20 12:00 87 01/09/20 11:39 99.0 94 18 148/67 (94) 99 01/09/20 09:00 Room Air 01/09/20 08:19 100 120/59 01/09/20 08:00 97.9 100 18 120/59 (79) 96 01/09/20 08:00 98 01/09/20 04:00 98.2 83 22 131/72 (91) 97 01/09/20 04:00 90 01/09/20 00:00 75 01/09/20 00:00 98.4 79 22 119/68 (85) 97 01/08/20 21:20 99.0 01/08/20 21:00 Room Air 01/08/20 20:47 97 124/59 01/08/20 20:00 100.4 97 21 124/59 (80) 97 01/08/20 20:00 92 01/08/20 16:01 91 01/08/20 16:00 98.2 86 18 146/78 (100) 98 Intake and Output 01/08/20 01/09/20 19:00 07:00 Intake Total 690 ml 160 ml Output Total 350 ml Balance 690 ml -190 ml Free Water 150 ml 100 ml Tube Feeding 540 ml 60 ml Output Urine Total 350 ml # Voids 1 # Bowel Movements 2 Laboratory Tests Test 01/09/20 06:25 Prothrombin Time 14.1 SEC (9.30-11.50) H Prothromb Time International Ratio 1.3 (0.9-1.1) H Objective NECK: No JVD. LUNGS: Clear. CARDIOVASCULAR: Regular S1 and S2 with no gallop. ABDOMEN: Soft.PEG in place EXTREMITIES: No pitting edema. Jaquan Weller MD Jan 09, 2020 14:10
--- NOTE | 2020-01-09 15:34 | Pulmonology Progress Note ---
Subjective ROS Limited/Unobtainable: No Interval Events: has PEG yesterday Constitutional: Reports: no symptoms Respiratory: Reports: no symptoms Cardiovascular: Reports: no symptoms Allergies: Coded Allergies: No Known Allergies (Unverified , 02/11/17) All Systems: reviewed and negative except above Objective Last 24 Hour Vital Signs Date Time Temp Pulse Resp B/P (MAP) Pulse Ox O2 Delivery O2 Flow Rate FiO2 01/09/20 12:00 87 01/09/20 11:39 99.0 94 18 148/67 (94) 99 01/09/20 09:00 Room Air 01/09/20 08:19 100 120/59 01/09/20 08:00 97.9 100 18 120/59 (79) 96 01/09/20 08:00 98 01/09/20 04:00 98.2 83 22 131/72 (91) 97 01/09/20 04:00 90 01/09/20 00:00 75 01/09/20 00:00 98.4 79 22 119/68 (85) 97 01/08/20 21:20 99.0 01/08/20 21:00 Room Air 01/08/20 20:47 97 124/59 01/08/20 20:00 100.4 97 21 124/59 (80) 97 01/08/20 20:00 92 01/08/20 16:01 91 01/08/20 16:00 98.2 86 18 146/78 (100) 98 Intake and Output 01/08/20 01/09/20 19:00 07:00 Intake Total 690 ml 160 ml Output Total 350 ml Balance 690 ml -190 ml Free Water 150 ml 100 ml Tube Feeding 540 ml 60 ml Output Urine Total 350 ml # Voids 1 # Bowel Movements 2 General Appearance: cachetic - bedridden female in NAD HEENT: normocephalic, atraumatic, anicteric Respiratory: chest wall non-tender, lungs clear - with moderate air exchange , normal breath sounds, no accessory muscle use Cardiovascular: regular rhythm Abdomen: normal bowel sounds, soft, non tender Extremities: no edema Neurologic: abnormal gait - bedridden , alert - nonverbal Musculoskeletal: atrophy - BLE Laboratory Tests 01/09/20 06:25: Prothrombin Time 14.1H, Prothromb Time International Ratio 1.3H Current Medications Medications (Trade) Dose Ordered Sig/Brayden Route PRN Reason Start Time Stop Time Status Last Admin Dose Admin Acetaminophen (Tylenol) 650 mg Q4H PRN ORAL FEVER 01/03/20 12:45 02/02/20 12:44 01/08/20 20:50 Aspirin (ASA) 81 mg DAILY ORAL 01/09/20 09:00 02/23/20 08:59 01/09/20 08:19 Atorvastatin Calcium (Lipitor) 10 mg BEDTIME ORAL 01/05/20 21:00 04/04/20 20:59 01/08/20 20:48 Dextrose (Dextrose 50%) 25 ml Q30M PRN IV Hypoglycemia 01/03/20 12:45 04/02/20 12:44 Dextrose (Dextrose 50%) 50 ml Q30M PRN IV Hypoglycemia 01/03/20 12:45 04/02/20 12:44 Enoxaparin Sodium (Lovenox) 50 mg EVERY 12 HOURS SUBQ 01/07/20 21:00 04/06/20 20:59 01/09/20 08:21 Loperamide HCl (Imodium) 2 mg Q6H PRN NG Diarrhea 01/08/20 11:30 02/07/20 11:29 01/08/20 11:40 Lorazepam (Ativan) 0.5 mg Q6H PRN ORAL For Anxiety 01/05/20 14:15 01/12/20 14:14 Memantine (Namenda) 5 mg BID ORAL 01/05/20 18:00 02/04/20 17:59 01/09/20 08:19 Metoprolol Tartrate (Lopressor) 50 mg Q12HR ORAL 01/09/20 21:00 04/03/20 20:59 Polyethylene Glycol (Miralax) 17 gm DAILYPRN PRN ORAL Constipation 01/03/20 12:45 02/02/20 12:44 Promethazine HCl/ Codeine (Phenergan with Codeine) 5 ml EVERY 6 HOURS PRN ORAL cough 01/03/20 12:45 02/02/20 12:44 Warfarin Sodium (Coumadin per pharmacy) 1 ea DAILY PRN MISC Per rx protocol 01/08/20 10:00 02/07/20 09:59 Warfarin Sodium (Coumadin) 5 mg COUMADIN ORAL 01/09/20 17:00 01/09/20 17:01 Assessment/Plan Problems: (1) SVT (supraventricular tachycardia) (2) Fever (3) Urinary tract infection (4) Alzheimer's dementia (5) Feeding by G-tube (6) Severe protein-calorie malnutrition (7) At high risk for aspiration Assessment/Plan looks comfortable tolerating PEG feeding cultures checked again check electrolytes off abx covid negative times 2 aspiration precaution dvt prophylaxis. Bharathi Ugalde MD Jan 09, 2020 15:34
[2020-01-09 15:36] VITALS: BP 126/76
[2020-01-09] MEDS ORDERED: Warfarin Sodium 5mg ORAL SCH (17:00)
--- NOTE | 2020-01-09 18:15 | Consultation ---
DATE OF CONSULTATION: 01/09/2020 This is an 85-year-old female patient, acute febrile illness, sepsis, and that is the reason why she was admitted to the hospital, but this patient also has difficulty with supraventricular tachycardia. She then developed peripheral edema. aspiration pneumonia, sepsis, and fever rapid decline in cognition below baseline, altered mental status. MENTAL STATUS EXAMINATION: This is an 85-year-old female. Appearance is disheveled. Attitude irritable and agitated. Affect guarded and restricted. Intellect poor. Mood depressed and anxious. Motor activity, psychomotor agitation. Attention span poor. Orientation x3. Speech is low volume, slurred. Thought process disorganized and illogical. Insight and judgment is poor. DIAGNOSIS: Major depressive disorder, mild, recurrent with psychotic features. PLAN: My plan for this patient is to treat with a medication regimen consisting of Namenda 5 mg twice a day, Ativan 0.5 mg every 6 hours p.r.n. anxiety, agitation. Twenty minutes of cognitive behavioral therapy and 20 minutes of insight-oriented psychotherapy will help this patient to recognize her physical and psychiatric condition so that she has better impulse control on the unit. Chart reviewed. Discussed with staff. Seen and assessed at bedside. Shaun Corona M.D. DR: EZEQUIEL JOB#: [id number] CC:
[2020-01-09 20:00] VITALS: BP 128/75
[2020-01-09] MEDS: Metoprolol Tartrate 50mg tab ORAL SCH (20:22)
[2020-01-10] VITALS: BP 115/62
[2020-01-10 04:00] VITALS: BP 110/69
[2020-01-10 06:58] LABS: INR 1.3 (0.9-1.1)
[2020-01-10 07:45] LABS: BASOPHILS % (AUTO) 0.5 % (0.0-2.0); HEMATOCRIT 33.8 % (37.0-47.0); HEMOGLOBIN 11.1 G/DL (12.0-16.0); LYMPHOCYTES % (AUTO) 15.3 % (20.0-45.0); MEAN CORPUSCULAR VOLUME 94 FL (80-99); MONOCYTES % (AUTO) 5.7 % (1.0-10.0); NEUTROPHILS % (AUTO) 75.5 % (45.0-75.0); PLATELET COUNT 347 K/UL (150-450); RED BLOOD COUNT 3.58 M/UL (4.20-5.40); RED CELL DISTRIBUTION WIDTH 13.7 % (11.6-14.8); WHITE BLOOD COUNT 7.5 K/UL (4.8-10.8)
[2020-01-10 07:56] LABS: ALANINE AMINOTRANSFERASE 47 U/L (12-78); ALBUMIN 2.5 G/DL (3.4-5.0); ALBUMIN/GLOBULIN RATIO 0.6 (1.0-2.7); ALKALINE PHOSPHATASE 59 U/L (46-116); ANION GAP 7 mmol/L (5-15); ASPARTATE AMINO TRANSFERASE 36 U/L (15-37); BILIRUBIN,TOTAL 0.2 MG/DL (0.2-1.0); BLOOD UREA NITROGEN 22 mg/dL (7-18); CALCIUM 9.9 MG/DL (8.5-10.1); CARBON DIOXIDE 26 MMOL/L (21-32); CHLORIDE 105 MMOL/L (98-107); CREATININE 0.7 MG/DL (0.55-1.30); POTASSIUM 4.2 MMOL/L (3.5-5.1); SODIUM 138 MMOL/L (136-145)
[2020-01-10 08:00] VITALS: BP 125/91
[2020-01-10] MEDS: Aspirin Baby 81mg ORAL SCH (08:36)
[2020-01-10] MEDS: Memantine 5 MG TAB ORAL SCH ×2 (08:36→17:32)
[2020-01-10] MEDS: Metoprolol Tartrate 50mg tab ORAL SCH (08:36)
[2020-01-10] MEDS: Enoxaparin 60mg Inj SUBQ SCH (08:37)
--- NOTE | 2020-01-10 09:42 | Infectious Diseases Prog Note ---
Assessment/Plan Assessment: Probable PNA, sp rx- COVID19 neg x2 -01/05 CXR: Question a patchy left basilar infiltrate, could indicate pneumonia if real. Previously demonstrated peripheral right upper lung opacity is no longer evident -01/03 rapid COVID pCR neg -01/02 CXR: Mild interstitial thickening. Mild streaky opacities right lung and left lower lung. Maybe pneumonitis. rapid COVID PCR neg -12/13 COVID testing at [place] neg UTI, SP rx -u./a wbc 15-20, nit neg, leuk +2; ucx >100k Aerococcus urinae (S Ceftriaxone , Vanco, PNC) Recent Fever ([employer], here Tm 99.8) No leukocytosis cachexia/malnutrition CHF DVT LE edema CAD CKD Alzheimer's Dementia prison resident (Francine carrion) VRE colonized Plan: -Continue to monitor off abx -Trend temp curve, if remains AF wo clinical change then OK to discharge tomorrow -01/06 SP Ceftriaxone and Azithromycin #5 -01/05 SP ZYvox #2 -01/02 SP Cefepime x1, FLagyl x1 -f/u cx -Monitor CBC/CMP, temperatures -COVID19 neg x2 -aspiration precautions Thank you for this consultation. Will continue to follow along with you. Discussed with RN. Subjective Allergies: Coded Allergies: No Known Allergies (Unverified , 02/11/17) Tmax 100.8 yesterday, AF since No clinical change, doing well on RA No diarrhea, no new pain No skin issues Objective Last 24 Hour Vital Signs Date Time Temp Pulse Resp B/P (MAP) Pulse Ox O2 Delivery O2 Flow Rate FiO2 01/10/20 08:36 89 125/91 01/10/20 08:00 80 01/10/20 08:00 98.1 89 20 125/91 (102) 99 01/10/20 04:36 99.9 01/10/20 04:00 100.8 84 18 110/69 (83) 97 01/10/20 04:00 84 01/10/20 00:00 98.1 81 19 115/62 (79) 99 01/10/20 00:00 79 01/09/20 21:00 Room Air 01/09/20 20:22 91 128/75 01/09/20 20:00 98.8 91 19 128/75 (92) 100 01/09/20 20:00 81 01/09/20 16:00 86 01/09/20 15:36 98.8 93 18 126/76 (93) 99 01/09/20 12:00 87 01/09/20 11:39 99.0 94 18 148/67 (94) 99 Height (Feet): 5 Height (Inches): 4.00 Weight (Pounds): 108 Gen: Older woman, laying in bed in NAD CV: RRR Pulm: CTAB anteriorly Abd: Soft, NTND Ext: No c/c/e Laboratory Tests Test 01/10/20 05:40 White Blood Count 7.5 K/UL (4.8-10.8) Red Blood Count 3.58 M/UL (4.20-5.40) L Hemoglobin 11.1 G/DL (12.0-16.0) L Hematocrit 33.8 % (37.0-47.0) L Mean Corpuscular Volume 94 FL (80-99) Mean Corpuscular Hemoglobin 31.0 PG (27.0-31.0) Mean Corpuscular Hemoglobin Concent 32.9 G/DL (32.0-36.0) Red Cell Distribution Width 13.7 % (11.6-14.8) Platelet Count 347 K/UL (150-450) Mean Platelet Volume 6.9 FL (6.5-10.1) Neutrophils (%) (Auto) 75.5 % (45.0-75.0) H Lymphocytes (%) (Auto) 15.3 % (20.0-45.0) L Monocytes (%) (Auto) 5.7 % (1.0-10.0) Eosinophils (%) (Auto) 3.0 % (0.0-3.0) Basophils (%) (Auto) 0.5 % (0.0-2.0) Prothrombin Time 14.1 SEC (9.30-11.50) H Prothromb Time International Ratio 1.3 (0.9-1.1) H Sodium Level 138 MMOL/L (136-145) Potassium Level 4.2 MMOL/L (3.5-5.1) Chloride Level 105 MMOL/L (98-107) Carbon Dioxide Level 26 MMOL/L (21-32) Anion Gap 7 mmol/L (5-15) Blood Urea Nitrogen 22 mg/dL (7-18) H Creatinine 0.7 MG/DL (0.55-1.30) Estimat Glomerular Filtration Rate > 60 mL/min (>60) Glucose Level 89 MG/DL (74-106) Calcium Level 9.9 MG/DL (8.5-10.1) Total Bilirubin 0.2 MG/DL (0.2-1.0) Aspartate Amino Transf (AST/SGOT) 36 U/L (15-37) Alanine Aminotransferase (ALT/SGPT) 47 U/L (12-78) Alkaline Phosphatase 59 U/L (46-116) Total Protein 6.6 G/DL (6.4-8.2) Albumin 2.5 G/DL (3.4-5.0) L Globulin 4.1 g/dL Albumin/Globulin Ratio 0.6 (1.0-2.7) L Current Medications Medications (Trade) Dose Ordered Sig/Brayden Route PRN Reason Start Time Stop Time Status Last Admin Dose Admin Acetaminophen (Tylenol) 650 mg Q4H PRN ORAL FEVER 01/03/20 12:45 02/02/20 12:44 01/10/20 04:06 Aspirin (ASA) 81 mg DAILY ORAL 01/09/20 09:00 02/23/20 08:59 01/10/20 08:36 Atorvastatin Calcium (Lipitor) 10 mg BEDTIME ORAL 01/05/20 21:00 04/04/20 20:59 01/09/20 20:22 Dextrose (Dextrose 50%) 25 ml Q30M PRN IV Hypoglycemia 01/03/20 12:45 04/02/20 12:44 Dextrose (Dextrose 50%) 50 ml Q30M PRN IV Hypoglycemia 01/03/20 12:45 04/02/20 12:44 Enoxaparin Sodium (Lovenox) 50 mg EVERY 12 HOURS SUBQ 01/07/20 21:00 04/06/20 20:59 01/10/20 08:37 Loperamide HCl (Imodium) 2 mg Q6H PRN NG Diarrhea 01/08/20 11:30 02/07/20 11:29 01/08/20 11:40 Lorazepam (Ativan) 0.5 mg Q6H PRN ORAL For Anxiety 01/05/20 14:15 01/12/20 14:14 Memantine (Namenda) 5 mg BID ORAL 01/05/20 18:00 02/04/20 17:59 01/10/20 08:36 Metoprolol Tartrate (Lopressor) 50 mg Q12HR ORAL 01/09/20 21:00 04/03/20 20:59 01/10/20 08:36 Polyethylene Glycol (Miralax) 17 gm DAILYPRN PRN ORAL Constipation 01/03/20 12:45 02/02/20 12:44 Promethazine HCl/ Codeine (Phenergan with Codeine) 5 ml EVERY 6 HOURS PRN ORAL cough 01/03/20 12:45 02/02/20 12:44 Warfarin Sodium (Coumadin per pharmacy) 1 ea DAILY PRN MISC Per rx protocol 01/08/20 10:00 02/07/20 09:59 Warfarin Sodium (Coumadin) 7.5 mg DAILY@17 ORAL 01/10/20 17:00 01/10/20 17:01 Jaimee Landis M.D. Jan 10, 2020 09:42
--- NOTE | 2020-01-10 10:15 | Progress Note ---
DATE: 01/10/2020 SUBJECTIVE: This is an 85-year-old female patient with acute febrile illness. She is very confused, disorganized. She has some mood lability. She disorganized and confused, but she also has supraventricular tachycardia as a medical complication causing her to have a decline in cognition below her baseline. That is why, her attending has requested daily psychiatric consultation. She has altered mental status and confusion. MENTAL STATUS EXAMINATION: This is an 85-year-old female. Appearance is disheveled. Attitude irritable and agitated. Affect is labile. Intellect poor. Mood depressed and anxious. Motor activity, psychomotor agitation. Attention span is poor. Orientation x2. Speech is low volume, slurred. Thought process disorganized and illogical. Insight and judgment is poor. DIAGNOSIS: Major depressive disorder, mild, recurrent with psychotic features, rule out dementia with psychosis. PLAN: Ativan 0.5 mg every 6 hours p.r.n. anxiety and agitation and Namenda 5 mg twice a day. Twenty minutes of cognitive behavioral therapy will help her identify automatic negative thoughts and help her convert negative thoughts to more positive thoughts to reduce depression, anxiety, and mood lability. Chart reviewed. Discussed with staff. Seen and assessed in her room. Shaun Corona M.D. DR: DARNELL JOB#: [id number] CC:
--- NOTE | 2020-01-10 10:40 | Cardiac Electrophysiology PN ---
Assessment/Plan Assessment/Plan 1. Troponin elevation. 0.3 to 0.07. Does not have renal failure and BUN and creatinine are within normal range. No CP. Echo Nl EF. Continue aspirin, Lopressor 25 bid and Lipitor 10 2. Moderate MS and . 3. Recurrent SVT, better on Lopressor 50 GT bid. Not a candidate for EP study 4. History of coronary artery disease. 4. Fever and pneumonia. On Abx and Decadron. COVID test is negative. 5. Dysphagia, S/P PEG 01/07/20 6. Acute R leg DVT and chronic Left leg DVT. On Lovenox and Coumadin per Dr. Buckner 7. Dementia. DW RN OK to DC Subjective Subjective EF 55% and moderate and MS. S/P PEG placement . Again had short runs of SVT . Non verbal in NAD. Metoprolol increased to 50 daily Objective Last 24 Hour Vital Signs Date Time Temp Pulse Resp B/P (MAP) Pulse Ox O2 Delivery O2 Flow Rate FiO2 01/10/20 08:36 89 125/91 01/10/20 08:00 80 01/10/20 08:00 98.1 89 20 125/91 (102) 99 01/10/20 04:36 99.9 01/10/20 04:00 100.8 84 18 110/69 (83) 97 01/10/20 04:00 84 01/10/20 00:00 98.1 81 19 115/62 (79) 99 01/10/20 00:00 79 01/09/20 21:00 Room Air 01/09/20 20:22 91 128/75 01/09/20 20:00 98.8 91 19 128/75 (92) 100 01/09/20 20:00 81 01/09/20 16:00 86 01/09/20 15:36 98.8 93 18 126/76 (93) 99 01/09/20 12:00 87 01/09/20 11:39 99.0 94 18 148/67 (94) 99 Intake and Output 01/09/20 01/10/20 19:00 07:00 Intake Total 160 ml Output Total 100 ml Balance -100 ml 160 ml Free Water 100 ml Tube Feeding 60 ml Output Urine Total 100 ml # Voids 3 Laboratory Tests Test 01/10/20 05:40 White Blood Count 7.5 K/UL (4.8-10.8) Red Blood Count 3.58 M/UL (4.20-5.40) L Hemoglobin 11.1 G/DL (12.0-16.0) L Hematocrit 33.8 % (37.0-47.0) L Mean Corpuscular Volume 94 FL (80-99) Mean Corpuscular Hemoglobin 31.0 PG (27.0-31.0) Mean Corpuscular Hemoglobin Concent 32.9 G/DL (32.0-36.0) Red Cell Distribution Width 13.7 % (11.6-14.8) Platelet Count 347 K/UL (150-450) Mean Platelet Volume 6.9 FL (6.5-10.1) Neutrophils (%) (Auto) 75.5 % (45.0-75.0) H Lymphocytes (%) (Auto) 15.3 % (20.0-45.0) L Monocytes (%) (Auto) 5.7 % (1.0-10.0) Eosinophils (%) (Auto) 3.0 % (0.0-3.0) Basophils (%) (Auto) 0.5 % (0.0-2.0) Prothrombin Time 14.1 SEC (9.30-11.50) H Prothromb Time International Ratio 1.3 (0.9-1.1) H Sodium Level 138 MMOL/L (136-145) Potassium Level 4.2 MMOL/L (3.5-5.1) Chloride Level 105 MMOL/L (98-107) Carbon Dioxide Level 26 MMOL/L (21-32) Anion Gap 7 mmol/L (5-15) Blood Urea Nitrogen 22 mg/dL (7-18) H Creatinine 0.7 MG/DL (0.55-1.30) Estimat Glomerular Filtration Rate > 60 mL/min (>60) Glucose Level 89 MG/DL (74-106) Calcium Level 9.9 MG/DL (8.5-10.1) Total Bilirubin 0.2 MG/DL (0.2-1.0) Aspartate Amino Transf (AST/SGOT) 36 U/L (15-37) Alanine Aminotransferase (ALT/SGPT) 47 U/L (12-78) Alkaline Phosphatase 59 U/L (46-116) Total Protein 6.6 G/DL (6.4-8.2) Albumin 2.5 G/DL (3.4-5.0) L Globulin 4.1 g/dL Albumin/Globulin Ratio 0.6 (1.0-2.7) L Objective NECK: No JVD. LUNGS: Clear. CARDIOVASCULAR: Regular S1 and S2 with no gallop. ABDOMEN: Soft.PEG in place EXTREMITIES: No pitting edema. Jaquan Weller MD Jan 10, 2020 10:40
[2020-01-10 12:00] VITALS: BP 123/63
--- NOTE | 2020-01-10 12:15 | Hematology/Onc Progress Note ---
Assessment/Plan Assessment/Plan Assessment and Recs # Dvt that is chronic, in the past was on coumadin with a inr btw 2-3 --> currently aphasic, therefore order duplex to see if any acute process --> recomnfirmed and does have acute divt right leg --> lovenox started --> coumadin started, inr goal 2-3 # Anemia of chronic disease --> hold off current workup --> hgb 11.5 # Severe sepsis --> on imaging, cxr mild streaking opacivty left lower and right lung --> r/o chf --> on abx ceftriaxone # Alzheimer's dementia --> appears chronic # Fever --> abx started # Pneumonitis # Urinary tract infection # Tachycardia due to sepsis # Dysphagia s/p peg # Dvt ppx lovenox/coumadin The timing of this note does not necessarily reflect the time of the patient was seen. Greatly appreciate consultation. Subjective Constitutional: Denies: no symptoms, chills, fever, malaise, weakness, other HEENT: Denies: no symptoms, eye pain, blurred vision, tearing, double vision, ear pain, ear discharge, nose pain, nose congestion, throat pain, throat swelling, mouth pain, mouth swelling, other Cardiovascular: Denies: no symptoms, chest pain, edema, irregular heart rate, lightheadedness, palpitations, syncope, other Respiratory: Denies: no symptoms, cough, shortness of breath, SOB with excertion, SOB at rest, sputum, wheezing, other Gastrointestinal/Abdominal: Denies: no symptoms, abdomen distended, abdominal pain, black stools, tarry stools, blood in stool, constipated, diarrhea, difficulty swallowing, nausea, poor appetite, poor fluid intake, rectal bleeding , vomiting, other Genitourinary: Denies: no symptoms, burning, discharge, frequency, flank pain, hematuria, incontinence, pain, urgency, other Neurologic/Psychiatric: Denies: no symptoms, anxiety, depressed, emotional problems, headache, numbness, paresthesia, pre-existing deficit, seizure, tingling, tremors, weakness, other Endocrine: Denies: no symptoms, excessive sweating, flushing, intolerance to cold, intolerance to heat, increased hunger, increased thirst, increased urine, unexplained weight gain, unexplained weight loss, other Allergies: Coded Allergies: No Known Allergies (Unverified , 02/11/17) Subjective 01/04 right leg dvt that is noted today, have started on lovenox bid therapy 01/05 no major events, no bleeding on anticoag, no night sweats 01/06 no bleeding or chills, fatigued, in semi-fowlers position 01/07 labs have been noted, no bleeding, dw rn, s/p peg tube 01/09 meds noted, no bleeding, on coumadin and lovenox sq Objective Objective Current Medications Medications (Trade) Dose Ordered Sig/Brayden Route PRN Reason Start Time Stop Time Status Last Admin Dose Admin Acetaminophen (Tylenol) 650 mg Q4H PRN ORAL FEVER 01/03/20 12:45 02/02/20 12:44 01/10/20 04:06 Aspirin (ASA) 81 mg DAILY ORAL 01/09/20 09:00 02/23/20 08:59 01/10/20 08:36 Atorvastatin Calcium (Lipitor) 10 mg BEDTIME ORAL 01/05/20 21:00 04/04/20 20:59 01/09/20 20:22 Dextrose (Dextrose 50%) 25 ml Q30M PRN IV Hypoglycemia 01/03/20 12:45 04/02/20 12:44 Dextrose (Dextrose 50%) 50 ml Q30M PRN IV Hypoglycemia 01/03/20 12:45 04/02/20 12:44 Enoxaparin Sodium (Lovenox) 50 mg EVERY 12 HOURS SUBQ 01/07/20 21:00 04/06/20 20:59 01/10/20 08:37 Loperamide HCl (Imodium) 2 mg Q6H PRN NG Diarrhea 01/08/20 11:30 02/07/20 11:29 01/08/20 11:40 Lorazepam (Ativan) 0.5 mg Q6H PRN ORAL For Anxiety 01/05/20 14:15 01/12/20 14:14 Memantine (Namenda) 5 mg BID ORAL 01/05/20 18:00 02/04/20 17:59 01/10/20 08:36 Metoprolol Tartrate (Lopressor) 50 mg Q12HR ORAL 01/09/20 21:00 04/03/20 20:59 01/10/20 08:36 Polyethylene Glycol (Miralax) 17 gm DAILYPRN PRN ORAL Constipation 01/03/20 12:45 02/02/20 12:44 Promethazine HCl/ Codeine (Phenergan with Codeine) 5 ml EVERY 6 HOURS PRN ORAL cough 01/03/20 12:45 02/02/20 12:44 Warfarin Sodium (Coumadin per pharmacy) 1 ea DAILY PRN MISC Per rx protocol 01/08/20 10:00 02/07/20 09:59 Warfarin Sodium (Coumadin) 7.5 mg DAILY@17 ORAL 01/10/20 17:00 01/10/20 17:01 Last 24 Hour Vital Signs Date Time Temp Pulse Resp B/P (MAP) Pulse Ox O2 Delivery O2 Flow Rate FiO2 01/10/20 08:36 89 125/91 01/10/20 08:00 80 01/10/20 08:00 98.1 89 20 125/91 (102) 99 01/10/20 04:36 99.9 01/10/20 04:00 100.8 84 18 110/69 (83) 97 01/10/20 04:00 84 01/10/20 00:00 98.1 81 19 115/62 (79) 99 01/10/20 00:00 79 01/09/20 21:00 Room Air 01/09/20 20:22 91 128/75 01/09/20 20:00 98.8 91 19 128/75 (92) 100 01/09/20 20:00 81 01/09/20 16:00 86 01/09/20 15:36 98.8 93 18 126/76 (93) 99 01/09/20 12:00 87 01/09/20 11:39 99.0 94 18 148/67 (94) 99 01/09/20 09:00 Room Air 01/09/20 08:19 100 120/59 01/09/20 08:00 97.9 100 18 120/59 (79) 96 01/09/20 08:00 98 01/09/20 04:00 98.2 83 22 131/72 (91) 97 01/09/20 04:00 90 01/09/20 00:00 75 01/09/20 00:00 98.4 79 22 119/68 (85) 97 01/08/20 21:00 Room Air 01/08/20 20:47 97 124/59 01/08/20 20:00 100.4 97 21 124/59 (80) 97 01/08/20 20:00 92 01/08/20 16:01 91 01/08/20 16:00 98.2 86 18 146/78 (100) 98 Intake and Output 01/09/20 01/10/20 19:00 07:00 Intake Total 160 ml Output Total 100 ml Balance -100 ml 160 ml Free Water 100 ml Tube Feeding 60 ml Output Urine Total 100 ml # Voids 3 Labs Test 01/08/20 05:10 01/09/20 06:25 01/10/20 05:40 White Blood Count 7.2 K/UL (4.8-10.8) 7.5 K/UL (4.8-10.8) Red Blood Count 3.96 M/UL (4.20-5.40) 3.58 M/UL (4.20-5.40) Hemoglobin 12.0 G/DL (12.0-16.0) 11.1 G/DL (12.0-16.0) Hematocrit 37.7 % (37.0-47.0) 33.8 % (37.0-47.0) Mean Corpuscular Volume 95 FL (80-99) 94 FL (80-99) Mean Corpuscular Hemoglobin 30.2 PG (27.0-31.0) 31.0 PG (27.0-31.0) Mean Corpuscular Hemoglobin Concent 31.7 G/DL (32.0-36.0) 32.9 G/DL (32.0-36.0) Red Cell Distribution Width 13.3 % (11.6-14.8) 13.7 % (11.6-14.8) Platelet Count 340 K/UL (150-450) 347 K/UL (150-450) Mean Platelet Volume 7.1 FL (6.5-10.1) 6.9 FL (6.5-10.1) Neutrophils (%) (Auto) 77.6 % (45.0-75.0) 75.5 % (45.0-75.0) Lymphocytes (%) (Auto) 16.8 % (20.0-45.0) 15.3 % (20.0-45.0) Monocytes (%) (Auto) 3.3 % (1.0-10.0) 5.7 % (1.0-10.0) Eosinophils (%) (Auto) 2.0 % (0.0-3.0) 3.0 % (0.0-3.0) Basophils (%) (Auto) 0.4 % (0.0-2.0) 0.5 % (0.0-2.0) Prothrombin Time 13.4 SEC (9.30-11.50) 14.1 SEC (9.30-11.50) 14.1 SEC (9.30-11.50) Prothromb Time International Ratio 1.2 (0.9-1.1) 1.3 (0.9-1.1) 1.3 (0.9-1.1) Sodium Level 139 MMOL/L (136-145) 138 MMOL/L (136-145) Potassium Level 4.0 MMOL/L (3.5-5.1) 4.2 MMOL/L (3.5-5.1) Chloride Level 106 MMOL/L (98-107) 105 MMOL/L (98-107) Carbon Dioxide Level 24 MMOL/L (21-32) 26 MMOL/L (21-32) Anion Gap 9 mmol/L (5-15) 7 mmol/L (5-15) Blood Urea Nitrogen 11 mg/dL (7-18) 22 mg/dL (7-18) Creatinine 0.8 MG/DL (0.55-1.30) 0.7 MG/DL (0.55-1.30) Estimat Glomerular Filtration Rate > 60 mL/min (>60) > 60 mL/min (>60) Glucose Level 100 MG/DL (74-106) 89 MG/DL (74-106) Calcium Level 10.1 MG/DL (8.5-10.1) 9.9 MG/DL (8.5-10.1) Total Bilirubin 0.2 MG/DL (0.2-1.0) Aspartate Amino Transf (AST/SGOT) 36 U/L (15-37) Alanine Aminotransferase (ALT/SGPT) 47 U/L (12-78) Alkaline Phosphatase 59 U/L (46-116) Total Protein 6.6 G/DL (6.4-8.2) Albumin 2.5 G/DL (3.4-5.0) Globulin 4.1 g/dL Albumin/Globulin Ratio 0.6 (1.0-2.7) Height (Feet): 5 Height (Inches): 4.00 Weight (Pounds): 108 Objective Physical Exam: Vitals: reviewed General: NAD HEENT: nc, at Neck: supple Chest: clear breath sounds bilaterally Cardiovascular: RRR, no s3, s4 Abdomen: soft, nontender, nd +peg Extremities: no cce, normal range of motion Neuro: aphasic++ Raul Hutton MD Jan 10, 2020 12:15
--- NOTE | 2020-01-10 12:33 | Surgery Progress Note ---
Surgery Progress Note Subjective Additional Comments no acute events comfortable stable labs noted Objective Last 24 Hour Vital Signs Date Time Temp Pulse Resp B/P (MAP) Pulse Ox O2 Delivery O2 Flow Rate FiO2 01/10/20 08:36 89 125/91 01/10/20 08:00 80 01/10/20 08:00 98.1 89 20 125/91 (102) 99 01/10/20 04:36 99.9 01/10/20 04:00 100.8 84 18 110/69 (83) 97 01/10/20 04:00 84 01/10/20 00:00 98.1 81 19 115/62 (79) 99 01/10/20 00:00 79 01/09/20 21:00 Room Air 01/09/20 20:22 91 128/75 01/09/20 20:00 98.8 91 19 128/75 (92) 100 01/09/20 20:00 81 01/09/20 16:00 86 01/09/20 15:36 98.8 93 18 126/76 (93) 99 I&O Intake and Output 01/09/20 01/10/20 19:00 07:00 Intake Total 160 ml Output Total 100 ml Balance -100 ml 160 ml Free Water 100 ml Tube Feeding 60 ml Output Urine Total 100 ml # Voids 3 Dressing: other Wound: other Drains: other Cardiovascular: RSR Respiratory: decreased breath sounds Abdomen: soft, non-tender, present bowel sounds Extremities: no cyanosis Laboratory Tests Test 01/10/20 05:40 White Blood Count 7.5 K/UL (4.8-10.8) Red Blood Count 3.58 M/UL (4.20-5.40) L Hemoglobin 11.1 G/DL (12.0-16.0) L Hematocrit 33.8 % (37.0-47.0) L Mean Corpuscular Volume 94 FL (80-99) Mean Corpuscular Hemoglobin 31.0 PG (27.0-31.0) Mean Corpuscular Hemoglobin Concent 32.9 G/DL (32.0-36.0) Red Cell Distribution Width 13.7 % (11.6-14.8) Platelet Count 347 K/UL (150-450) Mean Platelet Volume 6.9 FL (6.5-10.1) Neutrophils (%) (Auto) 75.5 % (45.0-75.0) H Lymphocytes (%) (Auto) 15.3 % (20.0-45.0) L Monocytes (%) (Auto) 5.7 % (1.0-10.0) Eosinophils (%) (Auto) 3.0 % (0.0-3.0) Basophils (%) (Auto) 0.5 % (0.0-2.0) Prothrombin Time 14.1 SEC (9.30-11.50) H Prothromb Time International Ratio 1.3 (0.9-1.1) H Sodium Level 138 MMOL/L (136-145) Potassium Level 4.2 MMOL/L (3.5-5.1) Chloride Level 105 MMOL/L (98-107) Carbon Dioxide Level 26 MMOL/L (21-32) Anion Gap 7 mmol/L (5-15) Blood Urea Nitrogen 22 mg/dL (7-18) H Creatinine 0.7 MG/DL (0.55-1.30) Estimat Glomerular Filtration Rate > 60 mL/min (>60) Glucose Level 89 MG/DL (74-106) Calcium Level 9.9 MG/DL (8.5-10.1) Total Bilirubin 0.2 MG/DL (0.2-1.0) Aspartate Amino Transf (AST/SGOT) 36 U/L (15-37) Alanine Aminotransferase (ALT/SGPT) 47 U/L (12-78) Alkaline Phosphatase 59 U/L (46-116) Total Protein 6.6 G/DL (6.4-8.2) Albumin 2.5 G/DL (3.4-5.0) L Globulin 4.1 g/dL Albumin/Globulin Ratio 0.6 (1.0-2.7) L Plan Problems: (1) DVT (deep venous thrombosis) (2) Peripheral edema (3) Severe protein-calorie malnutrition Assessment & Plan: plan peg placement tf as tolerated DAILY ESTIMATED NEEDS: Needs based on underweight, wound, CHF/ 48kg 30-35 kcals/kg 5630-9511 total kcals 1.25-1.5 g protein/kg 60-72 g total protein 20-25 mL/kg 960-1200 total fluid mLs NUTRITION DIAGNOSIS: * Increased kcal/prot needs R/T underweight status, wound healing as evidenced by pt @ 88% IBW w/ BMI=18.2, admitted w/ sacral DTPI wound, w/ <35% po intake from oral diet as per 48hr kcal count data, now pending PEG placement. * Altered nutrition related lab values R/T h/o CHF as evidenced by elev BNP ([id number] ->[id number]) CURRENT DIET:NPO ENTERAL NUTRITION RECOMMENDATIONS: Osmolite 1.5 @ 45ml/hr x 24 hrs to provide 1080ml, 1620kcal, 68g prot, 823ml free water * Initiate Osmolite 1.5 @ 15ml/hr x 6hrs * Advance 10ml q 4-6 hrs as tolerated to goal rate * HOB over 30 degrees/ water flush 100ml q 8hrs --PT AT HIGH RISK FOR REFEEDING SYNDROME, SLOWLY INCREASE TF, CHECK LYTES DAILY , REPLETE NEEDED-- ADDITIONAL RECOMMENDATIONS: * Calibrated bedscale wt, weekly wt monitoring, monitor trend * F/up w/ Shaji Count result-> see RD note on 01/05, not meeting needs. * W/ TF, monitor lytes daily, replete as needed- high risk for refeeding * Wound healing: add Vit C 250mg QD + Artemio BID (mix w/ 2oz water) via PEG (4) Protein-calorie malnutrition, severe (5) At high risk for aspiration (6) Urinary tract infection (7) Severe sepsis (8) Alzheimer's dementia (9) Fever Assessment & Plan: Pt presented on admission with Sacral DTPI . Pt is emaciated . Scattered nevi across back. Pt is emaciated with multiple bony prominences that protrudes and increases risks for Pressure Injuries.Optifoam drsgs applied to thoracic spine, Both elbows, both hips and malleoli both feet. Sacral DTPI noted (L)11.5cm x (W)10cm. Base wound is purpuric with area of hyperpigmentation at protruded and bony sacrococcygeal area.Surrounding non- blanching erythema. Both heels are boggy but easily blanchable. Deep tissue injury unlikely etiology of fevers. Chest x-ray reviewed and identified. On antibiotics as per infectious disease. Nutritional supplementation necessary Tx.Plan: Apply Moisture Barrier Paste to Sacrum. Cover with Optifoam drsg. Change every 3 days and prn. Apply Cavilon Skin Barrier to bony prominences and cover each site with Optifoam drsgs as needed. Apply Cavilon Skin Barrier to both heels and Malleoli. Cover each site with Optifoam drsgs. Change every 7 days and PRN. Reposition at least every 2hours or as tolerated. Off-load heels with pillow. APM/AMOR Mattress overlay. Ashok Velazquez Jan 10, 2020 12:33
--- NOTE | 2020-01-10 15:44 | Pulmonology Progress Note ---
Subjective ROS Limited/Unobtainable: No Interval Events: has PEG yesterday Constitutional: Reports: no symptoms Respiratory: Reports: no symptoms Cardiovascular: Reports: no symptoms Gastrointestinal/Abdominal: Reports: no symptoms Allergies: Coded Allergies: No Known Allergies (Unverified , 02/11/17) All Systems: reviewed and negative except above Objective Last 24 Hour Vital Signs Date Time Temp Pulse Resp B/P (MAP) Pulse Ox O2 Delivery O2 Flow Rate FiO2 01/10/20 12:00 98.2 76 20 123/63 (83) 99 01/10/20 12:00 79 01/10/20 09:00 Room Air 01/10/20 08:36 89 125/91 01/10/20 08:00 80 01/10/20 08:00 98.1 89 20 125/91 (102) 99 01/10/20 04:36 99.9 01/10/20 04:00 100.8 84 18 110/69 (83) 97 01/10/20 04:00 84 01/10/20 00:00 98.1 81 19 115/62 (79) 99 01/10/20 00:00 79 01/09/20 21:00 Room Air 01/09/20 20:22 91 128/75 01/09/20 20:00 98.8 91 19 128/75 (92) 100 01/09/20 20:00 81 01/09/20 16:00 86 Intake and Output 01/09/20 01/10/20 19:00 07:00 Intake Total 160 ml Output Total 100 ml Balance -100 ml 160 ml Free Water 100 ml Tube Feeding 60 ml Output Urine Total 100 ml # Voids 3 General Appearance: cachetic - bedridden female in NAD HEENT: normocephalic, atraumatic, anicteric Respiratory: chest wall non-tender, lungs clear - with moderate air exchange , normal breath sounds, no accessory muscle use Cardiovascular: regular rhythm Abdomen: normal bowel sounds, soft, non tender Extremities: no edema Neurologic: abnormal gait - bedridden , alert - nonverbal Musculoskeletal: atrophy - BLE Laboratory Tests 01/10/20 05:40: White Blood Count 7.5, Red Blood Count 3.58L, Hemoglobin 11.1L, Hematocrit 33.8L , Mean Corpuscular Volume 94, Mean Corpuscular Hemoglobin 31.0, Mean Corpuscular Hemoglobin Concent 32.9, Red Cell Distribution Width 13.7, Platelet Count 347, Mean Platelet Volume 6.9, Neutrophils (%) (Auto) 75.5H, Lymphocytes ( %) (Auto) 15.3L, Monocytes (%) (Auto) 5.7, Eosinophils (%) (Auto) 3.0, Basophils (%) (Auto) 0.5, Prothrombin Time 14.1H, Prothromb Time International Ratio 1.3H, Sodium Level 138, Potassium Level 4.2, Chloride Level 105, Carbon Dioxide Level 26, Anion Gap 7, Blood Urea Nitrogen 22H, Creatinine 0.7, Estimat Glomerular Filtration Rate > 60, Glucose Level 89, Calcium Level 9.9, Total Bilirubin 0.2, Aspartate Amino Transf (AST/SGOT) 36, Alanine Aminotransferase ( ALT/SGPT) 47, Alkaline Phosphatase 59, Total Protein 6.6, Albumin 2.5L, Globulin 4.1, Albumin/Globulin Ratio 0.6L Current Medications Medications (Trade) Dose Ordered Sig/Brayden Route PRN Reason Start Time Stop Time Status Last Admin Dose Admin Acetaminophen (Tylenol) 650 mg Q4H PRN ORAL FEVER 01/03/20 12:45 02/02/20 12:44 01/10/20 04:06 Aspirin (ASA) 81 mg DAILY ORAL 01/09/20 09:00 02/23/20 08:59 01/10/20 08:36 Atorvastatin Calcium (Lipitor) 10 mg BEDTIME ORAL 01/05/20 21:00 04/04/20 20:59 01/09/20 20:22 Dextrose (Dextrose 50%) 25 ml Q30M PRN IV Hypoglycemia 01/03/20 12:45 04/02/20 12:44 Dextrose (Dextrose 50%) 50 ml Q30M PRN IV Hypoglycemia 01/03/20 12:45 04/02/20 12:44 Enoxaparin Sodium (Lovenox) 50 mg EVERY 12 HOURS SUBQ 01/07/20 21:00 04/06/20 20:59 01/10/20 08:37 Loperamide HCl (Imodium) 2 mg Q6H PRN NG Diarrhea 01/08/20 11:30 02/07/20 11:29 01/08/20 11:40 Lorazepam (Ativan) 0.5 mg Q6H PRN ORAL For Anxiety 01/05/20 14:15 01/12/20 14:14 Memantine (Namenda) 5 mg BID ORAL 01/05/20 18:00 02/04/20 17:59 01/10/20 08:36 Metoprolol Tartrate (Lopressor) 50 mg Q12HR ORAL 01/09/20 21:00 04/03/20 20:59 01/10/20 08:36 Polyethylene Glycol (Miralax) 17 gm DAILYPRN PRN ORAL Constipation 01/03/20 12:45 02/02/20 12:44 Promethazine HCl/ Codeine (Phenergan with Codeine) 5 ml EVERY 6 HOURS PRN ORAL cough 01/03/20 12:45 02/02/20 12:44 Warfarin Sodium (Coumadin per pharmacy) 1 ea DAILY PRN MISC Per rx protocol 01/08/20 10:00 02/07/20 09:59 Warfarin Sodium (Coumadin) 7.5 mg DAILY@17 ORAL 01/10/20 17:00 01/10/20 17:01 Assessment/Plan Problems: (1) SVT (supraventricular tachycardia) (2) Fever (3) Urinary tract infection (4) Alzheimer's dementia (5) Feeding by G-tube (6) Severe protein-calorie malnutrition (7) At high risk for aspiration Assessment/Plan looks comfortable tolerating PEG feeding cultures checked again check electrolytes off abx covid negative times 2 aspiration precaution dvt prophylaxis. Bharathi Ugalde MD Jan 10, 2020 15:44
[2020-01-10] MEDS ORDERED: COUMADIN7.5 MG ORAL (15:47)
[2020-01-10 16:00] VITALS: BP 122/61
[2020-01-10] MEDS ORDERED: Warfarin Sodium 7.5mg ORAL SCH (17:00)
--- NOTE | 2020-01-13 21:24 | Discharge Summary ---
Discharge Summary Discharge Summary _ DATE OF ADMISSION: 01/03/2020 DATE OF DISCHARGE: 01/10/2020 DISCHARGED BY: Dr. Porter Davila CONSULTANTS: Dr. Bharathi Ewing [facility] HOSPITAL COURSE: Patient is an 85-year-old female from [facility], presented to ED due to acute onset of fever greater than 101 degrees. She has a history of dementia and encephalopathy. Patient is full code. She was given Tylenol at the [facility] without improvement. She had a recent negative COVID-19 testing. Upon evaluation at ED, patient was noted to be at verbal at baseline but confused. Laboratory testing showed markedly elevated BNP. Chest x-ray showed mild streaky opacity of the right lung and left lower lung. ABG showed normal pH with low CO2 consistent with respiratory alkalosis. She was given IV antibiotics. She was then admitted for evaluation of sepsis. Patient was started empirically on IV ceftriaxone and azithromycin. Patient had elevated troponin level of 0.04. She was given aspirin, Lipitor and Lopressor. Echocardiogram showed EF of 55% with moderate aortic stenosis and mitral stenosis. Patient was given Decadron. Rapid COVID-19 testing was negative. Steroid was discontinued. 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 Patient was started on Lovenox and Coumadin. INR goal 2-3. Patient had major depressive disorder. She was given Ativan and Namenda. Surveillance chest x-ray showed improvement in previously demonstrated right upper lung opacity. Patient was saturating well on room air. Patient did not pass swallow evaluation. Patient was recommended tube feeding for interim nutrition, hydration and medication support. Family agreed to PEG tube placement. A G-tube was inserted on 01/07/2020. She tolerated procedure well. In the evening, patient developed nonsustained SVT at a rate of 150. Metoprolol dose was increased. On admission, she was noted to have a sacral deep tissue pressure injury. Patient is emaciated. She was given local wound care. She was placed on APM/ AMOR mattress overlay with frequent repositioning and offloading. Nutrition was optimized. Patient completed antibiotic treatment. Repeat COVID-19 testing was negative. She was eventually [facility] back to [facility]. FINAL DIAGNOSES: Acute DVT on the right leg Probable pneumonia UTI with Aerococcus Anemia of chronic disease Tachycardia due to sepsis Elevated troponin with history of coronary artery disease Recurrent SVT Severe sepsis Feeding via G-tube status post G-tube placement Severe protein calorie malnutrition Alzheimer's dementia High risk for aspiration Sacral deep tissue pressure injury, present on admission Major depressive disorder, mild, recurrent with psychotic features DISPOSITION: Patient was discharged to [facility] DISCHARGE MEDICATIONS: Refer to Discharge Medication List. I have been assigned to complete a discharge summary on this account, I was not involved with the patient's management.--PAWAN Gutierrez Jacqueline Robles NP Jan 13, 2020 21:24
== END 2020-01-10 20:06 | DRG 871 ==
LOC: EDBD 10:22 → EDUNIT# 10:22 → EMR 10:40 → EDBEDREQ 11:38 → EDBEDREQSVC 12:10 → EDBEDREQ 12:10 → 2E 13:50
PROC: 0DH63UZ Insertion of Feeding Device into Stomach, Percutaneous Approach (ICD-10-PCS; principal; 2020-01-07 11:05)
DX: A41.9 Sepsis, unspecified organism (principal); E43 Unspecified severe protein-calorie malnutrition; J18.9 Pneumonia, unspecified organism; N39.0 Urinary tract infection, site not specified; Z68.1 Body mass index [BMI] 19.9 or less, adult; R47.01 Aphasia; I82.401 Acute embolism and thrombosis of unspecified deep veins of right lower extremity; I82.502 Chronic embolism and thrombosis of unspecified deep veins of left lower extremity; I47.1 Supraventricular tachycardia; F33.0 Major depressive disorder, recurrent, mild; R65.20 Severe sepsis without septic shock; G30.9 Alzheimer's disease, unspecified; F02.80 Dementia in other diseases classified elsewhere, unspecified severity, without behavioral disturbance, psychotic disturbance, mood disturbance, and anxiety; Z79.82 Long term (current) use of aspirin; I25.10 Atherosclerotic heart disease of native coronary artery without angina pectoris; R62.7 Adult failure to thrive; N18.9 Chronic kidney disease, unspecified; B95.2 Enterococcus as the cause of diseases classified elsewhere; D63.8 Anemia in other chronic diseases classified elsewhere; R74.8 Abnormal levels of other serum enzymes; L89.156 Pressure-induced deep tissue damage of sacral region
CPT/HCPCS: 36415; 36600; 71045; 80048; 80053; 80061; 80069; 81003; 82550; 82553; 82803; 83605; 83880; 84439; 84443; 84484; 85025; 85610; 85730; 87040; 87081; 87086; 87181; 93005; 93306; 93970; 96365; 96368; 97802; 99285; J7030; U0002